=== PATIENT | female | born 1945 | race Caucasian/White ===

== ENCOUNTER 2018-03-01 15:12 | Emergency (ER) | payer MEDICARE, SELFPAY ==
[2018-03-01 15:14] VITALS: BP 163/70; PULSE 66; RESP 18; TEMP 36.5; O2SAT 99; BMI 30.3
[2018-03-01] MEDS: Lidocaine/Epi/Tetracaine 50 ML 1 APPLIC TOPICAL (15:40)
--- NOTE | 2018-03-01 16:21 | ED.VISSUMM ---
- ER Visit Summary Date of Service: 03/01/18 Chief Complaint: Finger laceration History of Present Illness: The patient is a 72 F who sustained a right little finger laceration while cleaning the garage. She did this on a cesario burn barrel. Unknown last tetanus. She is on Coumadin and is supposed to have her INR checked tomorrow. She would prefer that we not check it today and instead she will have it checked at her doctor's office tomorrow. Physical Examination: Afebrile vital signs stable The right little finger shows a 2.5 cm curvilinear laceration over the dorsal aspect in between the MCP joint and the PIP joint. Extensor tendon is visualized on gross examination. On closer examination under local lidocaine there is a longitudinal laceration to the tendon. The tendon has excellent strength still. It was taken through full range of motion. Emergency Department Course and Treatment: Tetanus was updated. Wound was locally anesthetized using let at the patient's request followed by 1% lidocaine locally. Wound was explored washed with Shur-Clens and irrigated with 250 cc of sterile saline. Wound was closed using 4 simple interrupted 4-0 Ethilon sutures. Patient will have the finger splinted in extension. I will have her follow-up with orthopedics. Impression: 1. 2.5 cm right little finger laceration with repair 2. Extensor tendon laceration 3. Tetanus update This note was generated with [employer] dictation software. It may contain incorrect words, spelling, and punctuation that were not noted in review of the chart prior to signing ED Disposition - Plan for ED Patient: Disposition: Home or Assisted Living Chief Complaint: Laceration Instructions: ED Laceration Hand, ED Laceration Tendon Prescriptions: Cephalexin [Keflex] 500 mg PO Q6 #28 cap Referrals: Selena Haney DO [STAFF PHYSICIAN] - As soon as possible
[2018-03-01] MEDS: Diphth,Pertuss(Acell),Tet Vac 0.5 ML Vial IM (16:35)
== END 2018-03-01 16:51 | disposition home or self-care (01) ==
PROVIDERS: Emergency Provider Emergency Medicine; Family Provider Internal Medicine; PCP Internal Medicine
DX: S61.216A Laceration without foreign body of right little finger without damage to nail, initial encounter (principal); S66.326A Laceration of extensor muscle, fascia and tendon of right little finger at wrist and hand level, initial encounter; W26.8XXA Contact with other sharp object(s), not elsewhere classified, initial encounter; Y93.9 Activity, unspecified; Y92.9 Unspecified place or not applicable; Z23 Encounter for immunization; Z86.73 Personal history of transient ischemic attack (TIA), and cerebral infarction without residual deficits; Z79.01 Long term (current) use of anticoagulants
CPT/HCPCS: 12001; 90471; 90715; 99284

== ENCOUNTER 2020-01-10 20:37 | Emergency (ER) | payer MEDICARE, SELFPAY ==
[2020-01-10 20:38] VITALS: BP 160/87; PULSE 67; RESP 15; TEMP 37; O2SAT 98; BMI 29.2
--- NOTE | 2020-01-10 21:02 | CT_ITS ---
STUDY: CT BRAIN WITHOUT CONTRAST REASON FOR EXAM: Female, 74 years old. Fall. RADIATION DOSAGE (If Supplied By Facility): CTDIvol = ( 44.99 ) mGy, DLP = ( 846.73 ) mGycm TECHNIQUE: Transaxial CT imaging of the brain was performed without administration of intravenous contrast material. Individualized dose optimization techniques were used for this CT. COMPARISON: None. FINDINGS: There is no acute bleed or infarct. There are normal white matter tracts. The ventricles are normal in configuration. There is no hydrocephalus. The visualized paranasal sinuses are clear. The mastoid air cells are well aerated. There is no skull fracture. CT/Brain/Head without Contrast IMPRESSION: No acute intracranial abnormality. Electronically Signed: Nilay Wetzel, at 21:42 EDT Tel , Service support ,
--- NOTE | 2020-01-10 21:03 | RAD_ITS ---
STUDY: X-RAY - RIGHT SHOULDER REASON FOR EXAM: Female, 74 years old. Pain TECHNIQUE: 2 view(s) of the shoulder. COMPARISON: None. FINDINGS: There is a mildly impacted fracture of the humeral neck. The remainder the visualized osseous structures are intact. There are no radiodense foreign bodies. RAD/Shoulder min 2 Views IMPRESSION: Mildly impacted fracture of the humeral neck. Electronically Signed: Nilay Wetzel, at 21:57 EDT Tel , Service support ,
[2020-01-10] MEDS: Ondansetron 4 MG/2 ML Vial IM (21:23)
[2020-01-10] MEDS: Morphine 4 MG/ML Syringe IM (21:24)
--- NOTE | 2020-01-10 21:35 | RAD_ITS ---
STUDY: X-RAY CHEST REASON FOR EXAM: Female, 74 years old. Chest pain TECHNIQUE: Frontal view of the chest COMPARISON: None. FINDINGS: The lungs are clear. There are no pleural effusions. There is no pneumothorax. The heart is normal in size. The patient is status post sternotomy. There is a mildly impacted fracture of the humeral head. RAD/Chest 1 View (Portable) IMPRESSION: Mildly impacted fracture of the humeral head. Clear lungs. Electronically Signed: Nilay Wetzel, at 21:56 EDT Tel , Service support ,
--- NOTE | 2020-01-10 21:47 | ED.VISSUMM ---
- ER Visit Summary Date of Service: 01/10/20 Chief Complaint: [Fall with right shoulder injury] History of Present Illness: The patient is a 74 F [presents the emergency department after sustaining a fall approximately 5 PM. Patient states that she was coming up the porch when she slipped and fell landing on her right shoulder. She is not sure if she hit her head. No loss of consciousness. Patient is on Coumadin. Patient is progressively had more more discomfort. She states the pain tends to radiate towards her neck. She denies any paresthesias or weakness in extremities. Patient is on Coumadin for history of prior stroke. Patient has had recent AAA repair and she has a replaced valve she is not sure which that is bovine.] Physical Examination: [HEENT-PERRLA, EOMI. Cranial nerves II through XII grossly intact. TMs clear. Mucous membranes moist. No adenopathy. No external evidence of trauma to her head. She has no C-spine tenderness on palpation. She has normal active range of motion is painless in her neck. Cardiovascular-regular rate and rhythm without murmur or ectopy Lungs-clear to auscultation, chest wall stable without crepitus or subcu emphysema Abdomen-normoactive bowel sounds, soft, nontender, no rebound or rigidity, no peritoneal signs. Extremities-intact ?4, normal range of motion, normal pulses. Right arm-patient has tenderness over the right proximal humerus. No obvious deformity or sulcus sign noted. She is got some mild soft tissue swelling however there is no ecchymosis or bruising. She is neurovascular intact distally.] Test Results: [CT scan of the brain without contrast showed nothing acute. X-rays of the right shoulder showed a proximal humerus fracture that impacted without evidence of dislocation. Chest x-ray showed nothing acute.] Emergency Department Course and Treatment: [Patient was given morphine sulfate 4 mg IM as well as Zofran 4 mg IM. Patient was given a sling.] Treatment Plan: [She will be given a prescription for [place] and referred to orthopedics for follow-up.] Disposition: [Discharged home in stable condition.] Impression: [Chemical fall Right proximal humerus fracture Closed head injury] This note was generated with [employer] software. It may contain incorrect words, spelling, and punctuation that were not noted in review of the chart prior to signing ED Disposition - Plan for ED Patient: Referrals: Radha Carmichael MD [Primary Care Provider] -
--- NOTE | 2020-01-10 21:49 | DCINST.ED_ITS ---
ED Disposition - Plan for ED Patient: Instructions: ED Mechanical Fall, ED Fracture Upper Extremity Prescriptions: Hydrocodone Bitart/Apap 5-325 [[place] 5MG-325MG] 1 tab PO Q4H PRN PRN 2 Days #20 tab PRN Reason: Pain Prescription Printed Referrals: Radha Carmichael MD [Primary Care Provider] - Nilay Stephens MD [STAFF PHYSICIAN] - 3-5 Days
[2020-01-10] MEDS: HYDROcodone Bitartrate/Apap 5/325 Tablet PO (22:06)
== END 2020-01-10 23:18 | disposition home or self-care (01) ==
LOC: ED 21:17
PROVIDERS: Emergency Provider Emergency Medicine; PCP Internal Medicine
DX: S42.201A Unspecified fracture of upper end of right humerus, initial encounter for closed fracture (principal); S09.90XA Unspecified injury of head, initial encounter; S49.91XA Unspecified injury of right shoulder and upper arm, initial encounter; W01.0XXA Fall on same level from slipping, tripping and stumbling without subsequent striking against object, initial encounter; Z79.01 Long term (current) use of anticoagulants; Z86.73 Personal history of transient ischemic attack (TIA), and cerebral infarction without residual deficits
CPT/HCPCS: 70450; 71045; 73030; 96372; 99283; J2405

== ENCOUNTER 2020-02-15 17:29 | Inpatient (IN) | payer MEDICARE, SELFPAY ==
[2020-02-15 17:30] VITALS: BP 141/83; PULSE 69; RESP 18; TEMP 36.2; O2SAT 100; BMI 28.5
--- NOTE | 2020-02-15 17:44 | RAD_ITS ---
STUDY: X-RAY - RIGHT SHOULDER REASON FOR EXAM: Female, 74 years old. Shoulder pain, previous fracture to right shoulder 4-5 weeks ago. TECHNIQUE: 2 view(s) of the shoulder. COMPARISON: Prior right shoulder radiographs of 09/10/2019 FINDINGS: The humerus is somewhat low lying but otherwise located to the glenoid fossa. The acromioclavicular joint is located with moderately advanced degenerative arthrosis. Normal acromion. Prior healed right humeral neck fracture deformity without acute fracture. The soft tissue structures are unremarkable. Normal visualized pulmonary apex. RAD/Shoulder min 2 Views IMPRESSION: 2 view exam of the shoulder demonstrates a somewhat low-lying humeral head that is otherwise located without acute fracture deformity. Prior healed humeral neck fracture deformity. Degenerative arthrosis of the acromioclavicular joint. Negative for clavicle or scapular fracture. Electronically Signed: Shanelle Verduzco MD at 19:05 EDT , Service support ,
--- NOTE | 2020-02-15 17:46 | ED.DCSUM_ITS ---
History of Present Illness Chief Complaint: Upper Extremity Injury Informant: Patient Onset: Today Context: Gradual Onset Timing: Continuous Current Severity: Moderate Maximum Severity: Severe Narrative: The patient is a 74-year-old female that presents to the emergency department with increasing right shoulder pain. The patient had a mechanical fall just about a month ago. She has a proximal humerus fracture. She has been in her sling. She states today, her pain was increasing. Her is currently hospitalized and she has been having to do a lot more things by herself at home. She did try to take Tylenol or Accord with little improvement. She then took another Accord and was still having increasing pain. She describes a burning pain in her upper arm. She cannot recall any specific injury. She states that she did put it in her sling herself today after getting dressed. She did not fall. She is otherwise been in her normal state of health. Prior similar symptoms: Yes Recent Illness/Hospitalization: No Past Medical History - Allergies and Home Meds Allergies/Adverse Reactions: Allergies Penicillins [PCN] Allergy (Verified 02/15/20 17:33) Hives tramadol Allergy (Verified 02/15/20 17:33) Other ciprofloxacin [From Cipro] Adverse Reaction (Verified 02/15/20 19:01) PT UNSURE OF REACTION ramelteon Adverse Reaction (Verified 02/15/20 19:01) PT UNSURE OF REACTION trazodone Adverse Reaction (Verified 02/15/20 19:01) PT UNSURE OF REACTION Primary Care Physician: Radha Carmichael MD [Primary Care Provider] - Prior records reviewed: Yes Surgical History: noncontributory Smoking Status: Never smoker Review of Systems General: Denies: Chills, Fever, Sweats Eyes: Denies: Visual changes - bilaterally, Diplopia ENT: Denies: Rhinorrhea, Sore throat Cardiovascular: Denies: Chest pain, Palpitations Respiratory: Denies: Dyspnea, Cough, Dyspnea on exertion Gastrointestinal: Denies: Abdominal pain, Nausea, Vomiting, Diarrhea, Melena, Hematochezia Genitourinary: Denies: Dysuria, Hematuria, Frequency Musculoskeletal: Denies: Back pain, Extremity Pain Skin: Denies: Rash, Wounds Neurological: Denies: Headache, Weakness, Numbness Physical Exam Vital Signs/Narrative: Vital Signs Temp Pulse Resp BP Pulse Ox 02/15/20 17:30 97.2 F L 69 18 141/83 H 100 Inital Vital Signs reviewed: Yes General: Well nourished, Well developed, No Acute Distress Head: Normocephalic, Atraumatic Eyes: Perrl, EOMI ENT: Moist mucous membranes, No rhinorrhea Neck: Supple, Nontender Cardiovascular: Regular rate, Regular rhythm, No murmurs Respiratory: No distress, CTA bilaterally, Chest nontender Abdomen: Soft, Nontender, Nondistended, Normal bowel sounds Back: Nontender, Normal Inspection Extremities: Nontender, No edema Skin: Normal color, No rash Neurological: Alert, Oriented x3, Cranial nerves II-XII grossly intact, Normal Strength, Normal Sensation Psychological: Normal affect, Normal Mood Diagnostic/Tx/Re-eval Clinical Impression(s) from Imaging Studies Shoulder X-Ray 02/15/20 17:44 IMPRESSION: 2 view exam of the shoulder demonstrates a somewhat low-lying humeral head that is otherwise located without acute fracture deformity. Prior healed humeral neck fracture deformity. Degenerative arthrosis of the acromioclavicular joint. Negative for clavicle or scapular fracture. Electronically Signed: Shanelle Verduzco MD at 19:05 EDT , Service support , Clinical Impression(s) from Imaging Studies Shoulder X-Ray 02/15/20 17:44 IMPRESSION: 2 view exam of the shoulder demonstrates a somewhat low-lying humeral head that is otherwise located without acute fracture deformity. Prior healed humeral neck fracture deformity. Degenerative arthrosis of the acromioclavicular joint. Negative for clavicle or scapular fracture. Electronically Signed: Shanelle Verduzco MD at 19:05 EDT , Service support , Abnormal Lab Results 02/15/20 02/15/20 02/15/20 17:55 17:55 17:55 WBC 6.7 RBC 4.89 Hgb 14.3 Hct 44.2 MCV 90.4 MCH 29.2 MCHC 32.4 RDW Std Deviation 40.3 RDW Coeff of Yasir 12.2 Plt Count 246 MPV 8.9 Immature Gran % (Auto) 0.300 Neut % (Auto) 74.1 H Lymph % (Auto) 16.7 L [place] % (Auto) 7.9 Eos % (Auto) 0.3 Baso % (Auto) 0.7 Absolute Neuts (auto) 5.0 Absolute Lymphs (auto) 1.12 Nucleated RBC % 0 PT 27.1 H INR 2.6 Sodium 137 Potassium 4.0 Chloride 105 Carbon Dioxide 27.0 Anion Gap 5 BUN 11 Creatinine 0.94 Estim Creat Clear Calc 43.97 Est GFR (MDRD) Af Amer 74 Est GFR (MDRD) Non-Af 62 BUN/Creatinine Ratio 11.7 Glucose 170 H Calcium 10.1 Total Bilirubin 0.70 AST 14 L ALT 16 Alkaline Phosphatase 105 Total Protein 8.1 Albumin 4.2 Globulin 3.9 Albumin/Globulin Ratio 1.1 - Rhythm Strip Rhythm Strip: A-fib Rate: 80 - Medical Decision Making The patient presents with worsening right-sided shoulder pain. Her is currently hospitalized. She is had to do everything herself. Her sling was not fitting appropriately. I did obtain x-rays which show some subluxation of the shoulder without dislocation. Metabolic work-up was unremarkable. The patient required multiple doses of analgesics and antispasmodics with no improvement. I am concerned because she lives by herself and is not able to control her pain. I do feel the most prudent plan of care would be for observation for pain control and PT evaluation. The patient was discussed with the hospitalist. Impression 1. Exacerbation of right shoulder pain ED Disposition - Plan for ED Patient: Referrals: Radha Carmichael MD [Primary Care Provider] -
[2020-02-15] MEDS: Morphine 4 MG/ML Syringe IV ×2 (18:04→23:32)
[2020-02-15] MEDS: Ondansetron 4 MG/2 ML Vial IV (18:04)
[2020-02-15 18:13] LABS: Absolute Lymphocyte Count 1.12 X10^3/uL (0.83-4.51); Basophil# 0.05 X10^3/uL; Basophil% 0.7 % (0-1); Eosinophil# 0.02 X10^3/uL; Eosinophils% 0.3 % (0-5); Hematocrit 44.2 % (37-47); Hemoglobin 14.3 g/dL (12.0-15.0); Lymphocyte # 1.12 X10^3/ul (4.0); Lymphocyte % 16.7 % (19-41); Mean Corp Hgb Conc 32.4 g/dL (32-36); Mean Corpuscular Hgb 29.2 pg (27.0-32.0); Mean Corpuscular Volume 90.4 fL (81-99); Mean Platelet Vol. 8.9 fl (6.2-12.0); Monocyte# 0.53 X10^3/uL; Monocyte% 7.9 % (0-10); NRBC Flagged by Analyzer 0 % (0-5); Neutrophil # 4.98 X10^3/uL (2.7-7.7); Neutrophil % 74.1 % (47-70); Platelet Count 246 K/mm3 (150-450); RBC Distribution Width CV 12.2 % (11.6-14.6); RBC Distribution Width SD 40.3 fl (35.1-43.9); Red Blood Count 4.89 M/mm3 (4.2-5.4); White Blood Count 6.7 K/mm3 (4.4-11.0)
[2020-02-15 18:14] VITALS: BP 193/90; PULSE 74; RESP 22; O2SAT 96
[2020-02-15 18:16] LABS: International Normalized Ratio 2.6; Prothrombin Time (Protime)PT. 27.1 SECONDS (11.7-14.9)
[2020-02-15 18:23] LABS: ALB/GLOB Ratio 1.1 RATIO (0.9-2.4); AST(SGOT) 14 U/L (15-37); Alanine Aminotransfer ALT/SGPT 16 U/L (13-56); Albumin, Serum 4.2 g/dL (3.2-5.0); Alkaline Phosphatase 105 U/L (45-117); Anion Gap 5 (5-15); BUN 11 mg/dL (7-18); BUN/Creat Ratio 11.7 RATIO (10-20); Calcium,Total 10.1 mg/dL (8.5-10.1); Chloride 105 mmol/L (98-107); Creatinine, Serum 0.94 mg/dL (0.55-1.02); EST Glomerular Filtration Rate 62 mL/min (>60); Est Glom Filt Rate - Afr Amer 74 mL/min (>60); Estimated Creatinine Clearance 43.97 ml/min; Globulin 3.9 g/dL (2.2-4.2); Glucose 170 mg/dL (74-106); Protein, Total 8.1 g/dL (6.4-8.2); Sodium Level 137 mmol/L (136-145)
[2020-02-15] MEDS: HYDROmorphone 0.5 MG/0.5 ML SYRINGE IV (18:51)
[2020-02-15] MEDS: LORazepam 2 MG/ML Syringe 0.5 MG IV (19:47)
[2020-02-15 19:50] VITALS: BP 186/109; PULSE 79; RESP 16
[2020-02-15 20:26] VITALS: BP 163/104; PULSE 78; RESP 20; TEMP 36.7; O2SAT 97
--- NOTE | 2020-02-15 20:32 | PCM.HP.STD ---
History of Present Illness Date of Admission: 02/15/20 Chief Complaint: Shoulder pain The patient is a 74 year old F with a PMH as below who presents with increasing right shoulder pain. She broke her shoulder about a month ago and has been in a sling since then. Unfortunately her was admitted for weakness and she has been home alone and therefore was not wearing her sling all day today. She did try to take some Tylenol and [place] at home but that did not help. So she presented to the hospital for increasing pain. In the ER testing was unremarkable, the shoulder x-ray did not show a worsening fracture. She is unable to take care of herself at home and her is going to be placed in a senior care. Per the daughter, she is having increasing dementia and has had a significant decline over the last 2 years. Past Medical History Allergies Penicillins [PCN] Allergy (Verified 02/15/20 17:33) Hives tramadol Allergy (Verified 02/15/20 17:33) Other ciprofloxacin [From Cipro] Adverse Reaction (Verified 02/15/20 19:01) PT UNSURE OF REACTION ramelteon Adverse Reaction (Verified 02/15/20 19:01) PT UNSURE OF REACTION trazodone Adverse Reaction (Verified 02/15/20 19:01) PT UNSURE OF REACTION Home Medications: Ambulatory Orders Medication Instructions Recorded Amlodipine [Norvasc] 5 mg PO DAILY 02/15/20 Aspirin 81 mg PO DAILY 02/15/20 Gabapentin [Neurontin] 600 mg PO QHS 02/15/20 Lisinopril [Zestril] 40 mg PO DAILY 02/15/20 Metformin HCl [Glucophage Xr] 500 mg PO DAILY 02/15/20 Metoprolol Succinate [Toprol Xl] 50 mg PO QHS 02/15/20 Multivitamin with Minerals 1 ea PO DAILY 02/15/20 [Multiple Vitamin] Polyethylene Glycol 3350 [Miralax] 17 gm PO DAILY 02/15/20 Warfarin [Coumadin ([facility])] 3 mg PO 1600 02/15/20 Surgical History: - - Aortic valve replacement, aortic aneurysm repair Smoking Status: Never smoker Alcohol: None Drugs: None - *Family History Maternal History Items: Heart Disease, Hypertension Paternal History Items: Heart Disease, Hypertension Review of Systems Constitutional: Denies: Chills, Fever, Weight Change HEENT: Denies: Head Aches, Sinus Congestion, Sinus Drainage Cardiovascular: Denies: Chest Pain, Palpitations Respiratory: Denies: Cough, Shortness of breath at rest, Sputum production Gastrointestinal: Denies: Abdominal Pain, Nausea, Vomiting Genitourinary: Denies: Dysuria Musculoskeletal: Reports: Shoulder Pain - Right. Denies: Joint Pain, Joint Tenderness Skin: Denies: Rash, Wounds Neurological: Denies: Numbness, Tingling, Focal weakness Psychiatric: Denies: Anxiety, Depression Hematologic/ Lymphatic: Denies: Easy Bruising, Easy Bleeding VTE Information - Inpt Only VTE Present on Admission: No - Physical Exam Vitals/I&O's: Vital Signs Temp Pulse Resp BP Pulse Ox 98.0 F 78 20 H 163/104 H 97 02/15/20 20:26 02/15/20 20:26 02/15/20 20:26 02/15/20 20:26 02/15/20 20:26 Oxygen Delivery Method Room Air Weight: 166 lb Body Mass Index (BMI) 28.5 General: Alert, Oriented x3, Cooperative, No apparent distress HEENT: Atraumatic, PERRLA, EOMI, Normocephalic Oral: Moist Mucosa Neck: Supple, No JVD Lungs: Clear to auscultation, Normal air movement, No rhonchi, No wheeze, No rales Cardiovascular: Regular rate, Regular Rhythm, Normal S1, Normal S2, No murmurs Abdomen: Soft, Non Tender, Non-Distended, No Hepato-splenomegaly Extremities: No edema, Capillary Refill Less than 3 Seconds Skin: No rashes, No breakdown Musculoskeletal: Tenderness - Right shoulder Neurological: Neuro grossly intact, Sensory exam intact to light touch and pain Psych/Mental Status: Normal Affect, Appropriate Laboratory Results 02/15/20 17:55: WBC 6.7, RBC 4.89, Hgb 14.3, Hct 44.2, MCV 90.4, MCH 29.2, MCHC 32.4, RDW Std Deviation 40.3, RDW Coeff of Yasir 12.2, Plt Count 246, MPV 8.9, Immature Gran % (Auto) 0.300, Neut % (Auto) 74.1 H, Lymph % (Auto) 16.7 L, [place] % (Auto) 7.9, Eos % (Auto) 0.3, Baso % (Auto) 0.7, Absolute Neuts (auto) 5.0, Absolute Lymphs (auto) 1.12, Nucleated RBC % 0 02/15/20 17:55: PT 27.1 H, INR 2.6 02/15/20 17:55: Sodium 137, Potassium 4.0, Chloride 105, Carbon Dioxide 27.0, Anion Gap 5, BUN 11, Creatinine 0.94, Estim Creat Clear Calc 43.97, Est GFR (MDRD) Af Amer 74, Est GFR (MDRD) Non-Af 62, BUN/Creatinine Ratio 11.7, Glucose 170 H, Calcium 10.1, Total Bilirubin 0.70, AST 14 L, ALT 16, Alkaline Phosphatase 105, Total Protein 8.1, Albumin 4.2, Globulin 3.9, Albumin/Globulin Ratio 1.1 Assessment/Plan 1. Right shoulder pain status post right proximal humeral fracture -Fracture occurred 4 weeks ago however because her is in the hospital she was managing at home on her own and was not wearing the sling for the last 24 hours -Shows subluxation no dislocation, and no worsening of the fracture -Continue with Tylenol and oxycodone and morphine as needed -PT/OT -Case management for possible placement 2. HTN/A. fib/history of CVA -Blood pressure is stable -Continue with Norvasc and lisinopril and metoprolol -INR is 2.6, continue with Coumadin 3. DM 2 -Hold home metformin, placed on sliding scale insulin -Accu-Cheks AC at bedtime 4. Probable dementia -Per the daughter she has not had a work-up as an outpatient -Can decline over the last 2 years DVT: Coumadin OBSV E&M: [id number] Initial observation care L2
[2020-02-15 21:03] VITALS: BP 163/76; PULSE 81; RESP 18; TEMP 36.6; O2SAT 100
[2020-02-15] MEDS: oxyCODONE 5 MG Tablet PO (21:18)
[2020-02-15] MEDS: Acetaminophen 325 MG Tablet 650 MG PO (21:18)
[2020-02-15 21:19] VITALS: BMI 28.8
[2020-02-15 21:37] VITALS: BMI 28.8
[2020-02-15 22:11] LABS: Bedside Glucose 184 mg/dL (70-110)
[2020-02-15] MEDS: Insulin Lispro 100 UNIT/ML INSULN.PEN SC (22:14)
[2020-02-15 23:16] VITALS: PULSE 80
[2020-02-15] MEDS: Gabapentin 600 MG Tablet PO (23:16)
[2020-02-15] MEDS: Metoprolol(XL)Succ 50 MG Tablet PO (23:16)
[2020-02-16 02:58] VITALS: BP 149/64; PULSE 71; RESP 18; TEMP 37.4; O2SAT 94
[2020-02-16 05:52] LABS: Absolute Lymphocyte Count 1.56 X10^3/uL (0.83-4.51); Absolute Neutrophil Count 6.9 X10^3/uL (2.0-7.7); Basophil# 0.05 X10^3/uL; Basophil% 0.5 % (0-1); Eosinophil# 0.01 X10^3/uL; Eosinophils% 0.1 % (0-5); Hematocrit 44.2 % (37-47); Lymphocyte # 1.56 X10^3/ul (4.0); Lymphocyte % 16.6 % (19-41); Mean Corp Hgb Conc 31.7 g/dL (32-36); Mean Corpuscular Hgb 29.8 pg (27.0-32.0); Mean Platelet Vol. 8.8 fl (6.2-12.0); Monocyte# 0.82 X10^3/uL; Monocyte% 8.7 % (0-10); NRBC Flagged by Analyzer 0.5 % (0-5); Neutrophil % 73.7 % (47-70); Platelet Count 236 K/mm3 (150-450); RBC Distribution Width CV 12.1 % (11.6-14.6); White Blood Count 9.4 K/mm3 (4.4-11.0)
[2020-02-16 06:02] LABS: International Normalized Ratio 2.8; Prothrombin Time (Protime)PT. 29.5 SECONDS (11.7-14.9)
[2020-02-16 06:17] LABS: Anion Gap 7 (5-15); BUN 8 mg/dL (7-18); BUN/Creat Ratio 11.3 RATIO (10-20); Calcium,Total 9.1 mg/dL (8.5-10.1); Chloride 105 mmol/L (98-107); Creatinine, Serum 0.71 mg/dL (0.55-1.02); EST Glomerular Filtration Rate 85 mL/min (>60); Est Glom Filt Rate - Afr Amer 103 mL/min (>60); Estimated Creatinine Clearance 41.33 ml/min; Glucose 123 mg/dL (74-106); Potassium 3.9 mmol/L (3.5-5.1); Sodium Level 132 mmol/L (136-145)
[2020-02-16 06:41] LABS: Bedside Glucose 126 mg/dL (70-110)
[2020-02-16] MEDS: Acetaminophen 325 MG Tablet 650 MG PO (09:45)
[2020-02-16] MEDS: oxyCODONE 5 MG Tablet PO ×2 (09:45→14:25)
[2020-02-16] MEDS: Aspirin 81 MG TAB.CHEW PO (09:46)
[2020-02-16] MEDS: amLODIPine 5 MG Tablet PO (09:46)
[2020-02-16] MEDS: Lisinopril 40 MG Tablet PO (09:46)
[2020-02-16 10:00] VITALS: BP 173/80; PULSE 80; RESP 18; TEMP 37.3; O2SAT 95
[2020-02-16] MEDS: Insulin Lispro 100 UNIT/ML INSULN.PEN SC (11:28)
[2020-02-16 11:41] LABS: Bedside Glucose 263 mg/dL (70-110)
[2020-02-16] MEDS: Morphine 4 MG/ML Syringe IV (13:23)
[2020-02-16 13:33] VITALS: BP 141/59; PULSE 67; RESP 18; O2SAT 95
--- NOTE | 2020-02-16 14:41 | PN_ITS ---
Subjective: Patient seen and examined. Complains of severe right shoulder pain. Denies other current symptoms or complaints. Agreeable to SNF at discharge as she is having a hard time taking care of herself due to injury. - Physical Exam Vitals/I&O's: Vital Signs Temp Pulse Resp BP Pulse Ox 99.2 F H 67 18 141/59 H 95 02/16/20 10:00 02/16/20 13:33 02/16/20 13:33 02/16/20 13:33 02/16/20 13:33 Oxygen Delivery Method Room Air Weight: 167 lb 8.821 oz Body Mass Index (BMI) 28.8 Intake and Output for Last 24 Hours 02/14/20 02/15/20 02/16/20 23:59 23:59 23:59 Intake Total 450 / 450 Balance 450 / 450 General: Alert, Oriented x3, Cooperative, - - Appears uncomfortable HEENT: Atraumatic, PERRLA, EOMI, Normocephalic Neck: Supple, No JVD, Negative Carotid Bruits Lungs: Clear to auscultation, Normal air movement Cardiovascular: Regular rate, No murmurs Abdomen: Bowel Sounds Present, Soft, Non Tender Extremities: No clubbing, No cyanosis, No edema, Capillary Refill Less than 3 Seconds Skin: No rashes, No breakdown Musculoskeletal: No Tenderness to Palpation of Joints or Extremities, - - Right shoulder pain, right arm in sling Neurological: Cranial nerves II-XII grossly intact, Neuro grossly intact Psych/Mental Status: Normal Affect, Appropriate Laboratory Results 02/15/20 17:55: WBC 6.7, RBC 4.89, Hgb 14.3, Hct 44.2, MCV 90.4, MCH 29.2, MCHC 32.4, RDW Std Deviation 40.3, RDW Coeff of Yasir 12.2, Plt Count 246, MPV 8.9, Immature Gran % (Auto) 0.300, Neut % (Auto) 74.1 H, Lymph % (Auto) 16.7 L, [place] % (Auto) 7.9, Eos % (Auto) 0.3, Baso % (Auto) 0.7, Absolute Neuts (auto) 5.0, Absolute Lymphs (auto) 1.12, Nucleated RBC % 0 02/15/20 17:55: PT 27.1 H, INR 2.6 02/15/20 17:55: Sodium 137, Potassium 4.0, Chloride 105, Carbon Dioxide 27.0, Anion Gap 5, BUN 11, Creatinine 0.94, Estim Creat Clear Calc 43.97, Est GFR (MDRD) Af Amer 74, Est GFR (MDRD) Non-Af 62, BUN/Creatinine Ratio 11.7, Glucose 170 H, Calcium 10.1, Total Bilirubin 0.70, AST 14 L, ALT 16, Alkaline Phosphatase 105, Total Protein 8.1, Albumin 4.2, Globulin 3.9, Albumin/Globulin Ratio 1.1 02/15/20 22:06: POC Glucose 184 H 02/16/20 05:45: WBC 9.4, RBC 4.70, Hgb 14.0, Hct 44.2, MCV 94.0, MCH 29.8, MCHC 31.7 L, RDW Std Deviation 42.0, RDW Coeff of Yasir 12.1, Plt Count 236, MPV 8.8, Immature Gran % (Auto) 0.400, Neut % (Auto) 73.7 H, Lymph % (Auto) 16.6 L, [place] % (Auto) 8.7, Eos % (Auto) 0.1, Baso % (Auto) 0.5, Absolute Neuts (auto) 6.9, Absolute Lymphs (auto) 1.56, Nucleated RBC % 0.5 02/16/20 05:45: Sodium 132 L, Potassium 3.9, Chloride 105, Carbon Dioxide 20.0 L , Anion Gap 7, BUN 8, Creatinine 0.71, Estim Creat Clear Calc 41.33, Est GFR (MDRD) Af Amer 103, Est GFR (MDRD) Non-Af 85, BUN/Creatinine Ratio 11.3, Glucose 123 H, Calcium 9.1 02/16/20 05:45: PT 29.5 H, INR 2.8 02/16/20 06:38: POC Glucose 126 H 02/16/20 11:25: POC Glucose 263 H 02/16/20 13:53: COVID-19 (JOHN) Pending Current Medications Acetaminophen (Tylenol) 650 mg PO Q6H PRN PRN PRN Reason: Pain Score 1-10/Temp > 100.7 F Last Admin: 02/16/20 09:45 Dose: 650 mg Documented by: Amlodipine Besylate (Norvasc) 5 mg PO DAILY [facility] Last Admin: 02/16/20 09:46 Dose: 5 mg Documented by: Aspirin (Aspirin, Baby) 81 mg PO DAILY@0800 [facility] Last Admin: 02/16/20 09:46 Dose: 81 mg Documented by: Dextrose (D50w Syringe) 0 gm IV X1 PRN; Protocol PRN Reason: Hypoglycemia Gabapentin (Neurontin) 600 mg PO QHS [facility] Last Admin: 02/15/20 23:16 Dose: 600 mg Documented by: Glucagon () 1 mg IM .X1 PRN PRN Reason: Hypoglycemia Insulin Human Lispro (Humalog Kwikpen (Bkc)) 0 unit SC ACHS [facility]; Protocol Last Admin: 02/16/20 11:28 Dose: 6 u Documented by: Lisinopril (Zestril) 40 mg PO DAILY [facility] Last Admin: 02/16/20 09:46 Dose: 40 mg Documented by: Melatonin (Melatonin) 3 mg PO QHS PRN PRN PRN Reason: INSOMNIA Metoprolol Succinate (Toprol Xl (Beta Eliza)) 50 mg PO QHS [facility] Last Admin: 02/15/20 23:16 Dose: 50 mg Documented by: Morphine Sulfate () 4 mg IV Q3H PRN PRN PRN Reason: Pain Score 6-10/10 Last Admin: 02/16/20 13:23 Dose: 4 mg Documented by: Ondansetron HCl (Zofran) 4 mg IV Q8H PRN PRN PRN Reason: NAUSEA/VOMITING Oxycodone HCl (Oxyir) 5 mg PO Q4H PRN PRN PRN Reason: Pain Score 4-10/10 Last Admin: 02/16/20 14:25 Dose: 5 mg Documented by: Sodium Chloride () 10 - 40 ml IV UD PRN PRN Reason: SALINE FLUSH Warfarin Sodium (Jantoven) 3 mg PO DAILY@1700 [facility] Medical Necessity - Tobacco Use Smoking Status: Never smoker Assessment/Plan 1. Intractable right shoulder pain with debility secondary to recent traumatic right proximal humeral fracture-related to mechanical fall. Patient reports pain had been tolerable however her was recently admitted to the hospital and she had been attempting to take care of herself which caused increased pain. She is scheduled to follow-up with Dr. Stephens this week. She is agreeable to short-term rehab. PT/OT. PRN pain regimen. 2. History of CVA-continue aspirin. Not on statin. 3. Hypertension-stable, continue lisinopril, metoprolol, amlodipine. 4. Type 2 diabetes mellitus-hold oral regimen. Accu-Cheks with sliding scale insulin. 5. Atrial fibrillation-on anticoagulation with Coumadin. Continue metoprolol. 6. Probable dementia-Per daughter. Has not undergone formal evaluation. DVT prophylaxis-Coumadin Discharge planning: Placement pending facility choice and acceptance. This patient was seen by BERKLEY Fitzgerald under the supervision of Dr. Nunez.
[2020-02-16 14:55] LABS: Probe Check PASS; Specimen Processing Control PASS
[2020-02-16] MEDS: Acetaminophen 500 MG Tablet 1000 MG PO ×2 (15:58→21:58)
[2020-02-16] MEDS: oxyCODONE HCl Cr 10 MG Tablet PO ×2 (15:58→21:58)
[2020-02-16] MEDS: Lidocaine 5% Patch 1 PATCH TOPICAL (15:59)
[2020-02-16 16:12] VITALS: BP 149/62; PULSE 58; RESP 18; TEMP 36.8; O2SAT 96
[2020-02-16 17:00] LABS: Bedside Glucose 118 mg/dL (70-110)
[2020-02-16 21:50] VITALS: BP 156/63; PULSE 57; RESP 18; TEMP 36.8; O2SAT 96
[2020-02-16 21:58] VITALS: PULSE 58
[2020-02-16] MEDS: Gabapentin 300 MG Capsule PO (21:58)
[2020-02-16] MEDS: Metoprolol(XL)Succ 50 MG Tablet PO (21:58)
[2020-02-16 22:06] LABS: Bedside Glucose 123 mg/dL (70-110)
[2020-02-17 03:50] VITALS: BP 142/78; PULSE 55; RESP 18; TEMP 36.6; O2SAT 94
[2020-02-17 06:12] LABS: Prothrombin Time (Protime)PT. 35.5 SECONDS (11.7-14.9)
[2020-02-17 06:14] LABS: International Normalized Ratio 3.6
[2020-02-17] MEDS: Acetaminophen 500 MG Tablet 1000 MG PO ×3 (06:22→21:26)
[2020-02-17 06:31] LABS: Bedside Glucose 114 mg/dL (70-110)
[2020-02-17 07:45] VITALS: BP 155/62; PULSE 51; RESP 16; TEMP 36.7; O2SAT 99
[2020-02-17] MEDS: oxyCODONE 5 MG Tablet PO (07:53)
[2020-02-17] MEDS: metFORMIN (XR) 500 MG Tablet PO (07:55)
[2020-02-17] MEDS: Aspirin 81 MG TAB.CHEW PO (07:55)
[2020-02-17] MEDS: oxyCODONE HCl Cr 10 MG Tablet PO ×2 (10:08→21:30)
[2020-02-17] MEDS: Lisinopril 20 MG Tablet PO (10:09)
[2020-02-17] MEDS: amLODIPine 5 MG Tablet PO (10:09)
[2020-02-17] MEDS: Polyethylene Glycol 3350 17 GM PACKET PO (10:10)
[2020-02-17] MEDS: Lidocaine 5% Patch 1 PATCH TOPICAL (10:10)
--- NOTE | 2020-02-17 11:00 | MRI_ITS ---
STUDY: MRI RIGHT SHOULDER REASON FOR EXAM: Severe pain and limited range of motion, fall with known fracture, evaluate rotator cuff tear. TECHNIQUE: Standardized fat and water weighted pulse sequences were obtained in all 3 orthogonal planes. COMPARISON: Radiographs 01/10/2020 and 02/15/2020. FINDINGS: There is a full-thickness tear of the supraspinatus and infraspinatus tendons retracted approximately 4.8 cm to the level of the glenoid (T2 coronal images 5-15). Normal subscapularis tendon. Normal teres minor tendon. There is edema in the muscles of the rotator cuff. There is atrophy of the muscles of the rotator cuff with partial fat replacement (T2 axial images 9-17). There is a glenohumeral joint effusion. There is superior migration of the humeral head secondary to the retracted rotator cuff tear. There is a healing impacted fracture of the surgical neck of the humerus with residual bone edema (T2 coronal images 9-12). There is a tear with nonvisualization of the intracapsular long biceps tendon. There is no demonstrated labral tear. Normal capsulo- ligamentous complex. There is acromioclavicular arthrosis with hypertrophic changes (T2 sagittal image 5). There is a Type II morphology (curved), with a neutral orientation. There is subacromial-subdeltoid bursal fluid. There is thickening of the coracoacromial ligament (T2 sagittal image 9). Normal deltoid muscle. Normal trapezius muscle. MRI/Upper Ext Joint Only(Routine) IMPRESSION: Full-thickness tear of the supraspinatus and infraspinatus tendons. Edema and atrophy of the muscles of the rotator cuff. Tear of the long biceps tendon. Healing impacted fracture of the surgical neck of the humerus with bone edema. Acromioclavicular arthrosis. Thickening of the coracoacromial ligament. Glenohumeral joint fluid communicating with the subacromial-subdeltoid bursa. Electronically Signed: Adriano Brian MD at 13:39 EDT Tel , Service support ,
[2020-02-17 11:10] LABS: Bedside Glucose 119 mg/dL (70-110)
--- NOTE | 2020-02-17 11:10 | CASEMGMT ---
Social Work Note MEGAN updated that pt's daughter is hoping to get pt to [facility] as pt's is currently at [facility] and is [facility]. MEGAN spoke with Chelsea at [facility], Chelsea has no beds available at this time. SW in to speak with pt and pt's daughter Fatmata is at [facility]. MEGAN introduced self and role at [facility]. Pt is alert and orientated x3. MEGAN updated Fatmata and pt [facility]. MEGAN provided Fatmata with list of additional SNF that accept pt's insurance. Fatmata reviewed list with pt. Fatmata mentioned possibly [facility], [facility], [facility], or [facility] and then asked this worker to call Alanna, pt's daughter to see which SNF she is wanting for pt. Fatmata states pt's will likely need chcf while pt will only need a week or so of therapy and then discharge home. MEGAN updated Fatmata that pt may also get denied SNF as pt is moving fairly well with therapy. Fatmata states pt had open heart surgery in the past and it was recommended for pt to go to rehab and insurance denied her then so they are aware that pt may get denied. Pt states she is fine going anywhere that her is going to and whatever insurance will pay. MEGAN explained pre-cert process to pt. SW to call pt's daughter to inquire about SNF choices for him. MEGAN also called [facility] to inquire about bed availability. Plan: SNF pending acceptance and pre-cert Paige Antonio AIRCRAFT BODY REPAIRER, CHEMICAL PROCESS EQUIPMENT OPERATOR
[2020-02-17] MEDS: 0.9% Saline Lock 10 ML Syringe IV ×3 (11:53→23:30)
[2020-02-17] MEDS: dexAMETHasone 4 MG/ML Vial IV ×3 (11:53→23:30)
--- NOTE | 2020-02-17 11:56 | CASEMGMT ---
Social Work Note MEGAN received message from Leticia in TCU stating TCU does have beds available. SW in to speak with pt and Fatmata. MEGAN updated pt and Fatmata that pt's is going to different SNF that doesn't accept pt's insurance. MEGAN reviewed list with pt. Pt agreeable to [facility]. MEGAN explained 14 days isolation for pt regardless of SNF that she goes to so even if she were to go to same SNF as her she wouldn't be able to see him for 14 days. Pt states understanding, again states if agreeable to [facility] as the plan is for short term therapy and then return home. MEGAN placed a call to Leticia in TCU and provided referral. Leticia states she will submit for pre-cert. Plan: TCU pending pre-cert Paige Antonio HAND FOLDER, HEAD AUTOMATIC SAWYER
--- NOTE | 2020-02-17 13:35 | PN_ITS ---
Subjective: Patient seen and examined. Reports some improvement in right shoulder pain. No new symptoms or complaints. Right shoulder MRI pending. - Physical Exam Vitals/I&O's: Vital Signs Temp Pulse Resp BP Pulse Ox 98.0 F 51 L 16 155/62 H 99 02/17/20 07:45 02/17/20 07:45 02/17/20 07:45 02/17/20 07:45 02/17/20 07:45 Oxygen Delivery Method Room Air Weight: 167 lb 8.821 oz Body Mass Index (BMI) 28.8 Intake and Output for Last 24 Hours 02/15/20 02/16/20 02/17/20 23:59 23:59 23:59 Intake Total 690 / 690 Balance 690 / 690 General: Alert, Oriented x3, Cooperative HEENT: Atraumatic, PERRLA, EOMI, Normocephalic Neck: Supple, No JVD, Negative Carotid Bruits Lungs: Clear to auscultation, Normal air movement Cardiovascular: Regular rate, No murmurs Abdomen: Bowel Sounds Present, Soft, Non Tender, Non-Distended Extremities: No clubbing, No cyanosis, No edema, Capillary Refill Less than 3 Seconds Skin: No rashes, No breakdown Musculoskeletal: No Tenderness to Palpation of Joints or Extremities, - - Right shoulder pain, right arm in sling Neurological: Cranial nerves II-XII grossly intact, Neuro grossly intact Psych/Mental Status: Normal Affect, Appropriate Laboratory Results 02/16/20 13:53: COVID-19 (JOHN) Negative 02/16/20 16:57: POC Glucose 118 H 02/16/20 21:56: POC Glucose 123 H 02/17/20 05:44: PT 35.5 H, INR 3.6 H* 02/17/20 06:25: POC Glucose 114 H 02/17/20 11:02: POC Glucose 119 H Current Medications Acetaminophen (Tylenol) 1,000 mg PO Q8 [facility] Last Admin: 02/17/20 06:22 Dose: 1,000 mg Documented by: Amlodipine Besylate (Norvasc) 5 mg PO DAILY [facility] Last Admin: 02/17/20 10:09 Dose: 5 mg Documented by: Aspirin (Aspirin, Baby) 81 mg PO DAILY@0800 [facility] Last Admin: 02/17/20 07:55 Dose: 81 mg Documented by: Cholecalciferol (Vitamin D (25mcg)) 1,000 unit PO DAILY [facility] Last Admin: 02/17/20 10:09 Dose: 1,000 unit Documented by: Dexamethasone Sodium Phosphate (Decadron) 4 mg IV Q6 [facility] Last Admin: 02/17/20 11:53 Dose: 4 mg Documented by: Dextrose (D50w Syringe) 0 gm IV X1 PRN; Protocol PRN Reason: Hypoglycemia Gabapentin (Neurontin) 300 mg PO QHS [facility] Last Admin: 02/16/20 21:58 Dose: 300 mg Documented by: Glucagon () 1 mg IM .X1 PRN PRN Reason: Hypoglycemia Insulin Human Lispro (Humalog Kwikpen (Bkc)) 0 unit SC ACHS [facility]; Protocol Last Admin: 02/17/20 11:03 Dose: Not Given Documented by: Lidocaine (Lidoderm Patch) 1 patch TOPICAL DAILY [facility]; Protocol Last Admin: 02/17/20 10:10 Dose: 1 patch Documented by: Lisinopril (Zestril) 20 mg PO DAILY [facility] Last Admin: 02/17/20 10:09 Dose: 20 mg Documented by: Melatonin (Melatonin) 3 mg PO QHS PRN PRN PRN Reason: INSOMNIA [facility] Admin: 02/17/20 07:55 Dose: 500 mg Documented by: Metoprolol Succinate (Toprol Xl (Beta Eliza)) 50 mg PO QHS [facility] Last Admin: 02/16/20 21:58 Dose: 50 mg Documented by: Morphine Sulfate () 4 mg IV Q3H PRN PRN PRN Reason: Pain Score 6-10/10 Last Admin: 02/16/20 13:23 Dose: 4 mg Documented by: Ondansetron HCl (Zofran) 4 mg IV Q8H PRN PRN PRN Reason: NAUSEA/VOMITING Oxycodone HCl (Oxyir) 5 mg PO Q4H PRN PRN PRN Reason: Pain Score 4-10/10 Last Admin: 02/17/20 07:53 Dose: 5 mg Documented by: Oxycodone HCl (Oxycontin) 10 mg PO BID [facility] Last Admin: 02/17/20 10:08 Dose: 10 mg Documented by: Polyethylene Glycol (Miralax) 17 gm PO DAILY [facility] Last Admin: 02/17/20 10:10 Dose: 17 gm Documented by: Sodium Chloride () 10 - 40 ml IV UD PRN PRN Reason: SALINE FLUSH Last Admin: 02/17/20 11:53 Dose: 10 ml Documented by: Medical Necessity - Tobacco Use Smoking Status: Never smoker Assessment/Plan 1. Intractable right shoulder pain with debility secondary to recent traumatic right proximal humeral fracture-related to mechanical fall. Patient reports pain had been tolerable however her was recently admitted to the hospital and she had been attempting to take care of herself which caused increased pain. She is scheduled to follow-up with Dr. Stephens this week. PT/OT. PRN pain regimen. Discussed with Ortho. Will obtain MRI of right shoulder. Initiated on Decadron. 2. History of CVA-continue aspirin. Not on statin. 3. Hypertension-stable, continue lisinopril, metoprolol, amlodipine. 4. Type 2 diabetes mellitus-hold oral regimen. Accu-Cheks with sliding scale insulin. 5. Atrial fibrillation-on anticoagulation with Coumadin. Continue metoprolol. Hold Coumadin given supratherapeutic INR. 6. Probable dementia-Per daughter. Has not undergone formal evaluation. DVT prophylaxis-Coumadin Discharge planning: Possible SNF placement versus home with home health. This patient was seen by BERKLEY Fitzgerald under the supervision of Dr. Nunez.
[2020-02-17 14:02] VITALS: BP 128/69; PULSE 68; RESP 16; TEMP 36.8; O2SAT 95
[2020-02-17] MEDS: Insulin Lispro 100 UNIT/ML INSULN.PEN SC ×2 (16:12→21:34)
[2020-02-17 16:26] LABS: Bedside Glucose 217 mg/dL (70-110)
[2020-02-17 21:21] VITALS: BP 120/70; PULSE 75; RESP 16; TEMP 36.9; O2SAT 94
[2020-02-17] MEDS: Gabapentin 300 MG Capsule PO (21:25)
[2020-02-17 21:26] VITALS: BP 120/70; PULSE 75
[2020-02-17] MEDS: Metoprolol(XL)Succ 50 MG Tablet PO (21:26)
[2020-02-17] MEDS: MELATONIN 3 MG TABLET PO (21:30)
[2020-02-17 21:42] VITALS: PULSE 75; RESP 16; O2SAT 94
[2020-02-17 21:45] LABS: Bedside Glucose 252 mg/dL (70-110)
[2020-02-18 03:55] VITALS: BP 127/64; PULSE 53; RESP 16; TEMP 36.4; O2SAT 95
[2020-02-18] MEDS: oxyCODONE 5 MG Tablet PO (04:08)
[2020-02-18 04:11] VITALS: PULSE 53
[2020-02-18] MEDS: Acetaminophen 500 MG Tablet 1000 MG PO ×3 (05:57→21:51)
[2020-02-18] MEDS: dexAMETHasone 4 MG/ML Vial IV ×3 (05:58→17:45)
[2020-02-18] MEDS: 0.9% Saline Lock 10 ML Syringe IV ×3 (05:58→17:45)
[2020-02-18 06:21] LABS: Prothrombin Time (Protime)PT. 37.1 SECONDS (11.7-14.9)
[2020-02-18 06:24] LABS: International Normalized Ratio 3.8
[2020-02-18] MEDS: Insulin Lispro 100 UNIT/ML INSULN.PEN SC ×4 (06:56→21:52)
[2020-02-18 07:00] LABS: Bedside Glucose 164 mg/dL (70-110)
[2020-02-18 07:47] VITALS: BP 125/60; PULSE 54; RESP 18; TEMP 36.5; O2SAT 99
[2020-02-18] MEDS: Aspirin 81 MG TAB.CHEW PO (07:50)
[2020-02-18] MEDS: metFORMIN (XR) 500 MG Tablet PO (07:50)
[2020-02-18] MEDS: Lisinopril 20 MG Tablet PO (07:50)
[2020-02-18] MEDS: Lidocaine 5% Patch 1 PATCH TOPICAL (07:50)
[2020-02-18] MEDS: Polyethylene Glycol 3350 17 GM PACKET PO (07:50)
[2020-02-18] MEDS: amLODIPine 5 MG Tablet PO (07:50)
[2020-02-18] MEDS: oxyCODONE HCl Cr 10 MG Tablet PO (10:50)
[2020-02-18 11:05] LABS: Bedside Glucose 222 mg/dL (70-110)
--- NOTE | 2020-02-18 12:40 | PCM.PROGNOTE ---
Subjective: Patient seen and examined. Reports improvement in right shoulder pain. Awaiting acceptance from SNF. - Physical Exam Vitals/I&O's: Vital Signs Temp Pulse Resp BP Pulse Ox 97.7 F L 54 L 18 125/60 H 99 02/18/20 07:47 02/18/20 07:47 02/18/20 07:47 02/18/20 07:47 02/18/20 07:47 Oxygen Delivery Method Room Air Weight: 167 lb 8.821 oz Body Mass Index (BMI) 28.8 Intake and Output for Last 24 Hours 02/16/20 02/17/20 02/18/20 23:59 23:59 23:59 Intake Total 690 / 690 100 / 100 560 / 560 Balance 690 / 690 100 / 100 560 / 560 General: Alert, Oriented x3, Cooperative HEENT: Atraumatic, PERRLA, EOMI, Normocephalic Neck: Supple, No JVD, Negative Carotid Bruits Lungs: Clear to auscultation, Normal air movement Cardiovascular: Regular rate, No murmurs Abdomen: Bowel Sounds Present, Soft, Non Tender, Non-Distended Extremities: No clubbing, No cyanosis, No edema Skin: No rashes, No breakdown Musculoskeletal: No Tenderness to Palpation of Joints or Extremities, - - Right shoulder pain, improved. Right arm in sling. Neurological: Cranial nerves II-XII grossly intact, Neuro grossly intact Psych/Mental Status: Normal Affect, Appropriate Laboratory Results 02/17/20 16:10: POC Glucose 217 H 02/17/20 21:33: POC Glucose 252 H 02/18/20 05:47: PT 37.1 H, INR 3.8 H* 02/18/20 06:53: POC Glucose 164 H 02/18/20 10:53: POC Glucose 222 H Current Medications Acetaminophen (Tylenol) 1,000 mg PO Q8 [facility] Last Admin: 02/18/20 05:57 Dose: 1,000 mg Documented by: Amlodipine Besylate (Norvasc) 5 mg PO DAILY [facility] Last Admin: 02/18/20 07:50 Dose: 5 mg Documented by: Aspirin (Aspirin, Baby) 81 mg PO DAILY@0800 [facility] Last Admin: 02/18/20 07:50 Dose: 81 mg Documented by: Cholecalciferol (Vitamin D (25mcg)) 1,000 unit PO DAILY [facility] Last Admin: 02/18/20 07:50 Dose: 1,000 unit Documented by: Dexamethasone Sodium Phosphate (Decadron) 4 mg IV Q6 [facility] Last Admin: 02/18/20 11:00 Dose: 4 mg Documented by: Dextrose (D50w Syringe) 0 gm IV X1 PRN; Protocol PRN Reason: Hypoglycemia Gabapentin (Neurontin) 300 mg PO QHS [facility] Last Admin: 02/17/20 21:25 Dose: 300 mg Documented by: Glucagon () 1 mg IM .X1 PRN PRN Reason: Hypoglycemia Insulin Human Lispro (Humalog Kwikpen (Bkc)) 0 unit SC ACHS [facility]; Protocol Last Admin: 02/18/20 10:54 Dose: 4 u Documented by: Lidocaine (Lidoderm Patch) 1 patch TOPICAL DAILY [facility]; Protocol Last Admin: 02/18/20 07:50 Dose: 1 patch Documented by: Lisinopril (Zestril) 20 mg PO DAILY [facility] Last Admin: 02/18/20 07:50 Dose: 20 mg Documented by: Melatonin (Melatonin) 3 mg PO QHS PRN PRN PRN Reason: INSOMNIA Last Admin: 02/17/20 21:30 Dose: 3 mg Documented by: Met[facility]) [facility] Last Admin: 02/18/20 07:50 Dose: 500 mg Documented by: Metoprolol Succinate (Toprol Xl (Beta Eliza)) 50 mg PO QHS [facility] Last Admin: 02/17/20 21:26 Dose: 50 mg Documented by: Morphine Sulfate () 4 mg IV Q3H PRN PRN PRN Reason: Pain Score 6-10/10 Last Admin: 02/16/20 13:23 Dose: 4 mg Documented by: Ondansetron HCl (Zofran) 4 mg IV Q8H PRN PRN PRN Reason: NAUSEA/VOMITING Oxycodone HCl (Oxyir) 5 mg PO Q4H PRN PRN PRN Reason: Pain Score 4-10/10 Last Admin: 02/18/20 04:08 Dose: 5 mg Documented by: Oxycodone HCl (Oxycontin) 10 mg PO BID [facility] Last Admin: 02/18/20 10:50 Dose: 10 mg Documented by: Polyethylene Glycol (Miralax) 17 gm PO DAILY [facility] Last Admin: 02/18/20 07:50 Dose: 17 gm Documented by: Sodium Chloride () 10 - 40 ml IV UD PRN PRN Reason: SALINE FLUSH Last Admin: 02/18/20 11:03 Dose: 10 ml Documented by: Medical Necessity - Tobacco Use Smoking Status: Never smoker Assessment/Plan 1. Intractable right shoulder pain with debility secondary to recent traumatic right proximal humeral fracture-related to mechanical fall. MRI of right shoulder shows full-thickness tears of the supraspinatus and infraspinatus tendons. Healing impacted fracture of the surgical neck of the humerus with bone edema. Tear of the long biceps tendon. Edema and atrophy of the muscles of the rotator cuff. She will follow-up with Dr. Stephens as outpatient for complete shoulder replacement in 3 to 4 weeks. PT/OT. PRN pain regimen. Continue Decadron. Awaiting acceptance to SNF. 2. History of CVA-continue aspirin. Not on statin. 3. Hypertension-stable, continue lisinopril, metoprolol, amlodipine. 4. Type 2 diabetes mellitus-hold oral regimen. Accu-Cheks with sliding scale insulin. 5. Atrial fibrillation-on anticoagulation with Coumadin. Continue metoprolol. Hold Coumadin given supratherapeutic INR. 6. Probable dementia-Per daughter. Has not undergone formal evaluation. DVT prophylaxis-Coumadin Discharge planning: Possible SNF placement versus home with home health. Awaiting acceptance from SNF. This patient was seen by BERKLEY Fitzgerald under the supervision of Dr. Nunez.
--- NOTE | 2020-02-18 13:49 | CASEMGMT ---
Social Work Note MEGAN received message from Leticia in TCU stating Jose has intent to deny and requesting peer to peer. Peer to peer number [phone] reference number [id number]. MEGAN updated physician. Peer to peer not being completed. MEGAN in to speak with pt and Fatmata updated both on denial. Pt and Fatmata agreeable to pt returning to [facility]'s home at discharge. OT in the room at this time and states pt will not need therapy at this time, maybe after pt has surgery for shoulder in a few weeks. Pt and Fatmata agree that at this time pt doesn't need therapy. Pt and Fatmata confirm that plan is home at discharge. MEGAN placed a call to Leticia in TCU and left message that pt will be going home. Paige Antonio LINE MAINTENANCE SUPERVISOR, FRAMER
[2020-02-18 14:46] VITALS: BP 130/74; PULSE 75; RESP 18; TEMP 36.8; O2SAT 97
[2020-02-18 16:45] LABS: Bedside Glucose 166 mg/dL (70-110)
[2020-02-18] MEDS: Fleet Enema 1 ML RECTAL (17:45)
[2020-02-18 19:55] VITALS: BP 149/62; PULSE 65; RESP 18; TEMP 36.6; O2SAT 100
[2020-02-18 19:58] VITALS: PULSE 65
[2020-02-18] MEDS: Metoprolol(XL)Succ 50 MG Tablet PO (19:58)
[2020-02-18] MEDS: Gabapentin 300 MG Capsule PO (19:59)
[2020-02-18] MEDS: oxyCODONE CR 15 MG Tablet PO (21:52)
[2020-02-18 22:05] LABS: Bedside Glucose 183 mg/dL (70-110)
[2020-02-19] MEDS: 0.9% Saline Lock 10 ML Syringe IV ×3 (00:43→12:20)
[2020-02-19] MEDS: dexAMETHasone 4 MG/ML Vial IV ×3 (00:43→12:20)
[2020-02-19 00:50] VITALS: BP 136/66; PULSE 54; RESP 18; TEMP 36.6; O2SAT 97
[2020-02-19 06:12] LABS: International Normalized Ratio 2.8; Prothrombin Time (Protime)PT. 28.9 SECONDS (11.7-14.9)
[2020-02-19 06:18] VITALS: BP 156/60; PULSE 57; RESP 18; TEMP 36.8; O2SAT 98
[2020-02-19] MEDS: Acetaminophen 500 MG Tablet 1000 MG PO (06:21)
[2020-02-19] MEDS: Insulin Lispro 100 UNIT/ML INSULN.PEN SC ×2 (06:26→12:19)
[2020-02-19 06:45] LABS: Bedside Glucose 165 mg/dL (70-110)
[2020-02-19] MEDS: Aspirin 81 MG TAB.CHEW PO (09:00)
[2020-02-19] MEDS: metFORMIN (XR) 500 MG Tablet PO (09:00)
[2020-02-19 09:01] VITALS: BP 133/53; PULSE 67; RESP 18; TEMP 36.5; O2SAT 97
[2020-02-19] MEDS: Lidocaine 5% Patch 1 PATCH TOPICAL (09:10)
[2020-02-19] MEDS: Polyethylene Glycol 3350 17 GM PACKET PO (09:10)
[2020-02-19] MEDS: amLODIPine 5 MG Tablet PO (09:11)
[2020-02-19] MEDS: Lisinopril 20 MG Tablet PO (09:11)
[2020-02-19] MEDS: oxyCODONE CR 15 MG Tablet PO (09:20)
--- NOTE | 2020-02-19 12:13 | PCM.DC ---
You will use the following diet at home:: Calorie/Carbohydrate Controlled (specify 1200, 1400, etc) - 1800 chiquis diet Your food should be the consistency of: Regular Your liquids should be the consistency of: Regular/Thin Discharge Activity: Return to Normal Activity, May Not Drive Weight Bearing Status: Full weight bearing Allergies/Adverse Reactions: Allergies Penicillins [PCN] Allergy (Verified 02/15/20 17:33) Hives tramadol Allergy (Verified 02/15/20 17:33) Other ciprofloxacin [From Cipro] Adverse Reaction (Verified 02/15/20 19:01) PT UNSURE OF REACTION ramelteon Adverse Reaction (Verified 02/15/20 19:01) PT UNSURE OF REACTION trazodone Adverse Reaction (Verified 02/15/20 19:01) PT UNSURE OF REACTION Medications to take at Discharge Amlodipine [Norvasc] 5 mg PO DAILY 02/15/20 Aspirin 81 mg PO DAILY 02/15/20 Lisinopril [Zestril] 20 mg PO DAILY 02/15/20 Metformin HCl [Glucophage Xr] 500 mg PO DAILY 02/15/20 Metoprolol Succinate [Toprol Xl] 50 mg PO QHS 02/15/20 Multivitamin with Minerals [Multiple Vitamin] 1 ea PO DAILY 02/15/20 Polyethylene Glycol 3350 [Miralax] 17 gm PO DAILY 02/15/20 Calcium Carb/D3/Magnesium/Zinc [Frnytdu-Qle-Lwke-Vit D Tablet] 1 ea PO DAILY 02/16/20 Cholecalciferol (Vitamin D3) [Vitamin D3] 400 unit PO DAILY 02/16/20 Warfarin [Coumadin] 2 mg PO MOTUWETHSA 02/16/20 Warfarin [Coumadin] 4 mg PO SUFR 02/16/20 Acetaminophen [Tylenol] 1,000 mg PO Q8 tablet 02/19/20 Gabapentin [Neurontin] 300 mg PO QHS capsule 02/19/20 Oxycodone CR [Oxycontin] 15 mg PO BID 14 Days #30 tablet 02/19/20 Oxycodone [Oxyir] 5 mg PO Q4H PRN PRN 7 Days #40 tablet 02/19/20 The following prescriptions were given: Oxycodone CR [Oxycontin] 15 mg PO BID 14 Days #30 tablet Transmission Status: Sent to [facility] Oxycodone [Oxyir] 5 mg PO Q4H PRN PRN 7 Days #40 tablet PRN Reason: Pain Score 4-10/10 Transmission Status: Sent to [facility] Primary Care Physician: Radha Carmichael MD [Primary Care Provider] - Please follow up with your Primary Care Physician in: in 2-3 weeks Test Results: Test results from this visit will be discussed in further detail at your follow-up appointment, if applicable. Please Follow Up With: Nilay Stephens MD When: as scheduled
[2020-02-19 12:29] VITALS: BP 136/64; PULSE 56; RESP 16; TEMP 36.6; O2SAT 97
[2020-02-19 12:46] LABS: Bedside Glucose 162 mg/dL (70-110)
--- NOTE | 2020-02-19 13:32 | CASEMGMT ---
Social Work Note Per wood furniture assembler questions, pt has completed HCPOA and LW, but haven't provided copy to [facility] and is able to bring in copy. Paige Antonio BURGLAR ALARM INSPECTOR, MARKET EDITOR
--- NOTE | 2020-02-19 18:46 | DS.PCM_ITS ---
Discharge Date and Diagnosis Date of Admission: 02/15/20 Date of Discharge: 02/19/20 - Primary Discharge Diagnosis Acute Problems: 1. Intractable right shoulder pain with debility secondary to recent traumatic right proximal humeral fracture-related to mechanical fall along with complete tear of the rotator cuff in the right shoulder 2. History of CVA 3. Essential hypertension 4. Type 2 diabetes mellitus 5. Paroxysmal atrial fibrillation 6. Possible cognitive impairment/dementia #7 complete rotator cuff tear right shoulder involving right supraspinatus and infraspinatus tendons #8 tear of the long biceps tendon Hospital Course and Treatment Operations: None Summary of Care Provided: The patient is a 74 year old F seen in the emergency room at [facility] after she was brought in due to the fact she was unable to care for self at home due to severe right shoulder pain. Patient had a recent right humerus fracture approximately 3 to 4 weeks ago. She is being treated medically for this fracture and there is not surgery planned for repair of this fracture. Patient has been on outpatient pain medication (Vicodin) and has been wearing an arm brace, she is also been taking Tylenol but this did not help her in her ADLs. Labs were obtained in the emergency room that were abnormal for a glucose of 170, CBC was unremarkable, INR was 2.6, and patient had a shoulder x-ray which showed degenerative arthrosis of the acromioclavicular joint and a prior healed humeral neck fracture deformity. Patient was admitted to [place] [address], she received IV pain medications and oral pain medications were adjusted. She was seen by PT and OT, MRI of the shoulder was performed which showed complete tears of the rotator cuff of the right shoulder. There was also a right biceps tendon tear. Approval was sought for the patient to go for short-term rehab services in a fdc facility, her insurance did not approve this. It was felt that the patient should go home and the patient's daughter would be her main caregiver at the patient's home. At the time of discharge on 02/19/2020, patient was seen and examined: On examination she appeared in good health and spirits, she does not appear to be in any distress. Vital signs as documented. Skin warm and dry and without overt rashes. Neck without JVD, thyroid appears normal, trachea is midline, neck is supple. Lungs clear, normal air movement was noted. Heart exam notable for regular rhythm, normal sounds and absence of murmurs, rubs or gallops. Abdomen unremarkable and without evidence of organomegaly, masses, or abdominal aortic enlargement, bowel sounds are present in all 4 quadrants, no abdominal tenderness was noted. Extremities nonedematous, no cyanosis was noted, no clubbing was noted. Neuro: Cranial nerves II through XII are grossly intact, no focal motor deficits were noted, sensation to light touch and pinprick is intact, motor exam 5/5 throughout. Psych: Patient is alert and oriented x3, she does not appear anxious or depressed, she does not appear agitated. Patient's medications were adjusted at the time of discharge, initially patient was placed on time release OxyContin at the time of discharge but when she went to roller picker this medication it was very expensive and the medication was changed to immediate release OxyIR-she originally received a prescription for #40 OxyIR 5 mg to use as needed pain, I then call in a prescription for #60 OxyIR 5 mg, I instructed the daughter to give the patient to 3-4 times a day in a continuous manner to approximate the effects of time release OxyContin. I told the daughter to adjust the pain medication as needed for the patient, I had discussions with Dr. Stephens who is seeing the patient as an outpatient, he will see the patient next week and talk to her about having a complete shoulder replacement in the right shoulder. The surgery would likely occur in the next 3 to 4 weeks, Dr. Stephens stated that he wanted the patient's right shoulder to cool down he recommended the patient be placed on corticosteroids during her hospital stay and she was given IV Decadron. On discharge she was placed on a short course of p.o. prednisone. Patient appeared stable for discharge home on 02/19/2020. - Physical Exam Vitals/I&O's: Vital Signs Temp Pulse Resp BP Pulse Ox 97.9 F 56 L 16 136/64 H 97 02/19/20 12:29 02/19/20 12:29 02/19/20 12:29 02/19/20 12:02/19/20 12:29 Oxygen Delivery Method Room Air Weight: 76 kg Body Mass Index (BMI) 28.8 Intake and Output for Last 24 Hours 02/17/20 02/18/20 02/19/20 23:59 23:59 23:59 Intake Total 100 / 100 920 / 1220 850 / 850 Balance 100 / 100 920 / 1220 850 / 850 Laboratory Results 02/18/20 21:50: POC Glucose 183 H 02/19/20 05:25: PT 28.9 H, INR 2.8 02/19/20 06:26: POC Glucose 165 H 02/19/20 12:14: POC Glucose 162 H Discharge Activity: Return to Normal Activity, May Not Drive Weight Bearing Status: Full weight bearing Home Medications: Medications to take at Discharge Amlodipine [Norvasc] 5 mg PO DAILY 02/15/20 Aspirin 81 mg PO DAILY 02/15/20 Lisinopril [Zestril] 20 mg PO DAILY 02/15/20 Metformin HCl [Glucophage Xr] 500 mg PO DAILY 02/15/20 Metoprolol Succinate [Toprol Xl] 50 mg PO QHS 02/15/20 Multivitamin with Minerals [Multiple Vitamin] 1 ea PO DAILY 02/15/20 Polyethylene Glycol 3350 [Miralax] 17 gm PO DAILY 02/15/20 Calcium Carb/D3/Magnesium/Zinc [Gwmugvu-Squ-Kagj-Vit D Tablet] 1 ea PO DAILY 02/16/20 Cholecalciferol (Vitamin D3) [Vitamin D3] 400 unit PO DAILY 02/16/20 Warfarin [Coumadin] 2 mg PO MOTUWETHSA 02/16/20 Warfarin [Coumadin] 4 mg PO SUFR 02/16/20 Acetaminophen [Tylenol] 1,000 mg PO Q8 tab 02/19/20 Gabapentin [Neurontin] 300 mg PO QHS cap 02/19/20 Oxycodone CR [Oxycontin] 10 mg PO TID 14 Days #42 tab 02/19/20 Oxycodone CR [Oxycontin] 15 mg PO BID 14 Days #30 tab 02/19/20 Oxycodone [Oxyir] 5 mg PO Q4H PRN PRN 7 Days #40 tab 02/19/20 Oxycodone [Oxyir] 10 mg PO Q6H PRN PRN 8 Days #60 tab 02/19/20 Following Prescriptions Were Given to Patient: Oxycodone CR [Oxycontin] 10 mg PO TID 14 Days #42 tab Transmission Status: Received by [id number] Oxycodone CR [Oxycontin] 15 mg PO BID 14 Days #30 tab Transmission Status: Received by [facility] Oxycodone [Oxyir] 5 mg PO Q4H PRN PRN 7 Days #40 tab PRN Reason: Pain Score 4-10/10 Transmission Status: Received by [facility] Oxycodone [Oxyir] 10 mg PO Q6H PRN PRN 8 Days #60 tab PRN Reason: Pain Score 1-10/10 Transmission Status: Received by [facility] #[id number] Primary Care Physician: Radha Carmichael MD [Primary Care Provider] - Please follow up with your Primary Care Physician in: in 2-3 weeks Please Follow Up With: Nilay Stephens MD When: as scheduled Disposition: Home Minutes spent on discharge:: 32 Patient Condition:: Stable Medical Necessity - Tobacco Use Smoking Status: Never smoker Meaningful Use Info Meaningful Use Diagnoses (Choose all that apply): None applicable Inpatient E&M: 46716 Disch Hosp
--- NOTE | 2020-02-20 12:54 | CASEMGMT ---
Addendum entered by Prabhu Spencer 02/20/20 12:59: Correction: discharge date 02/19/20 (not 03/20/20) Original Note: DAMION CM Discharge Follow-Up Phone Call. Lace: 10 Strata: 3 Discharge Date: 03/20/20 Adm Dx: Shoulder pain Attempted discharge f/u phone call. No answer. VM msg left for pt to return call if she has any questions/concerns/needs. DAMION PALMER phone number provided. Doug CENTENO RN CM
== END 2020-02-19 13:43 | disposition home or self-care (01) | DRG 558 ==
LOC: ED 18:17 → MS3 20:33
PROVIDERS: Admitting Provider Family Medicine; Emergency Provider Emergency Medicine; PCP Internal Medicine; Visit Provider Internal Medicine
DX: M75.101 Unspecified rotator cuff tear or rupture of right shoulder, not specified as traumatic (principal); S42.213A Unspecified displaced fracture of surgical neck of unspecified humerus, initial encounter for closed fracture; S46.211A Strain of muscle, fascia and tendon of other parts of biceps, right arm, initial encounter; I10 Essential (primary) hypertension; I48.0 Paroxysmal atrial fibrillation; E11.9 Type 2 diabetes mellitus without complications; F03.90 Unspecified dementia, unspecified severity, without behavioral disturbance, psychotic disturbance, mood disturbance, and anxiety; M19.019 Primary osteoarthritis, unspecified shoulder; R53.81 Other malaise; Z96.619 Presence of unspecified artificial shoulder joint; Z79.01 Long term (current) use of anticoagulants; Z79.82 Long term (current) use of aspirin; Z79.84 Long term (current) use of oral hypoglycemic drugs; Z86.73 Personal history of transient ischemic attack (TIA), and cerebral infarction without residual deficits; Z95.2 Presence of prosthetic heart valve; Z79.899 Other long term (current) drug therapy; Z23 Encounter for immunization
CPT/HCPCS: 36415; 73030; 73221; 80048; 80053; 82962; 85025; 85610; 87635; 97110; 97116; 97162; 97165; 97530; 97535; 99285; G0008; 90686; A4216; J2405; U0003

== ENCOUNTER 2020-04-29 08:09 | Inpatient (IN) | payer MEDICARE, SELFPAY ==
--- NOTE | 2020-03-26 11:13 | HP.PCM_ITS ---
History and Physical History and Physical [facility] Patient Name: Carmella Durbin : 1945 From: SARAH KAUFMAN PA-C DATE OF SURGERY: 04/08/2020 SCHEDULED PROCEDURE: right reverse total shoulder arthroplasty HISTORY OF PRESENT ILLNESS: Preoperative history and physical exam was performed on March 25, 2020. This is a 74-year-old female who is been having ongoing pain in her right shoulder since her injury. Injury occurred in December 2019. Patient at that time tripped and fell landing on her right side. She sustained a fracture to the right proximal humerus. Patient was treated conservatively by Dr. Nilay Stephens. Patient's pain has continued to increase since her time of injury. She has also still trying to take care of her with Parkinson's. He has recently been placed in a intermediate/care facility. Patient was also recently admitted to the hospital for her right shoulder pain. She has been using Garrett for pain control. She currently denies any numbness and tingling. After failing conservative measures and discussing treatment options with Dr. Nilay Stephens, the patient does wish to proceed with a right reverse total shoulder arthroplasty. Patient has a medical history pertinent for previous stroke in 1994 in which she did initially have some weakness with speech impairment and visual impairment. She states this has resolved. Patient did have a TIA with the right eye in 1998. Since her stroke she has been using the warfarin. This is managed by her primary care physician Dr. Carmichael. Patient has also had aortic valve replacement in 2019. 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 Odell at the [facility]. Patient is getting surgical clearance from the supervisor erection shop and primary care physician. We appreciate input on perioperative management of patient's warfarin. REVIEW OF SYSTEMS: ROS: Const: Denies anorexia, change in appetite, fever, difficulty sleeping, weight change. CV: Denies chest pain, heart murmur, irregular heartbeat and peripheral vascular disease. Resp: Denies asthma, cough, pneumonia, sleep apnea, shortness of breath, tuberculosis and wheezing. GI: Reports constipation, but denies diarrhea, heartburn, nausea, rectal itching, bloody stools and vomiting. : Denies incontinence. Musculo: Denies leg swelling, pain, trouble walking and weakness. Skin: Denies Raynaud's, history of shingles and tattoo. Neuro: Denies ambulatory dysfunction, dizziness, numbness/tingling and tremor. Psych: Denies anxiety, depression, insomnia, mental illness and stress. Jann/Lymph: Reports bleeding/bruising tendency, but denies anemia and past transfusion. Reviewed, no changes. PAST MEDICAL HISTORY: Advance Care Plan: No Advance Directives Effective Date: 01/13/2020 PMH: Medical Problems: High Blood Pressure, Stroke, TIA Diabetes - PRE Accidents: Fracture - (11/13/2009) RT WRIST FX RT Shulder FX - (01/10/2020) Surgical Hx: Hysterectomy - (1953) [facility] Microdiscetomy Level 1 - (01/15/2010) [facility] @ [facility] Tubal Ligation, D&C Open Heart - (12/06/2018) RT Shoulder Tear - (09/2018) Anesthesia Complications: Can Not Have Novacaine Assistive Devices: Glasses, Upper & Lower Partials Reviewed and updated. SOCIAL HISTORY: SH: Marital: .Occupation: Retired.Work Status: Retired.Hand Dominance: Right- handed. Personal Habits: Cigarette Use: Never.Smokeless Tobacco: Never Used Smokeless Tobacco.E-Cigarette Use: Never used.Alcohol: Denies use.Drug Use: Denies Use.Enjoy Exercising: Exercises 1-3 X/Week. Reviewed, no changes. VITALS: Ht: 63 Wt: 170lb Wt k.112 BMI: 30.1 BP: 124/64 Pulse: 68 Resp: 16 T: 97.5 T: 36.4C ALLERGIES: Penicillin Tramadol Cipro Trazodone Ramelteon MEDICATIONS: Warfarin Sodium 2 mg 1 by mouth every day, Aspirin Adult 325 mg 1 by mouth every day, Lisinopril 20 mg 1 by mouth every day, Amlodipine Besylate 2.5 mg 1 by mouth every day, Metformin HCL 500 mg 1 by mouth every day, Gabapentin 300 mg 1 by mouth three times a day, Miralax 17 gm 1 packet twice a day, Multivitamin 1 by mouth every day, Metoprolol Succinate ER 25 mg 1 by mouth every day, Oxycodone HCL 5 mg 1-2 by mouth every 6 hours, Warfarin Sodium 4 mg as directed, Vitamin D3 400 Unit 1po qday, Calcium/Magnesium/Zinc/Vitamin D3 Vit D3 1po qday, Acetaminophen 500 mg 1-2po bid PRE-OP EXAM: General appearance:NORMAL Other: Eyes: Conjunctivae and lids: NORMAL Pupils: ERR Ears, Nose, Mouth, and Throat: NORMAL Other: Inspection of lips, teeth and gums: NORMAL Other: Neck: Examination of neck: no masses noted. Respiratory: Assessment of respiratory effort: NORMAL Other: Auscultation of lungs: clear to auscultation no wheezes, rhonchi or rales. Cardiovascular: Auscultation of heart: regular rate and rhythm, positive systolic murmur. Exam of carotid arteries: NORMAL Other: Gastrointestinal: Exam of abdomen: soft, nontender, nondistended bowel sounds present. PHYSICAL EXAMINATION: Patient's right shoulder is cool to touch without erythema or signs of infection. She continues to complain of pain surrounding the anterior/lateral/posterior right shoulder. She is right-hand dominant. Active abduction only 40, external rotation neutral, internal rotation to her gluteus. Sensation is intact to axillary, radial, median, ulnar nerve distribution. Motor intact with patient able to make okay sign, cross fingers, and thumbs up. IMAGING STUDIES: X-rays of the right shoulder reveal well aligned 2 part valgus impacted proximal humerus fracture. There is superior migration of the humeral head consistent with chronic rotator cuff tear. IMPRESSION: 1. Continued right shoulder pain with previous valgus impacted proximal humerus fracture with chronic rotator cuff tear 2. Previous stroke/TIA: Currently on warfarin 3. History of aortic valve replacement 4. Prediabetic 5. Hypertension PLAN: Dr. Nilay Stephens did discuss and review with the patient all treatment options including surgical versus nonsurgical options. Patient does wish to proceed with the above-stated procedure. Potential risks, benefits, and complications of the procedure were discussed in detail including but not limited to , infection, nerve and blood vessel damage, persistent pain, numbness, tingling, paresthesias, blood clot, pulmonary embolism, and requirement for possible further surgery. The patient expressed full understanding and has no further qu estions for the doctor. Patient does agree to proceed with the above-stated procedure and has signed the surgery consent form. We discussed the current risks associated with COVID 19. This does include the risk of exposure while in the hospital. Patient was reassured local hospitals have low infection rates and are taking all necessary precautions to avoid exposure to patients. In addition, we discussed strategies that can be used to help limit exposure including those that limit the patient's time in the hospital. Also using strategies to limit the patient's need for continued inpatient services after being discharged from the hospital. Patient was notified that we will need to comply with any screening or testing the hospital wishes to perform or that surgery may be delayed for any positive results. This dictation was created using voice recognition software. Phonetic and/or grammatical errors may exist. ___ I have re-examined the patient. There are no clinical changes since date of exam. ___ See progress notes for changes. ___ Dictated on admission Date: Time: Signature:
--- NOTE | 2020-03-31 10:05 | EKG12_ITS ---
Test Reason : PRE OP Blood Pressure : / mmHG Vent. Rate : 061 BPM Atrial Rate : 061 BPM P-R Int : 134 ms QRS Dur : 070 ms QT Int : 440 ms P-R-T Axes : 066 033 074 degrees QTc Int : 442 ms Normal sinus rhythm Normal ECG Confirmed by KAREN PHAM, KANDACE ([id number]), news video editor THANIA DELA CRUZ ([id number]) on 04/01/2020 8:56:38 AM Referred By: SABINE Confirmed By:KANDACE JONES MD
[2020-03-31 10:15] LABS: Absolute Lymphocyte Count 1.58 X10^3/uL (0.83-4.51); Absolute Neutrophil Count 3.9 X10^3/uL (2.0-7.7); Basophil# 0.15 X10^3/uL; Basophil% 2.1 % (0-1); Eosinophil# 0.18 X10^3/uL; Eosinophils% 2.6 % (0-5); Hematocrit 42.4 % (37-47); Hemoglobin 13.7 g/dL (12.0-15.0); Lymphocyte # 1.58 X10^3/ul (4.0); Lymphocyte % 22.6 % (19-41); Mean Corp Hgb Conc 32.3 g/dL (32-36); Mean Corpuscular Volume 92.8 fL (81-99); Mean Platelet Vol. 9.1 fl (6.2-12.0); Monocyte# 1.09 X10^3/uL; Monocyte% 15.6 % (0-10); NRBC Flagged by Analyzer 0 % (0-5); Neutrophil # 3.94 X10^3/uL (2.7-7.7); Neutrophil % 56.2 % (47-70); Platelet Count 293 K/mm3 (150-450); RBC Distribution Width CV 12.5 % (11.6-14.6); RBC Distribution Width SD 42.3 fl (35.1-43.9); Red Blood Count 4.57 M/mm3 (4.2-5.4)
[2020-03-31 10:41] LABS: Anion Gap 3 (5-15); BUN 19 mg/dL (7-18); BUN/Creat Ratio 18.1 RATIO (10-20); Calcium,Total 9.6 mg/dL (8.5-10.1); Chloride 109 mmol/L (98-107); Creatinine, Serum 1.05 mg/dL (0.55-1.02); EST Glomerular Filtration Rate 54 mL/min (>60); Est Glom Filt Rate - Afr Amer 65 mL/min (>60); Glucose 140 mg/dL (74-106); Potassium 4.1 mmol/L (3.5-5.1); Sodium Level 140 mmol/L (136-145)
[2020-03-31 10:50] LABS: Hemoglobin A1c 6.3 % (3.8-5.6)
--- NOTE | 2020-04-22 21:58 | PCM.HP.BLA ---
History and Physical History and Physical [facility] Patient Name: Carmella Durbin : 1945 From: SARAH KAUFMAN PA-C DATE OF SURGERY: 04/29/2020 SCHEDULED PROCEDURE: right reverse total shoulder arthroplasty HISTORY OF PRESENT ILLNESS: Preoperative history and physical exam was performed on April 22, 2020. This is a 74-year-old female who has been having ongoing pain in her right shoulder since her injury in December 2019. At that time patient tripped falling on her right side. She sustained a proximal humerus fracture. She was initially scheduled to undergo right reverse total shoulder arthroplasty but needed to be canceled due to be in positive for COVID 19. Patient quarantine for 14 days and she is currently now asymptomatic. We are obtaining surgical clearance from the primary care physician Dr. Carmichael. We'll also obtain surgical clearance from the lens blank gauger Dr. Odell. Patient has continued to have pain in the right shoulder. She is still trying to take care of her with Parkinson's. She denies any numbness and tingling. After discussion with Dr. Nilay Stephens, the patient does wish to proceed with a right reverse total shoulder arthroplasty. Patient does have a medical history pertinent for previous stroke in 1994 in which she did initially have weakness with speech impairment and visual impairment. She states those symptoms have resolved. She had a TIA with the right eye in 1998. Since her stroke she has been on Coumadin. This is currently managed by her primary care physician Dr. Carmichael. She has also had an aortic valve replacement in 2019. She is allowed to stop her Coumadin 5 days prior to surgery. This will be resumed postoperatively. Patient currently denies any chest pain, shortness of breath, fevers chills, or recent infections. REVIEW OF SYSTEMS: ROS: Const: Denies anorexia, change in appetite, fever, difficulty sleeping, weight change. CV: Denies chest pain, heart murmur, irregular heartbeat and peripheral vascular disease. Resp: Denies asthma, cough, pneumonia, sleep apnea, shortness of breath, tuberculosis and wheezing. GI: Reports constipation, but denies diarrhea, heartburn, nausea, rectal itching, bloody stools and vomiting. : Denies incontinence. Musculo: Denies leg swelling, pain, trouble walking and weakness. Skin: Denies Raynaud's, history of shingles and tattoo. Neuro: Denies ambulatory dysfunction, dizziness, numbness/tingling and tremor. Psych: Denies anxiety, depression, insomnia, mental illness and stress. Jann/Lymph: Reports bleeding/bruising tendency, but denies anemia and past transfusion. Reviewed, no changes. PAST MEDICAL HISTORY: Advance Care Plan: No Advance Directives Effective Date: 01/13/2020 PMH: Medical Problems: High Blood Pressure, Stroke, TIA Diabetes - II PRE Accidents: Fracture - (11/13/2009) RT WRIST FX RT Shulder FX - (01/10/2020) Surgical Hx: Hysterectomy - (1953) [facility] Microdiscetomy Level 1 - (01/15/2010) [facility] @ [facility] Tubal Ligation, D&C Open Heart - (12/06/2018) Anesthesia Complications: None Assistive Devices: Glasses, Upper & Lower Partials Reviewed and updated. SOCIAL HISTORY: SH: Marital: .Occupation: Retired.Work Status: Retired.Hand Dominance: Right-handed. Personal Habits: Cigarette Use: Never.Smokeless Tobacco: Never Used Smokeless Tobacco.E-Cigarette Use: Never used.Alcohol: Denies use.Drug Use: Denies Use.Enjoy Exercising: Exercises 1-3 X/Week. Reviewed, no changes. VITALS: Ht: 63 Wt: 162lb Wt k.483 BMI: 28.7 BP: 118/70 Pulse: 68 Resp: 22 T: 96.6 T: 35.9C Pain Level: 0 ALLERGIES: Penicillin Tramadol Cipro Trazodone Ramelteon MEDICATIONS: Warfarin Sodium 2 mg as directed, Lisinopril 20 mg 1 by mouth every day, Amlodipine Besylate 2.5 mg 1 by mouth every day, Metformin HCL 500 mg 1 by mouth every day, Gabapentin 300 mg 1 by mouth three times a day, Miralax 17 gm 1 packet twice a day, Multivitamin 1 by mouth every day, Metoprolol Succinate ER 25 mg 1 by mouth every day, Warfarin Sodium 4 mg as directed, Vitamin D3 400 Unit 1po qday, Calcium/Magnesium/Zinc/Vitamin D3 Vit D3 1po qday, Acetaminophen 500 mg 1-2po bid, Aspirin 81 81 mg 1 pill day by mouth, Aricept 5 mg 1 PO qhs PRE-OP EXAM: General appearance:NORMAL Other: Eyes: Conjunctivae and lids: NORMAL Pupils: ERR Ears, Nose, Mouth, and Throat: NORMAL Other: Inspection of lips, teeth and gums: NORMAL Other: Neck: Examination of neck: no masses noted. Respiratory: Assessment of respiratory effort: NORMAL Other: Auscultation of lungs: clear to auscultation no wheezes, rhonchi or rales. Cardiovascular: Auscultation of heart: regular rate and rhythm, no murmurs, gallops or rubs. Exam of carotid arteries: NORMAL Other: Gastrointestinal: Exam of abdomen: soft, nontender, nondistended bowel sounds present. PHYSICAL EXAMINATION: Patient presents with use of a sling. Right shoulder is cool to touch without erythema. There is continued tenderness to palpation and pain over the right lateral shoulder. She is right-hand dominant. Active abduction 40, external rotation neutral, internal rotation to gluteus. Sensation intact to light touch axillary, radial, median, ulnar nerve distribution. Motor intact with patient able to make okay sign, cross fingers, and thumbs up. IMAGING STUDIES: Previous x-rays of the right shoulder reveals 2 part valgus impacted proximal humerus fracture with superior migration of the humeral head consistent with chronic rotator cuff tear. IMPRESSION: 1. Right shoulder pain with previous valgus impacted proximal humerus fracture with chronic rotator cuff tear 2. Previous stroke/TIA: Currently on warfarin 3. History of aortic valve replacement 4. Prediabetic 5. Hypertension PLAN: Dr. Nilay Stephens did discuss and review with the patient all treatment options including surgical versus nonsurgical options. Patient does wish to proceed with the above-stated procedure. Potential risks, benefits, and complications of the procedure were discussed in detail including but not limited to , infection, nerve and blood vessel damage, persistent pain, numbness, tingling, paresthesias, blood clot, pulmonary embolism, and requirement for possible further surgery. The patient expressed full understanding and has no further questions for the doctor. Patient does agree to proceed with the above-stated procedure and has signed the surgery consent form. We discussed the current risks associated with COVID 19. This does include the risk of exposure while in the hospital. Patient was reassured local hospitals have low infection rates and are taking all necessary precautions to avoid exposure to patients. In addition, we discussed strategies that can be used to help limit exposure including those that limit the patient's time in the hospital. Also using strategies to limit the patient's need for continued inpatient services after being discharged from the hospital. Patient was notified that we will need to comply with any screening or testing the hospital wishes to perform or that surgery may be delayed for any positive results. This dictation was created using voice recognition software. Phonetic and/or grammatical errors may exist. ___ I have re-examined the patient. There are no clinical changes since date of exam. ___ See progress notes for changes. ___ Dictated on admission Date: Time: Signature:
[2020-04-29] VITALS (20 sets, daily range): BP systolic 93–139; BP diastolic 41–90; PULSE 60–85; RESP 12–18; TEMP 36.2–36.9; O2SAT 91–100; BMI 28.7
[2020-04-29 08:36] LABS: Prothrombin Time Fingerstick 15.6 SEC (11.9-14.4)
[2020-04-29] MEDS: Lactated Ringers 1,000 ML 999 ML IV ×2 (08:55→12:36)
[2020-04-29] MEDS: Celecoxib 200 MG Capsule 400 MG PO (09:05)
[2020-04-29] MEDS: Acetaminophen 500 MG Tablet 1000 MG PO ×2 (09:05→21:09)
[2020-04-29] MEDS: Gabapentin 600 MG Tablet PO (09:06)
[2020-04-29 09:55] LABS: Bedside Glucose 120 mg/dL (70-110)
[2020-04-29] MEDS: Cefazolin 2 GM in 0.9% Normal Saline 100 ML IV (10:30)
[2020-04-29] MEDS: dexAMETHasone 10 MG/ML Vial IV (11:05)
--- NOTE | 2020-04-29 11:58 | OP.PCM_ITS ---
Report of Operation Date of Procedure: 04/29/20 Pre-Operative Diagnosis: Right shoulder cuff tear arthropathy. Right shoulder malunion proximal humerus fracture Post-Operative Diagnosis: Right shoulder cuff tear arthropathy. Right shoulder malunion proximal humerus fracture Surgery/Procedure Performed:: Right reverse total shoulder replacement Description of Surgical Findings:: Stable shoulder communication signals intelligence: Althea Timmons Type of Anesthesia:: General Anesthesiologist: Jonathan Chapman Special Medications: AncefRuss Specimen's removed: Bony cuts Estimated Blood Loss (mL): 250 Fluids Replaced: 450 mL crystalloid Description of Procedure: Components used 1. Donn reunion glenoid baseplate 2. Donn reunion 32 mm, 2mm Glenosphere 3. Donn reunion 32mm, 4mm humeral liner 4. Donn reunion reverse TSA humeral adapter tray 4mm 5. [place] reunion humeral stem primary press-fit 13mm size Brief history/Operative indications: 74 yo F with history of R shoulder pain and cuff tear arthropathy and proximal humeral malunion. Patient failed conservative measures as mentioned in the H&P. After discussion of risk and benefits of reverse total shoulder replacement including but not limited to blood loss, DVTs, PEs, nerve vessel damage, infection, general risk of anesthesia including loss of life, instability and stiffness patient demonstrating understanding wish to proceed was able to sign informed consent. Medical clearance was obtained. Procedure: On the date of the procedure, patient's R upper extremity was marked in the preoperative area. Patient was taken back to the operating room where they were placed on the table in the supine position. Anesthesia assumed control of the C-spine and airway, then administered anesthetic. All bony prominences were identified well-padded, the head was secured and the patient was placed in the beachchair position at about 35? inclination. Anesthesia remained in control of the C-spine airway throughout the remainder of the procedure. Patient was then appropriately fastened to the table and the R upper extremity was prepped in a sterile fashion. The surgeons then scrubbed. Upon reentering the room, the R upper extremity was draped in a sterile fashion and the incision was marked out. Timeout was called, everyone agreed upon the side, the site, the procedure to be performed, patient identity and antibiotics given. Incision was taken down through skin and subcutaneous tissue, fat down to fascia. The stripe of the deltopectoral interval and cephalic vein were identified and blunt dissection was used to retract the deltoid. The cephalic vein was retracted laterally. Clavipectoral fascia was then incised and a cobra retractor was placed in the wound. The proximal one third of the pectoralis major insertion was released. Pectoralis tendon insertion was used to tenodesed the biceps tendon which was identified in the bicipital groove. Tenodesis was done with #1 Vicryl. Proximally we followed the biceps tendon after transecting it into the rotator interval. The rotator interval was split and the arm was externally rotated. The split was 1 cm medial to the bicipital groove. Subscapularis tendon was released. We released down the anterior portion of the humeral head and a hightower elevator was used to release the inferior portion of the humeral head. The arm was externally rotated and the shoulder was dislocated. The humeral head was then cut at its natural retroversion. Once his humeral head cut was made humerus was retracted out of the way and the glenoid was exposed. After exposing the glenoid, the labrum and the remaining proximal biceps were debrided. At this time we are able to view the entire outer edge of the glenoid. A central pin was placed we sequentially reamed over this central pin to 28mm. Once this was completed the central screw was measured and found to be. The glenoid baseplate was screwed into place. Wound was closely irrigated out with normal saline we then drilled sequentially for 2 screws. Scr ews were placed superiorly and inferiorly and tightened down the screws. Once the screws were appropriately tightened into place the glenoid baseplate was compressed against the exposed subchondral bone. A 32mm glenosphere was impacted into place engaging the Neil taper. Attention was then turned towards the humerus. The humerus was again externally rotated exposing the proximal portion of the humerus. Central canal finder was then used to open up the canal. We reamed to a 13mm reamer. We then broached to a 13mm stem. We trialed the 4mm liner, with the 4mm humeral baseplate. We obtained an adequate reduction at this time with a nice stable shoulder. Good internal rotation to the gluteus, forward elevation to 140?, external rotation to 20?. Final components were then assembled on the back table, trials were removed and the wound was copiously irrigated with normal saline after dislocating the shoulder. Once the final components were assembled they were impacted into place. Shoulder was then reduced and found to be stable with good range of motion. Subscapularis tendon was repaired using #2 FiberWire. The wound was with chlorhexidine solution then copiously irrigated out with a 1 L normal saline lavage. The deltopectoral fascia was then closed using #1 Vicryl skin was closed using 2-0 Vicryl interrupted sutures and final skin closure was done with 3-0 Monocryl. Steri-Strips are placed for final skin closure. Sterile dressing was placed patient was then placed in a sling and awakened by anesthesia. Patient was then transferred to the PACU for recovery. Postoperative plan: Patient will be admitted to the hospital overnight. They will get physical therapy starting in 2 weeks with normal postoperative regimen. Patient will be placed on 325 MG aspirin daily for DVT prophylaxis. The first postoperative appointment will be in 2 weeks for wound check and initiation of phase 1 physical therapy. - Complications No intraoperative complications - Admit VTE Documentation VTE Present on Admission: No VTE Mechan Device Prophylaxis: SCD's, Thigh High ANILA Hose VTE Pharm Prophylaxis ordered?: Yes
--- NOTE | 2020-04-29 12:49 | RAD_ITS ---
STUDY: X-RAY - RIGHT SHOULDER REASON FOR EXAM: Female, 74 years old. POST OP TECHNIQUE: 2 view(s) of the shoulder. COMPARISON: Comparison is made with prior study dated 02/15/2020. FINDINGS: The patient is status post right reverse shoulder replacement. There is good alignment. RAD/Shoulder min 2 Views IMPRESSION: Status post right reverse shoulder replacement. There is good alignment. Electronically Signed: Dax Dean, at 13:12 EST , Service support ,
[2020-04-29 13:31] LABS: Bedside Glucose 175 mg/dL (70-110)
[2020-04-29 16:50] LABS: Bedside Glucose 195 mg/dL (70-110)
[2020-04-29] MEDS: Lactated Ringers 1,000 ML 125 ML IV (16:51)
[2020-04-29] MEDS: Ensure Surgery 237 ML LIQUID PO (16:51)
[2020-04-29] MEDS: Jantoven 2 MG Tablet PO (16:52)
--- NOTE | 2020-04-29 17:36 | PN_ITS ---
Reason for Visit: Consult for medical management status post right reverse total shoulder arthroplasty: Subjective: 74-year-old female with past medical history of hypertension, bioprosthetic aortic valve replacement, history of TIA/CVA who injured her right shoulder when she tripped and fell in December 2019. She sustained a fracture to the right proximal humerus with right cuff tear arthropathy. She was treated conservatively. Patient was admitted for elective right shoulder surgery. Patient denies any pain. She denied any fever chills or chest pain or dizziness. She feels comfortable. Vitals/I&O's: Vital Signs Temp Pulse Resp BP Pulse Ox 97.9 F 76 18 102/58 L 98 04/29/20 16:16 04/29/20 16:16 04/29/20 16:16 04/29/20 16:16 04/29/20 16:16 Oxygen Flow Rate (L/min) 2 Oxygen Delivery Method Nasal Cannula Weight: 74.8 kg Body Mass Index (BMI) 28.7 Finger Stick Blood Glucose 175 Intake and Output for Last 24 Hours 04/27/20 04/28/20 04/29/20 23:59 23:59 23:59 Intake Total 2489.5 / 2489.5 Balance 2489.5 / 2489.5 General: Alert, Oriented x3, Cooperative, No apparent distress, - - 2 L of oxygen HEENT: Atraumatic, PERRLA, EOMI, Normocephalic Oral: Moist Mucosa Neck: Supple Lungs: Clear to auscultation, Normal air movement Cardiovascular: Regular rate, Regular Rhythm, Normal S1, Normal S2, No murmurs Abdomen: Bowel Sounds Present, Soft, Non Tender, Non-Distended, No Hepato- splenomegaly Extremities: No edema Skin: No rashes, No breakdown Musculoskeletal: Tenderness - Over the right shoulder, right shoulder in sling Lymphatic: No Cervical, Supraclavicular, or Inguinal Adenopathy Neurological: Cranial nerves II-XII grossly intact, Neuro grossly intact Psych/Mental Status: Normal Affect, Appropriate Laboratory Results 04/29/20 08:30: POC PT 15.6 H, INR 1.30 04/29/20 09:10: POC Glucose 120 H 04/29/20 13:21: POC Glucose 175 H 04/29/20 16:45: POC Glucose 195 H Current Medications Acetaminophen (Acetaminophen 500 Mg Tablet) 1,000 mg PO Q8 [facility] Amlodipine Besylate (Amlodipine 5 Mg Tablet) 5 mg PO DAILY [facility] Aspirin (Aspirin 81 Mg Tab.Chew) 81 mg PO DAILY@0800 [facility] Cholecalciferol (Cholecalciferol (Vit D3) 1,000 Unit (25mcg)) [facility] Enteral Nutritional Formula (Ensure Surgery 237 Ml Liquid) 237 ml PO TIDCM [facility] Last Admin: 04/29/20 16:51 Dose: 237 ml Documented by: Famotidine (Famotidine 20 Mg Tablet) 20 mg PO DAILY [facility] Gabapentin (Gabapentin 300 Mg Capsule) 300 mg PO QHS [facility] Lactated Ringer's () 1,000 mls @ 75 mls/hr IV .[id number] [facility] Stop: 04/29/20 20:19 Last Admin: 04/29/20 07:00 Dose: Not Given Documented by: Lactated Ringer's () 1,000 mls @ 90 mls/hr IV .[id number] [facility] Last Admin: 04/29/20 16:51 Dose: Not Given Documented by: Cefazolin Sodium () 1 gm in 50 mls @ 150 mls/hr IV Q8H [facility] Stop: 04/30/20 02:49 Sodium Chloride () 250 mls @ 15 mls/hr IV .[id number] PRN PRN Reason: Saline Flush Sodium Chloride () 250 mls @ 15 mls/hr IV .[id number] PRN PRN Reason: Additional IVPB Infusion Influenza Virus Vaccine Quadrival (Influenza Vaccine (6mos+)/Pf 0.5 Ml Syringe) 0.5 ml IM .ONCE ONE Stop: 04/30/20 10:01 Insulin Human Lispro (Insulin Lispro 100 Unit/Ml Insuln.Pen) 1 - 6 unit SC Q4H PRN PRN; Protocol PRN Reason: BG>/= 180, SEE PROTOCOL Stop: 04/29/20 18:00 Ketorolac Tromethamine (Ketorolac 15 Mg/Ml Vial) 15 mg IV Q6H PRN PRN PRN Reason: Pain Score 1-5 Stop: 05/01/20 10:36 Lisinopril (Lisinopril 20 Mg Tablet) 20 mg PO DAILY [facility] Metformin HCl (Metformin (Xr) 500 Mg Tablet) [facility] Metoprolol Succinate (Metoprolol(Xl)Succ 25 Mg Tablet) 25 mg PO QHS [facility] Morphine Sulfate (Morphine 2 Mg/Ml Syringe) 2 - 4 mg IV Q2H PRN PRN PRN Reason: Pain Score 6-10 Morphine Sulfate (Morphine 4 Mg/Ml Syringe) 2 - 4 mg IV Q2H PRN PRN PRN Reason: Pain Score 6-10 Ondansetron HCl (Ondansetron 4 Mg/2 Ml Vial) 4 mg IV Q8H PRN PRN PRN Reason: NAUSEA Oxycodone HCl (Oxycodone 5 Mg Tablet) 5 - 10 mg PO Q4H PRN PRN PRN Reason: Pain Score 4-10 Polyethylene Glycol (Polyethylene Glycol 3350 17 Gm Packet) 17 gm PO QODAY [facility] Promethazine HCl (Promethazine 25 Mg/Ml Syringe) 12.5 mg IM Q6H PRN PRN; Protocol PRN Reason: NAUSEA/VOMITING Senna/Docusate Sodium (Senna/Docusate Sodium 1 Tablet) 2 tablet PO BID [facility] Sodium Chloride (0.9% Nacl Peripheral Flush Adult/Peds) 5 - 15 ml IV UD PRN PRN Reason: SALINE FLUSH Sodium Chloride (0.9% Saline Lock 10 Ml Syringe) 10 - 40 ml IV UD PRN PRN Reason: SALINE FLUSH Warfarin Sodium (Jantoven 2 Mg Tablet) 2 mg PO MoTuWeThSa@1700 [facility] Last Admin: 04/29/20 16:52 Dose: 2 mg Documented by: Warfarin Sodium (Warfarin 4 Mg Tablet) 4 mg PO SuFr@1700 [facility] STROKE Vital Signs/Narrative: Vital Signs Temp Pulse Resp BP Pulse Ox 04/29/20 16:16 97.9 F 76 18 102/58 L 98 04/29/20 15:41 97.3 F L 83 16 98/66 94 04/29/20 15:30 74 16 102/59 L 96 04/29/20 15:15 77 14 99/79 96 04/29/20 15:00 71 14 115/69 97 04/29/20 14:45 71 12 93/70 97 04/29/20 14:30 80 12 109/74 99 04/29/20 14:15 66 12 105/59 L 99 04/29/20 14:00 75 12 118/74 99 04/29/20 13:45 73 18 110/67 100 Medical Necessity - Tobacco Use Smoking Status: Never smoker Assessment/Plan 1. POD #0 status post right reverse shoulder arthroplasty for right cuff arthroplasty and right proximal humeral malunion Patient's pain is fairly controlled, per primary orthopedic team's recommendation 2. Hypertension, controlled, continue amlodipine, lisinopril, metoprolol 3. Type 2 DM, HbA1c 6.3, on metformin, will continue same Continue with blood glucose checks and ISS 4. H/o TIA/CVA/paroxysmal atrial fibrillation/bioprosthetic aortic valve replacement, INR is 1.3, EKG shows normal sinus rhythm Patient is being resumed on her Coumadin, trend INR in a.m. 5. DVT PPx - per primary team Inpatient E&M: [id number] Subs Hosp L2
[2020-04-29] MEDS: oxyCODONE 5 MG Tablet PO ×2 (18:19→22:38)
[2020-04-29] MEDS: Cefazolin 1 GM/50 ML BAG IV (18:19)
[2020-04-29] MEDS: Senna/Docusate Sodium 1 Tablet 2 TABLET PO (21:09)
[2020-04-29] MEDS: Gabapentin 300 MG Capsule PO (21:09)
[2020-04-29] MEDS: Metoprolol(XL)Succ 25 MG Tablet PO (21:09)
[2020-04-30 02:53] VITALS: BP 106/56; PULSE 72; RESP 16; TEMP 36.9; O2SAT 93
[2020-04-30] MEDS: 0.9% NaCl Peripheral Flush Adult/Peds IV (02:59)
[2020-04-30] MEDS: Cefazolin 1 GM/50 ML BAG IV (02:59)
[2020-04-30] MEDS: Acetaminophen 500 MG Tablet 1000 MG PO ×2 (05:12→13:40)
[2020-04-30 05:52] LABS: Hematocrit 31.1 % (37-47); Hemoglobin 10.2 g/dL (12.0-15.0); Mean Corp Hgb Conc 32.8 g/dL (32-36); Mean Corpuscular Hgb 29.4 pg (27.0-32.0); Mean Corpuscular Volume 89.6 fL (81-99); Mean Platelet Vol. 9.4 fl (6.2-12.0); Platelet Count 230 K/mm3 (150-450); RBC Distribution Width CV 12.9 % (11.6-14.6); RBC Distribution Width SD 42.4 fl (35.1-43.9); Red Blood Count 3.47 M/mm3 (4.2-5.4); White Blood Count 11.5 K/mm3 (4.4-11.0)
[2020-04-30 06:02] LABS: International Normalized Ratio 1.2; Prothrombin Time (Protime)PT. 14.8 SECONDS (11.7-14.9)
[2020-04-30 06:07] LABS: Anion Gap 4 (5-15); BUN 19 mg/dL (7-18); BUN/Creat Ratio 17.3 RATIO (10-20); Calcium,Total 8.8 mg/dL (8.5-10.1); Chloride 107 mmol/L (98-107); EST Glomerular Filtration Rate 51 mL/min (>60); Est Glom Filt Rate - Afr Amer 62 mL/min (>60); Estimated Creatinine Clearance 35.99 ml/min; Glucose 131 mg/dL (74-106); Potassium 4.4 mmol/L (3.5-5.1); Sodium Level 137 mmol/L (136-145)
[2020-04-30 07:40] VITALS: O2SAT 95
[2020-04-30 08:10] VITALS: BP 123/61; PULSE 78; RESP 18; TEMP 37.1; O2SAT 95
[2020-04-30] MEDS: amLODIPine 5 MG Tablet PO (08:24)
[2020-04-30] MEDS: Aspirin 81 MG TAB.CHEW PO (08:24)
[2020-04-30] MEDS: Senna/Docusate Sodium 1 Tablet 2 TABLET PO (08:24)
[2020-04-30] MEDS: Polyethylene Glycol 3350 17 GM PACKET PO (08:24)
[2020-04-30] MEDS: Famotidine 20 MG Tablet PO (08:24)
[2020-04-30] MEDS: metFORMIN (XR) 500 MG Tablet PO (08:24)
[2020-04-30] MEDS: Lisinopril 20 MG Tablet PO (08:25)
[2020-04-30 09:19] VITALS: O2SAT 93
--- NOTE | 2020-04-30 09:44 | PCM.PN.ORT ---
Subjective: The patient was sitting in bedside chair upon examination. Patient denies any chest pain, shortness of breath, dizziness, lightheadedness, nausea or vomiting, or calf pain. Pain is controlled on medications. No adverse overnight events. Overall patient is doing very well with regards to her right shoulder. She states her pain is been controlled. She denies any numbness and tingling. Patient is currently being bridged with Lovenox preoperatively and postoperatively while Coumadin has been stopped prior to surgery and then resumed postoperatively. Patient is being followed by her supervisor char house Dr. Odell and primary care physician Dr. Carmichael. Objective: Vital signs stable, afebrile Dressing is clean, dry, intact Ultra-sling fitting appropriately Sensation intact to axillary, radial, median, and ulnar distribution Motor intact with patient able to make okay sign, cross fingers, and thumbs up. - Physical Exam Vitals/I&O's: Vital Signs Temp Pulse Resp BP Pulse Ox 98.8 F 78 18 123/61 H 93 04/30/20 08:10 04/30/20 08:10 04/30/20 08:10 04/30/20 08:10 04/30/20 09:19 Oxygen Flow Rate (L/min) 2 Oxygen Delivery Method Room Air Weight: 74.8 kg Body Mass Index (BMI) 28.7 Finger Stick Blood Glucose 175 Intake and Output for Last 24 Hours 04/28/20 04/29/20 04/30/20 23:59 23:59 23:59 Intake Total 2985.75 / 2985.75 1550 / 1550 Output Total 150 / 150 Balance 2985.75 / 2985.75 1400 / 1400 General: Alert, Oriented x3, Cooperative, No apparent distress Laboratory Results 04/29/20 09:10: POC Glucose 120 H 04/29/20 13:21: POC Glucose 175 H 04/29/20 16:45: POC Glucose 195 H 04/30/20 05:40: WBC 11.5 H, RBC 3.47 L, Hgb 10.2 L, Hct 31.1 L, MCV 89.6, MCH 29.4, MCHC 32.8, RDW Std Deviation 42.4, RDW Coeff of Yasir 12.9, Plt Count 230, MPV 9.4 04/30/20 05:40: Sodium 137, Potassium 4.4, Chloride 107, Carbon Dioxide 26.0, Anion Gap 4 L, BUN 19 H, Creatinine 1.10 H, Estim Creat Clear Calc 35.99, Est GFR (MDRD) Af Amer 62, Est GFR (MDRD) Non-Af 51 L, BUN/Creatinine Ratio 17.3, Glucose 131 H, Calcium 8.8 04/30/20 05:40: PT 14.8, INR 1.2 Current Medications Acetaminophen (Acetaminophen 500 Mg Tablet) 1,000 mg PO Q8 [facility] Last Admin: 04/30/20 05:12 Dose: 1,000 mg Documented by: Amlodipine Besylate (Amlodipine 5 Mg Tablet) 5 mg PO DAILY [facility] Last Admin: 04/30/20 08:24 Dose: 5 mg Documented by: Aspirin (Aspirin 81 Mg Tab.Chew) 81 mg PO DAILY@0800 [facility] Last Admin: 04/30/20 08:24 Dose: 81 mg Documented by: Cholecalciferol (Cholecalciferol (Vit D3) 1,000 Unit (25mcg)) 1,000 unit PO DAILYCM [facility] Last Admin: 04/30/20 08:24 Dose: 1,000 unit Documented by: Enoxaparin Sodium (Enoxaparin 80 Mg/0.8 Ml Syringe) 70 mg SC Q12 [facility] Enteral Nutritional Formula (Ensure Surgery 237 Ml Liquid) 237 ml PO TIDCM [facility] Last Admin: 04/30/20 08:29 Dose: Not Given Documented by: Famotidine (Famotidine 20 Mg Tablet) 20 mg PO DAILY [facility] Last Admin: 04/30/20 08:24 Dose: 20 mg Documented by: Gabapentin (Gabapentin 300 Mg Capsule) 300 mg PO QHS [facility] Last Admin: 04/29/20 21:09 Dose: 300 mg Documented by: Sodium Chloride () 250 mls @ 15 mls/hr IV .[id number] PRN PRN Reason: Saline Flush Sodium Chloride () 250 mls @ 15 mls/hr IV .[id number] PRN PRN Reason: Additional IVPB Infusion Influenza Virus Vaccine Quadrival (Influenza Vaccine (6mos+)/Pf 0.5 Ml Syringe) 0.5 ml IM .ONCE ONE Stop: 04/30/20 10:01 Last Admin: 04/30/20 08:13 Dose: Not Given Documented by: Ketorolac Tromethamine (Ketorolac 15 Mg/Ml Vial) 15 mg IV Q6H PRN PRN PRN Reason: Pain Score 1-5 Stop: 05/01/20 10:36 Lisinopril (Lisinopril 20 Mg Tablet) 20 mg PO DAILY [facility] Last Admin: 04/30/20 08:25 Dose: 20 mg Documented by: Metformin HCl (Metformin (Xr) 500 Mg Tablet) [facility] Last Admin: 04/30/20 08:24 Dose: 500 mg Documented by: Metoprolol Succinate (Metoprolol(Xl)Succ 25 Mg Tablet) 25 mg PO QHS [facility] Last Admin: 04/29/20 21:09 Dose: 25 mg Documented by: Morphine Sulfate (Morphine 2 Mg/Ml Syringe) 2 - 4 mg IV Q2H PRN PRN PRN Reason: Pain Score 6-10 Morphine Sulfate (Morphine 4 Mg/Ml Syringe) 2 - 4 mg IV Q2H PRN PRN PRN Reason: Pain Score 6-10 Ondansetron HCl (Ondansetron 4 Mg/2 Ml Vial) 4 mg IV Q8H PRN PRN PRN Reason: NAUSEA Oxycodone HCl (Oxycodone 5 Mg Tablet) 5 - 10 mg PO Q4H PRN PRN PRN Reason: Pain Score 4-10 Last Admin: 04/29/20 22:38 Dose: 5 mg Documented by: Polyethylene Glycol (Polyethylene Glycol 3350 17 Gm Packet) 17 gm PO QODAY [facility] Last Admin: 04/30/20 08:24 Dose: 17 gm Documented by: Promethazine HCl (Promethazine 25 Mg/Ml Syringe) 12.5 mg IM Q6H PRN PRN; Protocol PRN Reason: NAUSEA/VOMITING Senna/Docusate Sodium (Senna/Docusate Sodium 1 Tablet) 2 tablet PO BID [facility] Last Admin: 04/30/20 08:24 Dose: 2 tablet Documented by: Sodium Chloride (0.9% Nacl Peripheral Flush Adult/Peds) 5 - 15 ml IV UD PRN PRN Reason: SALINE FLUSH Last Admin: 04/30/20 02:59 Dose: 10 ml Documented by: Sodium Chloride (0.9% Saline Lock 10 Ml Syringe) 10 - 40 ml IV UD PRN PRN Reason: SALINE FLUSH Warfarin Sodium (Jantoven 2 Mg Tablet) 2 mg PO MoTuWeThSa@1700 [facility] Last Admin: 12/09/20 16:52 Dose: 2 mg Documented by: Warfarin Sodium (Warfarin 4 Mg Tablet) 4 mg PO SuFr@8840 [facility] Medical Necessity - Tobacco Use Smoking Status: Never smoker Assessment/Plan 1. S/P right reverse total shoulder arthroplasty POD #1 2. Continue Pain Medications: Tylenol and oxycodone 3. DVT Prophylaxis: Patient is currently being bridged preoperatively and postoperatively by the PCP and supervisor char house. She stopped her Coumadin preoperatively and has been bridged with Lovenox. She has resumed her Coumadin postoperatively. She will continue with bridging until she is therapeutic. She will be following up with the PCP for management and INR testing. 4. PT/OT: Continue with UltraSling at all times except to come out for range of motion exercises of the elbow and pendulum exercise 3 times daily. No range of motion of the postoperative shoulder until outpatient physical therapy begins. Outpatient physical therapy will begin 2 weeks postoperatively after follow-up with [place] [facility] with x-rays and incision check. 5. H & H: 10.2/31.1, asymptomatic. Postoperative anemia secondary to acute blood loss from surgery without intraoperative complications 6. Encouraged Incentive Spirometry 7. Disposition: Orthopedically stable, plan will be for discharge home today. I was given permission from the patient to discuss case with her daughter Fatmata Wilkerson. Patient's daughter states that she will be in contact with Dr. Carmichael today to get appropriate Lovenox syringes so she can continue until she has therapeutic with her INR now that she has back on her Coumadin. She is aware that she will need to follow-up with INR testing. I spent approximately 10 minutes with discussion with the daughter about postoperative care. Patient is doing very well from a pain standpoint and she will be going home to stay with her daughter for the first several days. She will begin formal physical therapy in 2 weeks. Prescriptions will be E scribed to [facility] in [place]. She will follow-up per postop instructions. I have reviewed the [place] Automated Rx Reporting System (OARRS) report for this patient for refill pattern and other prescriber involvement as part of the appropriate surveillance for the provision of acute and chronic controlled medications. The report was requested and reviewed on the date of this entry and was considered in the prescribing process.
--- NOTE | 2020-04-30 10:01 | DCINST_ITS ---
Discharge Diet: No Restrictions Discharge Activity: May Not Drive May shower in (days): 1 - Dressing must be intact to skin, turn dressing away from water Ice area for (Minutes): 20 - Every 1-2 hours while awake Keep extremity elevated above heart level: Operative Extremity Call your doctor if your incision/area has: Continuous Slow Oozing, Sudden Increased Bleeding, Increased Pain/ Swelling, Increased Redness, Foul Smelling Discharge Call your doctor if you observe: Fever of 101 or Higher, Coldness, Increased Pain, Numbness or Tingling, Change in Color Remove Dressing in (days):: 4 - Okay to remove on May 04, 2020 Additional Instructions: Follow orthopedic postop instructions Continue with bridging postoperatively per legal advisor and primary care physician's protocol. They will be getting in touch to continue with Lovenox injections bridging until she is therapeutic with her INR. She will follow-up for INR testing with her PCP. Allergies/Adverse Reactions: Allergies Penicillins [PCN] Allergy (Verified 03/25/20 14:10) Hives tramadol Allergy (Verified 03/25/20 14:10) Other ciprofloxacin [From Cipro] Adverse Reaction (Verified 03/25/20 14:10) PT UNSURE OF REACTION donepezil [From Aricept] Adverse Reaction (Verified 04/29/20 09:19) PT UNSURE OF REACTION nitrofurantoin [From Macrobid] Adverse Reaction (Verified 04/29/20 09:17) PT UNSURE OF REACTION ramelteon Adverse Reaction (Verified 03/25/20 14:10) PT UNSURE OF REACTION trazodone Adverse Reaction (Verified 03/25/20 14:10) PT UNSURE OF REACTION Medications to take at Discharge Amlodipine [Norvasc] 5 mg PO DAILY 02/15/20 Lisinopril [Zestril] 20 mg PO DAILY 02/15/20 Metformin HCl [Glucophage Xr] 500 mg PO DAILY 02/15/20 Metoprolol Succinate [Toprol Xl] 25 mg PO QHS 02/15/20 Multivitamin with Minerals [Multiple Vitamin] 1 ea PO DAILY 02/15/20 Polyethylene Glycol 3350 [Miralax] 17 gm PO QODAY 02/15/20 Calcium Carb/D3/Magnesium/Zinc [Otlwkzh-Wls-Pbnm-Vit D Tablet] 1 ea PO DAILY 02/16/20 Cholecalciferol (Vitamin D3) [Vitamin D3] 1,000 unit PO DAILY 02/16/20 Warfarin [Coumadin] 2 mg PO MOTUWETHSA 02/16/20 Warfarin [Coumadin] 4 mg PO SUFR 02/16/20 Gabapentin [Neurontin] 300 mg PO QHS 03/25/20 Acetaminophen [Tylenol] 1,000 mg PO Q8 #100 tab 04/30/20 Aspirin [Aspirin, Baby] 81 mg PO DAILY@0800 tab.chew 04/30/20 Enoxaparin [Lovenox] 70 mg SC Q12 syringe 04/30/20 Oxycodone [Oxyir] 5 - 10 mg PO Q4H PRN PRN 4 Days #48 tablet 04/30/20 The following prescriptions were given: Oxycodone [Oxyir] 5 - 10 mg PO Q4H PRN PRN 4 Days #48 tablet PRN Reason: Pain Score 4-10 Transmission Status: Received by [id number] Acetaminophen [Tylenol] 1,000 mg PO Q8 #100 tab Transmission Status: Pending to [id number] Orders to be completed after discharge: COVID 19 AG RAPID (RN COLLECT) Time Frame: 04/07/20, Facility: [facility], Location: Laboratory Primary Care Physician: Radha Carmichael MD [Primary Care Provider] - Test Results: Test results from this visit will be discussed in further detail at your follow- up appointment, if applicable. Please Follow Up With: Nicole Williamson NP, GL[employer] PRODUCTION MACHINE OPERATOR-C When: 05/13/2020 @ 9:30 am Please Follow Up With: [facility] Therapy When: 05/13/20 @ 10:30 with seth
--- NOTE | 2020-04-30 10:45 | CASEMGMT ---
RN CM Face to Face with patient for initial transition planning/care coordination assessment. RN CM introduced self and role at [facility]. Patient sitting in chair, alert and oriented. Patient willing to participate in assessment and is able to answer all questions appropriately. Care providers, pharmacy, and demographics verified. Patient wishes to discharge home, denies need for home health at this time. Patient states she has no further needs or concerns at this time. CM to follow for discharge planning needs that may arise. PCP: Amol Specialists: medardo Stephens; Cass control analyst Preferred Pharmacy: [facility] Insurance: [employer] [facility] Prescription Benefit: yes Living Will/HPOA: yes, daughter Jael Wilkerson LNOK: daughter Living Arrangements: Patient lives alone in 2 story home with a stair lift. Patient states she was independent at home. Patient states she will be staying with daughter Transportation: daughter DME/HHC: patient states shower chair, cane, walker, grab bars, and stair lift. Patient denies HHC. Disposition Plan: Patient to discharge home with family support and follow-up plans in place. Paige CENTENO, RN, CM
[2020-04-30] MEDS: Enoxaparin 80 MG/0.8 ML Syringe 70 MG SC (11:29)
[2020-04-30 12:00] VITALS: BP 113/49; PULSE 71; RESP 16; TEMP 36.9; O2SAT 95
--- NOTE | 2020-04-30 12:34 | PN_ITS ---
<Israel Covarrubias PA - Last Filed: 04/30/20 12:34> Reason for Visit: post op right total shoulder Subjective: Minimal pain. No cough/fever/chills. No SOB. No CP. Pt planning to go home later today. She has made arrangement via her patients transporter and PCPs to continue bridging lovenox and coumadin and states she has been doing this at home already. Vitals/I&O's: Vital Signs Temp Pulse Resp BP Pulse Ox 98.5 F 71 16 113/49 L 95 04/30/20 12:00 04/30/20 12:00 04/30/20 12:00 04/30/20 12:00 04/30/20 12:00 Oxygen Flow Rate (L/min) 2 Oxygen Delivery Method Room Air Weight: 164 lb 14.492 oz Body Mass Index (BMI) 28.7 Finger Stick Blood Glucose 175 Intake and Output for Last 24 Hours 04/28/20 04/29/20 04/30/20 23:59 23:59 23:59 Intake Total 2985.75 / 2985.75 1550 / 1550 Output Total 150 / 150 Balance 2985.75 / 2985.75 1400 / 1400 General: Alert, Oriented x3, Cooperative HEENT: Atraumatic, PERRLA, EOMI, Normocephalic Neck: Supple, No JVD, Negative Carotid Bruits Lungs: Clear to auscultation, Normal air movement Cardiovascular: Regular rate, No murmurs Abdomen: Bowel Sounds Present, Soft, Non Tender Extremities: No edema, Capillary Refill Less than 3 Seconds Skin: No rashes, No breakdown Musculoskeletal: No Tenderness to Palpation of Joints or Extremities Neurological: Cranial nerves II-XII grossly intact Psych/Mental Status: Normal Affect, Appropriate, Alert and oriented to time, place, person, mood and affect Laboratory Results 04/29/20 13:21: POC Glucose 175 H 04/29/20 16:45: POC Glucose 195 H 04/30/20 05:40: WBC 11.5 H, RBC 3.47 L, Hgb 10.2 L, Hct 31.1 L, MCV 89.6, MCH 29.4, MCHC 32.8, RDW Std Deviation 42.4, RDW Coeff of Yasir 12.9, Plt Count 230, MPV 9.4 04/30/20 05:40: Sodium 137, Potassium 4.4, Chloride 107, Carbon Dioxide 26.0, Anion Gap 4 L, BUN 19 H, Creatinine 1.10 H, Estim Creat Clear Calc 35.99, Est GFR (MDRD) Af Amer 62, Est GFR (MDRD) Non-Af 51 L, BUN/Creatinine Ratio 17.3, Glucose 131 H, Calcium 8.8 04/30/20 05:40: PT 14.8, INR 1.2 Current Medications Acetaminophen (Acetaminophen 500 Mg Tablet) 1,000 mg PO Q8 [facility] Last Admin: 04/30/20 05:12 Dose: 1,000 mg Documented by: Amlodipine Besylate (Amlodipine 5 Mg Tablet) 5 mg PO DAILY [facility] Last Admin: 04/30/20 08:24 Dose: 5 mg Documented by: Aspirin (Aspirin 81 Mg Tab.Chew) 81 mg PO DAILY@0800 [facility] Last Admin: 04/30/20 08:24 Dose: 81 mg Documented by: Cholecalciferol (Cholecalciferol (Vit D3) 1,000 Unit (25mcg)) 1,000 unit PO DAILYCM [facility] Last Admin: 04/30/20 08:24 Dose: 1,000 unit Documented by: Enoxaparin Sodium (Enoxaparin 80 Mg/0.8 Ml Syringe) 70 mg SC Q12 [facility] Last Admin: 04/30/20 11:29 Dose: 70 mg Documented by: Enteral Nutritional Formula (Ensure Surgery 237 Ml Liquid) 237 ml PO TIDCM [facility] Last Admin: 04/30/20 08:29 Dose: Not Given Documented by: Famotidine (Famotidine 20 Mg Tablet) 20 mg PO DAILY [facility] Last Admin: 04/30/20 08:24 Dose: 20 mg Documented by: Gabapentin (Gabapentin 300 Mg Capsule) 300 mg PO QHS [facility] Last Admin: 04/29/20 21:09 Dose: 300 mg Documented by: Sodium Chloride () 250 mls @ 15 mls/hr IV .[id number] PRN PRN Reason: Saline Flush Sodium Chloride () 250 mls @ 15 mls/hr IV .[id number] PRN PRN Reason: Additional IVPB Infusion Ketorolac Tromethamine (Ketorolac 15 Mg/Ml Vial) 15 mg IV Q6H PRN PRN PRN Reason: Pain Score 1-5 Stop: 05/01/20 10:36 Lisinopril (Lisinopril 20 Mg Tablet) 20 mg PO DAILY [facility] Last Admin: 04/30/20 08:25 Dose: 20 mg Documented by: Metformin HCl (Metformin (Xr) 500 Mg Tablet) [facility] Last Admin: 04/30/20 08:24 Dose: 500 mg Documented by: Metoprolol Succinate (Metoprolol(Xl)Succ 25 Mg Tablet) 25 mg PO QHS [facility] Last Admin: 04/29/20 21:09 Dose: 25 mg Documented by: Morphine Sulfate (Morphine 2 Mg/Ml Syringe) 2 - 4 mg IV Q2H PRN PRN PRN Reason: Pain Score 6-10 Morphine Sulfate (Morphine 4 Mg/Ml Syringe) 2 - 4 mg IV Q2H PRN PRN PRN Reason: Pain Score 6-10 Ondansetron HCl (Ondansetron 4 Mg/2 Ml Vial) 4 mg IV Q8H PRN PRN PRN Reason: NAUSEA Oxycodone HCl (Oxycodone 5 Mg Tablet) 5 - 10 mg PO Q4H PRN PRN PRN Reason: Pain Score 4-10 Last Admin: 04/29/20 22:38 Dose: 5 mg Documented by: Polyethylene Glycol (Polyethylene Glycol 3350 17 Gm Packet) 17 gm PO QODAY [facility] Last Admin: 04/30/20 08:24 Dose: 17 gm Documented by: Promethazine HCl (Promethazine 25 Mg/Ml Syringe) 12.5 mg IM Q6H PRN PRN; Protocol PRN Reason: NAUSEA/VOMITING Senna/Docusate Sodium (Senna/Docusate Sodium 1 Tablet) 2 tablet PO BID [facility] Last Admin: 04/30/20 08:24 Dose: 2 tablet Documented by: Sodium Chloride (0.9% Nacl Peripheral Flush Adult/Peds) 5 - 15 ml IV UD PRN PRN Reason: SALINE FLUSH Last Admin: 04/30/20 02:59 Dose: 10 ml Documented by: Sodium Chloride (0.9% Saline Lock 10 Ml Syringe) 10 - 40 ml IV UD PRN PRN Reason: SALINE FLUSH Warfarin Sodium (Jantoven 2 Mg Tablet) 2 mg PO MoTuWeThSa@1700 [facility] Last Admin: 04/29/20 16:52 Dose: 2 mg Documented by: Warfarin Sodium (Warfarin 4 Mg Tablet) 4 mg PO SuFr@1700 [facility] STROKE Vital Signs/Narrative: Vital Signs Temp Pulse Resp BP Pulse Ox 04/30/20 12:00 98.5 F 71 16 113/49 L 95 04/30/20 09:19 93 Medical Necessity - Tobacco Use Smoking Status: Never smoker Assessment/Plan 1. Right shoulder prox humerus fx - s/p right total shoulder POD#1. Care as per Dr. Stephens. Pain well controlled. 2. Hx pAfib, bioprosthetic AV - pt will bridge lovenox to warfarin at home, follow up with her [employer] Dr. Odell. She has lovenox already at home. EKG pt is in NSR. Rate controlled continue metoprolol. 3. Hx CVA - aspirin, coumadin. Not on statin. 4. DMt2 - metformin 5. HTN - controlled. continue prior home meds. DVT ppx: lovenox --> coumadin bridge Thank you for the opportunity to participate in the care of this patient. Patient medically stable for discharge. This patient was seen by Israel Covarrubias PA-C under the supervision of Doctor Ita. <Stanford Jean Baptiste E - Last Filed: 04/30/20 12:46> Vitals/I&O's: Vital Signs Temp Pulse Resp BP Pulse Ox 98.5 F 71 16 113/49 L 95 04/30/20 12:00 04/30/20 12:00 04/30/20 12:00 04/30/20 12:00 04/30/20 12:00 Oxygen Flow Rate (L/min) 2 Oxygen Delivery Method Room Air Weight: 164 lb 14.492 oz Body Mass Index (BMI) 28.7 Finger Stick Blood Glucose 175 Intake and Output for Last 24 Hours 04/28/20 04/29/20 04/30/20 23:59 23:59 23:59 Intake Total 2985.75 / 2985.75 1550 / 1550 Output Total 150 / 150 Balance 2985.75 / 2985.75 1400 / 1400 Laboratory Results 04/29/20 13:21: POC Glucose 175 H 04/29/20 16:45: POC Glucose 195 H 04/30/20 05:40: WBC 11.5 H, RBC 3.47 L, Hgb 10.2 L, Hct 31.1 L, MCV 89.6, MCH 29.4, MCHC 32.8, RDW Std Deviation 42.4, RDW Coeff of Yasir 12.9, Plt Count 230, MPV 9.4 04/30/20 05:40: Sodium 137, Potassium 4.4, Chloride 107, Carbon Dioxide 26.0, Anion Gap 4 L, BUN 19 H, Creatinine 1.10 H, Estim Creat Clear Calc 35.99, Est GFR (MDRD) Af Amer 62, Est GFR (MDRD) Non-Af 51 L, BUN/Creatinine Ratio 17.3, Glucose 131 H, Calcium 8.8 04/30/20 05:40: PT 14.8, INR 1.2 Current Medications Acetaminophen (Acetaminophen 500 Mg Tablet) 1,000 mg PO Q8 [facility] Last Admin: 04/30/20 05:12 Dose: 1,000 mg Documented by: Amlodipine Besylate (Amlodipine 5 Mg Tablet) 5 mg PO DAILY [facility] Last Admin: 04/30/20 08:24 Dose: 5 mg Documented by: Aspirin (Aspirin 81 Mg Tab.Chew) 81 mg PO DAILY@0800 [facility] Last Admin: 04/30/20 08:24 Dose: 81 mg Documented by: Cholecalciferol (Cholecalciferol (Vit D3) 1,000 Unit (25mcg)) 1,000 unit PO DAILYCM [facility] Last Admin: 04/30/20 08:24 Dose: 1,000 unit Documented by: Enoxaparin Sodium (Enoxaparin 80 Mg/0.8 Ml Syringe) 70 mg SC Q12 [facility] Last Admin: 04/30/20 11:29 Dose: 70 mg Documented by: Enteral Nutritional Formula (Ensure Surgery 237 Ml Liquid) 237 ml PO TIDCM [facility] Last Admin: 04/30/20 08:29 Dose: Not Given Documented by: Famotidine (Famotidine 20 Mg Tablet) 20 mg PO DAILY [facility] Last Admin: 04/30/20 08:24 Dose: 20 mg Documented by: Gabapentin (Gabapentin 300 Mg Capsule) 300 mg PO QHS [facility] Last Admin: 04/29/20 21:09 Dose: 300 mg Documented by: Sodium Chloride () 250 mls @ 15 mls/hr IV .[id number] PRN PRN Reason: Saline Flush Sodium Chloride () 250 mls @ 15 mls/hr IV .[id number] PRN PRN Reason: Additional IVPB Infusion Ketorolac Tromethamine (Ketorolac 15 Mg/Ml Vial) 15 mg IV Q6H PRN PRN PRN Reason: Pain Score 1-5 Stop: 05/01/20 10:36 Lisinopril (Lisinopril 20 Mg Tablet) 20 mg PO DAILY [facility] Last Admin: 04/30/20 08:25 Dose: 20 mg Documented by: Metformin HCl (Metformin (Xr) 500 Mg Tablet) [facility] Last Admin: 04/30/20 08:24 Dose: 500 mg Documented by: Metoprolol Succinate (Metoprolol(Xl)Succ 25 Mg Tablet) 25 mg PO QHS [facility] Last Admin: 04/29/20 21:09 Dose: 25 mg Documented by: Morphine Sulfate (Morphine 2 Mg/Ml Syringe) 2 - 4 mg IV Q2H PRN PRN PRN Reason: Pain Score 6-10 Morphine Sulfate (Morphine 4 Mg/Ml Syringe) 2 - 4 mg IV Q2H PRN PRN PRN Reason: Pain Score 6-10 Ondansetron HCl (Ondansetron 4 Mg/2 Ml Vial) 4 mg IV Q8H PRN PRN PRN Reason: NAUSEA Oxycodone HCl (Oxycodone 5 Mg Tablet) 5 - 10 mg PO Q4H PRN PRN PRN Reason: Pain Score 4-10 Last Admin: 04/29/20 22:38 Dose: 5 mg Documented by: Polyethylene Glycol (Polyethylene Glycol 3350 17 Gm Packet) 17 gm PO QODAY [facility] Last Admin: 04/30/20 08:24 Dose: 17 gm Documented by: Promethazine HCl (Promethazine 25 Mg/Ml Syringe) 12.5 mg IM Q6H PRN PRN; Protocol PRN Reason: NAUSEA/VOMITING Senna/Docusate Sodium (Senna/Docusate Sodium 1 Tablet) 2 tablet PO BID [facility] Last Admin: 04/30/20 08:24 Dose: 2 tablet Documented by: Sodium Chloride (0.9% Nacl Peripheral Flush Adult/Peds) 5 - 15 ml IV UD PRN PRN Reason: SALINE FLUSH Last Admin: 04/30/20 02:59 Dose: 10 ml Documented by: Sodium Chloride (0.9% Saline Lock 10 Ml Syringe) 10 - 40 ml IV UD PRN PRN Reason: SALINE FLUSH Warfarin Sodium (Jantoven 2 Mg Tablet) 2 mg PO MoTuWeThSa@1700 [facility] Last Admin: 04/29/20 16:52 Dose: 2 mg Documented by: Warfarin Sodium (Warfarin 4 Mg Tablet) 4 mg PO SuFr@1700 [facility] Vital Signs/Narrative: Vital Signs Temp Pulse Resp BP Pulse Ox 04/30/20 12:00 98.5 F 71 16 113/49 L 95 04/30/20 09:19 93 Assessment/Plan Hospitalist note: I am seeing this patient in conjunction with Israel Covarrubias. I independently seen and examined the patient. Progress note above and laboratory data reviewed and I concur with above treatment plan. Patient seen and examined today. A lot of the pain is well controlled. No other complaints. Her vital signs are stable. - Physical Exam General: Alert, Oriented x3, Cooperative, No apparent distress. HEENT: Atraumatic, PERRLA, EOMI. Neck: Supple, No JVD, Negative Carotid Bruits, Trachea Midline, Thyroid Normal. Lungs: Clear to auscultation, Normal air movement, No rhonchi, No wheeze, No rales. Cardiovascular: Regular rate, Regular Rhythm, Normal S1, Normal S2, PMI Normal, metallic click. Abdomen: Bowel Sounds Present, Soft, Non Tender, Non-Distended, No Hepato- splenomegaly. Extremities: No clubbing, No cyanosis, No edema Skin: No rashes, No breakdown Neurological: Cranial nerves are intact, neuro grossly intact Vital Signs are stable. Assessment and plan: #1 status post right reverse total shoulder replacement: This was done for right shoulder malunion proximal humerus fracture and rotator cuff tear, postoperative day 1. Pain is well controlled, she is on morphine and OxyIR as needed for pain. Her vital signs are stable. Postoperative routine blood work reviewed, unremarkable. Orthopedic surgery on the case. #2 status post aortic valve treatment: She is on Coumadin, INR subtherapeutic. She is on Lovenox for bridging and she knew how to use at home. She already has Lovenox at home as well as Coumadin. #3 other chronic medical problems: Stable, continue current medications as above. This note was generated with [employer] dictation software. It may contain incorrect words, spelling, and punctuation that were not noted in checking the note before signing. Inpatient E&M: 35418 Subs Hosp L2
[2020-04-30] MEDS: Ensure Surgery 237 ML LIQUID PO (13:40)
[2020-04-30] MEDS: oxyCODONE 5 MG Tablet PO (13:40)
--- NOTE | 2020-04-30 14:14 | PHA.DC.MR ---
Pharmacy Service has performed discharge medication reconciliation for this patient. The patient's discharge medication list was reviewed for discrepancies and discrepancies were resolved. Home Medications Amlodipine [Norvasc] 5 mg PO DAILY 02/15/20 Lisinopril [Zestril] 20 mg PO DAILY 02/15/20 Metformin HCl [Glucophage Xr] 500 mg PO DAILY 02/15/20 Metoprolol Succinate [Toprol Xl] 25 mg PO QHS 02/15/20 Multivitamin with Minerals [Multiple Vitamin] 1 ea PO DAILY 02/15/20 Polyethylene Glycol 3350 [Miralax] 17 gm PO QODAY 02/15/20 Calcium Carb/D3/Magnesium/Zinc [Jgnphpg-Pqz-Lfum-Vit D Tablet] 1 ea PO DAILY 02/16/20 Cholecalciferol (Vitamin D3) [Vitamin D3] 1,000 unit PO DAILY 02/16/20 Warfarin [Coumadin] 2 mg PO MOTUWETHSA 02/16/20 Warfarin [Coumadin] 4 mg PO SUFR 02/16/20 Gabapentin [Neurontin] 300 mg PO QHS 03/25/20 Acetaminophen [Tylenol] 1,000 mg PO Q8 #100 tab 04/30/20 Aspirin [Aspirin, Baby] 81 mg PO DAILY@0800 tab.chew 04/30/20 Enoxaparin [Lovenox] 70 mg SC Q12 syringe 04/30/20 Oxycodone [Oxyir] 5 - 10 mg PO Q4H PRN PRN 4 Days #48 tab 04/30/20
== END 2020-04-30 14:05 | disposition home or self-care (01) | DRG 483 ==
LOC: ACINP 12:27 → MS3 15:46
PROVIDERS: Anesthesiology; Internal Medicine; Admitting Provider Specialist; PCP Internal Medicine; Referring Provider Specialist; Visit Provider Specialist
PROC: 0RRJ00Z Replacement of Right Shoulder Joint with Reverse Ball and Socket Synthetic Substitute, Open Approach (ICD-10-PCS; CPT 23472; principal; 2020-04-29 10:05)
DX: M75.100 Unspecified rotator cuff tear or rupture of unspecified shoulder, not specified as traumatic (principal); S42.201P Unspecified fracture of upper end of right humerus, subsequent encounter for fracture with malunion; D62 Acute posthemorrhagic anemia; W01.10XD Fall on same level from slipping, tripping and stumbling with subsequent striking against unspecified object, subsequent encounter; I10 Essential (primary) hypertension; E11.9 Type 2 diabetes mellitus without complications; I48.0 Paroxysmal atrial fibrillation; Z86.73 Personal history of transient ischemic attack (TIA), and cerebral infarction without residual deficits; Z79.01 Long term (current) use of anticoagulants; Z95.3 Presence of xenogenic heart valve; Z91.81 History of falling; Z90.710 Acquired absence of both cervix and uterus; Z86.19 Personal history of other infectious and parasitic diseases
CPT/HCPCS: 36415; 36416; 73030; 80048; 82962; 83036; 83735; 85025; 85027; 85610; 87081; 93005; 94762; 97166; 99251; C1713; C1776; J7050; J7120; A4216; G0463; J2405

== ENCOUNTER → 2020-12-18 10:09 | Outpatient (CLI) | payer MEDICARE, SELFPAY ==
[2020-04-29 16:16] VITALS: BMI 28.7
[2020-12-18 10:34] LABS: International Normalized Ratio 2.5; Prothrombin Time (Protime)PT. 26.6 SECONDS (11.7-14.9)
== END ==
PROVIDERS: PCP Internal Medicine; Visit Provider Clinical Nurse Specialist
DX: Z95.2 Presence of prosthetic heart valve (principal)
CPT/HCPCS: 85610

== ENCOUNTER 2021-07-16 10:52 | Inpatient (IN) | payer MEDICARE, SELFPAY ==
[2021-07-16] VITALS (9 sets, daily range): BP systolic 123–188; BP diastolic 71–89; PULSE 58–78; RESP 14–20; TEMP 36.6–37.1; O2SAT 93–100; BMI 30.3
--- NOTE | 2021-07-16 11:15 | RAD_ITS ---
STUDY: X-RAY - PELVIS REASON FOR EXAM: Female, 75 years old. Trauma TECHNIQUE: One view of the pelvis was obtained. COMPARISON: None. FINDINGS: There is a non-specific bowel gas pattern. Normal visualized soft tissue structures. There is narrowing with cortical sclerosis and osteophyte formation of the sacroiliac joint consistent with degenerative osteoarthritic changes. Normal visualized bilateral superior and inferior pubic rami. Normal pubic symphysis. Normal ischial tuberosities. Normal visualized right femoral head. Normal right acetabulum. There is mild articular joint space narrowing of the right hip. Normal visualized left femoral head. Normal left acetabulum. There is mild articular joint space narrowing of the left hip. Degenerative changes of the lower lumbar spine. RAD/Pelvis 1 or 2 Views IMPRESSION: Degenerative changes of both hip joints. Electronically Signed: Dax Dean MD at 12:29 EST ,
--- NOTE | 2021-07-16 11:15 | RAD_ITS ---
STUDY: X-RAY - RIGHT TIBIA AND FIBULA REASON FOR EXAM: Female, 75 years old. Pain following a fall. TECHNIQUE: 3 view(s) of the tibia and fibula were obtained. COMPARISON: None. FINDINGS: Nondisplaced oblique fracture of the proximal and tibial shaft. Nondisplaced condylar fracture of the proximal fibula. Nondisplaced oblique fracture of the distal fibula. There is non-specific soft tissue swelling. RAD/Tibia & Fibula 2 Views IMPRESSION: Nondisplaced oblique fracture of the proximal tibia as well as nondisplaced fracture involving the proximal fibula as well as the distal fibula. Electronically Signed: Dax Dean MD at 12:30 EST ,
--- NOTE | 2021-07-16 11:17 | ED.VIS.LOWEX ---
HPI History of Present Illness Chief Complaint: Lower Extremity Injury Informant: patient Narrative Narrative: Patient slipped and fell on the ice. Not a syncopal fall. She states the only thing that hurts is her right leg just below her knee. She is on Coumadin but states she never hit her head at all and she has no headache at all. She had no palpitations. This was a mechanical fall and not syncope. The splint that was placed by EMS helped it. Any motion or pressing makes it worse. [facility] Medical History (Updated 07/16/21 @ 16:[address] Lalo Mantilla MD) Dementia Diabetes mellitus, type 2 History of CVA (cerebrovascular accident) HLD (hyperlipidemia) HTN (hypertension) PAF (paroxysmal atrial fibrillation) Valvular heart disease Home Medications amlodipine 5 mg PO DAILY 02/15/20 [History Last Taken 07/16/21] metformin 500 mg PO DAILY 02/15/20 [History Last Taken 07/16/21] metoprolol succinate 50 mg PO QHS 02/15/20 [History Last Taken 07/15/21] multivitamin with minerals 1 ea PO DAILY 02/15/20 [History Last Taken 07/15/21] polyethylene glycol 3350 17 gm PO QODAY 02/15/20 [History Last Taken 1 Week Ago ~07/09/21] calcium carb-D3-mag [id number] 1 ea PO DAILY 02/16/20 [History Last Taken 07/15/21] cholecalciferol (vitamin D3) 1,000 unit PO DAILY 02/16/20 [History Last Taken 07/15/21] warfarin 2 mg PO DAILY 02/16/20 [History Last Taken 07/15/21 16:00] gabapentin 300 mg PO QHS 03/25/20 [History Last Taken 07/15/21] aspirin 81 mg PO DAILY@0800 tab.chew 04/30/20 [Rx Last Taken 07/16/21] allopurinol 100 mg PO DAILY 07/16/21 [History Last Taken 07/15/21] diphenhydramine HCl [Benadryl Allergy] 25 mg PO QHS 07/16/21 [History Last Taken 07/15/21] flaxseed 1 ea PO DAILY 07/16/21 [History Last Taken 07/16/21] lisinopril 20 mg PO DAILY 07/16/21 [History Last Taken 07/15/21] melatonin 6 mg PO DAILY 07/16/21 [History Last Taken 07/15/21] Allergy/AdvReac Type Severity Reaction Status Date / Time Penicillins [PCN] Allergy Hives Verified 03/25/20 14:10 tramadol Allergy Other Verified 03/25/20 14:10 ciprofloxacin [From Cipro] AdvReac PT UNSURE Verified 03/25/20 14:10 OF REACTION donepezil [From Aricept] AdvReac PT UNSURE Verified 04/29/20 09:19 OF REACTION nitrofurantoin AdvReac PT UNSURE Verified 04/29/20 09:17 [From Macrobid] OF REACTION ramelteon AdvReac PT UNSURE Verified 03/25/20 14:10 OF REACTION trazodone AdvReac PT UNSURE Verified 03/25/20 14:10 OF REACTION Family History (Updated 07/16/21 @ 13:[address] Ana Jenkins MD) Mother Heart disease Hypertension Father Heart disease Hypertension Surgical History (Updated 07/16/21 @ 13:[address] Ana Jenkins MD) H/O aortic aneurysm repair H/O microdiscectomy History of bilateral tubal ligation History of reverse total replacement of right shoulder joint S/P aortic valve replacement with bioprosthetic valve S/P dilation and curettage S/P hysterectomy Social History (Updated 07/16/21 @ 13:[address] Ana Jenkins MD) household members: spouse Smoking Status: Never smoker alcohol intake: never substance use type: does not use ROS ROS ED Constitutional Constitutional ED: Denies chills or fever(s) Eyes Eyes: Denies blurry vision or change in vision ENT ENT ED: Denies ear pain Cardiovascular Cardiovascular: Denies chest pain or palpitations Respiratory/Chest Respiratory/Chest: Denies dyspnea Gastrointestinal Gastrointestinal: Denies nausea or vomiting Genitourinary Genitourinary ED: Denies dysuria Musculoskeletal Musculoskeletal: Reports arthralgias; Denies back pain or neck pain Integumentary Denies rash Neurologic Neurologic: Denies headache(s) Endocrine Endocrinology: Denies polydipsia or polyuria Hematologic/Lymphatic Hematologic/Lymphatic: Reports easy bleeding and easy bruising Allergic/Immunologic Allergic/Immunologic ED: Denies mouth swelling or urticaria EXAM Physical Exam Const Vital Signs: 07/16/21 10:53 07/16/21 11:43 07/16/21 13:15 Temperature 97.8 F Temperature Source Oral Pulse Rate 58 L 61 Respiratory Rate 18 16 Blood Pressure 181/85 H 188/89 H 161/72 H Blood Pressure Mean 117 122 101 Pulse Ox 98 100 Oxygen Delivery Method Room Air Room Air Positive well nourished and well developed Constitutional Narrative: Patient is actually quite calm considering the events. She looks reasonably comfortable. General Appearance ED: well developed and NAD HEENT HEENT Narrative: I see no sign of head trauma at all. normocephalic and atraumatic Neck supple Thyroid: Negative for tender Chest Wall palpation of chest normal Resp normal respiratory effort and clear to auscultation bilaterally Auscultation: Negative for rales, rhonchi or wheezes Cardio regular rate GI non-tender and non-distended Palpation: soft Back/Spine no CVA tenderness Cervical Spine: Negative for cervical spine tenderness Thoracic Spine / Upper Back: Negative for thoracic spinal tenderness Lumbar Spine / Lower Back: Negative for lumbar spinal tenderness Extremity Negative for normal to inspection Extremity Narrative: Patient has some swelling and tenderness at the proximal tibia area on the right. Distal pulses are intact. She moves her toes and has good sensation. No tenderness to the lower part of the leg ankle foot. No tenderness up in the hip. Pelvis does seem to be intact with compression. Neuro oriented x3 Sensorium / Orientation: alert Psych mental status grossly normal Skin Lesions: no lesions Rashes: no rashes MDM MDM MDM Narrative Medical decision making narrative: Patient's x-rays show proximal tib-fib along with trimalleolar fracture of the same extremity. This is a segmental fracture. Case was discussed with orthopedics, Dr. Brizuela. I also discussed the case with hospitalist. This patient lives in an old home. She lives there alone. She has bathroom upstairs but kitchen downstairs. She is not able to function with this injury even with splint and walker. There is too much pain and difficulty with motion. She will need to come in the hospital. She will be evaluated for possibility of surgery but we would like to avoid that. Procedure: Posterior splint placement: I use the assistance of 3 other people. We put a 5 x 30 inch posterior fiberglass splint from foot to mid thigh. This was wrapped gently. She does have some moderate swelling in the proximal area of her leg with the proximal tib-fib fracture. There is a small amount of swelling more distally. Because we had to work very slowly due to significant pain, this will be allowed to air dry and harden. Patient will go to the floor at this time. Patient does have good pulse sensation distally after the splint. Lab Data Attestation: I reviewed the patient's lab results. Labs: Laboratory Results - last 24 hr 07/16/21 07/16/21 07/16/21 11:26 11:26 11:26 WBC 9.8 RBC 4.81 Hgb 15.2 H Hct 42.6 MCV 88.6 MCH 31.6 MCHC 35.7 RDW Std Deviation 40.4 RDW Coeff of Yasir 12.3 Plt Count 241 MPV 9.6 Immature Gran % (Auto) 0.400 Neut % (Auto) 76.0 H Lymph % (Auto) 13.0 L [place] % (Auto) 9.0 Eos % (Auto) 0.9 Baso % (Auto) 0.7 Absolute Neuts (auto) 7.4 Absolute Lymphs (auto) 1.27 Nucleated RBC % 0 PT 15.8 H INR 1.3 Sodium 138 Potassium 4.1 Chloride 105 Carbon Dioxide 30.0 Anion Gap 3 L BUN 16 Creatinine 0.91 Estim Creat Clear Calc 44.71 Est GFR (MDRD) Af Amer 77 Est GFR (MDRD) Non-Af 64 BUN/Creatinine Ratio 17.7 Glucose 144 H Calcium 8.7 Magnesium 07/16/21 11:26 WBC RBC Hgb Hct MCV MCH MCHC RDW Std Deviation RDW Coeff of Yasir Plt Count MPV Immature Gran % (Auto) Neut % (Auto) Lymph % (Auto) [place] % (Auto) Eos % (Auto) Baso % (Auto) Absolute Neuts (auto) Absolute Lymphs (auto) Nucleated RBC % PT INR Sodium Potassium Chloride Carbon Dioxide Anion Gap BUN Creatinine Estim Creat Clear Calc Est GFR (MDRD) Af Amer Est GFR (MDRD) Non-Af BUN/Creatinine Ratio Glucose Calcium Magnesium 2.1 Radiography Diagnostic Testing: Clinical Impression(s) from Imaging Studies Pelvis X-Ray 07/16/21 11:15 IMPRESSION: Degenerative changes of both hip joints. Electronically Signed: Dax Dean MD at 12:29 EST , Tibia/Fibula X-Ray 07/16/21 11:15 IMPRESSION: Nondisplaced oblique fracture of the proximal tibia as well as nondisplaced fracture involving the proximal fibula as well as the distal fibula. Electronically Signed: Dax Dean MD at 12:30 EST , Ankle X-Ray 07/16/21 12:00 IMPRESSION: Trimalleolar fracture. Soft tissue swelling. Electronically Signed: Dax Dean MD at 12:32 EST , Procedures Lower Extremity Splints Lower Extremity Splint: Orthoglass and Long leg Splint Fabrication: Fabricated Location: Right (See MDM.) Discharge Plan Dx/Rx/DC Orders Clinical Impression: Closed right trimalleolar fracture, Closed fracture of right fibula and tibia, Segmental fracture of shaft of tibia, Fall due to ice or snow Disposition Disposition: Acute Care [facility]
[2021-07-16] MEDS: Ondansetron 4 MG/2 ML Vial IV (11:39)
[2021-07-16] MEDS: Morphine 4 MG/ML Syringe IV ×3 (11:39→16:09)
--- NOTE | 2021-07-16 12:00 | RAD_ITS ---
STUDY: X-RAY - RIGHT ANKLE REASON FOR EXAM: Female, 75 years old. Trauma TECHNIQUE: 3 view(s) of the ankle. COMPARISON: None. FINDINGS: Nondisplaced oblique fracture of the distal fibula. Avulsion fracture of the medial malleolus. Nondisplaced vertical fracture of the posterior malleolus. Normal tibiotalar articulation and ankle mortise. Spur is seen at distal insertion of the Achilles tendon. The visualized subtalar, talonavicular, calcaneocuboid and tarsal articulations are normal. Soft tissue swelling. RAD/Ankle min 3 Views IMPRESSION: Trimalleolar fracture. Soft tissue swelling. Electronically Signed: Dax Dean MD at 12:32 EST ,
[2021-07-16 12:01] LABS: Absolute Lymphocyte Count 1.27 X10^3/uL (0.83-4.51); Absolute Neutrophil Count 7.4 X10^3/uL (2.0-7.7); Basophil# 0.07 X10^3/uL; Basophil% 0.7 % (0-1); Eosinophil# 0.09 X10^3/uL; Eosinophils% 0.9 % (0-5); Hematocrit 42.6 % (37-47); Hemoglobin 15.2 g/dL (12.0-15.0); Lymphocyte # 1.27 X10^3/ul (0.83-4.51); Mean Corp Hgb Conc 35.7 g/dL (32-36); Mean Corpuscular Hgb 31.6 pg (27.0-32.0); Mean Corpuscular Volume 88.6 fL (81-99); Mean Platelet Vol. 9.6 fl (6.2-12.0); Monocyte# 0.88 X10^3/uL; NRBC Flagged by Analyzer 0 % (0-5); Platelet Count 241 K/mm3 (150-450); RBC Distribution Width CV 12.3 % (11.6-14.6); RBC Distribution Width SD 40.4 fl (35.1-43.9); Red Blood Count 4.81 M/mm3 (4.2-5.4); White Blood Count 9.8 K/mm3 (4.4-11.0)
[2021-07-16 12:07] LABS: Anion Gap 3 (5-15); BUN 16 mg/dL (7-18); BUN/Creat Ratio 17.7 RATIO (10-20); Calcium,Total 8.7 mg/dL (8.5-10.1); Chloride 105 mmol/L (98-107); Creatinine, Serum 0.91 mg/dL (0.55-1.02); EST Glomerular Filtration Rate 64 mL/min (>60); Est Glom Filt Rate - Afr Amer 77 mL/min (>60); Estimated Creatinine Clearance 44.71 ml/min; Glucose 144 mg/dL (74-106); Potassium 4.1 mmol/L (3.5-5.1); Sodium Level 138 mmol/L (136-145)
[2021-07-16 12:24] LABS: International Normalized Ratio 1.3; Prothrombin Time (Protime)PT. 15.8 SECONDS (11.7-14.9)
--- NOTE | 2021-07-16 14:16 | HP.PCM.HOS_ITS ---
HPI - General General Date of Admission: 07/16/21 Date of Service: 07/16/21 Chief Complaint: Fall, RLE pain HPI Narrative The patient is a 75 y/o F w/ PMHx: PAF on coumadin, Hx AAA s/p repair, Dementia unclear type with unclear behavioral disturbance history, HTN, HLD, Diabetes mellitus type II wiht neuropathy, Obesity, Valvular Heart Disease s/p bioprosthetic AVR following with Dr. Odell, Hx CVA who presents to the [facility] ED on 07/16/21 with history of unfortunate slip and fall on the ice with intractable right lower extremity pain below the knee with no loss of consciousness nor any trauma to the head prompting ED evaluation. EMS did place a temporary splint on route but ED physician notes intention to replace as undone for evaluation. She notes any motion or any palpation to the extremity makes the pain more severe, 7 out of 10 currently and that is just at rest but becomes tentative 10 with any palpation or movement. Work-up in the ED included T 97.8, heart rate 58, BP 181/85, respiratory rate 18, 98% on room air, CBC with WC 9.8, hemoglobin 15.2, platelet 241 without marked shift, coags with PT 15.8, INR 1.3, BMP unremarkable aside glucose 144, plain film of the pelvis with degenerative changes of both hip joints, plain film right tib-fib with a nondisplaced oblique fracture of the proximal tibia as well as a nondisplaced fracture involving the proximal fibula as well as the distal fibula, right ankle plain film with evidence of a trimalleolar fracture with soft tissue edema present. [facility] Medical History (Updated 07/16/21 @ 14:[address] Ana Jenkins MD) Dementia Diabetes mellitus, type 2 History of CVA (cerebrovascular accident) HLD (hyperlipidemia) HTN (hypertension) PAF (paroxysmal atrial fibrillation) Valvular heart disease Home Medications amlodipine 5 mg PO DAILY 02/15/20 [History Last Taken 04/29/20 06:30] metformin 500 mg PO DAILY 02/15/20 [History Last Taken 02/15/20] metoprolol succinate 25 mg PO QHS 02/15/20 [History Last Taken 04/28/20 22:00] multivitamin with minerals 1 ea PO DAILY 02/15/20 [History Last Taken 02/15/20] polyethylene glycol 3350 17 gm PO QODAY 02/15/20 [History Last Taken 02/15/20] calcium carb-D3-mag [id number] 1 ea PO DAILY 02/16/20 [History Last Taken Unknow n] cholecalciferol (vitamin D3) 1,000 unit PO DAILY 02/16/20 [History Last Taken Unknown] warfarin 2 mg PO DAILY 02/16/20 [History Last Taken 04/23/20 16:00] gabapentin 300 mg PO QHS 03/25/20 [History Last Taken Unknown] aspirin 81 mg PO DAILY@0800 tab.chew 04/30/20 [Rx Last Taken Unknown] allopurinol 100 mg PO DAILY 07/16/21 [History Last Taken 07/15/21] diphenhydramine HCl [Benadryl Allergy] 25 mg PO QHS 07/16/21 [History Last Taken 07/15/21] flaxseed 1 ea PO DAILY 07/16/21 [History Last Taken 07/16/21] lisinopril 20 mg PO DAILY 07/16/21 [History Last Taken 07/15/21] melatonin 6 mg PO DAILY 07/16/21 [History Last Taken 07/15/21] Allergy/AdvReac Type Severity Reaction Status Date / Time Penicillins [PCN] Allergy Hives Verified 03/25/20 14:10 tramadol Allergy Other Verified 03/25/20 14:10 ciprofloxacin [From Cipro] AdvReac PT UNSURE Verified 03/25/20 14:10 OF REACTION donepezil [From Aricept] AdvReac PT UNSURE Verified 04/29/20 09:19 OF REACTION nitrofurantoin AdvReac PT UNSURE Verified 04/29/20 09:17 [From Macrobid] OF REACTION ramelteon AdvReac PT UNSURE Verified 03/25/20 14:10 OF REACTION trazodone AdvReac PT UNSURE Verified 03/25/20 14:10 OF REACTION Family History (Updated 07/16/21 @ 13:[address] Ana Jenkins MD) Mother Heart disease Hypertension Father Heart disease Hypertension Surgical History (Updated 07/16/21 @ 13:[address] Ana Jenkins MD) H/O aortic aneurysm repair H/O microdiscectomy History of bilateral tubal ligation History of reverse total replacement of right shoulder joint S/P aortic valve replacement with bioprosthetic valve S/P dilation and curettage S/P hysterectomy Social History (Updated 07/16/21 @ 13:[address] Ana Jenkins MD) household members: spouse Smoking Status: Never smoker alcohol intake: never substance use type: does not use ROS ROS Narrative Admission Review of Systems: CONSTITUTIONAL: No weight loss, fever, chills, + weakness or fatigue. HEENT: Eyes: No visual loss, blurred vision, double vision or yellow sclerae. Ears, Nose, Throat: No hearing loss, sneezing, congestion, runny nose or sore throat. SKIN: No rash or itching, lesions, wounds. CARDIOVASCULAR: No chest pain, chest pressure or chest discomfort, palpitations, edema, orthopnea, syncopal events. RESPIRATORY: No shortness of breath, cough or sputum, wheezing, hemoptysis. GASTROINTESTINAL: No anorexia, nausea, vomiting or diarrhea, abdominal pain, melena, BRBPR. GENITOURINARY: No dysuria, frequency, urgency or retention. NEUROLOGICAL: + Chronic diabetic neuropathy, no headache, dizziness, syncope, paralysis, ataxia, focal weakness, change in bowel or bladder control, seizure. MUSCULOSKELETAL: + muscle, back pain, joint pain or stiffness. HEMATOLOGIC + anemia, bleeding or bruising. LYMPHATICS: No enlarged nodes. No history of splenectomy. PSYCHIATRIC: No history of depression or anxiety. ENDOCRINOLOGIC: No reports of sweating, cold or heat intolerance. No polyuria or polydipsia. ALLERGIES: No history of asthma, hives, eczema or rhinitis. Vital Signs Vital Signs Vital Signs: 07/16/21 10:53 07/16/21 11:43 07/16/21 13:15 Temperature 97.8 F Temperature Source Oral Pulse Rate 58 L 61 Respiratory Rate 18 16 Blood Pressure 181/85 H 188/89 H 161/72 H Blood Pressure Mean 117 122 101 Pulse Ox 98 100 Oxygen Delivery Method Room Air Room Air Weight Weight: 176 lb 9.444 oz Body Mass Index (BMI) 30.3 Physical Exam Narrative Physical Examination: General: Awake, alert, oriented x 3 and cooperative, laying in the ED bed, uncomfortable and anxious, notes pain 7 of 10 currently. Skin: Normal color, normal turgor, no icterus, no cyanosis. HEENT: AT/NC, EOMI, PERRLA, mildly dry MM, no carotid bruits or JVD noted. Lungs: Mildly diminished, greater bases, appropriate effort, no rales, ronchi or wheezing. Heart: Currently regular rate and rhythm; no gallop, rub audible. Abdomen: Soft, obese, NTTP, ND, mildly hyperactive BS, no HSM. Extremities: No cyanosis, no clubbing, right lower extremity with sensation intact, able to move toes, mildly edematous. Neurological: Patient awake, alert, oriented as noted, cognitive function remains intact; pupils equally reactive to light and accommodation, cranial nerves II-XII grossly normal, moving all 4 extremities but limited right lower extremity given fall with significant segmental fractures evident, strength accordingly severely global decreased. Psychiatric: Affect appears uncomfortable, anxious, no acute evidence of depress kevin feelings. Results Lab / Micro Data Result Diagrams: 07/16/21 11:26 07/16/21 11:26 Labs: Laboratory Results - last 24 hr 07/16/21 11:26: WBC 9.8, RBC 4.81, Hgb 15.2 H, Hct 42.6, MCV 88.6, MCH 31.6, MCHC 35.7, RDW Std Deviation 40.4, RDW Coeff of Yasir 12.3, Plt Count 241, MPV 9. 6, Immature Gran % (Auto) 0.400, Neut % (Auto) 76.0 H, Lymph % (Auto) 13.0 L, [place] % (Auto) 9.0, Eos % (Auto) 0.9, Baso % (Auto) 0.7, Absolute Neuts (auto) 7.4, Absolute Lymphs (auto) 1.27, Nucleated RBC % 0 07/16/21 11:26: PT 15.8 H, INR 1.3 07/16/21 11:26: Sodium 138, Potassium 4.1, Chloride 105, Carbon Dioxide 30.0, Anion Gap 3 L, BUN 16, Creatinine 0.91, Estim Creat Clear Calc 44.71, Est GFR (MDRD) Af Amer 77, Est GFR (MDRD) Non-Af 64, BUN/Creatinine Ratio 17.7, Glucose 144 H, Calcium 8.7 Radiology Impression Pelvis X-Ray 07/16/21 11:15 IMPRESSION: Degenerative changes of both hip joints. Electronically Signed: Dax Dean MD at 12:29 EST , Tibia/Fibula X-Ray 07/16/21 11:15 IMPRESSION: Nondisplaced oblique fracture of the proximal tibia as well as nondisplaced fracture involving the proximal fibula as well as the distal fibula. Electronically Signed: Dax Dean MD at 12:30 EST , Ankle X-Ray 07/16/21 12:00 IMPRESSION: Trimalleolar fracture. Soft tissue swelling. Electronically Signed: Dax Dean MD at 12:32 EST , Assessment & Plan Assessment/Plan (1) Right malleolar fracture: QUALIFIERS: Encounter type: initial encounter Fracture type: closed Qualified Code(s): S82.891A - Other fracture of right lower leg, initial encounter for closed fracture (2) Right tibial fracture: QUALIFIERS: Encounter type: initial encounter Fracture morphology: unspecified fracture morphology Fracture type: closed Tibia location: proximal Qualified Code(s): S82.101A - Unspecified fracture of upper end of right tibia, initial encounter for closed fracture (3) Fracture of right proximal fibula: QUALIFIERS: Encounter type: initial encounter Fracture morpholo gy: unspecified fracture morphology Fracture type: closed Qualified Code(s): S82.831A - Other fracture of upper and lower end of right fibula, initial encounter for closed fracture (4) Closed fracture of right distal fibula: QUALIFIERS: Encounter type: initial encounter Fracture morphology: unspecified fracture morphology Qualified Code(s): S82.831A - Other fracture of upper and lower end of right fibula, initial encounter for closed fracture PLAN: The patient is a 75 y/o F w/ PMHx: PAF on coumadin, Hx AAA s/p repair, Dementia unclear type with unclear behavioral disturbance history, HTN, HLD, Diabetes mellitus type II wiht neuropathy, Obesity, Valvular Heart Disease s/p bioprosthetic AVR following with Dr. Odell, Hx CVA who presents to the [facility] ED on 07/16/21 with history of unfortunate slip and fall on the ice with intractable right lower extremity pain below the knee with no loss of consciousness nor any trauma to the head prompting ED evaluation. #1. Mechanical fall on ice with Segmental right nondisplaced oblique fracture proximal tibia, nondisplaced fracture proximal fibula as well as distal fibula and trimalleolar fracture: Orthopedic surgery consulted from ED. Will admit to MS, maintain NPO after midnight for possible OR intervention, continue gentle IVFs once n.p.o. status, page placement, monitor I/Os, frequent positioning, fall precautions, as needed pain, as needed anti-emetic regimen. PT/OT following operative intervention. CM consulted for discharge planning. QI with above average risk for serious complication therefore will request cardiology evaluation, echocardiogram requested additionally, EKG will be obtained upon admission additionally. If cardiology amenable pending EKG and echocardiogram results then would agree with progression to operative intervention. #2. PAF: We will hold Coumadin, continue patient metoprolol regimen, trend INR although currently is subtherapeutic. Resume once cleared per orthopedic surgery. #3. Valvular heart disease: No echocardiogram noted in the system, status post bioprosthetic AVR following with airdox fitter Dr. Odell. Will request echocardiogram. #4. History CVA: We will hold Coumadin, continue aspirin if surgery amenable, continue hypertensive regimen, temporarily holding oral diabetic medicine as noted. #5. History AAA: Status post repair, will continue aspirin, holding Coumadin which is already subtherapeutic, continue hypertensive regimen, not on statin th erapy. #6. Hypertension: Continue home regimen including amlodipine, lisinopril, metoprolol with hold parameters as needed, PRN hydralazine. #7. Hyperlipidemia: Not on statin, defer to outpatient. #8. Diabetes mellitus type II with neuropathy: Hold oral home regimen, ADA diet until n.p.o. status for operative intervention, accu checks w/ ISS, continue patient on gabapentin regimen. #9. Obesity: Weight loss and lifestyle changes encouraged. #10. DVT prophylaxis: SCD to left lower extremity only, holding Coumadin, INR subtherapeutic upon presentation, defer any chemoprophylaxis initially given OR needs. Charges/Coding Visit Charges Inpatient E&M: 95334 Init Hosp L3
--- NOTE | 2021-07-16 14:26 | EKG12_ITS ---
Test Reason : PRE OP Blood Pressure : / mmHG Vent. Rate : 069 BPM Atrial Rate : 069 BPM P-R Int : 152 ms QRS Dur : 080 ms QT Int : 422 ms P-R-T Axes : 041 009 043 degrees QTc Int : 452 ms Normal sinus rhythm Normal ECG Confirmed by NORA PHAM, PETER ([id number]), book editor THANIA DELA CRUZ ([id number]) on 07/19/2021 12:12:14 PM Referred By: KURTIS Confirmed By:PETER MELENDEZ MD
[2021-07-16 15:24] LABS: Magnesium 2.1 mg/dL (1.6-2.6)
[2021-07-16 17:01] LABS: Bedside Glucose 111 mg/dL (70-110)
--- NOTE | 2021-07-16 17:52 | PCM.CONS.C ---
Assessment & Plan Assessment/Plan (1) Closed right trimalleolar fracture: QUALIFIERS: Encounter type: initial encounter Qualified Code(s): S82.851A - Displaced trimalleolar fracture of right lower leg, initial encounter for closed fracture (2) Closed fracture of right fibula and tibia: QUALIFIERS: Encounter type: initial encounter Qualified Code(s): S82.201A - Unspecified fracture of shaft of right tibia, initial encounter for closed fracture; S82.401A - Unspecified fracture of shaft of right fibula, initial encounter for closed fracture (3) Fall due to ice or snow: QUALIFIERS: Encounter type: initial encounter Qualified Code(s): W00.9XXA - Unspecified fall due to ice and snow, initial encounter (4) Paroxysmal atrial fibrillation: PLAN: 75-year-old female with history of aortic valve bioprosthesis and paroxysmal atrial fibrillation Has been on anticoagulation with Coumadin also had a history of abdominal aortic aneurysm SP repair history of dementia. And history of CVA. Patient follow-up with This presentation is following mechanical fall on ice and sustained right nondisplaced oblique fracture of the proximal tibia and a nondisplaced fracture of the proximal fibula as well as the distal fibula Cardiac care recommendations; I reviewed the echocardiogram which was done in the ER and it revealed normal LV systolic function With normal aortic valve bioprosthesis and mild TR with mild diastolic dysfunction No pericardial effusion. Cardiac status is stable, INR is subtherapeutic And would recommend to resume Coumadin post surgery and patient is cleared to undergo surgery with intermediate risk for cardiopulmonary event, due to underlying cardiac history Coumadin is on hold. HPI Consult Data Date of Consult: 07/16/21 HPI Narrative Reason for Consultation: AV bioprosthesis P.afib.R.tibia/fibulaFracture HPI Narrative: RILEY REYNA, is a 75 F who presents [facility] Medical History (Updated 07/16/21 @ 18:[address] Kaleigh Lemos MD) Dementia Diabetes mellitus, type 2 History of CVA (cerebrovascular accident) HLD (hyperlipidemia) HTN (hypertension) PAF (paroxysmal atrial fibrillation) Paroxysmal atrial fibrillation Valvular heart disease Home Medications amlodipine 5 mg PO DAILY 02/15/20 [History Last Taken 07/16/21] metformin 500 mg PO DAILY 02/15/20 [History Last Taken 07/16/21] metoprolol succinate 50 mg PO QHS 02/15/20 [History Last Taken 07/15/21] multivitamin with minerals 1 ea PO DAILY 02/15/20 [History Last Taken 07/15/21] polyethylene glycol 3350 17 gm PO QODAY 02/15/20 [History Last Taken 1 Week Ago ~07/09/21] calcium carb-D3-mag [id number] 1 ea PO DAILY 02/16/20 [History Last Taken 07/15/21] cholecalciferol (vitamin D3) 1,000 unit PO DAILY 02/16/20 [History Last Taken 07/15/21] warfarin 2 mg PO DAILY 02/16/20 [History Last Taken 07/15/21 16:00] gabapentin 300 mg PO QHS 03/25/20 [History Last Taken 07/15/21] aspirin 81 mg PO DAILY@0800 tab.chew 04/30/20 [Rx Last Taken 07/16/21] allopurinol 100 mg PO DAILY 07/16/21 [History Last Taken 07/15/21] diphenhydramine HCl [Benadryl Allergy] 25 mg PO QHS 07/16/21 [History Last Taken 07/15/21] flaxseed 1 ea PO DAILY 07/16/21 [History Last Taken 07/16/21] lisinopril 20 mg PO DAILY 07/16/21 [History Last Taken 07/15/21] melatonin 6 mg PO DAILY 07/16/21 [History Last Taken 07/15/21] Allergy/AdvReac Type Severity Reaction Status Date / Time Penicillins [PCN] Allergy Hives Verified 03/25/20 14:10 tramadol Allergy Other Verified 03/25/20 14:10 ciprofloxacin [From Cipro] AdvReac PT UNSURE Verified 03/25/20 14:10 OF REACTION donepezil [From Aricept] AdvReac PT UNSURE Verified 04/29/20 09:19 OF REACTION nitrofurantoin AdvReac PT UNSURE Verified 04/29/20 09:17 [From Macrobid] OF REACTION ramelteon AdvReac PT UNSURE Verified 07/16/21 17:53 OF REACTION trazodone AdvReac PT UNSURE Verified 03/25/20 14:10 OF REACTION Family History (Updated 07/16/21 @ 13:[address] Ana Jenkins MD) Mother Heart disease Hypertension Father Heart disease Hypertension Surgical History (Updated 07/16/21 @ 17:[address] Kaleigh Lemos MD) H/O aortic aneurysm repair H/O microdiscectomy History of aortic valve replacement with bioprosthetic valve History of bilateral tubal ligation History of reverse total replacement of right shoulder joint S/P aortic valve replacement with bioprosthetic valve S/P dilation and curettage S/P hysterectomy Social History (Updated 07/16/21 @ 13:[address] Ana Jenkins MD) household members: spouse Smoking Status: Never smoker alcohol intake: never substance use type: does not use Physical Exam Narrative Patient seen and evaluated at bedside along with the nursing staff Daughter at bedside. She complained of discomfort in the right lower extremity where she sustained tibia and fibula fracture Alert orientated x3 Cardiovascular exam normal aortic valve bioprosthetic sound, no gallop no pericardial rub Chest exam mildly diminished air entry Abdomen; soft nontender Examination lower extremity tenderness of the right lower extremity Risk Stratification Risk Stratification Applicable: No Objective Data Vital Signs: Vital Signs Temp Pulse Resp BP Pulse Ox 98.6 F 73 18 158/71 H 100 07/16/21 17:34 07/16/21 17:34 07/16/21 17:34 07/16/21 17:34 07/16/21 17:34 Oxygen Delivery Method Room Air Weight: 176 lb 14.4 oz Body Mass Index (BMI) 30.3 Lab / Micro Data Result Diagrams: 07/16/21 11:26 07/16/21 18:06 Labs: Laboratory Results - last 24 hr 07/16/21 11:26: WBC 9.8, RBC 4.81, Hgb 15.2 H, Hct 42.6, MCV 88.6, MCH 31.6, MCHC 35.7, RDW Std Deviation 40.4, RDW Coeff of Yasir 12.3, Plt Count 241, MPV 9.6, Immature Gran % (Auto) 0.400, Neut % (Auto) 76.0 H, Lymph % (Auto) 13.0 L, [place] % (Auto) 9.0, Eos % (Auto) 0.9, Baso % (Auto) 0.7, Absolute Neuts (auto) 7.4, Absolute Lymphs (auto) 1.27, Nucleated RBC % 0 07/16/21 11:26: PT 15.8 H, INR 1.3 07/16/21 11:26: Sodium 138, Potassium 4.1, Chloride 105, Carbon Dioxide 30.0, Anion Gap 3 L, BUN 16, Creatinine 0.91, Estim Creat Clear Calc 44.71, Est GFR (MDRD) Af Amer 77, Est GFR (MDRD) Non-Af 64, BUN/Creatinine Ratio 17.7, Glucose 144 H, Calcium 8.7 07/16/21 11:26: Magnesium 2.1 07/16/21 16:53: POC Glucose 111 H Cardiology Labs/Tests 07/16/21 11:26: WBC 9.8, RBC 4.81, Hgb 15.2 H, Hct 42.6, MCV 88.6, MCH 31.6, MCHC 35.7, Plt Count 241, MPV 9.6, Immature Gran % (Auto) 0.400, Neut % (Auto) 76.0 H, Lymph % (Auto) 13.0 L, [place] % (Auto) 9.0, Eos % (Auto) 0.9, Baso % (Auto) 0.7, Absolute Neuts (auto) 7.4, Nucleated RBC % 0 07/16/21 11:26: PT 15.8 H, INR 1.3 07/16/21 11:26: Sodium 138, Potassium 4.1, Chloride 105, Carbon Dioxide 30.0, Anion Gap 3 L, BUN 16, Creatinine 0.91, Est GFR (MDRD) Af Amer 77, Est GFR (MDRD) Non-Af 64, BUN/Creatinine Ratio 17.7, Glucose 144 H, Calcium 8.7 07/16/21 11:26: Magnesium 2.1 Rhythm: Normal sinus rhythm, on cardiac telemetry ECHO: Normal LV systolic function with ejection fraction 55-60% Normal aortic valve bioprosthesis function Mild TR and no pericardial effusion : Radiography Diagnostic Testing: Radiology Impression Pelvis X-Ray 07/16/21 11:15 IMPRESSION: Degenerative changes of both hip joints. Electronically Signed: Dax Dean MD at 12:29 EST , Tibia/Fibula X-Ray 07/16/21 11:15 IMPRESSION: Nondisplaced oblique fracture of the proximal tibia as well as nondisplaced fracture involving the proximal fibula as well as the distal fibula. Electronically Signed: Dax Dean MD at 12:30 EST , Ankle X-Ray 07/16/21 12:00 IMPRESSION: Trimalleolar fracture. Soft tissue swelling. Electronically Signed: Dax Dean MD at 12:32 EST ,
[2021-07-16 18:33] LABS: ALB/GLOB Ratio 0.9 RATIO (0.9-2.4); AST(SGOT) 20 U/L (15-37); Alanine Aminotransfer ALT/SGPT 13 U/L (13-56); Albumin, Serum 3.2 g/dL (3.2-5.0); Alkaline Phosphatase 97 U/L (45-117); Anion Gap 5 (5-15); BUN 15 mg/dL (7-18); BUN/Creat Ratio 16.4 RATIO (10-20); Calcium,Total 9.1 mg/dL (8.5-10.1); Chloride 108 mmol/L (98-107); Creatinine, Serum 0.92 mg/dL (0.55-1.02); EST Glomerular Filtration Rate 63 mL/min (>60); Est Glom Filt Rate - Afr Amer 76 mL/min (>60); Estimated Creatinine Clearance 44.22 ml/min; Globulin 3.7 g/dL (2.2-4.2); Glucose 127 mg/dL (74-106); Potassium 4.2 mmol/L (3.5-5.1); Protein, Total 6.9 g/dL (6.4-8.2); Sodium Level 135 mmol/L (136-145); Troponin-I HS 8 pg/mL (3.0-54.0)
[2021-07-16] MEDS: Acetaminophen 325 MG Tablet 650 MG PO (18:40)
[2021-07-16] MEDS: oxyCODONE 5 MG Tablet PO (18:41)
[2021-07-16 21:05] LABS: Troponin-I HS 8 pg/mL (3.0-54.0)
[2021-07-16] MEDS: MELATONIN 3 MG TABLET 6 MG PO (22:23)
[2021-07-16] MEDS: Senna/Docusate Sodium 1 Tablet 2 TABLET PO (22:23)
[2021-07-16] MEDS: Gabapentin 300 MG Capsule PO (22:23)
[2021-07-16] MEDS: Metoprolol(XL)Succ 25 MG Tablet PO (22:24)
[2021-07-16 22:36] LABS: Bedside Glucose 143 mg/dL (70-110)
[2021-07-17] VITALS (7 sets, daily range): BP systolic 120–140; BP diastolic 55–70; PULSE 62–99; RESP 16–18; TEMP 36.9–37.6; O2SAT 92–97
[2021-07-17] MEDS: 0.9% Normal Saline 1,000 ML 100 ML IV ×3 (00:05→20:05)
[2021-07-17] MEDS: 0.9% Saline Lock 10 ML Syringe IV (00:05)
[2021-07-17] MEDS: oxyCODONE 5 MG Tablet PO ×2 (00:10→20:19)
[2021-07-17] MEDS: Acetaminophen 325 MG Tablet 650 MG PO ×2 (00:10→20:22)
[2021-07-17 00:48] LABS: Troponin-I HS 8 pg/mL (3.0-54.0)
[2021-07-17 06:56] LABS: Bedside Glucose 109 mg/dL (70-110)
[2021-07-17 06:56] LABS: Absolute Lymphocyte Count 2.04 X10^3/uL (0.83-4.51); Absolute Neutrophil Count 3.5 X10^3/uL (2.0-7.7); Basophil# 0.08 X10^3/uL; Basophil% 1.2 % (0-1); Eosinophil# 0.11 X10^3/uL; Eosinophils% 1.6 % (0-5); Hematocrit 36.6 % (37-47); Hemoglobin 12.1 g/dL (12.0-15.0); Lymphocyte # 2.04 X10^3/ul (0.83-4.51); Lymphocyte % 29.8 % (19-41); Mean Corp Hgb Conc 33.1 g/dL (32-36); Mean Corpuscular Hgb 29.7 pg (27.0-32.0); Mean Corpuscular Volume 89.9 fL (81-99); Mean Platelet Vol. 9.2 fl (6.2-12.0); Monocyte# 1.13 X10^3/uL; Monocyte% 16.5 % (0-10); NRBC Flagged by Analyzer 0 % (0-5); Neutrophil # 3.45 X10^3/uL (2.7-7.7); Neutrophil % 50.5 % (47-70); Platelet Count 195 K/mm3 (150-450); RBC Distribution Width CV 12.8 % (11.6-14.6); RBC Distribution Width SD 41.9 fl (35.1-43.9); Red Blood Count 4.07 M/mm3 (4.2-5.4); White Blood Count 6.8 K/mm3 (4.4-11.0)
[2021-07-17 07:04] LABS: International Normalized Ratio 1.5; Prothrombin Time (Protime)PT. 17.1 SECONDS (11.7-14.9)
[2021-07-17 07:05] LABS: Partial Thromboplast Time 32.4 Seconds (24.1-36.2)
[2021-07-17 07:14] LABS: ALB/GLOB Ratio 0.9 RATIO (0.9-2.4); AST(SGOT) 12 U/L (15-37); Alanine Aminotransfer ALT/SGPT 15 U/L (13-56); Albumin, Serum 2.9 g/dL (3.2-5.0); Alkaline Phosphatase 83 U/L (45-117); Anion Gap 5 (5-15); BUN 21 mg/dL (7-18); Calcium,Total 8.6 mg/dL (8.5-10.1); Chloride 105 mmol/L (98-107); EST Glomerular Filtration Rate 57 mL/min (>60); Est Glom Filt Rate - Afr Amer 69 mL/min (>60); Estimated Creatinine Clearance 40.68 ml/min; Globulin 3.2 g/dL (2.2-4.2); Glucose 113 mg/dL (74-106); Potassium 3.8 mmol/L (3.5-5.1); Protein, Total 6.1 g/dL (6.4-8.2); Sodium Level 138 mmol/L (136-145)
[2021-07-17 07:32] LABS: Hemoglobin A1c 5.9 % (3.8-5.6)
[2021-07-17] MEDS: Morphine 4 MG/ML Syringe IV ×4 (08:07→16:02)
[2021-07-17] MEDS: Allopurinol 100 MG Tablet PO (10:14)
[2021-07-17] MEDS: amLODIPine 5 MG Tablet PO (10:14)
[2021-07-17] MEDS: Lisinopril 20 MG Tablet PO (10:14)
[2021-07-17 11:11] LABS: Bedside Glucose 112 mg/dL (70-110)
--- NOTE | 2021-07-17 11:54 | PN.HOSP_ITS ---
Subjective Subjective Patient seen and examined. She complained of pain in the right lower extremity and said the pain was persistent and throbbing. She had no other complaints and review of systems otherwise negative. She has remained hemodynamically stable. Objective Data Objective Data Vital Signs: Vital Signs Temp Pulse Resp BP Pulse Ox 99.2 F H 65 16 136/70 H 94 07/17/21 08:51 07/17/21 08:51 07/17/21 08:51 07/17/21 08:51 07/17/21 08:51 Oxygen Delivery Method Room Air Weight: 176 lb 12.972 oz Body Mass Index (BMI) 30.3 Intake & Output: Intake and Output for Last 24 Hours 07/15/21 07/16/21 07/17/21 23:59 23:59 23:59 Intake Total 300 / 300 1000 / 1000 Output Total 250 / 250 Balance 300 / 200 750 / 750 Lab / Micro Data Result Diagrams: 07/17/21 06:15 07/17/21 06:15 Labs: Laboratory Results - last 24 hr 07/16/21 11:26: WBC 9.8, RBC 4.81, Hgb 15.2 H, Hct 42.6, MCV 88.6, MCH 31.6, MCHC 35.7, RDW Std Deviation 40.4, RDW Coeff of Yasir 12.3, Plt Count 241, MPV 9.6, Immature Gran % (Auto) 0.400, Neut % (Auto) 76.0 H, Lymph % (Auto) 13.0 L, [place] % (Auto) 9.0, Eos % (Auto) 0.9, Baso % (Auto) 0.7, Absolute Neuts (auto) 7.4, Absolute Lymphs (auto) 1.27, Nucleated RBC % 0 07/16/21 11:26: PT 15.8 H, INR 1.3 07/16/21 11:26: Sodium 138, Potassium 4.1, Chloride 105, Carbon Dioxide 30.0, Anion Gap 3 L, BUN 16, Creatinine 0.91, Estim Creat Clear Calc 44.71, Est GFR (MDRD) Af Amer 77, Est GFR (MDRD) Non-Af 64, BUN/Creatinine Ratio 17.7, Glucose 144 H, Calcium 8.7 07/16/21 11:26: Magnesium 2.1 07/16/21 16:53: POC Glucose 111 H 07/16/21 18:06: Sodium 135 L, Potassium 4.2, Chloride 108 H, Carbon Dioxide 22.0, Anion Gap 5, BUN 15, Creatinine 0.92, Estim Creat Clear Calc 44.22, Est GFR (MDRD) Af Amer 76, Est GFR (MDRD) Non-Af 63, BUN/Creatinine Ratio 16.4, Glucose 127 H, Calcium 9.1, Total Bilirubin 0.70, AST 20, ALT 13, Alkaline Phosphatase 97, Troponin I High Sens 8, Total Protein 6.9, Albumin 3.2, Globulin 3.7, Albumin/Globulin Ratio 0.9 07/16/21 20:02: Troponin I High Sens 8 07/16/21 22:20: POC Glucose 143 H 07/17/21 00:16: Troponin I High Sens 8 07/17/21 06:15: WBC 6.8, RBC 4.07 L, Hgb 12.1, Hct 36.6 L, MCV 89.9, MCH 29.7, MCHC 33.1 D, RDW Std Deviation 41.9, RDW Coeff of Yasir 12.8, Plt Count 195, MPV 9.2, Immature Gran % (Auto) 0.400, Neut % (Auto) 50.5, Lymph % (Auto) 29.8, [place] % (Auto) 16.5 H, Eos % (Auto) 1.6, Baso % (Auto) 1.2 H, Absolute Neuts (auto) 3.5, Absolute Lymphs (auto) 2.04, Nucleated RBC % 0 07/17/21 06:15: PT 17.1 H, INR 1.5, APTT 32.4 07/17/21 06:15: Sodium 138, Potassium 3.8, Chloride 105, Carbon Dioxide 28.0, Anion Gap 5, BUN 21 H, Creatinine 1.00, Estim Creat Clear Calc 40.68, Est GFR (MDRD) Af Amer 69, Est GFR (MDRD) Non-Af 57 L, BUN/Creatinine Ratio 21.0 H, Glucose 113 H, Calcium 8.6, Total Bilirubin 0.80, AST 12 L, ALT 15, Alkaline Phosphatase 83, Total Protein 6.1 L, Albumin 2.9 L, Globulin 3.2, Albumin/Globulin Ratio 0.9 07/17/21 06:15: Hemoglobin A1c 5.9 H 07/17/21 06:19: POC Glucose 109 07/17/21 11:00: POC Glucose 112 H Radiography Diagnostic Testing: Radiology Impression Pelvis X-Ray 07/16/21 11:15 IMPRESSION: Degenerative changes of both hip joints. Electronically Signed: Dax Dean MD at 12:29 EST , Tibia/Fibula X-Ray 07/16/21 11:15 IMPRESSION: Nondisplaced oblique fracture of the proximal tibia as well as nondisplaced fracture involving the proximal fibula as well as the distal fibula. Electronically Signed: Dax Dean MD at 12:30 EST , Ankle X-Ray 07/16/21 12:00 IMPRESSION: Trimalleolar fracture. Soft tissue swelling. Electronically Signed: Dax Dean MD at 12:32 EST , Physical Exam Const alert, oriented x3 and no apparent distress Exam Limitations: no limitations HEENT head/scalp atraumatic and moist oral mucous membranes Head and Scalp: normocephalic Eyes PERRL, EOMs intact bilaterally and conjunctivae normal Neck no lymphadenopathy and supple Resp normal respiratory effort, no retractions, no use of accessory muscles and clear to auscultation bilaterally Cardio regular rate, regular rhythm, S1 normal heart sound and S2 normal heart sound GI normal to inspection, nondistended, normoactive bowel sounds, soft to palpation, non-tender and non-distended Extremity Extremity Narrative: RLE wrapped in bandage. Peripheral Pulses: Yes pulses 2+ throughout Skin no rashes or lesions noted Neuro oriented x3 and CN's II-XII intact bilaterally Sensorium / Orientation: awake and alert Psych affect normal Assessment & Plan Assessment/Plan (1) Right malleolar fracture: QUALIFIERS: Encounter type: initial encounter Fracture type: closed Qualified Code(s): S82.891A - Other fracture of right lower leg, initial encounter for closed fracture (2) Right tibial fracture: QUALIFIERS: Encounter type: initial encounter Tibia location: proximal Fracture type: closed Fracture morphology: unspecified fracture morphology Qualified Code(s): S82.101A - Unspecified fracture of upper end of right tibia, initial encounter for closed fracture (3) Fracture of right proximal fibula: QUALIFIERS: Encounter type: initial encounter Fracture type: closed Fracture morphology: unspecified fracture morphology Qualified Code(s): S82.831A - Other fracture of upper and lower end of right fibula, initial encounter for closed fracture PLAN: #Right oblique fracture of proximal tibia a well as proximal fibula and distal fibula due to mecahnical fall * orthopedic surgery on board * PT/OT on board. Fall precautions * On p.o. Tylenol, IV morphine and p.o. oxycodone for pain * Cardiology consulted for cardiac risk stratification; per cardiology, patient can undergo surgery with intermediate risk for cardiopulmonary event due to underlying cardiac history. * #paroxysmal afib: coumadin on hold. On metoprolol. INR today is 1.5 #History of aortic valve stenosis s/p bioprosthetic aortic valve replacement * 2D echo requested * cardiology on board for cardiac risk stratification * #History of CVA: stable. #History of abdominal aortic aneurysm: S/p repair. On aspirin. Coumadin on hold. ##Hypertension: On amlodipine and lisinopril as well as metoprolol. IV hydralazine as needed #Type 2 diabetes mellitus with neuropathy: Oral meds on hold. On insulin sliding scale. Accu-Cheks AC at bedtime. On gabapentin DVT prophylaxis: Currently on SCDs. To resume Coumadin post surgery. Charges/Coding Visit Charges Inpatient E&M: 35683 Subs Hosp L2
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
[2021-07-17] MEDS: Polyethylene Glycol 3350 17 GM PACKET PO (16:02)
[2021-07-17] MEDS: Insulin Lispro 100 UNIT/ML INSULN.PEN SC (16:08)
[2021-07-17] MEDS: Senna/Docusate Sodium 1 Tablet 2 TABLET PO (20:24)
[2021-07-17] MEDS: Metoprolol(XL)Succ 25 MG Tablet PO (20:24)
[2021-07-17] MEDS: MELATONIN 3 MG TABLET 6 MG PO (20:26)
[2021-07-17 20:31] LABS: Bedside Glucose 149 mg/dL (70-110)
[2021-07-17] MEDS: Gabapentin 300 MG Capsule PO (20:31)
[2021-07-17 21:11] LABS: Bedside Glucose 190 mg/dL (70-110)
[2021-07-18] VITALS (8 sets, daily range): BP systolic 121–148; BP diastolic 52–71; PULSE 64–76; RESP 16; TEMP 36.8–37.3; O2SAT 92–97
[2021-07-18] MEDS: Acetaminophen 325 MG Tablet 650 MG PO ×4 (03:23→21:57)
[2021-07-18] MEDS: oxyCODONE 5 MG Tablet PO ×4 (03:24→21:57)
[2021-07-18] MEDS: 0.9% Normal Saline 1,000 ML 100 ML IV (05:43)
[2021-07-18 06:18] LABS: Absolute Lymphocyte Count 1.68 X10^3/uL (0.83-4.51); Absolute Neutrophil Count 3.6 X10^3/uL (2.0-7.7); Basophil# 0.06 X10^3/uL; Basophil% 0.9 % (0-1); Eosinophil# 0.17 X10^3/uL; Eosinophils% 2.5 % (0-5); Hematocrit 33.9 % (37-47); Hemoglobin 11.4 g/dL (12.0-15.0); Lymphocyte # 1.68 X10^3/ul (0.83-4.51); Lymphocyte % 24.9 % (19-41); Mean Corp Hgb Conc 33.6 g/dL (32-36); Mean Corpuscular Hgb 30.2 pg (27.0-32.0); Mean Corpuscular Volume 89.7 fL (81-99); Mean Platelet Vol. 8.9 fl (6.2-12.0); Monocyte# 1.18 X10^3/uL; Monocyte% 17.5 % (0-10); NRBC Flagged by Analyzer 0 % (0-5); Neutrophil # 3.62 X10^3/uL (2.7-7.7); Neutrophil % 53.8 % (47-70); Platelet Count 167 K/mm3 (150-450); RBC Distribution Width CV 12.4 % (11.6-14.6); RBC Distribution Width SD 40.7 fl (35.1-43.9); Red Blood Count 3.78 M/mm3 (4.2-5.4); White Blood Count 6.7 K/mm3 (4.4-11.0)
[2021-07-18 06:41] LABS: Anion Gap 3 (5-15); BUN 14 mg/dL (7-18); BUN/Creat Ratio 16.2 RATIO (10-20); Calcium,Total 8.8 mg/dL (8.5-10.1); Chloride 111 mmol/L (98-107); Creatinine, Serum 0.86 mg/dL (0.55-1.02); EST Glomerular Filtration Rate 67 mL/min (>60); Est Glom Filt Rate - Afr Amer 82 mL/min (>60); Estimated Creatinine Clearance 47.31 ml/min; Glucose 139 mg/dL (74-106); Potassium 3.8 mmol/L (3.5-5.1); Sodium Level 140 mmol/L (136-145)
[2021-07-18 07:00] LABS: Bedside Glucose 126 mg/dL (70-110)
[2021-07-18] MEDS: Allopurinol 100 MG Tablet PO (08:50)
[2021-07-18] MEDS: amLODIPine 5 MG Tablet PO (08:50)
[2021-07-18] MEDS: Senna/Docusate Sodium 1 Tablet 2 TABLET PO ×2 (08:50→21:56)
[2021-07-18] MEDS: Lisinopril 20 MG Tablet PO (08:50)
[2021-07-18] MEDS: Aspirin 81 MG TAB.CHEW PO (08:51)
--- NOTE | 2021-07-18 08:58 | CONS.ORTHO ---
HPI Consult Data Date of Consult: 07/18/21 HPI Narrative HPI Narrative: RILEY REYNA, is a 75 F who presents with RLE pain after a slip and fall at home. She was seen in [facility] ED and noted to have a segmental fracture of her right leg with minimally displace proximal tibia and fibula fractures and a minimally displaced trimalleolar fracture of her right ankle. She was placed in long leg splint and admitted to the hospital. She denies N/T/P. She reports no pain elsewhere. [facility] Medical History (Updated 07/16/21 @ 19:48 by Grover Cook) Dementia Diabetes mellitus, type 2 History of CVA (cerebrovascular accident) History of stress test HLD (hyperlipidemia) HTN (hypertension) PAF (paroxysmal atrial fibrillation) Paroxysmal atrial fibrillation Valvular heart disease Home Medications amlodipine 5 mg PO DAILY 02/15/20 [History Last Taken 07/16/21] metformin 500 mg PO DAILY 02/15/20 [History Last Taken 07/16/21] metoprolol succinate 50 mg PO QHS 02/15/20 [History Last Taken 07/15/21] multivitamin with minerals 1 ea PO DAILY 02/15/20 [History Last Taken 07/15/21] polyethylene glycol 3350 17 gm PO QODAY 02/15/20 [History Last Taken 1 Week Ago ~07/09/21] calcium carb-D3-mag [id number] 1 ea PO DAILY 02/16/20 [History Last Taken 07/15/21] cholecalciferol (vitamin D3) 1,000 unit PO DAILY 02/16/20 [History Last Taken 07/15/21] warfarin 2 mg PO DAILY 02/16/20 [History Last Taken 07/15/21 16:00] gabapentin 300 mg PO QHS 03/25/20 [History Last Taken 07/15/21] aspirin 81 mg PO DAILY@0800 tab.chew 04/30/20 [Rx Last Taken 07/16/21] allopurinol 100 mg PO DAILY 07/16/21 [History Last Taken 07/15/21] diphenhydramine HCl [Benadryl Allergy] 25 mg PO QHS 07/16/21 [History Last Taken 07/15/21] flaxseed 1 ea PO DAILY 07/16/21 [History Last Taken 07/16/21] lisinopril 20 mg PO DAILY 07/16/21 [History Last Taken 07/15/21] melatonin 6 mg PO DAILY 07/16/21 [History Last Taken 07/15/21] Allergy/AdvReac Type Severity Reaction Status Date / Time Penicillins [PCN] Allergy Hives Verified 03/25/20 14:10 tramadol Allergy Other Verified 03/25/20 14:10 ciprofloxacin [From Cipro] AdvReac PT UNSURE Verified 03/25/20 14:10 OF REACTION donepezil [From Aricept] AdvReac PT UNSURE Verified 04/29/20 09:19 OF REACTION nitrofurantoin AdvReac PT UNSURE Verified 04/29/20 09:17 [From Macrobid] OF REACTION ramelteon AdvReac PT UNSURE Verified 07/16/21 17:53 OF REACTION trazodone AdvReac PT UNSURE Verified 03/25/20 14:10 OF REACTION Family History (Updated 07/16/21 @ 13:[address] Ana Jenkins MD) Mother Heart disease Hypertension Father Heart disease Hypertension Surgical History H/O aortic aneurysm repair H/O microdiscectomy History of aortic valve replacement with bioprosthetic valve History of bilateral tubal ligation History of reverse total replacement of right shoulder joint S/P aortic valve replacement with bioprosthetic valve S/P dilation and curettage S/P hysterectomy Social History (Updated 07/16/21 @ 13:[address] Ana Jenkins MD) household members: spouse Smoking Status: Never smoker alcohol intake: never substance use type: does not use Vital Signs Vital Signs Vital Signs: 07/17/21 13:28 07/17/21 15:45 07/17/21 20:24 Temperature 99.2 F H 99.6 F H Temperature Source Oral Oral Pulse Rate 67 85 99 Respiratory Rate 16 16 Respiratory Effort Normal Respiratory Depth Normal Respiratory Pattern Normal Blood Pressure 140/56 H 120/55 L Blood Pressure Mean 84 76 Blood Pressure Source Monitor Monitor Blood Pressure Position Semi-Fowlers Semi-Fowlers Blood Pressure Location Right Arm Left Arm Pulse Ox 95 92 Oxygen Delivery Method Room Air Room Air 07/17/21 20:42 07/18/21 03:25 07/18/21 08:36 Temperature 99 F 98.3 F Temperature Source Oral Oral Pulse Rate 74 65 Respiratory Rate 16 16 Respiratory Effort Respiratory Depth Respiratory Pattern Blood Pressure 134/60 H 121/71 H Blood Pressure Mean 84 87 Blood Pressure Source Monitor Monitor Blood Pressure Position Semi-Fowlers Semi-Fowlers Blood Pressure Location Left Arm Left Arm Pulse Ox 97 93 92 Oxygen Delivery Method Room Air Room Air Room Air Weight Weight: 178 lb 9.191 oz Body Mass Index (BMI) 30.3 Physical Exam Const alert, oriented x3 and no apparent distress General Appearance: cooperative Extremity normal capillary refill, no clubbing, cyanosis or edema and no calf tenderness Extremity Narrative: Left upper leg and ankle painful to palpation. She NVI with brisk capillary refill. She is in a long leg splint that is well-fitted and shows no signs of skin breakdown. Neuro moves all extremities, no focal motor deficits and no sensory deficits noted Lab / Micro Data Result Diagrams: 07/18/21 06:10 07/18/21 06:10 Labs: Laboratory Results - last 24 hr 07/17/21 11:00: POC Glucose 112 H 07/17/21 16:00: POC Glucose 190 H 07/17/21 20:22: POC Glucose 149 H 07/18/21 06:10: WBC 6.7, RBC 3.78 L, Hgb 11.4 L, Hct 33.9 L, MCV 89.7, MCH 30.2, MCHC 33.6, RDW Std Deviation 40.7, RDW Coeff of Yasir 12.4, Plt Count 167, MPV 8.9, Immature Gran % (Auto) 0.400, Neut % (Auto) 53.8, Lymph % (Auto) 24.9, [place] % (Auto) 17.5 H, Eos % (Auto) 2.5, Baso % (Auto) 0.9, Absolute Neuts (auto) 3.6, Absolute Lymphs (auto) 1.68, Nucleated RBC % 0 07/18/21 06:10: Sodium 140, Potassium 3.8, Chloride 111 H, Carbon Dioxide 26.0, Anion Gap 3 L, BUN 14, Creatinine 0.86, Estim Creat Clear Calc 47.31, Est GFR (MDRD) Af Amer 82, Est GFR (MDRD) Non-Af 67, BUN/Creatinine Ratio 16.2, Glucose 139 H, Calcium 8.8 07/18/21 06:45: POC Glucose 126 H Assessment & Plan Assessment/Plan (1) Right tibial fracture: QUALIFIERS: Encounter type: initial encounter Tibia location: proximal Fracture type: closed Fracture morphology: unspecified fracture morphology Qualified Code(s): S82.101A - Unspecified fracture of upper end of right tibia, initial encounter for closed fracture PLAN: At this time, based upon my review of her xrays, this appears to be non-operative. I would recommend that she stay in the long leg splint, remain NWB on the right and follow up at [facility] in approximately 1 week for repeat x-rays and if everything remains stable, she will be switched to a long leg cast at that time. (2) Fracture of right proximal fibula: QUALIFIERS: Encounter type: initial encounter Fracture type: closed Fracture morphology: unspecified fracture morphology Qualified Code(s): S82.831A - Other fracture of upper and lower end of right fibula, initial encounter for closed fracture (3) Closed right trimalleolar fracture: QUALIFIERS: Encounter type: initial encounter Qualified Code(s): S82.851A - Displaced trimalleolar fracture of right lower leg, initial encounter for closed fracture (4) Segmental fracture of shaft of tibia:
--- NOTE | 2021-07-18 11:02 | PN.HOSP_ITS ---
Subjective Subjective Patient seen and examined. She still complains of pain with moving her right leg. She has no other complaints and review of symptoms otherwise negative. Orthopedics reviewed patient today and recommended nonoperative management. She has remained hemodynamically stable. Objective Data Objective Data Vital Signs: Vital Signs Temp Pulse Resp BP Pulse Ox 99.1 F 76 16 128/52 H 97 07/18/21 09:30 07/18/21 09:30 07/18/21 09:30 07/18/21 09:30 07/18/21 09:30 Oxygen Delivery Method Room Air Weight: 178 lb 9.191 oz Body Mass Index (BMI) 30.3 Intake & Output: Intake and Output for Last 24 Hours 07/16/21 07/17/21 07/18/21 23:59 23:59 23:59 Intake Total 300 / 300 2393.33 / 2393.33 1448.33 / 1448.33 Output Total 1600 / 2325 1525 / 1525 Balance 300 / 200 793.33 / 68.33 -76.67 / -76.67 Lab / Micro Data Result Diagrams: 07/18/21 06:10 07/18/21 06:10 Labs: Laboratory Results - last 24 hr 07/17/21 11:00: POC Glucose 112 H 07/17/21 16:00: POC Glucose 190 H 07/17/21 20:22: POC Glucose 149 H 07/18/21 06:10: WBC 6.7, RBC 3.78 L, Hgb 11.4 L, Hct 33.9 L, MCV 89.7, MCH 30.2, MCHC 33.6, RDW Std Deviation 40.7, RDW Coeff of Yasir 12.4, Plt Count 167, MPV 8.9, Immature Gran % (Auto) 0.400, Neut % (Auto) 53.8, Lymph % (Auto) 24.9, [place] % (Auto) 17.5 H, Eos % (Auto) 2.5, Baso % (Auto) 0.9, Absolute Neuts (auto) 3.6, Absolute Lymphs (auto) 1.68, Nucleated RBC % 0 07/18/21 06:10: Sodium 140, Potassium 3.8, Chloride 111 H, Carbon Dioxide 26.0, Anion Gap 3 L, BUN 14, Creatinine 0.86, Estim Creat Clear Calc 47.31, Est GFR (MDRD) Af Amer 82, Est GFR (MDRD) Non-Af 67, BUN/Creatinine Ratio 16.2, Glucose 139 H, Calcium 8.8 07/18/21 06:45: POC Glucose 126 H Physical Exam Const alert, oriented x3 and no apparent distress Exam Limitations: no limitations HEENT head/scalp atraumatic and moist oral mucous membranes Head and Scalp: normocephalic Eyes PERRL, EOMs intact bilaterally and conjunctivae normal Neck no lymphadenopathy and supple Resp normal respiratory effort, no retractions, no use of accessory muscles and clear to auscultation bilaterally Cardio regular rate, regular rhythm, S1 normal heart sound and S2 normal heart sound GI normal to inspection, nondistended, normoactive bowel sounds, soft to palpation, non-tender and non-distended Extremity Extremity Narrative: RLE wrapped in bandage. Peripheral Pulses: Yes pulses 2+ throughout Skin no rashes or lesions noted Neuro oriented x3 and CN's II-XII intact bilaterally Sensorium / Orientation: awake and alert Psych affect normal Assessment & Plan Assessment/Plan (1) Right malleolar fracture: QUALIFIERS: Encounter type: initial encounter Fracture type: closed Qualified Code(s): S82.891A - Other fracture of right lower leg, initial encounter for closed fracture (2) Right tibial fracture: QUALIFIERS: Encounter type: initial encounter Tibia location: proximal Fracture type: closed Fracture morphology: unspecified fracture morphology Qualified Code(s): S82.101A - Unspecified fracture of upper end of right tibia, initial encounter for closed fracture (3) Fracture of right proximal fibula: QUALIFIERS: Encounter type: initial encounter Fracture type: closed Fracture morphology: unspecified fracture morphology Qualified Code(s): S82.831A - Other fracture of upper and lower end of right fibula, initial encounter for closed fracture PLAN: #Right oblique fracture of proximal tibia a well as proximal fibula and distal fibula due to mecahnical fall * orthopedic surgery on board * PT/OT on board. Fall precautions * On p.o. Tylenol, IV morphine and p.o. oxycodone for pain * Cardiology consulted for cardiac risk stratification; per cardiology, patient can undergo surgery with intermediate risk for cardiopulmonary event due to underlying cardiac history. * orthopedics reviewed patient today and recommends nonconservative management; patient to remain in long leg splint, remain non weight bearing on the right and to follow up at [facility] in ~ 1 week. * #paroxysmal afib: coumadin on hold. On metoprolol. Will resume coumadin as patient is not going to have surgery. #History of aortic valve stenosis s/p bioprosthetic aortic valve replacement * 2D echo requested * cardiology on board for cardiac risk stratification as above. * #History of CVA: stable. #History of abdominal aortic aneurysm: S/p repair. On aspirin. Coumadin on hold. ##Hypertension: On amlodipine and lisinopril as well as metoprolol. IV hydralazine as needed #Type 2 diabetes mellitus with neuropathy: Oral meds on hold. On insulin sliding scale. Accu-Cheks AC at bedtime. On gabapentin DVT prophylaxis: Currently on SCDs. will resume coumadin as she is not going to have surgery Disposition: Will likely need placement. Patient wants to go to TCU. Case management on board. Charges/Coding Visit Charges Inpatient E&M: 00251 Subs Hosp L2
[2021-07-18 11:21] LABS: Bedside Glucose 145 mg/dL (70-110)
[2021-07-18] MEDS: Morphine 4 MG/ML Syringe IV (12:37)
[2021-07-18 13:12] LABS: International Normalized Ratio 1.3; Prothrombin Time (Protime)PT. 15.2 SECONDS (11.7-14.9)
--- NOTE | 2021-07-18 15:14 | PCM.PN.CARD ---
Subjective Subjective No event from last night Remains in sinus rhythm Still having symptoms of right lower leg pain and discomfort Objective Data Vital Signs: Vital Signs Temp Pulse Resp BP Pulse Ox 98.4 F 73 16 134/61 H 97 07/18/21 15:04 07/18/21 15:04 07/18/21 15:04 07/18/21 15:04 07/18/21 15:04 Oxygen Delivery Method Room Air Weight: 178 lb 9.191 oz Body Mass Index (BMI) 30.3 Intake & Output: Intake and Output for Last 24 Hours 07/16/21 07/17/21 07/18/21 23:59 23:59 23:59 Intake Total 300 / 300 2393.33 / 2393.33 1748.33 / 1748.33 Output Total 1600 / 2325 2475 / 2475 Balance 300 / 200 793.33 / 68.33 -726.67 / -726.67 Lab / Micro Data Result Diagrams: 07/18/21 06:10 07/18/21 06:10 Labs: Laboratory Results - last 24 hr 07/17/21 16:00: POC Glucose 190 H 07/17/21 20:22: POC Glucose 149 H 07/18/21 06:10: WBC 6.7, RBC 3.78 L, Hgb 11.4 L, Hct 33.9 L, MCV 89.7, MCH 30.2, MCHC 33.6, RDW Std Deviation 40.7, RDW Coeff of Yasir 12.4, Plt Count 167, MPV 8.9, Immature Gran % (Auto) 0.400, Neut % (Auto) 53.8, Lymph % (Auto) 24.9, [place] % (Auto) 17.5 H, Eos % (Auto) 2.5, Baso % (Auto) 0.9, Absolute Neuts (auto) 3.6, Absolute Lymphs (auto) 1.68, Nucleated RBC % 0 07/18/21 06:10: Sodium 140, Potassium 3.8, Chloride 111 H, Carbon Dioxide 26.0, Anion Gap 3 L, BUN 14, Creatinine 0.86, Estim Creat Clear Calc 47.31, Est GFR (MDRD) Af Amer 82, Est GFR (MDRD) Non-Af 67, BUN/Creatinine Ratio 16.2, Glucose 139 H, Calcium 8.8 07/18/21 06:45: POC Glucose 126 H 07/18/21 11:14: POC Glucose 145 H 07/18/21 12:52: PT 15.2 H, INR 1.3 Cardiology Labs/Tests 07/18/21 06:10: WBC 6.7, RBC 3.78 L, Hgb 11.4 L, Hct 33.9 L, MCV 89.7, MCH 30.2, MCHC 33.6, Plt Count 167, MPV 8.9, Immature Gran % (Auto) 0.400, Neut % (Auto) 53.8, Lymph % (Auto) 24.9, [place] % (Auto) 17.5 H, Eos % (Auto) 2.5, Baso % (Auto) 0.9, Absolute Neuts (auto) 3.6, Nucleated RBC % 0 07/18/21 06:10: Sodium 140, Potassium 3.8, Chloride 111 H, Carbon Dioxide 26.0, Anion Gap 3 L, BUN 14, Creatinine 0.86, Est GFR (MDRD) Af Amer 82, Est GFR (MDRD) Non-Af 67, BUN/Creatinine Ratio 16.2, Glucose 139 H, Calcium 8.8 07/18/21 12:52: PT 15.2 H, INR 1.3 Rhythm: Cardiac rhythm is normal sinus rhythm Physical Exam Narrative Patient alert and orientated x3 cardiac exam S1-S2 regular with normal aortic valve bioprosthetic sounds no pericardial rub. Chest exam clear normal auscultation bilateral Abdomen; soft Examination lower extremity right lower extremity wrapped in a bandage pulses palpable [employer] exam; no focal neurological deficit Assessment & Plan Assessment/Plan (1) Paroxysmal atrial fibrillation with rapid ventricular response: (2) Right malleolar fracture: QUALIFIERS: Encounter type: initial encounter Fracture type: closed Qualified Code(s): S82.891A - Other fracture of right lower leg, initial encounter for closed fracture (3) Right tibial fracture: QUALIFIERS: Encounter type: initial encounter Tibia location: proximal Fracture type: closed Fracture morphology: unspecified fracture morphology Qualified Code(s): S82.101A - Unspecified fracture of upper end of right tibia, initial encounter for closed fracture (4) Closed fracture of right distal fibula: QUALIFIERS: Encounter type: initial encounter Fracture morphology: unspecified fracture morphology Qualified Code(s): S82.831A - Other fracture of upper and lower end of right fibula, initial encounter for closed fracture (5) History of aortic valve replacement with bioprosthetic valve: PLAN: Cardiac care plan discussed with nursing staff Patient with known cardiac history of aortic valve bioprosthesis and proximal atrial fibrillation. admitted following a mechanical fall and sustained right oblique fracture of the proximal tibia as well as proximal fibula and distal fibula due to the mechanical fall. Orthopedic evaluation no surgical candidate and patient waiting for rehab placement Cardiac care plan recommendations; 1. Agree with current medical treatment with a beta-walter and to continue the anticoagulation with Coumadin 2. No further cardiac recommendation at this point. 3. Follow-up with the primary die engraving supervisor
[2021-07-18] MEDS: Insulin Lispro 100 UNIT/ML INSULN.PEN SC (16:32)
[2021-07-18] MEDS: Jantoven 2 MG Tablet PO (16:36)
[2021-07-18 16:41] LABS: Bedside Glucose 191 mg/dL (70-110)
[2021-07-18] MEDS: MELATONIN 3 MG TABLET 6 MG PO (21:54)
[2021-07-18] MEDS: Gabapentin 300 MG Capsule PO (21:55)
[2021-07-18] MEDS: Metoprolol(XL)Succ 25 MG Tablet PO (21:55)
[2021-07-18 22:21] LABS: Bedside Glucose 136 mg/dL (70-110)
[2021-07-19] MEDS: oxyCODONE 5 MG Tablet PO ×3 (02:21→13:36)
[2021-07-19] MEDS: Acetaminophen 325 MG Tablet 650 MG PO ×3 (02:22→13:37)
[2021-07-19 02:26] VITALS: BP 153/64; PULSE 81; RESP 16; TEMP 36.8; O2SAT 97
[2021-07-19] MEDS: DiphenhydrAMINE 25 MG Capsule PO (02:28)
[2021-07-19 05:55] LABS: Bedside Glucose 111 mg/dL (70-110)
[2021-07-19 05:57] LABS: Absolute Lymphocyte Count 1.97 X10^3/uL (0.83-4.51); Absolute Neutrophil Count 3.9 X10^3/uL (2.0-7.7); Basophil# 0.07 X10^3/uL; Eosinophils% 2.8 % (0-5); Hematocrit 33.3 % (37-47); Hemoglobin 11.1 g/dL (12.0-15.0); Lymphocyte # 1.97 X10^3/ul (0.83-4.51); Lymphocyte % 27.3 % (19-41); Mean Corp Hgb Conc 33.3 g/dL (32-36); Mean Platelet Vol. 9.4 fl (6.2-12.0); Monocyte# 1.05 X10^3/uL; Monocyte% 14.6 % (0-10); NRBC Flagged by Analyzer 0 % (0-5); Neutrophil # 3.88 X10^3/uL (2.7-7.7); Neutrophil % 53.7 % (47-70); Platelet Count 172 K/mm3 (150-450); RBC Distribution Width CV 12.6 % (11.6-14.6); RBC Distribution Width SD 41.2 fl (35.1-43.9); White Blood Count 7.2 K/mm3 (4.4-11.0)
[2021-07-19 06:24] LABS: Anion Gap 5 (5-15); BUN 11 mg/dL (7-18); BUN/Creat Ratio 14.9 RATIO (10-20); Calcium,Total 8.6 mg/dL (8.5-10.1); Chloride 107 mmol/L (98-107); Creatinine, Serum 0.74 mg/dL (0.55-1.02); EST Glomerular Filtration Rate 81 mL/min (>60); Est Glom Filt Rate - Afr Amer 98 mL/min (>60); Estimated Creatinine Clearance 40.68 ml/min; Glucose 108 mg/dL (74-106); Potassium 3.8 mmol/L (3.5-5.1); Sodium Level 138 mmol/L (136-145)
--- NOTE | 2021-07-19 07:45 | PCM.PN.HOSP ---
Subjective Subjective Follow-up on right closed fracture of the proximal tib-fib as well as trimalleolar fracture: Patient was seen and examined. Her pain is fairly controlled. No acute events overnight. Denies no new complaints. Objective Data Objective Data Vital Signs: Vital Signs Temp Pulse Resp BP Pulse Ox 98.3 F 81 16 153/64 H 97 07/19/21 02:26 07/19/21 02:26 07/19/21 02:26 07/19/21 02:26 07/19/21 02:26 Oxygen Delivery Method Room Air Weight: 81 kg Body Mass Index (BMI) 30.3 Intake & Output: Intake and Output for Last 24 Hours 07/17/21 07/18/21 07/19/21 23:59 23:59 23:59 Intake Total 2393.33 / 2393.33 2098.33 / 2098.33 Output Total 1600 / 2325 3225 / 3225 1500 / 1500 Balance 793.33 / 68.33 -1126.67 / -1126.67 -1500 / -1500 Lab / Micro Data Result Diagrams: 07/19/21 05:27 07/19/21 05:27 Labs: Laboratory Results - last 24 hr 07/18/21 11:14: POC Glucose 145 H 07/18/21 12:52: PT 15.2 H, INR 1.3 07/18/21 16:31: POC Glucose 191 H 07/18/21 22:07: POC Glucose 136 H 07/19/21 05:27: WBC 7.2, RBC 3.70 L, Hgb 11.1 L, Hct 33.3 L, MCV 90.0, MCH 30.0, MCHC 33.3, RDW Std Deviation 41.2, RDW Coeff of Yasir 12.6, Plt Count 172, MPV 9.4, Immature Gran % (Auto) 0.600, Neut % (Auto) 53.7, Lymph % (Auto) 27.3, [place] % (Auto) 14.6 H, Eos % (Auto) 2.8, Baso % (Auto) 1.0, Absolute Neuts (auto) 3.9, Absolute Lymphs (auto) 1.97, Nucleated RBC % 0 07/19/21 05:27: Sodium 138, Potassium 3.8, Chloride 107, Carbon Dioxide 26.0, Anion Gap 5, BUN 11, Creatinine 0.74, Estim Creat Clear Calc 40.68, Est GFR (MDRD) Af Amer 98, Est GFR (MDRD) Non-Af 81, BUN/Creatinine Ratio 14.9, Glucose 108 H, Calcium 8.6 07/19/21 05:53: POC Glucose 111 H Physical Exam Narrative Physical exam: General: Alert, Oriented x3, Cooperative, No apparent distress, Well developed HEENT: Atraumatic Oral: Moist Mucosa Neck: Supple Lungs: Clear to auscultation Cardiovascular: HS I+II, regular, no murmurs Abdomen: Bowel Sounds Present, Soft, Non Tender Extremities: Right lower extremity in cast, able to wiggle the toes, good capillary refill Assessment & Plan Assessment/Plan (1) Right malleolar fracture: QUALIFIERS: Encounter type: initial encounter Fracture type: closed Qualified Code(s): S82.891A - Other fracture of right lower leg, initial encounter for closed fracture (2) Right tibial fracture: QUALIFIERS: Encounter type: initial encounter Tibia location: proximal Fracture type: closed Fracture morphology: unspecified fracture morphology Qualified Code(s): S82.101A - Unspecified fracture of upper end of right tibia, initial encounter for closed fracture (3) Fracture of right proximal fibula: QUALIFIERS: Encounter type: initial encounter Fracture type: closed Fracture morphology: unspecified fracture morphology Qualified Code(s): S82.831A - Other fracture of upper and lower end of right fibula, initial encounter for closed fracture PLAN: 1. Acute nondisplaced oblique fracture of the proximal tibia and fibula, distal fibula and trimalleolar ankle fracture, mechanical secondary to fall Orthopedic surgery consulted; conservative management recommended -long-leg splint, nonweightbearing, follow-up in 1 week PT/OT consulted Continue with pain medication 2. Paroxysmal afib, rate controlled, patient on metoprolol, Coumadin, check INR, repeat INR in a.m. 3. History of aortic valve stenosis s/p bioprosthetic aortic valve replacement 2D echo shows EF of 55 to 60%, normal AV bioprosthesis function, grade 1 diastolic dysfunction 4. Rest of her chronic medical conditions including CVA, abdominal aortic aneurysm status post repair, hypertension, type II DM remained stable Continue on aspirin, Coumadin, amlodipine, lisinopril, 5. DVT prophylaxis?Coumadin 7. Disposition: Discharge to SNF pending Charges/Coding Visit Charges Inpatient E&M: 73197 Subs Hosp L2
[2021-07-19 08:17] VITALS: BP 115/65; PULSE 70; RESP 18; TEMP 36.9; O2SAT 97
[2021-07-19] MEDS: Senna/Docusate Sodium 1 Tablet 2 TABLET PO (08:27)
[2021-07-19] MEDS: amLODIPine 5 MG Tablet PO (08:27)
[2021-07-19] MEDS: Calcium Carb/Vitamin D 1 TABLET Tablet PO (08:27)
[2021-07-19] MEDS: Multivitamins,Ther W-Minerals Tablet 1 TABLET PO (08:28)
[2021-07-19] MEDS: metFORMIN (XR) 500 MG Tablet PO (08:28)
[2021-07-19] MEDS: Lisinopril 20 MG Tablet PO (08:28)
[2021-07-19] MEDS: Aspirin 81 MG TAB.CHEW PO (08:29)
[2021-07-19] MEDS: Polyethylene Glycol 3350 17 GM PACKET PO (08:29)
[2021-07-19] MEDS: Cholecalciferol (VIT D3) 25 MCG TABLET (1,000 UNITS) PO (08:29)
[2021-07-19] MEDS: Allopurinol 100 MG Tablet PO (08:29)
[2021-07-19 11:31] LABS: Bedside Glucose 140 mg/dL (70-110)
[2021-07-19 13:34] VITALS: O2SAT 94
--- NOTE | 2021-07-19 14:34 | PCM.TXEXTCAR ---
Diet 07/17/21 12:15 Diet: Cardiac: Calorie-Controlled Is pt able to select menu?: Yes How many daily calories?: 1800 calorie Routine Orders/Code Status Keep PO Greater than or Equal to (%): 94 Routine Lab Work: CBC (within 3 days) and BMP (within 3 days) Code Status: Full Code Therapies Weight Bearing: Non weight bearing Extremity Affected:: Right Lower Physical Therapy: Eval and Treat Occupational Therapy: Eval and Treat Problem/Diagnosis (1) Right malleolar fracture: Status: Acute (2) Right tibial fracture: Status: Acute (3) Fracture of right proximal fibula: Status: Acute Allergies/Procedures Done in Hospital Allergies Penicillins [PCN] Allergy (Verified 03/25/20 14:10) Hives tramadol Allergy (Verified 03/25/20 14:10) Other ciprofloxacin [From Cipro] Adverse Reaction (Verified 03/25/20 14:10) PT UNSURE OF REACTION donepezil [From Aricept] Adverse Reaction (Verified 04/29/20 09:19) PT UNSURE OF REACTION nitrofurantoin [From Macrobid] Adverse Reaction (Verified 04/29/20 09:17) PT UNSURE OF REACTION ramelteon Adverse Reaction (Verified 07/16/21 17:53) PT UNSURE OF REACTION RACING HEART RATE trazodone Adverse Reaction (Verified 03/25/20 14:10) PT UNSURE OF REACTION Procedures: None Type of Care/Length of Stay Estimated LOS: Convalescent Care Less Than 30 days Type of Care Needed: Skilled Rehab Potential: Good Prognosis: Good Additional Orders/Day of Discharge Day of Discharge: 07/19/21 Discharge Plan Admission Admit Date/Time: 07/16/21 14:19 Primary Reason for Your Visit: Acute multiple RLE fracture Attending Provider: Rocio Tripathi Primary Care Provider: Radha Carmichael Consulting Providers: Kaleigh Lemos ; Raimundo Brizuela Discharge Orders/Prescriptions Prescriptions: Continued polyethylene glycol 3350 17 GM packet 17 gm PO QODAY RF: 0 metoprolol succinate 100 MG tablet extended release 24 hr 50 mg PO QHS RF: 0 amlodipine 5 MG tablet 5 mg PO DAILY RF: 0 multivitamin with minerals 1 EACH tablet 1 ea PO DAILY RF: 0 metformin 500 MG tablet extended release 24 hr 500 mg PO DAILY RF: 0 warfarin 2 MG tablet 2 mg PO DAILY RF: 0 cholecalciferol (vitamin D3) 10 MCG tablet 1,000 unit PO DAILY RF: 0 calcium carb-D3-mag [id number] 1 EACH tablet 1 ea PO DAILY RF: 0 gabapentin 300 MG capsule 300 mg PO QHS RF: 0 aspirin 81 MG tablet,chewable 81 mg PO DAILY@0800 RF: 0 lisinopril 20 mg tablet 20 mg PO DAILY RF: 0 melatonin 3 mg Tablet 6 mg PO DAILY RF: 0 allopurinol 100 mg tablet 100 mg PO DAILY RF: 0 Discontinued diphenhydramine HCl [Benadryl Allergy] 25 mg Tablet 25 mg PO QHS RF: 0 flaxseed Powder 1 ea PO DAILY RF: 0 Referrals / Follow Up: Radha Carmichael MD [Primary Care Provider] - Within 2 Weeks Raimundo Brizuela DO [STAFF PHYSICIAN] - Within 1 Week Disposition Disposition (needs filled in before D/C Order can be placed): Senior Living Facility
--- NOTE | 2021-07-19 14:38 | DS.PCM_ITS ---
Providers Date of Admission: 07/16/21 Date of Discharge: 07/19/21 Primary Care Physician: Dr. Radha Carmichael MD Consultations 07/16/21 17:42 Consult: Cardiology Routine Consulting Provider: Kaleigh Lemos Reason for Consult: Cardiac clearance possible OR EMERGENT Consult: No MD Notified: Yes Date Notified: 07/16/21 Time Notified: 14:25 Method of Notification: cortext Consult: Orthopedics Routine Consulting Provider: Raimundo Brizuela Reason for Consult: Segmental R Fx proximal tibia, Fx prox/dist fib, Trimalleolar EMERGENT Consult: No MD Notified: Yes Date Notified: 07/16/21 Time Notified: 14:25 Method of Notification: per ED. Reason For Visit: FALL, R FIB-TIB FX, ANKLE FX Diagnosis Discharge Diagnosis (1) Right malleolar fracture: Status: Acute Code(s): S82.891A - Other fracture of right lower leg, initial encounter for closed fracture Qualifiers: Encounter type: initial encounter Fracture type: closed Qualified Code(s): S82.891A - Other fracture of right lower leg, initial encounter for closed fracture (2) Right tibial fracture: Status: Acute Code(s): S82.201A - Unspecified fracture of shaft of right tibia, initial encounter for closed fracture Qualifiers: Encounter type: initial encounter Fracture morphology: unspecified fracture morphology Fracture type: closed Tibia location: proximal Qualified Code(s): S82.101A - Unspecified fracture of upper end of right tibia, initial encounter for closed fracture (3) Fracture of right proximal fibula: Status: Acute Code(s): S82.831A - Other fracture of upper and lower end of right fibula, initial encounter for closed fracture Qualifiers: Encounter type: initial encounter Fracture morphology: unspecified f racture morphology Fracture type: closed Qualified Code(s): S82.831A - Other fracture of upper and lower end of right fibula, initial encounter for closed fracture Medications at Discharge Home Medications amlodipine 5 mg PO DAILY 02/15/20 metformin 500 mg PO DAILY 02/15/20 metoprolol succinate 50 mg PO QHS 02/15/20 multivitamin with minerals 1 ea PO DAILY 02/15/20 polyethylene glycol 3350 17 gm PO QODAY 02/15/20 calcium carb-D3-mag [id number] 1 ea PO DAILY 02/16/20 cholecalciferol (vitamin D3) 1,000 unit PO DAILY 02/16/20 warfarin 2 mg PO DAILY 02/16/20 gabapentin 300 mg PO QHS 03/25/20 aspirin 81 mg PO DAILY@0800 tab.chew 04/30/20 allopurinol 100 mg PO DAILY 07/16/21 lisinopril 20 mg PO DAILY 07/16/21 melatonin 6 mg PO DAILY 07/16/21 oxycodone 5 mg PO Q4H PRN PRN #0 tab 07/19/21 Hospital Course Operations None Procedures None Summary of Care Provided Minutes Spent on Discharge: 40 Hospital Course: 75-year-old female with history of paroxysmal atrial fibrillation, on Coumadin, abdominal aortic aneurysm status post repair, type II DM, hypertension who comes in after a fall in sustains acute proximal tibia and fibula as well as distal fibula and trimalleolar fracture. Orthopedics was consulted from the ED; recommended complicated management with patient in long splint. Patient was seen by PT and OT and skilled for discharge to subacute care. During the course of her hospital stay, no acute events were noted. Patient was seen and examined the day of discharge. Her daughter was at the bedside. All questions were answered. Physical Exam Narrative See progress note on the day Weight / BMI Weight Weight: 81 kg Body Mass Index (BMI) 30.3 ABG / Lab / Microbiology Data Result Diagrams: 07/19/21 05:27 07/19/21 05:27 Laboratory: Laboratory Results - last 24 hr 07/18/21 16:31: POC Glucose 191 H 07/18/21 22:07: POC Glucose 136 H 07/19/21 05:27: WBC 7.2, RBC 3.70 L, Hgb 11.1 L, Hct 33.3 L, MCV 90.0, MCH 30.0, MCHC 33.3, RDW Std Deviation 41.2, RDW Coeff of Yasir 12.6, Plt Count 172, MPV 9.4, Immature Gran % (Auto) 0.600, Neut % (Auto) 53.7, Lymph % (Auto) 27.3, [place] % (Auto) 14.6 H, Eos % (Auto) 2.8, Baso % (Auto) 1.0, Absolute Neuts (auto) 3.9, Absolute Lymphs (auto) 1.97, Nucleated RBC % 0 07/19/21 05:27: Sodium 138, Potassium 3.8, Chloride 107, Carbon Dioxide 26.0, Anion Gap 5, BUN 11, Creatinine 0.74, Estim Creat Clear Calc 40.68, Est GFR (MDRD) Af Amer 98, Est GFR (MDRD) Non-Af 81, BUN/Creatinine Ratio 14.9, Glucose 108 H, Calcium 8.6 07/19/21 05:53: POC Glucose 111 H 07/19/21 11:17: POC Glucose 140 H D/C Instructions Discharge Diet: Low fat / Low cholesterol and 2000 mg Sodium Diet Meaningful Use Info Meaningful Use Diagnoses (Choose all that apply): None applicable Discharge Plan Admission Admit Date/Time: 07/16/21 14:19 Primary Reason for Your Visit: Acute multiple RLE fracture Attending Provider: Rocio Tripathi Primary Care Provider: Radha Carmichael Consulting Providers: Kaliegh Lemos ; Raimundo Brizuela Discharge Orders/Prescriptions Prescriptions: New oxycodone 5 mg Tablet 5 mg PO Q4H PRN PRN (Reason: Pain Score 4-10) Qty: 0 RF: 0 Continued polyethylene glycol 3350 17 GM packet 17 gm PO QODAY RF: 0 metoprolol succinate 100 MG tablet extended release 24 hr 50 mg PO QHS RF: 0 amlodipine 5 MG tablet 5 mg PO DAILY RF: 0 multivitamin with minerals 1 EACH tablet 1 ea PO DAILY RF: 0 metformin 500 MG tablet extended release 24 hr 500 mg PO DAILY RF: 0 warfarin 2 MG tablet 2 mg PO DAILY RF: 0 cholecalciferol (vitamin D3) 10 MCG tablet 1,000 unit PO DAILY RF: 0 calcium carb-D3-mag [id number] 1 EACH tablet 1 ea PO DAILY RF: 0 gabapentin 300 MG capsule 300 mg PO QHS RF: 0 aspirin 81 MG tablet,chewable 81 mg PO DAILY@0800 RF: 0 lisinopril 20 mg tablet 20 mg PO DAILY RF: 0 melatonin 3 mg Tablet 6 mg PO DAILY RF: 0 allopurinol 100 mg tablet 100 mg PO DAILY RF: 0 Discontinued diphenhydramine HCl [Benadryl Allergy] 25 mg Tablet 25 mg PO QHS RF: 0 flaxseed Powder 1 ea PO DAILY RF: 0 Referrals / Follow Up: Radha Carmichael MD [Primary Care Provider] - Within 2 Weeks Raimundo Brizuela DO [STAFF PHYSICIAN] - Within 1 Week Disposition Disposition (needs filled in before D/C Order can be placed): Residential Facility Charges/Coding Visit Charges Inpatient E&M: 61247 Disch Hosp
[2021-07-19 14:45] VITALS: O2SAT 98
[2021-07-19 15:05] LABS: International Normalized Ratio 1.2; Prothrombin Time (Protime)PT. 14.8 SECONDS (11.7-14.9)
--- NOTE | 2021-07-19 15:22 | CASEMGMT ---
Addendum entered by Paige Antonio 07/19/21 15:40: MEGAN in to speak with pt. SW updated pt that pre-cert is being waived, pt to discharge to TCU today. SW informed pt that this worker will call her daughter Jael to update. Pt states understanding. MEGAN placed a call to pt's daughter Jael and updated her that pre-cert is being waived, pt to discharge to TCU today. Jael states understanding. Plan: TCU today Original Note: Social Work Note SW received call from Nelli with TCU stating TCU can accept pt and will submit for pre-cert. MEGAN in to speak with pt and pt's daughter Jael. SW introduced self and role at [facility]. SW informed pt and Jael that TCU is able to accept pt and pre-cert will be submitted. MEGAN informed pt that she will need to be motivated and participate in therapy as that is what pt will get skilled on to go to TCU. Pt and Jael states understanding. MEGAN received call from Nelli with TCU stating pt's insurance is still waiving pre-certs, so pt is able to admit to TCU today. MEGAN updated physician. Pt is medically ready for discharge. MEGAN placed a call to Nelli with TCU and updated her pt to discharge to TCU today. Pt will need COVID test. Plan: TCU today Paige Antonio LINING SCRUBBER, MANGLE ROLL OPERATOR
[2021-07-19 15:45] VITALS: BP 118/58; PULSE 80; RESP 18; TEMP 37.2; O2SAT 95
[2021-07-19] MEDS: Jantoven 2 MG Tablet PO (16:39)
[2021-07-19] MEDS: Insulin Lispro 100 UNIT/ML INSULN.PEN SC (16:39)
[2021-07-19 16:46] LABS: Bedside Glucose 187 mg/dL (70-110)
--- NOTE | 2021-07-19 16:59 | NURSING ---
Report called to Shelley in TCU.
== END 2021-07-19 17:56 | disposition skilled nursing facility (03) | DRG 563 ==
LOC: ED 12:08 → MS3 14:40
PROVIDERS: Anesthesiology; Student in an Organized Health Care Education/Training Program; Admitting Provider Family Medicine; Emergency Provider Emergency Medicine; PCP Internal Medicine; Visit Provider Internal Medicine
DX: S82.264A Nondisplaced segmental fracture of shaft of right tibia, initial encounter for closed fracture (principal); E11.40 Type 2 diabetes mellitus with diabetic neuropathy, unspecified; I48.0 Paroxysmal atrial fibrillation; S82.101A Unspecified fracture of upper end of right tibia, initial encounter for closed fracture; S82.831A Other fracture of upper and lower end of right fibula, initial encounter for closed fracture; W00.0XXA Fall on same level due to ice and snow, initial encounter; S82.851A Displaced trimalleolar fracture of right lower leg, initial encounter for closed fracture; E78.5 Hyperlipidemia, unspecified; I10 Essential (primary) hypertension; S82.401A Unspecified fracture of shaft of right fibula, initial encounter for closed fracture; Z86.73 Personal history of transient ischemic attack (TIA), and cerebral infarction without residual deficits; Z60.2 Problems related to living alone; Z79.01 Long term (current) use of anticoagulants; Z79.82 Long term (current) use of aspirin; Z79.84 Long term (current) use of oral hypoglycemic drugs; Z95.2 Presence of prosthetic heart valve; Z79.2 Long term (current) use of antibiotics
CPT/HCPCS: 36415; 72170; 73590; 73610; 80048; 80053; 82962; 83036; 83735; 84484; 85025; 85610; 85730; 87426; 93005; 93306; 97110; 97163; 97167; 97530; 97535; 99251; 99285; J7030; A4216; G0463; J2405

== ENCOUNTER 2021-07-19 18:00 | Inpatient (IN) | payer MEDICARE, SELFPAY ==
[2021-07-19 18:13] VITALS: BP 148/58; PULSE 86; RESP 18; TEMP 35.9; O2SAT 97; BMI 30.5
--- NOTE | 2021-07-19 20:02 | HP.PCM_ITS ---
HPI - General General Date of Admission: 07/19/21 HPI Narrative 07/16/2021 RILEY REYNA, is a 75 Female who presents to [facility] Emergency Department with lower extremity injury. Slipped on ice, fell. Right leg pain below knee. No head injury, No syncope, on coumadin. X-ray showed right tibia/fibula fracture, right trimalleolar fracture. Lives alone in old house. Bathroom upstairs, kitchen downstairs, unable to go home. Fiberglass splint placed. 07/16/2021 Admit to Hospital. Prepare for surgery, hold coumadin. 07/16/2021 Dr. Lemos cleared patient for surgery, intermediate risk. Echo normal left ventricular systolic function. 07/17/2021 Pain in right lower extremity. PT/OT for debility. Tylenol, Morphine IV, oxycodone for pain. 07/18/2021 Dr. Brizueal recommend non-operative management of fracture. 07/18/2021 Pain moving right leg. Resume coumadin, no surgery anticipated. Long leg splint, non weight bearing right lower extremity, follow up with ort lynda in 1 week. 07/19/2021 Admit to TCU with debility, here for rehabilitation, strengthening, pr ior to discharge home alone. [facility] Medical History Dementia Diabetes mellitus, type 2 History of CVA (cerebrovascular accident) History of stress test HLD (hyperlipidemia) HTN (hypertension) PAF (paroxysmal atrial fibrillation) Paroxysmal atrial fibrillation Paroxysmal atrial fibrillation with rapid ventricular response Valvular heart disease Home Medications amlodipine 5 mg PO DAILY 02/15/20 [History Last Taken 07/16/21] metformin 500 mg PO DAILY 02/15/20 [History Last Taken 07/16/21] metoprolol succinate 50 mg PO QHS 02/15/20 [History Last Taken 07/15/21] multivitamin with minerals 1 ea PO DAILY 02/15/20 [History Last Taken 07/15/21] polyethylene glycol 3350 17 gm PO QODAY 02/15/20 [History Last Taken 1 Week Ago ~07/09/21] calcium carb-D3-mag [id number] 1 ea PO DAILY 02/16/20 [History Last Taken 07/15/21] cholecalciferol (vitamin D3) 1,000 unit PO DAILY 02/16/20 [History Last Taken 07/15/21] warfarin 2 mg PO DAILY 02/16/20 [History Last Taken 07/15/21 16:00] gabapentin 300 mg PO QHS 03/25/20 [History Last Taken 07/15/21] allopurinol 100 mg PO DAILY 07/16/21 [History Last Taken 07/15/21] lisinopril 20 mg PO DAILY 07/16/21 [History Last Taken 07/15/21] melatonin 6 mg PO DAILY 07/16/21 [History Last Taken 07/15/21] aspirin 81 mg PO DAILY@0800 07/19/21 [History Last Taken Unknown] oxycodone 5 mg PO Q4H PRN PRN #0 tab 07/19/21 [Rx Last Taken Unknown] Allergy/AdvReac Type Severity Reaction Status Date / Time Penicillins [PCN] Allergy Hives Verified 03/25/20 14:10 tramadol Allergy Other Verified 03/25/20 14:10 ciprofloxacin [From Cipro] AdvReac PT UNSURE Verified 03/25/20 14:10 OF REACTION donepezil [From Aricept] AdvReac PT UNSURE Verified 04/29/20 09:19 OF REACTION nitrofurantoin AdvReac PT UNSURE Verified 04/29/20 09:17 [From Macrobid] OF REACTION ramelteon AdvReac PT UNSURE Verified 07/16/21 17:53 OF REACTION trazodone AdvReac PT UNSURE Verified 03/25/20 14:10 OF REACTION Family History Mother Heart disease Hypertension Father Heart disease Hypertension Surgical History H/O aortic aneurysm repair H/O microdiscectomy History of aortic valve replacement with bioprosthetic valve History of aortic valve replacement with bioprosthetic valve History of bilateral tubal ligation History of reverse total replacement of right shoulder joint S/P aortic valve replacement with bioprosthetic valve S/P dilation and curettage S/P hysterectomy Social History (Updated 07/19/21 @ 20:[address] Amauri Benoit MD) household members: none Smoking Status: Never smoker alcohol intake: never substance use type: does not use ROS Constitutional Constitutional: Denies chills, fever(s) or weight gain ENT HEENT: Denies headache(s), nasal congestion or nasal discharge Cardiovascular Cardiovascular: Denies chest pain or palpitations Respiratory/Chest Respiratory/Chest: Denies cough, excessive phlegm production or shortness of breath with exertion Gastrointestinal Gastrointestinal: Denies abdominal pain, nausea or vomiting Genitourinary Genitourinary: Denies dysuria Musculoskeletal Musculoskeletal: Denies joint pain or joint swelling Integumentary Integumentary: Denies rash or wounds Neurologic Neurologic: Denies focal weakness, numbness or tingling Psychiatric Psychiatric: Denies anxiety, auditory hallucinations, depression, homicidal ideation or suicidal ideation Vital Signs Vital Signs Vital Signs: 07/19/21 18:13 Temperature 96.7 F L Temperature Source Temporal Pulse Rate 86 Respiratory Rate 18 Blood Pressure 148/58 H Blood Pressure Mean 88 Blood Pressure Source Monitor Blood Pressure Position Supine Blood Pressure Location Left Arm Pulse Ox 97 Oxygen Delivery Method Room Air Weight Weight: 82 kg Body Mass Index (BMI) 30.5 Physical Exam Const alert and oriented x3 General Appearance: cooperative HEENT normocephalic Eyes PERRL and EOMs intact bilaterally Neck supple, no JVD and no carotid bruits Resp normal respiratory effort, normal air movement and clear to auscultation bilaterally Cardio regular rate and regular rhythm GI normal to inspection, nondistended, normoactive bowel sounds, non-tender and non-distended Extremity normal capillary refill Extremity Narrative: Right lower extremity splint. General Extremity: Negative for edema Skin no rashes or lesions noted General Skin Exam: no breakdown Psych affect normal Appearance: appropriate Results Lab / Micro Data Result Diagrams: 07/20/21 05:15 07/20/21 05:15 Assessment & Plan Assessment/Plan (1) Debility: (2) Closed fracture of right fibula and tibia: QUALIFIERS: Encounter type: initial encounter Qualified Code(s): S82.201A - Unspecified fracture of shaft of right tibia, initial encounter for closed fracture; S82.401A - Unspecified fracture of shaft of right fibula, initial encounter for closed fracture (3) Closed right trimalleolar fracture: QUALIFIERS: Encounter type: initial encounter Qualified Code(s): S82.851A - Displaced trimalleolar fracture of right lower leg, initial encounter for closed fracture (4) Fall due to ice or snow: QUALIFIERS: Encounter type: initial encounter Qualified Code(s): W00.9XXA - Unspecified fall due to ice and snow, initial encounter (5) Diabetes mellitus: (6) Hypertension: (7) Hyperlipidemia: (8) Stroke: (9) Vascular dementia: (10) Atrial fibrillation: PLAN: 75 year old female with below past medical history hospitalized after fall, right tibia/fibula fracture, right trimalleolar fracture, treated non-operatively, admitted to TCU with debility, here for rehabilitation, streng thening, prior to discharge home alone. * Debility - PT/OT. * Pain - Tylenol 1000mg q6h prn pain (1-5), Oxycodone 5mg q4h prn pain (6-10). * Bowel - Miralax 17gm daily, Senna/colace 2 tablets bid, Dulcolax 10mg daily prn, Magnesium citrate 300ml po x 1 bottle for cleanout. * Adult immunization - Administer prevnar 20, fluzone, covid19 vaccine as appropriate. * DVT prophylaxis - Not necessary, on warfarin. * Gout - Allopurinol 100mg daily. * Hypertension - Metoprolol succinate 50mg qhs, Lisinopril 20mg daily, Amlodipine 5mg daily. * Stroke - on warfarin 2mg daily, stop aspirin 81mg daily, no added benefit with addition of aspirin, but increases risk of stroke. * Diabetic polyneuropathy - Gabapentin 300mg qhs. * Insomnia - Melatonin 6mg qhs. * Diabetes Mellitus II - Metformin XR 500mg daily. * Atrial fibrillation - Metoprolol succinate 50mg qhs, warfarin 2mg daily, follow inr. * Vascular dementia - untreated, resident confused.
[2021-07-19] MEDS: MELATONIN 3 MG TABLET 6 MG PO (21:08)
[2021-07-19] MEDS: oxyCODONE 5 MG Tablet PO (21:08)
[2021-07-19] MEDS: Magnesium Citrate 300 ML PO (21:09)
[2021-07-19] MEDS: Gabapentin 300 MG Capsule PO (21:09)
[2021-07-19 21:12] VITALS: BP 155/68; PULSE 76
[2021-07-19] MEDS: Senna/Docusate Sodium 1 Tablet 2 TABLET PO (21:12)
[2021-07-19] MEDS: Metoprolol(XL)Succ 50 MG Tablet PO (21:12)
[2021-07-19 21:20] VITALS: PULSE 81; RESP 16; O2SAT 98
[2021-07-19 21:31] LABS: Bedside Glucose 179 mg/dL (70-110)
[2021-07-20 05:14] VITALS: BP 143/66; PULSE 68
[2021-07-20] MEDS: Senna/Docusate Sodium 1 Tablet 2 TABLET PO ×2 (05:16→18:06)
[2021-07-20] MEDS: amLODIPine 5 MG Tablet PO (05:16)
[2021-07-20] MEDS: Allopurinol 100 MG Tablet PO (05:16)
[2021-07-20] MEDS: oxyCODONE 5 MG Tablet PO (05:16)
[2021-07-20] MEDS: Lisinopril 20 MG Tablet PO (05:16)
[2021-07-20 05:44] LABS: Absolute Lymphocyte Count 1.81 X10^3/uL (0.83-4.51); Absolute Neutrophil Count 3.6 X10^3/uL (2.0-7.7); Basophil# 0.07 X10^3/uL; Eosinophil# 0.17 X10^3/uL; Eosinophils% 2.5 % (0-5); Hematocrit 34.2 % (37-47); Hemoglobin 11.7 g/dL (12.0-15.0); Lymphocyte # 1.81 X10^3/ul (0.83-4.51); Lymphocyte % 26.3 % (19-41); Mean Corp Hgb Conc 34.2 g/dL (32-36); Mean Corpuscular Hgb 30.5 pg (27.0-32.0); Mean Corpuscular Volume 89.1 fL (81-99); Mean Platelet Vol. 9.5 fl (6.2-12.0); Monocyte# 1.18 X10^3/uL; Monocyte% 17.2 % (0-10); NRBC Flagged by Analyzer 0 % (0-5); Neutrophil # 3.62 X10^3/uL (2.7-7.7); Neutrophil % 52.6 % (47-70); Platelet Count 237 K/mm3 (150-450); RBC Distribution Width CV 12.7 % (11.6-14.6); RBC Distribution Width SD 40.7 fl (35.1-43.9); Red Blood Count 3.84 M/mm3 (4.2-5.4); White Blood Count 6.9 K/mm3 (4.4-11.0)
[2021-07-20 06:21] LABS: Bedside Glucose 145 mg/dL (70-110)
[2021-07-20 06:28] LABS: Anion Gap 9 (5-15); BUN 13 mg/dL (7-18); BUN/Creat Ratio 16.5 RATIO (10-20); Calcium,Total 8.7 mg/dL (8.5-10.1); Chloride 105 mmol/L (98-107); Creatinine, Serum 0.79 mg/dL (0.55-1.02); EST Glomerular Filtration Rate 75 mL/min (>60); Est Glom Filt Rate - Afr Amer 91 mL/min (>60); Estimated Creatinine Clearance 40.68 ml/min; Glucose 133 mg/dL (74-106); Potassium 3.8 mmol/L (3.5-5.1); Sodium Level 141 mmol/L (136-145)
[2021-07-20 06:32] LABS: International Normalized Ratio 1.3; Prothrombin Time (Protime)PT. 15.5 SECONDS (11.7-14.9)
[2021-07-20] MEDS: Acetaminophen 500 MG Tablet 1000 MG PO (08:57)
[2021-07-20] MEDS: metFORMIN (XR) 500 MG Tablet PO (09:00)
--- NOTE | 2021-07-20 09:55 | PHA.CONS1_ITS ---
Progress Note - Pharmacy Subjective: TCU ADMISSION Objective: Allergies Penicillins [PCN] Allergy (Verified 03/25/20 14:10) Hives tramadol Allergy (Verified 03/25/20 14:10) Other ciprofloxacin [From Cipro] Adverse Reaction (Verified 03/25/20 14:10) PT UNSURE OF REACTION donepezil [From Aricept] Adverse Reaction (Verified 04/29/20 09:19) PT UNSURE OF REACTION nitrofurantoin [From Macrobid] Adverse Reaction (Verified 04/29/20 09:17) PT UNSURE OF REACTION ramelteon Adverse Reaction (Verified 07/16/21 17:53) PT UNSURE OF REACTION RACING HEART RATE trazodone Adverse Reaction (Verified 03/25/20 14:10) PT UNSURE OF REACTION Current Medications Generic Name Dose Route Start Last Admin Trade Name Freq PRN Reason Stop Dose Admin Acetaminophen 1,000 mg 07/19/21 20:14 07/20/21 08:57 Acetaminophen 500 Mg Tablet PO 1,000 mg Q6H PRN PRN Administration Pain Score 1-5 Allopurinol 100 mg 07/20/21 06:00 07/20/21 05:16 Allopurinol 100 Mg Tablet PO 100 mg DAILY GIOVANI Administration Amlodipine Besylate 5 mg 07/20/21 06:00 07/20/21 05:16 Amlodipine 5 Mg Tablet PO 5 mg DAILY GIOVANI Administration Bisacodyl 10 mg 07/19/21 20:14 Bisacodyl 5 Mg Tablet PO DAILY PRN PRN Constipation Gabapentin 300 mg 07/19/21 22:00 07/19/21 21:09 Gabapentin 300 Mg Capsule PO 300 mg QHS GIOVANI Administration Lisinopril 20 mg 07/20/21 06:00 07/20/21 05:16 Lisinopril 20 Mg Tablet PO 20 mg DAILY GIOVANI Administration Melatonin 6 mg 07/19/21 22:00 07/19/21 21:08 Melatonin 3 Mg Tablet PO 6 mg QHS GIOVANI Administration Metformin HCl 500 mg 07/20/21 08:00 07/20/21 09:00 Metformin (Xr) 500 Mg Tablet PO 500 mg BREAKFAST GIOVANI Administration Metoprolol Succinate 50 mg 07/19/21 22:00 07/19/21 21:12 Metoprolol(Xl)Succ 50 Mg Tablet PO 50 mg QHS GIOVANI Administration Oxycodone HCl 5 mg 07/19/21 20:15 07/20/21 05:16 Oxycodone 5 Mg Tablet PO 5 mg Q4H PRN PRN Administration Pain Score 6-10 Polyethylene Glycol 17 gm 07/21/21 06:00 Polyethylene Glycol 3350 17 Gm Packet PO QODAY@0600 [facility] Senna/Docusate Sodium 2 tablet 07/19/21 20:15 07/20/21 05:16 Senna/Docusate Sodium 1 Tablet PO 2 tablet BID GIOVANI Administration Sodium Chloride 10 - 40 ml 07/19/21 18:40 0.9% Saline Lock 10 Ml Syringe IV UD PRN SALINE FLUSH Tuberculin PPD 0.1 ml 07/20/21 10:00 Tuberculin,Purif.Prot.Deriv. 50 Tu/Ml Vial ID 07/20/21 10:01 X1 ONE Tuberculin PPD 0.1 ml 07/27/21 10:00 Tuberculin,Purif.Prot.Deriv. 50 Tu/Ml Vial ID 07/27/21 10:01 X1 ONE Warfarin Sodium 2 mg 07/20/21 17:00 Jantoven 2 Mg Tablet PO DAILY@1700 [facility] Problem List (Last Reviewed 07/19/21 @ 20:[address] Amauri Benoit MD) Atrial fibrillation (Acute) Vascular dementia (Acute) Stroke (Acute) Hyperlipidemia (Acute) Hypertension (Chronic) Diabetes mellitus (Acute) Debility (Acute) Closed right trimalleolar fracture (Acute) Closed fracture of right fibula and tibia (Acute) Fall due to ice or snow (Acute) Vital Signs Temp Pulse Resp BP Pulse Ox 96.7 F L 68 16 143/66 H 98 07/19/21 18:13 07/20/21 05:14 07/19/21 21:20 07/20/21 05:14 07/19/21 21:20 Oxygen Delivery Method Room Air Weight: 82 kg Body Mass Index (BMI) 30.5 Sodium 141 mmol/L (136-145) 07/20/21 05:15 Potassium 3.8 mmol/L (3.5-5.1) 07/20/21 05:15 Chloride 105 mmol/L (98-107) 07/20/21 05:15 Carbon Dioxide 27.0 mmol/L (21.0-32.0) 07/20/21 05:15 Anion Gap 9 (5-15) 07/20/21 05:15 BUN 13 mg/dL (7-18) 07/20/21 05:15 Creatinine 0.79 mg/dL (0.55-1.02) 07/20/21 05:15 Est GFR (MDRD) Af Amer 91 mL/min (>60) 07/20/21 05:15 Est GFR (MDRD) Non-Af 75 mL/min (>60) 07/20/21 05:15 BUN/Creatinine Ratio 16.5 RATIO (10-20) 07/20/21 05:15 Glucose 133 mg/dL (74-106) H 07/20/21 05:15 Assessment/Plan: 1. Pain: Tylenol 1000mg PO Q6h PRN Pain 1-5, Oxycodone 5mg PO Q4h PRN Pain 6-10. Please continue to monitor for increased/decreased S/S pain, oversedation with narcotic use, PRN medication usage. *2. HTN/ Atrial fibrillation: Norvasc 5mg PO Daily, Lisinopril 20mg PO Daily, Toprol XL 50mg PO QHS, Warfarin 2mg PO Daily. Please continue to monitor HR (last 68), BP (last 143/66), INR (last 1.3 on 07/20). Please consider increasing Warfarin dose to obtain a goal INR of 2-3, thank you. may also consider a Lovenox bridge until INR is therapeutic 2 times. 3. Diabetes Type II: Metformin XR 500mg PO Daily. Please continue to monitor for S/S hypoglycemia, A1c, diarrhea, GI upset. 4. Diabetic Polyneuropathy: Gabapentin 300mg PO QHS. Please continue to monitor for improvement in symptoms, renal function. This medication is on the Beer's criteria list, and may increase the risk of falls in patient's > 65 y/o. Please evaluate for appropriate use. 5. Gout: Allopurinol 10mg PO Daily. Please continue to monitor uric acid levels as clinically indicated, renal function. 6. Insomnia: Melatonin 6mg PO QHS. Please continue to monitor for medication effectiveness. If medication not effective, can consider administering 2 hours prior to desired bedtime and utilizing non-pharmacologic treatments as well to facilitate sleep. Psychotropic Medications: None Unnecessary Medications: None Bowel Regimen: Miralax 17g PO QODAY, Senna/Docusate 2 tab PO BID, Dulcolax 10mg PO Daily PRN. Please continue to monitor for increased/decreased constipation and/or diarrhea. Date of Note:: 07/20/21
[2021-07-20 10:00] VITALS: PULSE 64; RESP 16; O2SAT 94
[2021-07-20] MEDS: Tuberculin,Purif.prot.deriv. 50 TU/ML Vial 0.1 ML ID (11:01)
[2021-07-20 13:24] VITALS: BP 153/69; PULSE 68; RESP 16; TEMP 36.7; O2SAT 96
[2021-07-20] MEDS: HYDROcodone Bitartrate/Apap 5/325 Tablet PO ×2 (13:48→20:28)
--- NOTE | 2021-07-20 15:40 | NURSING ---
Patient has red, itchy spots on back. Has allergy to tramadol with similar reaction. Patient had order for oxy for pain. Changed to [place] 5-325mg due to knowing she has not had any previous issues with it. Patient and family updated and verbalized understanding and agreed to change.
--- NOTE | 2021-07-20 15:41 | CHAPLAIN ---
Type of Pastoral Visit ___ Initial Visit ___ Follow-up Visit ___ On-call Visit ___ General Patient Visit ___ Spiritual Assessment ___ Family Conference ___ Bereavement ___ Rapid Response ___ Code Blue ___ Other (describe below) Pastoral Care Referral From ___ Patient ___ Family ___ Nurse ___ Physician ___ Book Sewer ___ [employer] Merchandising Coordinator ___ Other (describe below) Sacrament/Intervention ___ Active listening ___ Anointing ___ Religious ___ Bereavement ___ Communion ___ Em exploration ___ ___ Life review ___ Prayer ___ Reconciliation ___ Sacrament of Sick ___ Supportive presence ___ Wedding ___ Other (describe below) Pastoral Comments introduction to patient about role of help desk support; pt had a guest and they were in conversation; offered to return another time and pt agreed
[2021-07-20] MEDS: Jantoven 2 MG Tablet PO (18:05)
[2021-07-20] MEDS: 0.9% Saline Lock 10 ML Syringe IV (18:59)
[2021-07-20] MEDS: Gabapentin 300 MG Capsule PO (21:41)
[2021-07-20] MEDS: MELATONIN 3 MG TABLET 6 MG PO (21:41)
[2021-07-20 21:42] VITALS: BP 162/60; PULSE 69
[2021-07-20] MEDS: Metoprolol(XL)Succ 50 MG Tablet PO (21:42)
[2021-07-21] MEDS: MethylPREDNISolone 125 MG/2 ML Vial IM (03:54)
--- NOTE | 2021-07-21 04:22 | NURSING ---
Addendum entered by Katherine Sky 07/21/21 07:11: When giving 6AM meds patient said earlier her tongue felt like it was too big for my mouth. Asked is she still feels that way or has throat swelling, she said everything feels almost normal and itching is much better. Told her to call her nurse if has any worsening symptoms. She denies any trouble breathing or swallowing. Took pills without any trouble. BP slightly elevated but overall vitals stable. Original Note: 0300- patient called out complaining of bad itching, says every inch of her is itching and burning, even her throat. Only redness/rash noted on left hip/buttocks with small red raised bumps. Patient said she takes Benadryl at home every night and is allergic to everything. Notified Dr. Benoit, order for IM dose of Solu-Medrol and Hydroxyzine q6 PRN.
[2021-07-21 06:19] VITALS: BP 164/48; PULSE 72; RESP 16; TEMP 36.4; O2SAT 94
[2021-07-21] MEDS: Lisinopril 20 MG Tablet PO (06:22)
[2021-07-21] MEDS: Senna/Docusate Sodium 1 Tablet 2 TABLET PO ×2 (06:22→17:47)
[2021-07-21] MEDS: Polyethylene Glycol 3350 17 GM PACKET PO (06:22)
[2021-07-21] MEDS: Allopurinol 100 MG Tablet PO (06:22)
[2021-07-21] MEDS: amLODIPine 5 MG Tablet PO (06:23)
[2021-07-21] MEDS: hydrOXYzine PAM 25 MG Capsule 50 MG PO ×2 (06:26→20:59)
[2021-07-21 06:31] LABS: Bedside Glucose 168 mg/dL (70-110)
[2021-07-21] MEDS: metFORMIN (XR) 500 MG Tablet PO (08:12)
--- NOTE | 2021-07-21 09:35 | CASEMGMT ---
Social Work SW met w/pt to complete initial assessment. Though Tanda is listed as POA, pt stats that Jael is the primary contact. She would like both daughters involved in meetings and discharge plans if possible however. Pt may want to change POA from Tanda to Jael, she informed SW she actually thought Jael was her POA for Healthcare. Discussed code status, pt confirms is a full code. MOLST form completed, communication to physician, and form in chart. SW explained that once we know how long her insurance authorizes her to be here, will let her know. SW also explained that there will be a plan of care meeting next week. We reviewed discharge plans, pt's goal is to go home alone, at PLOF from here if possible. However, SW did explain to pt that it is not certain insurance will pay for her to be here until she is at her PLOF, especially given her non-weight bearing status. She states her is at [facility] and she is paying $6,000 per month, cannot afford to pay privately for group home We will continue to discuss w/pt and family. SW will continue to follow, will further explore doing POA for healthcare, and discharge planning w/pt and family. ZONIA Ramos
[2021-07-21 09:36] VITALS: PULSE 84; O2SAT 95
[2021-07-21] MEDS: HYDROcodone Bitartrate/Apap 5/325 Tablet PO ×3 (10:02→20:59)
--- NOTE | 2021-07-21 11:49 | NURSING ---
Received call from Dr. Brizuela's office, spoke with Alanna. Per Dr. Brizuela, TCU is to schedule a xray of the tib/fib for Monday07/27/21, Dr. Brizuela will review the xray and decide from there if he needs to see her.
--- NOTE | 2021-07-21 12:11 | NURSING ---
Per Alanna from orthopedics, pt has routine appt scheduled with Dr. Stephens on 07/27/21 for f/u from 2020 shoulder reversal surgery. However, d/t pt having limited mobility, appt to be rescheduled after d/c from TCU.
[2021-07-21 14:10] VITALS: BP 141/92; PULSE 72; RESP 16; TEMP 36.7; O2SAT 97
[2021-07-21] MEDS: Jantoven 2 MG Tablet PO (17:46)
[2021-07-21] MEDS: Gabapentin 300 MG Capsule PO (20:49)
[2021-07-21] MEDS: MELATONIN 3 MG TABLET 6 MG PO (20:49)
[2021-07-21 21:00] VITALS: BP 137/74; PULSE 79
[2021-07-21] MEDS: Metoprolol(XL)Succ 50 MG Tablet PO (21:00)
[2021-07-22] MEDS: HYDROcodone Bitartrate/Apap 5/325 Tablet PO ×5 (01:21→22:11)
[2021-07-22 05:20] VITALS: BP 120/74; PULSE 58
[2021-07-22] MEDS: amLODIPine 5 MG Tablet PO (05:21)
[2021-07-22] MEDS: Senna/Docusate Sodium 1 Tablet 2 TABLET PO ×2 (05:21→17:19)
[2021-07-22] MEDS: Allopurinol 100 MG Tablet PO (05:21)
[2021-07-22] MEDS: Lisinopril 20 MG Tablet PO (05:21)
[2021-07-22 05:31] LABS: International Normalized Ratio 1.3; Prothrombin Time (Protime)PT. 15.7 SECONDS (11.7-14.9)
[2021-07-22 06:21] LABS: Bedside Glucose 128 mg/dL (74-106)
[2021-07-22] MEDS: metFORMIN (XR) 500 MG Tablet PO (08:15)
--- NOTE | 2021-07-22 12:03 | NURSING ---
Dr Brizuela's office notified regarding f/u appt, Dr Brizuela will call TCU on 07/27/21 after reviewing xrays and will update us on when or where he would like to see her for her f/u appt.
[2021-07-22] MEDS: hydrOXYzine PAM 25 MG Capsule 50 MG PO ×2 (12:22→22:15)
[2021-07-22 13:27] VITALS: BP 135/69; PULSE 62; RESP 16; TEMP 36.7; O2SAT 99
--- NOTE | 2021-07-22 15:59 | CHAPLAIN ---
Type of Pastoral Visit ___ Initial Visit _x__ Follow-up Visit ___ On-call Visit ___ General Patient Visit ___ Spiritual Assessment ___ Family Conference ___ Bereavement ___ Rapid Response ___ Code Blue ___ Other (describe below) Pastoral Care Referral From _x__ Patient ___ Family ___ Nurse ___ Physician ___ Rn On Site ___ Flight Operation Coordinator ___ Other (describe below) Sacrament/Intervention _x__ Active listening ___ Anointing ___ Gnosticist ___ Bereavement ___ Communion _x__ Em exploration ___ _x__ Life review _x__ Prayer ___ Reconciliation ___ Sacrament of Sick _x__ Supportive presence ___ Wedding ___ Other (describe below) Pastoral Comments patient was quite talkative; pt explains severity of her break and her concerns about her at [facility]; pt also speaks of her em and how this gives her a solid foundation and hope; pt welcomes visits in the future and prayer for recovery
--- NOTE | 2021-07-22 16:37 | NURSING ---
Resident and daughter, Bonny, notified of a resident on the unit testing positive for COVID.
--- NOTE | 2021-07-22 16:46 | NURSING ---
verified code status with patient at this time, requesting to be a full code. removed dnrcc from chart.
[2021-07-22] MEDS: Jantoven 2 MG Tablet PO (17:19)
[2021-07-22 20:15] VITALS: O2SAT 97
[2021-07-22 22:16] VITALS: BP 146/79; PULSE 72
[2021-07-22] MEDS: Gabapentin 300 MG Capsule PO (22:16)
[2021-07-22] MEDS: Metoprolol(XL)Succ 50 MG Tablet PO (22:16)
[2021-07-22] MEDS: MELATONIN 3 MG TABLET 6 MG PO (22:16)
[2021-07-23] MEDS: HYDROcodone Bitartrate/Apap 5/325 Tablet PO ×4 (05:01→20:28)
[2021-07-23] MEDS: Senna/Docusate Sodium 1 Tablet 2 TABLET PO ×2 (05:02→16:53)
[2021-07-23] MEDS: Polyethylene Glycol 3350 17 GM PACKET PO (05:02)
[2021-07-23] MEDS: Lisinopril 20 MG Tablet PO (05:03)
[2021-07-23] MEDS: Allopurinol 100 MG Tablet PO (05:03)
[2021-07-23] MEDS: amLODIPine 5 MG Tablet PO (05:03)
[2021-07-23 05:05] VITALS: BP 141/71; PULSE 66
[2021-07-23 06:31] LABS: Bedside Glucose 126 mg/dL (74-106)
[2021-07-23] MEDS: metFORMIN (XR) 500 MG Tablet PO (07:54)
[2021-07-23 10:00] VITALS: PULSE 73; RESP 18; O2SAT 93
[2021-07-23 13:32] VITALS: BP 135/69; PULSE 77; RESP 17; TEMP 36.6; O2SAT 95
--- NOTE | 2021-07-23 14:11 | NURSING ---
Notified Dr. Benoit that pt reports pain medication not effective. Received order to increase norco to 2 tabs q4hr. Order repeated back, will add order.
[2021-07-23] MEDS: Jantoven 2 MG Tablet PO (16:53)
[2021-07-23 20:35] VITALS: BP 146/71; PULSE 93
[2021-07-23] MEDS: Gabapentin 300 MG Capsule PO (20:35)
[2021-07-23] MEDS: MELATONIN 3 MG TABLET 6 MG PO (20:35)
[2021-07-23] MEDS: Metoprolol(XL)Succ 50 MG Tablet PO (20:35)
[2021-07-24] MEDS: HYDROcodone Bitartrate/Apap 5/325 Tablet PO ×6 (00:41→22:26)
[2021-07-24] MEDS: amLODIPine 5 MG Tablet PO (04:52)
[2021-07-24] MEDS: Senna/Docusate Sodium 1 Tablet 2 TABLET PO ×2 (04:52→18:14)
[2021-07-24] MEDS: Allopurinol 100 MG Tablet PO (04:52)
[2021-07-24] MEDS: Lisinopril 20 MG Tablet PO (04:52)
[2021-07-24 06:25] LABS: Bedside Glucose 133 mg/dL (74-106)
[2021-07-24] MEDS: metFORMIN (XR) 500 MG Tablet PO (08:32)
--- NOTE | 2021-07-24 10:26 | NURSING ---
Updated Family in room
[2021-07-24 15:22] VITALS: BP 120/67; PULSE 66; RESP 16; TEMP 36.4; O2SAT 96
[2021-07-24] MEDS: Jantoven 2 MG Tablet PO (18:14)
[2021-07-24 20:42] VITALS: RESP 18
[2021-07-24] MEDS: MELATONIN 3 MG TABLET 6 MG PO (22:25)
[2021-07-24 22:26] VITALS: BP 152/64; PULSE 70
[2021-07-24] MEDS: Metoprolol(XL)Succ 50 MG Tablet PO (22:26)
[2021-07-24] MEDS: Gabapentin 300 MG Capsule PO (22:26)
[2021-07-24] MEDS: hydrOXYzine PAM 25 MG Capsule 50 MG PO (22:33)
[2021-07-25] MEDS: Polyethylene Glycol 3350 17 GM PACKET PO (05:34)
[2021-07-25] MEDS: amLODIPine 5 MG Tablet PO (05:35)
[2021-07-25] MEDS: Senna/Docusate Sodium 1 Tablet 2 TABLET PO ×2 (05:35→17:10)
[2021-07-25] MEDS: Allopurinol 100 MG Tablet PO (05:35)
[2021-07-25] MEDS: HYDROcodone Bitartrate/Apap 5/325 Tablet PO ×4 (05:35→21:12)
[2021-07-25] MEDS: Lisinopril 20 MG Tablet PO (05:35)
[2021-07-25 05:40] VITALS: BP 137/65; PULSE 62
[2021-07-25 06:11] LABS: Bedside Glucose 119 mg/dL (74-106)
[2021-07-25] MEDS: metFORMIN (XR) 500 MG Tablet PO (08:16)
[2021-07-25 11:00] VITALS: PULSE 74; O2SAT 95
[2021-07-25 14:53] VITALS: BP 106/56; PULSE 70; RESP 14; TEMP 36.6; O2SAT 96
[2021-07-25] MEDS: Jantoven 2 MG Tablet PO (17:10)
[2021-07-25] MEDS: hydrOXYzine PAM 25 MG Capsule 50 MG PO (21:12)
[2021-07-25 21:13] VITALS: PULSE 80
[2021-07-25] MEDS: Metoprolol(XL)Succ 50 MG Tablet PO (21:13)
[2021-07-25] MEDS: Gabapentin 300 MG Capsule PO (21:13)
[2021-07-25] MEDS: MELATONIN 3 MG TABLET 6 MG PO (21:14)
[2021-07-26 05:42] LABS: International Normalized Ratio 1.6; Prothrombin Time (Protime)PT. 18.7 SECONDS (11.7-14.9)
[2021-07-26] MEDS: HYDROcodone Bitartrate/Apap 5/325 Tablet PO ×5 (05:47→22:56)
[2021-07-26] MEDS: amLODIPine 5 MG Tablet PO (05:48)
[2021-07-26] MEDS: Senna/Docusate Sodium 1 Tablet 2 TABLET PO ×2 (05:48→18:42)
[2021-07-26] MEDS: Lisinopril 20 MG Tablet PO (05:48)
[2021-07-26] MEDS: Allopurinol 100 MG Tablet PO (05:48)
[2021-07-26 06:06] LABS: Bedside Glucose 119 mg/dL (74-106)
[2021-07-26] MEDS: metFORMIN (XR) 500 MG Tablet PO (08:14)
[2021-07-26 14:24] VITALS: BP 119/58; PULSE 70; RESP 16; TEMP 36.4; O2SAT 96
[2021-07-26] MEDS: Lidocaine 5% Patch 1 PATCH TOPICAL (18:42)
[2021-07-26] MEDS: Jantoven 2 MG Tablet PO (18:42)
[2021-07-26 20:30] VITALS: BP 145/74; PULSE 75; RESP 20; TEMP 36.6; O2SAT 98
[2021-07-26 20:45] VITALS: BP 145/74; PULSE 75
[2021-07-26] MEDS: MELATONIN 3 MG TABLET 6 MG PO (20:45)
[2021-07-26] MEDS: Gabapentin 300 MG Capsule PO (20:45)
[2021-07-26] MEDS: Metoprolol(XL)Succ 50 MG Tablet PO (20:45)
--- NOTE | 2021-07-26 23:19 | NURSING ---
pt to bed at 2245 with the assist of 2 people for safety, pt would not let staff assist her into the bed. pt asked if she would like to use the polar care to knee and pt replied yes that she would but under her knee not on top. in an attempt to assist pt to put the polar care under her knee staff was trying to place the polar care under her leg to the back of her knee , pt yelled loudly that staff was hurting her. staff tried to explain that we were trying to place the polar care under her leg then fasten it around her leg . pt became tearful that she didn't have this much trouble before. staff apologized that it was not our intention to hurt her but try to get her comfortable. rn made aware of what transpired
[2021-07-27] MEDS: Allopurinol 100 MG Tablet PO (05:21)
[2021-07-27] MEDS: Senna/Docusate Sodium 1 Tablet 2 TABLET PO ×2 (05:21→18:00)
[2021-07-27] MEDS: Polyethylene Glycol 3350 17 GM PACKET PO (05:21)
[2021-07-27] MEDS: Lisinopril 20 MG Tablet PO (05:22)
[2021-07-27] MEDS: amLODIPine 5 MG Tablet PO (05:22)
[2021-07-27] MEDS: HYDROcodone Bitartrate/Apap 5/325 Tablet PO ×5 (05:24→22:36)
[2021-07-27 05:42] LABS: Absolute Lymphocyte Count 2.07 X10^3/uL (0.83-4.51); Absolute Neutrophil Count 3.7 X10^3/uL (2.0-7.7); Basophil% 1.4 % (0-1); Eosinophil# 0.26 X10^3/uL; Eosinophils% 3.6 % (0-5); Hematocrit 35.4 % (37-47); Hemoglobin 11.5 g/dL (12.0-15.0); Lymphocyte # 2.07 X10^3/ul (0.83-4.51); Lymphocyte % 28.6 % (19-41); Mean Corp Hgb Conc 32.5 g/dL (32-36); Mean Corpuscular Hgb 30.1 pg (27.0-32.0); Mean Corpuscular Volume 92.7 fL (81-99); Mean Platelet Vol. 8.7 fl (6.2-12.0); Monocyte# 1.05 X10^3/uL; Monocyte% 14.5 % (0-10); NRBC Flagged by Analyzer 0 % (0-5); Neutrophil # 3.69 X10^3/uL (2.7-7.7); Neutrophil % 50.8 % (47-70); Platelet Count 407 K/mm3 (150-450); RBC Distribution Width CV 12.7 % (11.6-14.6); RBC Distribution Width SD 43.2 fl (35.1-43.9); Red Blood Count 3.82 M/mm3 (4.2-5.4); White Blood Count 7.3 K/mm3 (4.4-11.0)
[2021-07-27 06:00] VITALS: BP 142/65; PULSE 62; RESP 16; TEMP 36; O2SAT 95
[2021-07-27 06:00] LABS: Anion Gap 4 (5-15); BUN 22 mg/dL (7-18); BUN/Creat Ratio 25.3 RATIO (10-20); Calcium,Total 9.4 mg/dL (8.5-10.1); Chloride 104 mmol/L (98-107); Creatinine, Serum 0.87 mg/dL (0.55-1.02); EST Glomerular Filtration Rate 67 mL/min (>60); Est Glom Filt Rate - Afr Amer 81 mL/min (>60); Estimated Creatinine Clearance 46.02 ml/min; Glucose 125 mg/dL (74-106); Potassium 4.6 mmol/L (3.5-5.1); Sodium Level 137 mmol/L (136-145)
[2021-07-27 06:31] LABS: Bedside Glucose 131 mg/dL (74-106)
[2021-07-27] MEDS: metFORMIN (XR) 500 MG Tablet PO (07:40)
--- NOTE | 2021-07-27 09:25 | RAD_ITS ---
STUDY: X-RAY - RIGHT TIBIA AND FIBULA REASON FOR EXAM: Female, 76 years old. Follow-up of fracture. TECHNIQUE: 2 view(s) of the tibia and fibula were obtained on 3 images. COMPARISON: 07/16/2021. FINDINGS: Stable osteopenia. Fracture of the proximal tibia and proximal fibula with slight increased anterior angulation of the tibial fracture site compared to the comparison study. Stable minimally displaced fracture of the distal fibula and avulsion fracture of the medial malleolus. Small posterior malleolar fracture also stable. Stable inferior calcaneal spur. RAD/Tibia & Fibula 2 Views IMPRESSION: Fractures of the proximal tibia and fibula as described. Stable trimalleolar fracture. Electronically Signed: Livan Marinelli MD at 9:46 EST ,
[2021-07-27] MEDS: Tuberculin,Purif.prot.deriv. 50 TU/ML Vial 0.1 ML ID (09:43)
[2021-07-27 10:45] VITALS: PULSE 89; RESP 18; O2SAT 96
--- NOTE | 2021-07-27 12:02 | CASEMGMT ---
Social Work Met with patient and dtr in room. Updated them insurance update is today and unsure if pt will receive more time. Inquired about DC plans. Dtr explained pt has an old home and there is no accessible bathroom on the main floor. She has a stair lift to the second floor for the bedroom and bathroom, but due to incapacity of her leg, she would be unable to fit on the stairwell, as it is narrow. Dtr and pt adamantly declined a SNF as they cannot pay privately but declined Medicaid. Dtr stated she would take the pt to her home and enlist her sister's help. Explained unsure how much time insurance will allow. SW to continue to follow for DC planning. Cristal Temple, WINDOWS SERVER ADMINISTRATOR NURSING HOME ADMISSIONS DIRECTOR
[2021-07-27] MEDS: Bisacodyl 5 MG Tablet 10 MG PO (14:01)
[2021-07-27 14:27] VITALS: BP 140/50; PULSE 63; RESP 16; TEMP 36.8; O2SAT 96
[2021-07-27] MEDS: Jantoven 2 MG Tablet PO (17:57)
[2021-07-27] MEDS: Lidocaine 5% Patch 1 PATCH TOPICAL (17:59)
[2021-07-27 22:32] VITALS: BP 135/54; PULSE 84
[2021-07-27] MEDS: Metoprolol(XL)Succ 50 MG Tablet PO (22:32)
[2021-07-27] MEDS: Gabapentin 300 MG Capsule PO (22:32)
[2021-07-27] MEDS: MELATONIN 3 MG TABLET 6 MG PO (22:32)
[2021-07-28] MEDS: HYDROcodone Bitartrate/Apap 5/325 Tablet PO ×4 (06:24→20:53)
[2021-07-28] MEDS: Allopurinol 100 MG Tablet PO (06:25)
[2021-07-28] MEDS: amLODIPine 5 MG Tablet PO (06:25)
[2021-07-28] MEDS: Senna/Docusate Sodium 1 Tablet 2 TABLET PO ×2 (06:25→17:30)
[2021-07-28] MEDS: Lisinopril 20 MG Tablet PO (06:25)
[2021-07-28 06:38] VITALS: BP 136/69; PULSE 60; RESP 16; TEMP 36.3; O2SAT 97
[2021-07-28] MEDS: metFORMIN (XR) 500 MG Tablet PO (08:43)
--- NOTE | 2021-07-28 09:47 | CASEMGMT ---
Addendum entered by Cristal Temple 07/28/21 13:27: Met with dtr after meeting and her discussion with sister/pt. Pt is unable to qualify for [facility], per dtr, thus they will pay privately for a SNF, if pt cannot go to dtr's house. Provided SNF list with Medicare data. Discussed in network facilities and estimated daily rates. Dtr would like referrals to [facility] and [facility]. [facility] was another choice but currently not taking admissions d/t COVID outbreak. SW updated DC Extermination Supervisor to make SNF referrals. Dtr/pt requested new HCPOA documents to name dtr, Fatmata as POA, instead of Tanda. SW to complete prior to pt DC. SW to continue to follow. Original Note: Social Work IDT met with patient and two daughters for care plan meeting. Discussed patient's progress in PT/OT and nursing. Explained [employer] insurance with [employer] 07/27 and continued stay is not guaranteed with each review. Reiterated conversation from yesterday that pt will be safe to return home alone. Offered therapy training with dtrs to ensure they can care for her at their home together. Reiterated IDT recommendation is SNF stay prior to home. Dtrs agreed to revisit SNF stay and [facility]. Provided [facility] jin to see if pt qualifies. Dtrs to discuss amongst themselves for SNF choices and DC plans. SW to continue to follow for discharge planning. TERRENCE Caal
--- NOTE | 2021-07-28 13:40 | CASEMGMT ---
Discharge Support Coordinator Called Erin Rogers and faxed the referral. For private pay it is $215/day. Called Silvano Gomez and Aura is in a meeting. Left a message with Shaun in regards to this referral. Referral was faxed. Loulou Maki Discharge Support Coordinator
[2021-07-28 14:48] VITALS: BP 113/61; PULSE 71; RESP 16; TEMP 37.2; O2SAT 97
--- NOTE | 2021-07-28 14:54 | NURSING ---
Called Dr. Brizuela's office to see when pt needs to follow up with Dr. Brizuela. New appt scheduled to get hard cast on abd x-ray on 08/03/21 @6193. Pt will need wheelchair transportation.
--- NOTE | 2021-07-28 15:27 | CASEMGMT ---
Social Work Met with patient in room to complete Health Care Power of privacy attorney as patient has request for document to be updated. Patient visiting with a friend currently. Patient asked for hospital social worker to check back later if you can. Social work to follow up with patient later on completing Health Care Power of privacy attorney. Sharon OCAMPO, ZONIA
--- NOTE | 2021-07-28 15:59 | CASEMGMT ---
Discharge Student Admissions Clerk Erin [facility] called. They are accepting the patient. Erin Rogers was wanting to know what family member to call to talk about finances. Discharge Student Admissions Clerk gave her MEGAN Farmern phone number and she will reach out to her. Loulou Maki Discharge Student Admissions Clerk
[2021-07-28] MEDS: Gabapentin 300 MG Capsule PO (17:30)
[2021-07-28] MEDS: Jantoven 2 MG Tablet PO (17:30)
[2021-07-28] MEDS: Lidocaine 5% Patch 1 PATCH TOPICAL (17:34)
[2021-07-28 20:52] VITALS: PULSE 76
[2021-07-28] MEDS: MELATONIN 3 MG TABLET 6 MG PO (20:52)
[2021-07-28] MEDS: Metoprolol(XL)Succ 50 MG Tablet PO (20:52)
[2021-07-28 21:01] VITALS: PULSE 76
[2021-07-29] MEDS: HYDROcodone Bitartrate/Apap 5/325 Tablet PO ×6 (01:04→23:31)
[2021-07-29 05:10] VITALS: BP 138/70; PULSE 60
[2021-07-29] MEDS: Gabapentin 300 MG Capsule PO ×2 (05:12→17:13)
[2021-07-29] MEDS: amLODIPine 5 MG Tablet PO (05:13)
[2021-07-29] MEDS: Senna/Docusate Sodium 1 Tablet 2 TABLET PO ×2 (05:13→17:13)
[2021-07-29] MEDS: Lisinopril 20 MG Tablet PO (05:13)
[2021-07-29] MEDS: Allopurinol 100 MG Tablet PO (05:14)
[2021-07-29] MEDS: Polyethylene Glycol 3350 17 GM PACKET PO (05:18)
[2021-07-29 06:01] LABS: Prothrombin Time (Protime)PT. 21.9 SECONDS (11.7-14.9)
[2021-07-29 06:31] LABS: Bedside Glucose 125 mg/dL (74-106)
[2021-07-29] MEDS: metFORMIN (XR) 500 MG Tablet PO (07:56)
[2021-07-29 10:00] VITALS: PULSE 83; O2SAT 96
--- NOTE | 2021-07-29 11:33 | CASEMGMT ---
Social Work Completed HCPOA for pt. Pt named Jael whitlock, as HCPOA. Original and copy provided to pt. Copy placed in chart. Cristal Temple, BREAD WRAPPER ELOCUTION TEACHER
--- NOTE | 2021-07-29 12:58 | MDS.RN ---
Information for the mds was obtained from review of the clinical record, interview of resident, staff, and direct observation of resident's care.
--- NOTE | 2021-07-29 13:21 | CASEMGMT ---
Discharge Financial Management Silavno Sofiegian reached out and can accept the patient. If family would like a tour Aura said to have patient family reach out to her. Discharge Financial Management left a VM for MEGAN Bee. Loulou Maki Discharge Financial Management
--- NOTE | 2021-07-29 14:52 | CASEMGMT ---
Addendum entered by Cristal Temple 07/30/21 15:06: Dtr contacted this worker to update FOC is Erin Rogers. Updated Erin Rogers and Silvano Gomez. Original Note: Social Work Spoke with dtr about Silvano Gomez and Erin Rogers accepting pt. Dtr FOC is Silvano Gomez. Will update dtr with outcome of insurance update 07/30. SW to continue to follow. Cristal Temple, LOOM MECH[employer]IC [employer]LL RELIEF WORKER
[2021-07-29 14:55] VITALS: BP 122/58; PULSE 71; RESP 16; TEMP 36.6; O2SAT 95
[2021-07-29] MEDS: Lidocaine 5% Patch 1 PATCH TOPICAL (17:13)
[2021-07-29] MEDS: Jantoven 2 MG Tablet PO (17:13)
[2021-07-29 20:46] VITALS: BP 132/64; PULSE 67
[2021-07-29] MEDS: Metoprolol(XL)Succ 50 MG Tablet PO (20:46)
[2021-07-29] MEDS: MELATONIN 3 MG TABLET 6 MG PO (20:46)
[2021-07-30] MEDS: Allopurinol 100 MG Tablet PO (06:00)
[2021-07-30] MEDS: Senna/Docusate Sodium 1 Tablet 2 TABLET PO (06:00)
[2021-07-30] MEDS: Lisinopril 20 MG Tablet PO (06:00)
[2021-07-30] MEDS: amLODIPine 5 MG Tablet PO (06:00)
[2021-07-30] MEDS: Gabapentin 300 MG Capsule PO ×2 (06:02→16:53)
[2021-07-30] MEDS: HYDROcodone Bitartrate/Apap 5/325 Tablet PO ×4 (06:04→21:07)
[2021-07-30 06:31] LABS: Bedside Glucose 129 mg/dL (74-106)
[2021-07-30] MEDS: metFORMIN (XR) 500 MG Tablet PO (09:27)
[2021-07-30 14:44] VITALS: BP 118/71; PULSE 71; RESP 18; TEMP 36.2; O2SAT 99
[2021-07-30] MEDS: Jantoven 2 MG Tablet PO (16:52)
[2021-07-30] MEDS: Lidocaine 5% Patch 1 PATCH TOPICAL (17:01)
[2021-07-30 21:09] VITALS: BP 128/60; PULSE 77
[2021-07-30] MEDS: Metoprolol(XL)Succ 50 MG Tablet PO (21:09)
[2021-07-30] MEDS: MELATONIN 3 MG TABLET 6 MG PO (21:10)
[2021-07-31] MEDS: HYDROcodone Bitartrate/Apap 5/325 Tablet PO ×6 (01:18→22:31)
[2021-07-31] MEDS: Gabapentin 300 MG Capsule PO ×2 (05:33→17:13)
[2021-07-31] MEDS: Allopurinol 100 MG Tablet PO (05:33)
[2021-07-31] MEDS: Lisinopril 20 MG Tablet PO (05:33)
[2021-07-31] MEDS: Senna/Docusate Sodium 1 Tablet 2 TABLET PO ×2 (05:33→17:12)
[2021-07-31] MEDS: Polyethylene Glycol 3350 17 GM PACKET PO (05:33)
[2021-07-31] MEDS: amLODIPine 5 MG Tablet PO (05:33)
[2021-07-31 05:38] VITALS: BP 127/66; PULSE 68
[2021-07-31 06:46] LABS: Bedside Glucose 132 mg/dL (74-106)
[2021-07-31] MEDS: metFORMIN (XR) 500 MG Tablet PO (07:59)
[2021-07-31 10:00] VITALS: PULSE 67; RESP 18; O2SAT 96
[2021-07-31 13:48] VITALS: BP 118/60; PULSE 64; RESP 18; TEMP 36.1; O2SAT 97
[2021-07-31] MEDS: Jantoven 2 MG Tablet PO (17:12)
[2021-07-31] MEDS: Lidocaine 5% Patch 1 PATCH TOPICAL (17:12)
[2021-07-31] MEDS: MELATONIN 3 MG TABLET 6 MG PO (22:28)
[2021-07-31 22:29] VITALS: BP 134/74; PULSE 78
[2021-07-31] MEDS: Metoprolol(XL)Succ 50 MG Tablet PO (22:29)
[2021-08-01] MEDS: HYDROcodone Bitartrate/Apap 5/325 Tablet PO ×4 (05:16→19:53)
[2021-08-01] MEDS: Gabapentin 300 MG Capsule PO ×2 (05:17→17:36)
[2021-08-01] MEDS: Lisinopril 20 MG Tablet PO (05:17)
[2021-08-01] MEDS: amLODIPine 5 MG Tablet PO (05:17)
[2021-08-01] MEDS: Allopurinol 100 MG Tablet PO (05:18)
[2021-08-01] MEDS: Senna/Docusate Sodium 1 Tablet 2 TABLET PO ×2 (05:18→17:35)
[2021-08-01 05:23] VITALS: BP 136/64; PULSE 61
[2021-08-01 06:26] LABS: Bedside Glucose 104 mg/dL (74-106)
[2021-08-01] MEDS: metFORMIN (XR) 500 MG Tablet PO (08:06)
[2021-08-01 15:18] VITALS: BP 116/62; PULSE 68; RESP 16; TEMP 36; O2SAT 96
[2021-08-01] MEDS: Jantoven 2 MG Tablet PO (17:35)
[2021-08-01] MEDS: Lidocaine 5% Patch 1 PATCH TOPICAL (17:36)
[2021-08-01 22:10] VITALS: BP 122/64; PULSE 64
[2021-08-01] MEDS: MELATONIN 3 MG TABLET 6 MG PO (22:10)
[2021-08-01] MEDS: Metoprolol(XL)Succ 50 MG Tablet PO (22:10)
[2021-08-02] MEDS: HYDROcodone Bitartrate/Apap 5/325 Tablet PO ×5 (00:59→21:41)
[2021-08-02 05:48] LABS: International Normalized Ratio 2.1; Prothrombin Time (Protime)PT. 22.5 SECONDS (11.7-14.9)
[2021-08-02] MEDS: Polyethylene Glycol 3350 17 GM PACKET PO (06:07)
[2021-08-02] MEDS: Senna/Docusate Sodium 1 Tablet 2 TABLET PO ×2 (06:07→17:21)
[2021-08-02] MEDS: Gabapentin 300 MG Capsule PO ×2 (06:08→17:21)
[2021-08-02] MEDS: Allopurinol 100 MG Tablet PO (06:08)
[2021-08-02 06:16] VITALS: BP 99/57; PULSE 58
--- NOTE | 2021-08-02 06:16 | NURSING ---
Norvasc and Lisinopril held at this time d/t low bp- 99/57. [facility] staff to continue to monitor.
[2021-08-02 06:31] LABS: Bedside Glucose 125 mg/dL (74-106)
[2021-08-02] MEDS: Lisinopril 20 MG Tablet PO (08:24)
[2021-08-02] MEDS: metFORMIN (XR) 500 MG Tablet PO (08:24)
[2021-08-02 08:25] VITALS: BP 138/64; PULSE 70
[2021-08-02] MEDS: amLODIPine 5 MG Tablet PO (08:25)
[2021-08-02 15:22] VITALS: BP 150/70; PULSE 71; RESP 18; TEMP 36.2; O2SAT 96
[2021-08-02] MEDS: Jantoven 2 MG Tablet PO (17:20)
[2021-08-02] MEDS: Lidocaine 5% Patch 1 PATCH TOPICAL (17:24)
--- NOTE | 2021-08-02 17:30 | CASEMGMT ---
Social Work Updated pt and dgt that NRD with insurance is 08/04/21. ИРИНА Garza
[2021-08-02 19:47] VITALS: O2SAT 96
[2021-08-02 21:40] VITALS: BP 115/59; PULSE 68
[2021-08-02] MEDS: Metoprolol(XL)Succ 50 MG Tablet PO (21:40)
[2021-08-02] MEDS: MELATONIN 3 MG TABLET 6 MG PO (21:41)
[2021-08-03] MEDS: Gabapentin 300 MG Capsule PO ×2 (05:43→17:03)
[2021-08-03] MEDS: Senna/Docusate Sodium 1 Tablet 2 TABLET PO ×2 (05:43→17:03)
[2021-08-03] MEDS: amLODIPine 5 MG Tablet PO (05:43)
[2021-08-03] MEDS: Lisinopril 20 MG Tablet PO (05:43)
[2021-08-03] MEDS: Allopurinol 100 MG Tablet PO (05:43)
[2021-08-03 05:45] VITALS: BP 143/63; PULSE 59
[2021-08-03 05:56] LABS: Absolute Lymphocyte Count 1.61 X10^3/uL (0.83-4.51); Absolute Neutrophil Count 3.9 X10^3/uL (2.0-7.7); Basophil% 1.5 % (0-1); Eosinophil# 0.17 X10^3/uL; Eosinophils% 2.5 % (0-5); Hematocrit 35.3 % (37-47); Hemoglobin 11.2 g/dL (12.0-15.0); Lymphocyte # 1.61 X10^3/ul (0.83-4.51); Lymphocyte % 23.9 % (19-41); Mean Corp Hgb Conc 31.7 g/dL (32-36); Mean Corpuscular Hgb 29.2 pg (27.0-32.0); Mean Corpuscular Volume 91.9 fL (81-99); Mean Platelet Vol. 8.9 fl (6.2-12.0); Monocyte% 13.4 % (0-10); NRBC Flagged by Analyzer 0 % (0-5); Neutrophil # 3.92 X10^3/uL (2.7-7.7); Neutrophil % 58.1 % (47-70); Platelet Count 361 K/mm3 (150-450); RBC Distribution Width SD 42.5 fl (35.1-43.9); Red Blood Count 3.84 M/mm3 (4.2-5.4); White Blood Count 6.7 K/mm3 (4.4-11.0)
[2021-08-03 06:44] LABS: Anion Gap 5 (5-15); BUN 16 mg/dL (7-18); BUN/Creat Ratio 17.7 RATIO (10-20); Calcium,Total 9.3 mg/dL (8.5-10.1); Chloride 106 mmol/L (98-107); EST Glomerular Filtration Rate 64 mL/min (>60); Est Glom Filt Rate - Afr Amer 78 mL/min (>60); Estimated Creatinine Clearance 44.49 ml/min; Glucose 111 mg/dL (74-106); Potassium 4.2 mmol/L (3.5-5.1); Sodium Level 139 mmol/L (136-145)
[2021-08-03] MEDS: HYDROcodone Bitartrate/Apap 5/325 Tablet PO ×4 (06:56→20:11)
[2021-08-03] MEDS: metFORMIN (XR) 500 MG Tablet PO (07:50)
[2021-08-03 08:02] LABS: Bedside Glucose 138 mg/dL (74-106)
--- NOTE | 2021-08-03 09:01 | NURSING ---
PT LEFT BY COT AT [address] JOSEPH APPOINTMENT.
--- NOTE | 2021-08-03 10:36 | NURSING ---
PT RETURNED FROM APPOINTMENT WITH A HARD CAST TO RIGHT LOWER LEG.
--- NOTE | 2021-08-03 11:22 | NURSING ---
Pt back from appt with Dr. Brizuela no new orders F/U in 1 week will set up appt and pt will need Wheelchair transportation.
[2021-08-03 15:28] VITALS: BP 113/61; PULSE 65; RESP 15; TEMP 36.6; O2SAT 94
[2021-08-03] MEDS: Jantoven 2 MG Tablet PO (17:03)
[2021-08-03] MEDS: Lidocaine 5% Patch 1 PATCH TOPICAL (17:04)
[2021-08-03 20:29] VITALS: PULSE 77; RESP 18; O2SAT 96
[2021-08-03] MEDS: MELATONIN 3 MG TABLET 6 MG PO (21:42)
[2021-08-03 21:43] VITALS: BP 121/65; PULSE 64
[2021-08-03] MEDS: Metoprolol(XL)Succ 50 MG Tablet PO (21:43)
[2021-08-04] MEDS: HYDROcodone Bitartrate/Apap 5/325 Tablet PO ×5 (01:51→22:01)
[2021-08-04 06:03] VITALS: BP 127/68; PULSE 66
[2021-08-04 06:11] LABS: Bedside Glucose 111 mg/dL (74-106)
[2021-08-04] MEDS: Allopurinol 100 MG Tablet PO (06:14)
[2021-08-04] MEDS: Lisinopril 20 MG Tablet PO (06:14)
[2021-08-04] MEDS: Gabapentin 300 MG Capsule PO ×2 (06:14→17:03)
[2021-08-04] MEDS: Senna/Docusate Sodium 1 Tablet 2 TABLET PO ×2 (06:14→17:04)
[2021-08-04] MEDS: Polyethylene Glycol 3350 17 GM PACKET PO (06:14)
[2021-08-04] MEDS: amLODIPine 5 MG Tablet PO (06:14)
[2021-08-04] MEDS: metFORMIN (XR) 500 MG Tablet PO (08:17)
[2021-08-04 17:01] VITALS: BP 122/83; PULSE 64; RESP 18; TEMP 36.5; O2SAT 98
[2021-08-04] MEDS: Lidocaine 5% Patch 1 PATCH TOPICAL (17:02)
[2021-08-04] MEDS: Jantoven 2 MG Tablet PO (17:03)
[2021-08-04 22:02] VITALS: BP 120/57; PULSE 62
[2021-08-04] MEDS: Metoprolol(XL)Succ 50 MG Tablet PO (22:02)
[2021-08-04] MEDS: MELATONIN 3 MG TABLET 6 MG PO (22:02)
[2021-08-05] MEDS: HYDROcodone Bitartrate/Apap 5/325 Tablet PO ×4 (05:28→22:32)
[2021-08-05] MEDS: Senna/Docusate Sodium 1 Tablet 2 TABLET PO ×2 (05:30→17:12)
[2021-08-05] MEDS: Gabapentin 300 MG Capsule PO ×2 (05:30→17:11)
[2021-08-05] MEDS: Lisinopril 20 MG Tablet PO (05:32)
[2021-08-05] MEDS: Allopurinol 100 MG Tablet PO (05:32)
[2021-08-05] MEDS: amLODIPine 5 MG Tablet PO (05:32)
[2021-08-05 05:53] LABS: International Normalized Ratio 2.1; Prothrombin Time (Protime)PT. 22.9 SECONDS (11.7-14.9)
[2021-08-05 06:46] LABS: Bedside Glucose 116 mg/dL (74-106)
[2021-08-05] MEDS: metFORMIN (XR) 500 MG Tablet PO (08:07)
--- NOTE | 2021-08-05 10:47 | CASEMGMT ---
Social Work Insurance issued LCD 08/07, DC 08/08. Spoke with dtr to update on DC date. Provided appeal rights. Dtr declined to appeal and would like pt to DC to [facility]. Family to transport. Contacted [facility] and they can accept 08/08. Dtr would like to tell pt. Plan: DC to [facility] private pay, nonskilled, 08/08 TERRENCE CaalW
[2021-08-05 14:11] VITALS: BP 124/58; PULSE 64; RESP 17; TEMP 36.3; O2SAT 97
[2021-08-05] MEDS: Lidocaine 5% Patch 1 PATCH TOPICAL (17:11)
[2021-08-05] MEDS: Jantoven 2 MG Tablet PO (17:12)
--- NOTE | 2021-08-05 20:00 | DS.PCM_ITS ---
Providers Date of Admission: 07/19/21 Primary Care Physician: Dr. Radha Carmichael MD Reason For Visit: FALL/RT FIB TIB FRACTURE,ANKLE FRACTURE Diagnosis Discharge Diagnosis (1) Debility: Status: Acute Code(s): R53.81 - Other malaise (2) Closed fracture of right fibula and tibia: Status: Acute Code(s): S82.201A - Unspecified fracture of shaft of right tibia, initial encounter for closed fracture; S82.401A - Unspecified fracture of shaft of right fibula, initial encounter for closed fracture Qualifiers: Encounter type: initial encounter Qualified Code(s): S82.201A - Unspecified fracture of shaft of right tibia, initial encounter for closed fracture; S82.401A - Unspecified fracture of shaft of right fibula, initial encounter for closed fracture (3) Closed right trimalleolar fracture: Status: Acute Code(s): S82.851A - Displaced trimalleolar fracture of right lower leg, initial encounter for closed fracture Qualifiers: Encounter type: initial encounter Qualified Code(s): S82.851A - Displaced trimalleolar fracture of right lower leg, initial encounter for closed fracture (4) Fall due to ice or snow: Status: Acute Code(s): W00.9XXA - Unspecified fall due to ice and snow, initial encounter Qualifiers: Encounter type: initial encounter Qualified Code(s): W00.9XXA - Unspecified fall due to ice and snow, initial encounter (5) Diabetes mellitus: Status: Acute Code(s): E11.9 - Type 2 diabetes mellitus without complications (6) Hypertension: Status: Chronic Code(s): I10 - Essential (primary) hypertension (7) Hyperlipidemia: Status: Acute Code(s): E78.5 - Hyperlipidemia, unspecified (8) Stroke: Status: Acute Code(s): I63.9 - Cerebral infarction, unspecified (9) Vascular dementia: Status: Acute Code(s): F01.50 - Vascular dementia without behavioral disturbance (10) Atrial fibrillation: Status: Acute Code(s): I48.91 - Unspecified atrial fibrillation Medications at Discharge Home Medications amlodipine 5 mg PO DAILY 02/15/20 metformin 500 mg PO DAILY 02/15/20 metoprolol succinate 50 mg PO QHS 02/15/20 polyethylene glycol 3350 17 gm PO QODAY 02/15/20 warfarin 2 mg PO DAILY 02/16/20 allopurinol 100 mg PO DAILY 07/16/21 lisinopril 20 mg PO DAILY 07/16/21 melatonin 6 mg PO DAILY 07/16/21 gabapentin 300 mg PO BID #0 cap 08/05/21 hydrocodone-acetaminophen 2 tab PO Q4H PRN PRN 3 Days #36 tab 08/05/21 lidocaine 1 patch TOPICAL DAILY@1800 #0 ea 08/05/21 sennosides-docusate sodium [Stool Softener-Stimulant Laxat] 2 tab PO BID #0 tab 08/05/21 Hospital Course Operations None Procedures None Summary of Care Provided Minutes Spent on Discharge: 35 Hospital Course: 75 year old female with below past medical history hos pitalized after fall, right tibia/fibula fracture, right trimalleolar fracture, treated non-operatively, admitted to TCU with debility, here for rehabilitation, strengthening, prior to discharge home alone. Discharge to [facility], non-skillled, 08/08/2021. Physical Exam Const alert General Appearance: cooperative HEENT normocephalic Eyes PERRL and EOMs intact bilaterally Neck supple, no JVD and no carotid bruits Resp normal respiratory effort, normal air movement and clear to auscultation bila terally Cardio regular rate and regular rhythm GI normal to inspection, nondistended, normoactive bowel sounds, non-tender and non-distended Extremity normal capillary refill Extremity Narrative: Right lower extremity boot. General Extremity: Negative for edema Skin no rashes or lesions noted General Skin Exam: no breakdown Psych affect normal Appearance: appropriate Weight / BMI Weight Weight: 77.564 kg Body Mass Index (BMI) 30.5 ABG / Lab / Microbiology Data Result Diagrams: 08/03/21 05:21 08/03/21 05:21 Laboratory: Laboratory Results - last 24 hr 08/05/21 05:16: PT 22.9 H, INR 2.1 08/05/21 06:41: POC Glucose 116 H Microbiology: Microbiology 08/05/21 Unknown Nasal Secretion SARS-CoV-2 Antigen (Rapid) - Final 07/29/21 12:04 Nasal Secretion SARS-CoV-2 Antigen (Rapid) - Final 07/26/21 07:45 Nasal Secretion SARS-CoV-2 Antigen (Rapid) - Final D/C Instructions Discharge Diet: No restrictions Discharge Activity: Return to Normal Activity, May Shower and Use Walker Weight Bearing Status: No weight bearing (Right lower extremity.) Call your doctor if you observe: Fever of 101 or Higher, Inability to urinate, Inability to have a bowel movement, Shortness of breath, Dizziness, Fainting spells, Swelling in the ankles, Chest pain and Uncontrolled pain Additional Instructions: Discharge to [facility], non-skillled, 08/08/2021. Please Follow Up With: Livan House PA-C When: As scheduled. Meaningful Use Info Meaningful Use Diagnoses (Choose all that apply): None applicable Discharge Plan Admission Admit Date/Time: 07/19/21 18:00 Primary Reason for Your Visit: Debility. Attending Provider: Amauri Benoit Chi Primary Care Provider: Radha Carmichael Instructions Additional Instructions / Restrictions: ischarge to [facility], non-skillled, 08/08/2021. Discharge Orders/Prescriptions Prescriptions: New hydrocodone-acetaminophen 5-325 mg Tablet 2 tab PO Q4H PRN PRN (Reason: Pain Score 1-10) 3 Days Qty: 36 RF: 0 sennosides-docusate sodium [Stool Softener-Stimulant Laxat] 8.6-50 mg Tablet 2 tab PO BID Qty: 0 RF: 0 lidocaine 5 % Adhesive Patch,Medicated 1 patch topical DAILY@1800 Qty: 0 RF: 0 gabapentin 300 mg Capsule 300 mg PO BID Qty: 0 RF: 0 Continued polyethylene glycol 3350 17 GM packet 17 gm PO QODAY RF: 0 metoprolol succinate 100 MG tablet extended release 24 hr 50 mg PO QHS RF: 0 amlodipine 5 MG tablet 5 mg PO DAILY RF: 0 metformin 500 MG tablet extended release 24 hr 500 mg PO DAILY RF: 0 warfarin 2 MG tablet 2 mg PO DAILY RF: 0 lisinopril 20 mg tablet 20 mg PO DAILY RF: 0 melatonin 3 mg Tablet 6 mg PO DAILY RF: 0 allopurinol 100 mg tablet 100 mg PO DAILY RF: 0 Discontinued multivitamin with minerals 1 EACH tablet 1 ea PO DAILY RF: 0 cholecalciferol (vitamin D3) 10 MCG tablet 1,000 unit PO DAILY RF: 0 calcium carb-D3-mag [id number] 1 EACH tablet 1 ea PO DAILY RF: 0 gabapentin 300 MG capsule 300 mg PO QHS RF: 0 oxycodone 5 mg Tablet 5 mg PO Q4H PRN PRN (Reason: Pain Score 4-10) Qty: 0 RF: 0 aspirin 81 MG tablet,chewable 81 mg PO DAILY@0800 RF: 0 Referrals / Follow Up: Radha Carmichael MD [Primary Care Provider] - Raimundo Brizuela DO [STAFF PHYSICIAN] - 08/03/21 2:15 pm () Nilay Stephens MD [STAFF PHYSICIAN] - (Follow up after discharge fro shoulder reversal from 2019. 07/27/21 appt cancelled d/t being in TCU and unable to safely go to appt. ) Disposition Disposition (needs filled in before D/C Order can be placed): NonSkilled NH/Intermed Care
--- NOTE | 2021-08-05 20:06 | PCM.TXEXTCAR ---
Diet 07/19/21 18:23 Diet: Consistent Carb - Calorie Controlled Food consistency:: Regular Liquid Consistency:: Regular/Thin Is pt able to select menu?: Yes How many daily calories?: 1800 calorie Routine Orders/Code Status Routine Lab Work: INR Code Status: Full Code Wound(s) rt lateral buttock/hip: Wound Type: scratches from itching Therapies Weight Bearing: Non weight bearing (Right lower extremity.) Problem/Diagnosis (1) Debility: Status: Acute (2) Closed fracture of right fibula and tibia: Status: Acute (3) Closed right trimalleolar fracture: Status: Acute (4) Fall due to ice or snow: Status: Acute (5) Diabetes mellitus: Status: Acute (6) Hypertension: Status: Chronic (7) Hyperlipidemia: Status: Acute (8) Stroke: Status: Acute (9) Vascular dementia: Status: Acute (10) Atrial fibrillation: Status: Acute Allergies/Procedures Done in Hospital Allergies Penicillins [PCN] Allergy (Verified 03/25/20 14:10) Hives tramadol Allergy (Verified 03/25/20 14:10) Other ciprofloxacin [From Cipro] Adverse Reaction (Verified 03/25/20 14:10) PT UNSURE OF REACTION donepezil [From Aricept] Adverse Reaction (Verified 04/29/20 09:19) PT UNSURE OF REACTION nitrofurantoin [From Macrobid] Adverse Reaction (Verified 04/29/20 09:17) PT UNSURE OF REACTION ramelteon Adverse Reaction (Verified 07/16/21 17:53) PT UNSURE OF REACTION RACING HEART RATE trazodone Adverse Reaction (Verified 03/25/20 14:10) PT UNSURE OF REACTION Procedures: None Type of Care/Length of Stay Estimated LOS: More Than 30 Days Type of Care Needed: Intermediate Rehab Potential: Fair Prognosis: Fair Additional Orders/Day of Discharge Day of Discharge: 08/08/21 Dietary and Speech Recommendations Dietitian Recommendations/Changes: Will continue diet as ordered Will monitor need for ONS as warranted by changes in po intake/weight. Follow Up Care Please Follow Up With: Livan House PAChristopherC When: 1 week Discharge Plan Admission Admit Date/Time: 07/19/21 18:00 Primary Reason for Your Visit: Debility. Attending Provider: Amauri Benoit Chi Primary Care Provider: Radha Carmichael Instructions Additional Instructions / Restrictions: ischarge to [facility], non-skillled, 08/08/2021. Discharge Orders/Prescriptions Prescriptions: New hydrocodone-acetaminophen 5-325 mg Tablet 2 tab PO Q4H PRN PRN (Reason: Pain Score 1-10) 3 Days Qty: 36 RF: 0 sennosides-docusate sodium [Stool Softener-Stimulant Laxat] 8.6-50 mg Tablet 2 tab PO BID Qty: 0 RF: 0 lidocaine 5 % Adhesive Patch,Medicated 1 patch topical DAILY@1800 Qty: 0 RF: 0 gabapentin 300 mg Capsule 300 mg PO BID Qty: 0 RF: 0 Continued polyethylene glycol 3350 17 GM packet 17 gm PO QODAY RF: 0 metoprolol succinate 100 MG tablet extended release 24 hr 50 mg PO QHS RF: 0 amlodipine 5 MG tablet 5 mg PO DAILY RF: 0 metformin 500 MG tablet extended release 24 hr 500 mg PO DAILY RF: 0 warfarin 2 MG tablet 2 mg PO DAILY RF: 0 lisinopril 20 mg tablet 20 mg PO DAILY RF: 0 melatonin 3 mg Tablet 6 mg PO DAILY RF: 0 allopurinol 100 mg tablet 100 mg PO DAILY RF: 0 Discontinued multivitamin with minerals 1 EACH tablet 1 ea PO DAILY RF: 0 cholecalciferol (vitamin D3) 10 MCG tablet 1,000 unit PO DAILY RF: 0 calcium carb-D3-mag [id number] 1 EACH tablet 1 ea PO DAILY RF: 0 gabapentin 300 MG capsule 300 mg PO QHS RF: 0 oxycodone 5 mg Tablet 5 mg PO Q4H PRN PRN (Reason: Pain Score 4-10) Qty: 0 RF: 0 aspirin 81 MG tablet,chewable 81 mg PO DAILY@0800 RF: 0 Referrals / Follow Up: Radha Carmichael MD [Primary Care Provider] - Raimundo Brizuela DO [STAFF PHYSICIAN] - 08/03/21 2:15 pm () Nilay Stephens MD [STAFF PHYSICIAN] - (Follow up after discharge fro shoulder reversal from 2019. 07/27/21 appt cancelled d/t being in TCU and unable to safely go to appt. ) Disposition Disposition (needs filled in before D/C Order can be placed): NonSkilled NH/Intermed Care
[2021-08-05 20:30] VITALS: PULSE 65; RESP 16; O2SAT 93
[2021-08-05] MEDS: MELATONIN 3 MG TABLET 6 MG PO (20:36)
[2021-08-05 20:37] VITALS: BP 141/60; PULSE 61
[2021-08-05] MEDS: Metoprolol(XL)Succ 50 MG Tablet PO (20:37)
[2021-08-06 06:33] VITALS: BP 136/59; PULSE 68
[2021-08-06 06:36] LABS: Bedside Glucose 112 mg/dL (74-106)
[2021-08-06] MEDS: Allopurinol 100 MG Tablet PO (06:36)
[2021-08-06] MEDS: Polyethylene Glycol 3350 17 GM PACKET PO (06:36)
[2021-08-06] MEDS: HYDROcodone Bitartrate/Apap 5/325 Tablet PO ×3 (06:36→19:50)
[2021-08-06] MEDS: Gabapentin 300 MG Capsule PO ×2 (06:37→17:10)
[2021-08-06] MEDS: Senna/Docusate Sodium 1 Tablet 2 TABLET PO ×2 (06:37→17:10)
[2021-08-06] MEDS: amLODIPine 5 MG Tablet PO (06:37)
[2021-08-06] MEDS: Lisinopril 20 MG Tablet PO (06:37)
[2021-08-06] MEDS: metFORMIN (XR) 500 MG Tablet PO (08:45)
--- NOTE | 2021-08-06 12:06 | CASEMGMT ---
Social Work BIMS and PHQ-9 completed for MDS assessment. Cristal Temple, TRACK HELPER MANAGER VEHICLE
--- NOTE | 2021-08-06 12:56 | MDS.RN ---
Pain interview for cy 08/08/21
[2021-08-06 13:39] VITALS: PULSE 60; O2SAT 97
[2021-08-06 17:03] VITALS: BP 148/72; PULSE 68; RESP 18; TEMP 36; O2SAT 98
[2021-08-06] MEDS: Lidocaine 5% Patch 1 PATCH TOPICAL (17:10)
[2021-08-06] MEDS: Jantoven 2 MG Tablet PO (17:10)
[2021-08-06 21:12] VITALS: BP 130/59; PULSE 68
[2021-08-06 21:14] VITALS: PULSE 68
[2021-08-06] MEDS: MELATONIN 3 MG TABLET 6 MG PO (21:14)
[2021-08-06] MEDS: Metoprolol(XL)Succ 50 MG Tablet PO (21:14)
[2021-08-07] MEDS: Gabapentin 300 MG Capsule PO ×2 (05:11→16:49)
[2021-08-07] MEDS: amLODIPine 5 MG Tablet PO (05:11)
[2021-08-07] MEDS: Senna/Docusate Sodium 1 Tablet 2 TABLET PO ×2 (05:12→16:49)
[2021-08-07] MEDS: Allopurinol 100 MG Tablet PO (05:12)
[2021-08-07] MEDS: Lisinopril 20 MG Tablet PO (05:12)
[2021-08-07 06:31] LABS: Bedside Glucose 105 mg/dL (74-106)
[2021-08-07] MEDS: metFORMIN (XR) 500 MG Tablet PO (08:00)
[2021-08-07] MEDS: HYDROcodone Bitartrate/Apap 5/325 Tablet PO ×3 (12:19→20:35)
[2021-08-07 15:46] VITALS: BP 127/56; PULSE 58; RESP 16; TEMP 36.7; O2SAT 97
[2021-08-07] MEDS: Jantoven 2 MG Tablet PO (16:48)
[2021-08-07] MEDS: Lidocaine 5% Patch 1 PATCH TOPICAL (16:49)
[2021-08-07] MEDS: MELATONIN 3 MG TABLET 6 MG PO (20:22)
[2021-08-07 20:24] VITALS: BP 148/58; PULSE 70
[2021-08-07] MEDS: Metoprolol(XL)Succ 50 MG Tablet PO (20:24)
[2021-08-07 22:48] VITALS: PULSE 72; RESP 16; O2SAT 96
[2021-08-08] MEDS: Polyethylene Glycol 3350 17 GM PACKET PO (05:13)
[2021-08-08] MEDS: Gabapentin 300 MG Capsule PO (05:13)
[2021-08-08] MEDS: amLODIPine 5 MG Tablet PO (05:13)
[2021-08-08] MEDS: Senna/Docusate Sodium 1 Tablet 2 TABLET PO (05:13)
[2021-08-08] MEDS: Lisinopril 20 MG Tablet PO (05:14)
[2021-08-08] MEDS: Allopurinol 100 MG Tablet PO (05:14)
[2021-08-08] MEDS: HYDROcodone Bitartrate/Apap 5/325 Tablet PO ×2 (05:19→09:16)
[2021-08-08 06:26] LABS: Bedside Glucose 114 mg/dL (74-106)
[2021-08-08] MEDS: metFORMIN (XR) 500 MG Tablet PO (07:58)
[2021-08-08 09:08] VITALS: BP 130/56; PULSE 78; RESP 16; TEMP 36.6; O2SAT 92
[2021-08-08 09:09] VITALS: PULSE 78; RESP 16; O2SAT 97
--- NOTE | 2021-08-08 10:30 | NURSING ---
report called to Fannie @ [facility]. family here at this time for transport to facility.
--- NOTE | 2021-08-08 10:38 | NURSING ---
cancelled physicians transport for 08/10, pt being dc'd to [facility]. daughter explained she had cancelled ortho appt and changed date time.
== END 2021-08-08 11:09 | DRG 561 ==
PROVIDERS: Admitting Provider Family Medicine Geriatric Medicine; PCP Internal Medicine; Visit Provider Family Medicine Geriatric Medicine
DX: S82.201D Unspecified fracture of shaft of right tibia, subsequent encounter for closed fracture with routine healing (principal); E11.42 Type 2 diabetes mellitus with diabetic polyneuropathy; F01.50 Vascular dementia, unspecified severity, without behavioral disturbance, psychotic disturbance, mood disturbance, and anxiety; I48.0 Paroxysmal atrial fibrillation; E78.5 Hyperlipidemia, unspecified; W00.0XXD Fall on same level due to ice and snow, subsequent encounter; I10 Essential (primary) hypertension; M10.9 Gout, unspecified; S82.851D Displaced trimalleolar fracture of right lower leg, subsequent encounter for closed fracture with routine healing; S82.401D Unspecified fracture of shaft of right fibula, subsequent encounter for closed fracture with routine healing; Z79.84 Long term (current) use of oral hypoglycemic drugs; Z79.82 Long term (current) use of aspirin; Z79.01 Long term (current) use of anticoagulants; Z79.899 Other long term (current) drug therapy; Z95.2 Presence of prosthetic heart valve
CPT/HCPCS: 36415; 73590; 80048; 82962; 85025; 85610; 87426; 87811; 97110; 97116; 97162; 97166; 97530; 97535; 97802; A4216

== ENCOUNTER → 2021-12-09 | Outpatient (REF) | payer MEDICARE, SELFPAY ==
[2021-12-09 06:45] LABS: INR Fingerstick 1.9; Prothrombin Time Fingerstick 22.6 SEC (11.7-14.9)
== END | disposition home or self-care (01) ==
LOC: OLS.WHLTSB 05:00
PROVIDERS: PCP Internal Medicine; Visit Provider Internal Medicine
DX: I48.91 Unspecified atrial fibrillation (principal); E11.9 Type 2 diabetes mellitus without complications; S82.851D Displaced trimalleolar fracture of right lower leg, subsequent encounter for closed fracture with routine healing; D51.9 Vitamin B12 deficiency anemia, unspecified; E55.9 Vitamin D deficiency, unspecified
CPT/HCPCS: 36416; 85610

== ENCOUNTER → 2021-12-16 | Outpatient (REF) | payer MEDICARE, SELFPAY ==
[2021-12-16 08:15] LABS: Absolute Lymphocyte Count 2.14 X10^3/uL (0.83-4.51); Absolute Neutrophil Count 3.1 X10^3/uL (2.0-7.7); Basophil# 0.07 X10^3/uL; Basophil% 1.1 % (0-1); Eosinophil# 0.12 X10^3/uL; Eosinophils% 1.9 % (0-5); Hematocrit 40.4 % (37-47); Hemoglobin 13.3 g/dL (12.0-15.0); Lymphocyte # 2.14 X10^3/ul (0.83-4.51); Lymphocyte % 34.1 % (19-41); Mean Corp Hgb Conc 32.9 g/dL (32-36); Mean Corpuscular Hgb 30.4 pg (27.0-32.0); Mean Corpuscular Volume 92.4 fL (81-99); Mean Platelet Vol. 9.2 fl (6.2-12.0); Monocyte# 0.78 X10^3/uL; Monocyte% 12.4 % (0-10); NRBC Flagged by Analyzer 0 % (0-5); Neutrophil # 3.14 X10^3/uL (2.7-7.7); Neutrophil % 50.2 % (47-70); Platelet Count 257 K/mm3 (150-450); RBC Distribution Width CV 13.7 % (11.6-14.6); RBC Distribution Width SD 46.5 fl (35.1-43.9); Red Blood Count 4.37 M/mm3 (4.2-5.4); White Blood Count 6.3 K/mm3 (4.4-11.0)
[2021-12-16 08:19] LABS: AST(SGOT) 15 U/L (15-37); Alanine Aminotransfer ALT/SGPT 19 U/L (13-56); Albumin, Serum 3.3 g/dL (3.2-5.0); Alkaline Phosphatase 113 U/L (45-117); Anion Gap 7 (5-15); BUN 14 mg/dL (7-18); BUN/Creat Ratio 16.3 RATIO (10-20); Chloride 106 mmol/L (98-107); Cholesterol 164 mg/dL (200); Creatinine, Serum 0.86 mg/dL (0.55-1.02); EST Glomerular Filtration Rate 68 mL/min (>60); Est Glom Filt Rate - Afr Amer 82 mL/min (>60); Globulin 3.2 g/dL (2.2-4.2); Glucose 108 mg/dL (74-106); High Density Lipoprotein 56 mg/dL; Potassium 4.1 mmol/L (3.5-5.1); Protein, Total 6.5 g/dL (6.4-8.2); Sodium Level 139 mmol/L (136-145); Triglycerides 125 mg/dL; Very Low Density Lipoprotein 25 mg/dL (5-40)
[2021-12-16 08:26] LABS: Hemoglobin A1c 6.1 % (3.8-5.6)
[2021-12-16 08:29] LABS: Vitamin D,25 Hydroxy 46.8 ng/mL
[2021-12-16 09:09] LABS: Prothrombin Time (Protime)PT. 22.7 SECONDS (11.7-14.9)
== END | disposition home or self-care (01) ==
LOC: OLS.WHLTSB 04:00
PROVIDERS: PCP Internal Medicine; Visit Provider Internal Medicine
DX: S82.851D Displaced trimalleolar fracture of right lower leg, subsequent encounter for closed fracture with routine healing (principal); I48.91 Unspecified atrial fibrillation; E11.9 Type 2 diabetes mellitus without complications; D51.9 Vitamin B12 deficiency anemia, unspecified; E55.9 Vitamin D deficiency, unspecified
CPT/HCPCS: 36415; 80053; 80061; 82306; 83036; 85025; 85610

== ENCOUNTER → 2021-12-23 | Outpatient (REF) | payer MEDICARE, SELFPAY ==
[2021-12-23 16:21] LABS: Prothrombin Time Fingerstick 23.2 SEC (11.7-14.9)
== END ==
LOC: OLS.WHLTSB 05:00
PROVIDERS: PCP Internal Medicine; Visit Provider Internal Medicine
DX: I48.91 Unspecified atrial fibrillation (principal); E11.9 Type 2 diabetes mellitus without complications; D51.9 Vitamin B12 deficiency anemia, unspecified; E55.9 Vitamin D deficiency, unspecified; S82.851D Displaced trimalleolar fracture of right lower leg, subsequent encounter for closed fracture with routine healing
CPT/HCPCS: 36416; 85610

== ENCOUNTER → 2021-12-30 | Outpatient (REF) | payer MEDICARE, SELFPAY ==
[2021-12-30 07:26] LABS: INR Fingerstick 2.1; Prothrombin Time Fingerstick 24.6 SEC (11.7-14.9)
== END ==
LOC: OLS.WHLTSB 04:00
PROVIDERS: PCP Internal Medicine; Visit Provider Internal Medicine
DX: I48.91 Unspecified atrial fibrillation (principal); S82.851D Displaced trimalleolar fracture of right lower leg, subsequent encounter for closed fracture with routine healing; D51.9 Vitamin B12 deficiency anemia, unspecified; E11.9 Type 2 diabetes mellitus without complications; E55.9 Vitamin D deficiency, unspecified
CPT/HCPCS: 36416; 85610

== ENCOUNTER → 2022-01-06 | Outpatient (REF) | payer MEDICARE, SELFPAY ==
[2022-01-06 09:10] LABS: INR Fingerstick 1.8; Prothrombin Time Fingerstick 21.8 SEC (11.7-14.9)
== END ==
LOC: OLS.WHLTSB 05:00
PROVIDERS: PCP Internal Medicine; Visit Provider Internal Medicine
DX: I48.91 Unspecified atrial fibrillation (principal); S82.851D Displaced trimalleolar fracture of right lower leg, subsequent encounter for closed fracture with routine healing; D51.9 Vitamin B12 deficiency anemia, unspecified; E11.9 Type 2 diabetes mellitus without complications; E55.9 Vitamin D deficiency, unspecified
CPT/HCPCS: 36416; 85610

== ENCOUNTER → 2022-01-20 | Outpatient (REF) | payer MEDICARE, SELFPAY ==
[2022-01-20 09:26] LABS: INR Fingerstick 1.4; Prothrombin Time Fingerstick 17.5 SEC (11.7-14.9)
== END ==
LOC: OLS.WHLTSB 04:00
PROVIDERS: PCP Internal Medicine; Visit Provider Internal Medicine
DX: S82.851D Displaced trimalleolar fracture of right lower leg, subsequent encounter for closed fracture with routine healing (principal); I48.91 Unspecified atrial fibrillation; E11.9 Type 2 diabetes mellitus without complications; D51.9 Vitamin B12 deficiency anemia, unspecified; E55.9 Vitamin D deficiency, unspecified
CPT/HCPCS: 36416; 85610

== ENCOUNTER → 2022-02-03 | Outpatient (REF) | payer MEDICARE, SELFPAY ==
[2022-02-03 08:26] LABS: INR Fingerstick 2.6; Prothrombin Time Fingerstick 30.4 SEC (11.7-14.9)
== END ==
LOC: OLS.WHLTSB 05:00
PROVIDERS: PCP Internal Medicine; Visit Provider Internal Medicine
DX: S82.851D Displaced trimalleolar fracture of right lower leg, subsequent encounter for closed fracture with routine healing (principal); I48.91 Unspecified atrial fibrillation; E11.9 Type 2 diabetes mellitus without complications; D51.9 Vitamin B12 deficiency anemia, unspecified; E55.9 Vitamin D deficiency, unspecified
CPT/HCPCS: 36416; 85610

== ENCOUNTER → 2022-02-17 | Outpatient (REF) | payer MEDICARE, SELFPAY ==
[2022-02-17 08:15] LABS: INR Fingerstick 2.6; Prothrombin Time Fingerstick 29.9 SEC (11.7-14.9)
== END ==
LOC: OLS.WHLTSB 05:00
PROVIDERS: PCP Internal Medicine; Visit Provider Internal Medicine
DX: S82.851D Displaced trimalleolar fracture of right lower leg, subsequent encounter for closed fracture with routine healing (principal); I48.91 Unspecified atrial fibrillation; E11.9 Type 2 diabetes mellitus without complications; D51.9 Vitamin B12 deficiency anemia, unspecified; E55.9 Vitamin D deficiency, unspecified
CPT/HCPCS: 36416; 85610

== ENCOUNTER → 2022-03-03 | Outpatient (REF) | payer MEDICARE, SELFPAY ==
[2022-03-03 09:40] LABS: INR Fingerstick 2.1; Prothrombin Time Fingerstick 25.1 SEC (11.7-14.9)
== END ==
LOC: OLS.WHLTSB 05:00
PROVIDERS: PCP Internal Medicine; Visit Provider Internal Medicine
DX: I48.91 Unspecified atrial fibrillation (principal); S82.851D Displaced trimalleolar fracture of right lower leg, subsequent encounter for closed fracture with routine healing; D51.9 Vitamin B12 deficiency anemia, unspecified; E11.9 Type 2 diabetes mellitus without complications; E55.9 Vitamin D deficiency, unspecified
CPT/HCPCS: 36416; 85610

== ENCOUNTER 2022-03-30 16:24 | Inpatient (IN) | payer MEDICARE, SELFPAY ==
[2022-03-30 16:25] VITALS: BP 154/73; PULSE 87; RESP 16; TEMP 36.6; O2SAT 98; BMI 32.5
--- NOTE | 2022-03-30 16:55 | EDS_ITS ---
HPI HPI - Fall History of Present Illness Chief Complaint: Fall Detail of Chief Complaint: Fell today at home outside opening her door. Informant: patient Occured/Mechanism Occurred: Today and Hours Mechanism/Context: Yes same level fall Usually ambulates: Without assistance Pain/Injury Pain Location: pelvis Quality of Pain: Sharp Current Severity: Moderate Maximum Severity: Moderate Associated Symptoms Associated Symptoms: Positive for Inability to ambulate; Negative for Parasthesias, Weakness, Loss of function, Loss of consciousness or Amnesia Narrative Narrative: 43-uzct-[age]qr-year-old female history CVA and TIAs, prediabetes and CABG. On Coumadin. Today she was outside her home fell while getting in the door and complaining of pelvis pain. No LOC. Denies any head injury. No prefall symptoms. No recent illness or hospitalization. Prior similar symptoms: No Recent Illness/Hospitalization: No PFSH PFSH Medical History Dementia Diabetes mellitus, type 2 History of CVA (cerebrovascular accident) History of stress test HLD (hyperlipidemia) HTN (hypertension) PAF (paroxysmal atrial fibrillation) Paroxysmal atrial fibrillation Paroxysmal atrial fibrillation with rapid ventricular response Valvular heart disease Home Medications amlodipine 5 mg tablet 5 mg PO DAILY blood pressure 02/15/20 [History Last Taken 03/30/22] metoprolol succinate 100 mg tablet,extended release 24 hr 50 mg PO QHS blood pressure 02/15/20 [History Last Taken 03/29/22] polyethylene glycol 3350 17 gram oral powder packet 17 gm PO QODAY constipation 02/15/20 [History Last Taken 03/29/22] warfarin 2 mg tablet 2 mg PO MOWEFR blood thinning 02/16/20 [History Last Taken 03/28/22] allopurinol 100 mg tablet 100 mg PO DAILY GOUT 07/16/21 [History Last Taken 03/30/22] lisinopril 20 mg tablet 20 mg PO DAILY BLOOD PRESSURE 07/16/21 [History Last Taken 03/30/22] calcium 2 tab PO/SL DAILY SUPPLEMENT 03/30/22 [History Last Taken 03/30/22] cholecalciferol (vitamin D3) 25 mcg (1,000 unit) tablet (Vitamin D3) 25 mcg PO DAILY SUPPLEMENT 03/30/22 [History Last Taken 03/30/22] escitalopram oxalate 5 mg tablet 5 mg PO DAILY DEPRESSION 03/30/22 [History Last Taken 03/29/22] gabapentin 300 mg capsule 300 mg PO TID NERVE PAIN 03/30/22 [History Last Taken 03/30/22] iron 1 cap PO/SL DAILY SUPPLEMENT 03/30/22 [History Last Taken 03/30/22] melatonin 5 mg tablet 7.5 mg PO QHS SLEEP 03/30/22 [History Last Taken 03/29/22] multivitamin 1 tab PO DAILY HEALTH MAINTENANCE 03/30/22 [History Last Taken 03/30/22] sennosides 8.6 mg-docusate sodium 50 mg tablet (Stool Softener-Stimulant Laxative) 1 tab PO DAILY CONSTIPATION 03/30/22 [History Last Taken 03/30/22] warfarin 3 mg tablet 3 mg PO SUTUTHSA BLOOD THINNER 03/30/22 [History Last Taken 03/29/22] Allergy/AdvReac Type Severity Reaction Status Date / Time Penicillins [PCN] Allergy Hives Verified 03/30/22 16:25 tramadol Allergy Other Verified 03/30/22 16:25 ciprofloxacin [From Cipro] AdvReac PT UNSURE Verified 03/30/22 16:25 OF REACTION donepezil [From Aricept] AdvReac PT UNSURE Verified 03/30/22 16:25 OF REACTION nitrofurantoin AdvReac PT UNSURE Verified 03/30/22 16:25 [From Macrobid] OF REACTION ramelteon AdvReac PT UNSURE Verified 03/30/22 16:25 OF REACTION trazodone AdvReac PT UNSURE Verified 03/30/22 16:25 OF REACTION Family History Mother Heart disease Hypertension Father Heart disease Hypertension Surgical History H/O aortic aneurysm repair H/O microdiscectomy History of aortic valve replacement with bioprosthetic valve History of aortic valve replacement with bioprosthetic valve History of bilateral tubal ligation History of reverse total replacement of right shoulder joint S/P aortic valve replacement with bioprosthetic valve S/P dilation and curettage S/P hysterectomy Social History (Updated 07/19/21 @ 20:[address] Amauri Benoit MD) household members: none Smoking Status: Never smoker alcohol intake: never substance use type: does not use ROS ROS ED ROS Narrative Denies recent illness. Review of Systems ROS Unobtainable: Denies due to encephalopathy Constitutional Constitutional ED: Denies chills or fever(s) Eyes Eyes: Denies blurry vision ENT ENT ED: Denies ear pain Cardiovascular Cardiovascular: Denies chest pain or palpitations Respiratory/Chest Respiratory/Chest: Denies cough or dyspnea Gastrointestinal Gastrointestinal: Denies abdominal pain Genitourinary Genitourinary ED: Denies dysuria or hematuria Musculoskeletal Musculoskeletal: Denies arthralgias Integumentary Denies abscess Neurologic Neurologic: Denies headache(s) Psychiatric Psychiatric: Denies anxiety or depression Endocrine Endocrinology: Denies polydipsia Hematologic/Lymphatic Hematologic/Lymphatic: Denies easy bleeding or easy bruising Allergic/Immunologic Allergic/Immunologic ED: Denies mouth swelling or tongue swelling EXAM Physical Exam Narrative Exam Narrative: 76-year-old female lying on her right side. Complaining of pelvis pain. Vital signs stable afebrile. H EENT exam unremarkable atraumatic. Pupils round reactive light. C-spine nontender. Back and spine nontender. Lungs are clear. Heart regular rhythm. Rate about 90. Chest were nontender. Ribs nontender. Abdomen soft nontender. Pelvic girdle intact. Pain in her right groin. No shortening or rotation. She does not want to move her right hip due to discomfort in the groin. Dorsi and plantar flexion intact. 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 Neurologically she is awake and alert with no focal motor deficits. Const Vital Signs: 03/30/22 16:25 03/30/22 16:29 03/30/22 18:55 Temperature 97.8 F Temperature Source Temporal Pulse Rate 87 80 Respiratory Rate 16 18 Respiratory Effort Normal Respiratory Depth Normal Respiratory Pattern Normal Blood Pressure 154/73 H 130/70 H Blood Pressure Mean 100 90 Pulse Ox 98 96 Oxygen Delivery Method Room Air Room Air Room Air 03/30/22 20:00 Temperature Temperature Source Pulse Rate 78 Respiratory Rate 16 Respiratory Effort Respiratory Depth Respiratory Pattern Blood Pressure 138/78 H Blood Pressure Mean 98 Pulse Ox 99 Oxygen Delivery Method Room Air Positive well nourished, well developed and obese; Negative for cachectic, contractures or unkempt General Appearance ED: well developed; Negative for unkempt, cachectic, contractures or NAD Nutritional Appearance: obese; Negative for cachectic HEENT Reports normocephalic atraumatic; Negative for trauma, contusion, hematoma or tenderness Eyes PERRL and EOMs intact bilaterally General Eye ED: Negative for pale conjunctiva, scleral icterus or other Neck full ROM, no lymphadenopathy and supple General: Negative for tenderness Chest Wall inspection of chest normal and palpation of chest normal Chest: Negative for other Resp normal respiratory effort, no retractions and clear to auscultation bilaterally Effort and Inspection: Negative for pain with movement Auscultation: Negative for rales, rhonchi or wheezes Cardio regular rate, regular rhythm, S1 normal heart sound, S2 normal heart sound and no murmurs Rate: Negative for bradycardia Rhythm: Negative for abnormal rhythm Bruits: Negative for other GI non-tender, non-distended and no masses Inspection: Negative for abdominal distention Palpation: soft; Negative for guarding Back/Spine no CVA tenderness General Back: Negative for CVA tenderness, erythema or ecchymosis Cervical Spine: Negative for cervical spine tenderness Thoracic Spine / Upper Back: Negative for ROM limited or pain with ROM Lumbar Spine / Lower Back: Negative for lumbar spinal tenderness Neuro oriented x3, moves all extremities and no focal motor deficits [place] Coma Scale: document GCS findings Spontaneous Obeys Commands Oriented 15 Sensorium / Orientation: alert, oriented to person, oriented to place and oriented to time; Negative for orientation impaired, confused, lethargic or stuporous Motor Exam: strength 5/5 throughout Psych mental status grossly normal and thought process normal Appearance: Negative for unkempt Attitude: No agitated Mood & Affect: Negative for depressed, anxious or tearful Skin General Skin Exam: Negative for other Lesions: no lesions Rashes: no rashes Trauma: Negative for abrasion or laceration MDM MDM MDM Narrative Medical decision making narrative: 76-year-old female fall concern for possible pelvis fracture. X-ray will be obtained. Screening labs due to I think she will need to be admitted. Treated with morphine for pain and Zofran. Repeat exam at 7:55 PM I discussed with the patient her right hip fracture. I spoke to the orthopedist on-call. I will speak to the hospitalist for the admission. She has been treated with morphine twice and a dose of Dilaudid. Pain is improving she will be given a second dose of Dilaudid. Labs are unremarkable. Lab Data Attestation: I reviewed the patient's lab results. Lab results narrative: CBC normal white count of 7. H&H of 14 and 44. Platelets 220. She is on Coumadin her INR subtherapeutic at 1.3. Anion gap is 5 normal BUN and creatinine. Glucose 138. Pelvis and right hip x-ray shows an intertrochanteric right hip fracture that is displaced. Labs: Laboratory Results - last 24 hr 03/30/22 03/30/22 03/30/22 16:45 16:45 16:45 WBC 7.8 RBC 4.77 Hgb 14.7 Hct 44.6 MCV 93.5 MCH 30.8 MCHC 33.0 RDW Std Deviation 42.0 RDW Coeff of Yasir 12.1 Plt Count 220 MPV 9.3 Immature Gran % (Auto) 1.400 H Neut % (Auto) 53.1 Lymph % (Auto) 30.2 [place] % (Auto) 12.2 H Eos % (Auto) 1.8 Baso % (Auto) 1.3 H Absolute Neuts (auto) 4.1 Absolute Lymphs (auto) 2.35 Nucleated RBC % 0 PT 15.4 H INR 1.3 Sodium 139 Potassium 3.9 Chloride 107 Carbon Dioxide 27.0 Anion Gap 5 BUN 18 Creatinine 1.01 Estim Creat Clear Calc 39.64 Est GFR (MDRD) Af Amer 68 Est GFR (MDRD) Non-Af 56 L BUN/Creatinine Ratio 17.8 Glucose 138 H Calcium 9.9 Radiography Diagnostic Testing: Clinical Impression(s) from Imaging Studies Hip/Pelvis X-Ray 03/30/22 19:30 IMPRESSION: There is a right impacted intertrochanteric fracture. Electronically Signed: Johnny Fraire MD at 19:50 EST Reading Location ID and State: [facility] / [place] , Service support , Pelvis x-ray and right hip shows that intertrochanteric right hip fracture is displaced. 3 views. Interpreted by myself and radiologist. Rhythm Strip Rhythm Strip: Sinus Rhythm Rate: 85 Ectopy: PAC(s) EKG Initial EKG: Attestation: I personally reviewed and interpreted this EKG as follows: Interpretation: Sinus Rhythm and No Acute Injury Pattern Comments: Sinus rhythm with PACs. No acute signs of MA, ischemia or dysrhythmia. Discharge Plan Dx/Rx/DC Orders Clinical Impression: Fall, Unable to ambulate, Chronic anticoagulation, Fracture of right hip Disposition Disposition: Acute Care Hospital [facility]
[2022-03-30] MEDS: morphine 8 MG/ML Syringe 6 MG IV ×2 (17:00→18:14)
[2022-03-30] MEDS: Ondansetron 4 MG/2 ML Vial IV (17:00)
[2022-03-30 17:14] LABS: Absolute Lymphocyte Count 2.35 X10^3/uL (0.83-4.51); Absolute Neutrophil Count 4.1 X10^3/uL (2.0-7.7); Basophil% 1.3 % (0-1); Eosinophil# 0.14 X10^3/uL; Eosinophils% 1.8 % (0-5); Hematocrit 44.6 % (37-47); Hemoglobin 14.7 g/dL (12.0-15.0); Lymphocyte # 2.35 X10^3/ul (0.83-4.51); Lymphocyte % 30.2 % (19-41); Mean Corpuscular Hgb 30.8 pg (27.0-32.0); Mean Corpuscular Volume 93.5 fL (81-99); Mean Platelet Vol. 9.3 fl (6.2-12.0); Monocyte# 0.95 X10^3/uL; Monocyte% 12.2 % (0-10); NRBC Flagged by Analyzer 0 % (0-5); Neutrophil # 4.13 X10^3/uL (2.7-7.7); Neutrophil % 53.1 % (47-70); Platelet Count 220 K/mm3 (150-450); RBC Distribution Width CV 12.1 % (11.6-14.6); Red Blood Count 4.77 M/mm3 (4.2-5.4); White Blood Count 7.8 K/mm3 (4.4-11.0)
[2022-03-30 17:23] LABS: International Normalized Ratio 1.3; Prothrombin Time (Protime)PT. 15.4 SECONDS (11.7-14.9)
[2022-03-30 17:42] LABS: Anion Gap 5 (5-15); BUN 18 mg/dL (7-18); BUN/Creat Ratio 17.8 RATIO (10-20); Calcium,Total 9.9 mg/dL (8.5-10.1); Chloride 107 mmol/L (98-107); Creatinine, Serum 1.01 mg/dL (0.55-1.02); EST Glomerular Filtration Rate 56 mL/min (>60); Est Glom Filt Rate - Afr Amer 68 mL/min (>60); Estimated Creatinine Clearance 39.64 ml/min; Glucose 138 mg/dL (74-106); Potassium 3.9 mmol/L (3.5-5.1); Sodium Level 139 mmol/L (136-145)
[2022-03-30] MEDS: HYDROmorphone 1 MG/ML Syringe 0.5 MG IV (18:50)
[2022-03-30 18:55] VITALS: BP 130/70; PULSE 80; RESP 18; O2SAT 96
--- NOTE | 2022-03-30 19:24 | HP.PCM.HOS_ITS ---
HPI - General General Date of Admission: 03/30/22 Date of Service: 03/30/22 Chief Complaint: Fall, right sided hip pain. HPI Narrative The patient is a 76 y/o F w/ PMHx: Anxiety and Depression, PAF on coumadin, Hx AAA s/p repair, Dementia unclear type with unclear behavioral disturbance history, HTN, HLD, Diabetes mellitus type II wiht neuropathy, Obesity, Valvular Heart Disease s/p bioprosthetic AVR following with Dr. Odell, Hx CVA?who presents to the [facility] ED on 03/30/22 secondary to history of fall at home while outside opening her door landing on her right hip with significant sharp onset discomfort with inability to ambulate effectively and ongoing intractable pain prompting ED evaluation. Patient in the ED upon evaluation despite significant narcotic therapies reports pain 8 out of 10 in severity, worse with any movement attempts. She notes that she does need to use the restroom but is hesitant to even moved to feel to have a Page catheter placed. Discussed current presentation and need for preparation for OR and eventually patient amenable to movements understanding that she will have oral and IV as needed medications available. Work-up in the ED included T 97.8, HR 87, BP 154/73, RR 16, 98% on RA, CBC with WC 7.8, hemoglobin 14.7, platelet 220 with increased immature granulocytes, coags with PT 15.4, INR 1.3, BMP with glucose 138 otherwise not marked appearing, plain film of the R hip with noted right impacted intertrochanteric fracture, EKG with sinus rhythm with PACs with no acute evidence of ischemia. Orthopedic surgery Dr. Light contacted per ED physician and evaluated the patient in the ED. In the ED patient ministered Dilaudid 0.5 mg IV x2, morphine 6 mg IV x2 as well as Zofran 4 mg IV x1. [facility] Medical History Dementia Diabetes mellitus, type 2 History of CVA (cerebrovascular accident) History of stress test HLD (hyperlipidemia) HTN (hypertension) PAF (paroxysmal atrial fibrillation) Paroxysmal atrial fibrillation Paroxysmal atrial fibrillation with rapid ventricular response Valvular heart disease Home Medications amlodipine 5 mg tablet 5 mg PO DAILY blood pressure 02/15/20 [History Last Taken 03/30/22] metoprolol succinate 100 mg tablet,extended release 24 hr 50 mg PO QHS blood pressure 02/15/20 [History Last Taken 03/29/22] polyethylene glycol 3350 17 gram oral powder packet 17 gm PO QODAY constipation 02/15/20 [History Last Taken 03/29/22] warfarin 2 mg tablet 2 mg PO MOWEFR blood thinning 02/16/20 [History Last Taken 03/28/22] allopurinol 100 mg tablet 100 mg PO DAILY GOUT 07/16/21 [History Last Taken 03/30/22] lisinopril 20 mg tablet 20 mg PO DAILY BLOOD PRESSURE 07/16/21 [History Last Taken 03/30/22] calcium 2 tab PO/SL DAILY SUPPLEMENT 03/30/22 [History Last Taken 03/30/22] cholecalciferol (vitamin D3) 25 mcg (1,000 unit) tablet (Vitamin D3) 25 mcg PO DAILY SUPPLEMENT 03/30/22 [History Last Taken 03/30/22] escitalopram oxalate 5 mg tablet 5 mg PO DAILY DEPRESSION 03/30/22 [History Last Taken 03/29/22] gabapentin 300 mg capsule 300 mg PO TID NERVE PAIN 03/30/22 [History Last Taken 03/30/22] iron 1 cap PO/SL DAILY SUPPLEMENT 03/30/22 [History Last Taken 03/30/22] melatonin 5 mg tablet 7.5 mg PO QHS SLEEP 03/30/22 [History Last Taken 03/29/22] multivitamin 1 tab PO DAILY HEALTH MAINTENANCE 03/30/22 [History Last Taken 03/30/22] sennosides 8.6 mg-docusate sodium 50 mg tablet (Stool Softener-Stimulant Laxative) 1 tab PO DAILY CONSTIPATION 03/30/22 [History Last Taken 03/30/22] warfarin 3 mg tablet 3 mg PO SUTUTHSA BLOOD THINNER 03/30/22 [History Last Taken 03/29/22] Allergy/AdvReac Type Severity Reaction Status Date / Time Penicillins [PCN] Allergy Hives Verified 03/30/22 16:25 tramadol Allergy Other Verified 03/30/22 16:25 ciprofloxacin [From Cipro] AdvReac PT UNSURE Verified 03/30/22 16:25 OF REACTION donepezil [From Aricept] AdvReac PT UNSURE Verified 03/30/22 16:25 OF REACTION nitrofurantoin AdvReac PT UNSURE Verified 03/30/22 16:25 [From Macrobid] OF REACTION ramelteon AdvReac PT UNSURE Verified 03/30/22 16:25 OF REACTION trazodone AdvReac PT UNSURE Verified 03/30/22 16:25 OF REACTION Family History Mother Heart disease Hypertension Father Heart disease Hypertension Surgical History H/O aortic aneurysm repair H/O microdiscectomy History of aortic valve replacement with bioprosthetic valve History of aortic valve replacement with bioprosthetic valve History of bilateral tubal ligation History of reverse total replacement of right shoulder joint S/P aortic valve replacement with bioprosthetic valve S/P dilation and curettage S/P hysterectomy Social History (Updated 07/19/21 @ 20:[address] Amauri Benoit MD) household members: none Smoking Status: Never smoker alcohol intake: never substance use type: does not use ROS ROS Narrative Admission Review of Systems: CONSTITUTIONAL: No weight loss, fever, chills, + weakness or fatigue. HEENT: Eyes: No visual loss, blurred vision, double vision or yellow sclerae. Ears, Nose, Throat: No hearing loss, sneezing, congestion, runny nose or sore throat. SKIN: No rash or itching, lesions, wounds. CARDIOVASCULAR: No chest pain, chest pressure or chest discomfort, palpitations, edema, orthopnea, syncopal events. RESPIRATORY: No shortness of breath, cough or sputum, wheezing, hemoptysis. GASTROINTESTINAL: No anorexia, nausea, vomiting or diarrhea, abdominal pain, melena, BRBPR. GENITOURINARY: No dysuria, frequency, urgency or retention. NEUROLOGICAL: No headache, dizziness, syncope, paralysis, ataxia, numbness or tingling in the extremities, focal weakness, change in bowel or bladder control, seizure. MUSCULOSKELETAL: + muscle, back pain, joint pain or stiffness. HEMATOLOGIC: + anemia, bleeding or bruising. LYMPHATICS: No enlarged nodes. No history of splenectomy. PSYCHIATRIC: + history of depression or anxiety. ENDOCRINOLOGIC: No reports of sweating, cold or heat intolerance. No polyuria or polydipsia. ALLERGIES: + history of hives. Vital Signs Vital Signs Vital Signs: 03/30/22 16:25 03/30/22 16:29 03/30/22 18:55 Temperature 97.8 F Temperature Source Temporal Pulse Rate 87 80 Respiratory Rate 16 18 Respiratory Effort Normal Respiratory Depth Normal Respiratory Pattern Normal Blood Pressure 154/73 H 130/70 H Blood Pressure Mean 100 90 Pulse Ox 98 96 Oxygen Delivery Method Room Air Room Air Room Air Weight Weight: 192 lb 3.889 oz Body Mass Index (BMI) 32.5 Physical Exam Narrative Physical Examination: General: Awake, alert, oriented x 3 and cooperative, laying in the ED bed, uncomfortable appearing, reports her pain ended at 10 despite aggressive narcotic regimen in the ED. Skin: Normal color, normal turgor, no icterus, no cyanosis except for occasional staged ecchymoses. HEENT: AT/NC, EOMI, PERRLA, mildly dry MM, no carotid bruits or JVD noted. Lungs: Mildly diminished, greater bases, appropriate effort, no rales, ronchi or wheezing. Heart: Currently regular rate and rhythm; no gallop, rub audible, +SM. Abdomen: Soft, NTTP, ND, normal BS, no HSM. Extremities: No cyanosis, no clubbing, status post recent fall with right hip fracture, peripheral pulses intact. Neurological: Patient awake, alert, oriented as noted, cognitive function intact; pupils equally reactive to light and accommodation, cranial nerves II- XII grossly normal, moving extremities but significantly debilitated given fall with right hip fracture with intractable pain, strength accordingly severely globally decreased. Psychiatric: Affect appears uncomfortable appearing, no acute evidence of depressive or anxiety feelings but underlying history. Results Lab / Micro Data Result Diagrams: 03/30/22 16:45 03/30/22 16:45 Labs: Laboratory Results - last 24 hr 03/30/22 16:45: WBC 7.8, RBC 4.77, Hgb 14.7, Hct 44.6, MCV 93.5, MCH 30.8, MCHC 33.0, RDW Std Deviation 42.0, RDW Coeff of Yasir 12.1, Plt Count 220, MPV 9.3, Immature Gran % (Auto) 1.400 H, Neut % (Auto) 53.1, Lymph % (Auto) 30.2, [place] % (Auto) 12.2 H, Eos % (Auto) 1.8, Baso % (Auto) 1.3 H, Absolute Neuts (auto) 4.1, Absolute Lymphs (auto) 2.35, Nucleated RBC % 0 03/30/22 16:45: PT 15.4 H, INR 1.3 03/30/22 16:45: Sodium 139, Potassium 3.9, Chloride 107, Carbon Dioxide 27.0, Anion Gap 5, BUN 18, Creatinine 1.01, Estim Creat Clear Calc 39.64, Est GFR (MDRD) Af Amer 68, Est GFR (MDRD) Non-Af 56 L, BUN/Creatinine Ratio 17.8, Glucose 138 H, Calcium 9.9 Assessment & Plan Assessment/Plan (1) Fracture of right hip: PLAN: Plan The patient is a 76 y/o F w/ PMHx: PAF on coumadin, Hx AAA s/p repair, Dementia unclear type with unclear behavioral disturbance history, HTN, HLD, Diabetes mellitus type II wiht neuropathy, Obesity, Valvular Heart Disease s/p bioprosthetic AVR following with Dr. Odell, Hx CVA?who presents to the [facility] ED on 03/30/22 secondary to history of fall at home while outside opening her door landing on her right hip with significant sharp onset discomfort with inability to ambulate effectively and ongoing intractable pain prompting ED evaluation. #1. General debility, R hip pain s/p mechanical fall w/ right impacted intertrochanteric fracture: Plain film noting right impacted intertrochanteric fracture. Orthopedic surgery consulted from ED. Will admit to MS, maintain NPO status after midnight, continue gentle IVFs, repeat INR in a.m. is subtherapeutic on presentation with hold on Coumadin, page placement, monitor I/Os, frequent positioning, fall precautions, PRN Pain, anti-emetic regimen. PT/OT following operative intervention. CM consulted for discharge planning. Patient of note was evaluate by cardiology 07/18/2021 secondary to OR needs at that time from fall with a right malleoli are fracture with recommendation for follow-up with primary college or university business manager in agreement for cardiac clearance therefore will defer immediate request again as patient has an up-to-date echocardiogram with no changes recently. Per NSQIP given patient underlying medical history, ability for self-care, current labs would be considered at least moderate risk however she was recently evaluated by cardiology earlier in the year secondary to fracture with need for operative intervention with an unremarkable echocardiogram at that time and was cleared with no recent changes or alterations since then. Requested EKG which was obtained with noted sinus rhythm with PACs with no acute evidence of ischemia therefore as discussed with orthopedic surgery given subtherapeutic INR would advance to surgery in AM. #2. PAF: We will hold patient home Coumadin given need for OR, subtherapeutic upon presentation with additional dose this evening, continue patient home metoprolol regimen. #3. Valvular heart disease: Status post bioprosthetic AVR following with college or university business manager Dr. Odell, 07/16/2021 echocardiogram EF 55 to 60%, normal AV bioprosthesis function, grade 1 diastolic function with no prior echo for comparison #4. History CVA: We will continue aspirin, holding Coumadin given need for OR with subtherapeutic INR upon presentation, continue hypertensive regimen, not on statin therapy #5. History AAA: Status post repair, will continue aspirin, holding Coumadin given need for OR with noted subtherapeutic INR upon presentation, continue hypertensive regimen, not on statin therapy. #6. Hypertension: Continue home regimen including amlodipine, lisinopril, metoprolol with hold parameters as needed, PRN hydralazine. #7. Hyperlipidemia: Not on statin, defer to outpatient. #8. Diabetes mellitus type II with neuropathy: Hold oral home regimen, ADA diet, accu checks w/ ISS, continue patient on gabapentin regimen. #9. Obesity: Weight loss and lifestyle changes encouraged. #10. Anxiety and depression: We will continue patient home escitalopram regimen. #11. DVT prophylaxis: SCD, holding Coumadin with subtherapeutic INR upon presentation of note with planned OR. #12. CODE status: Patient DAVID is her sister and living will is currently in place. Discussed CODE status at length including difference between FULL code, DNR-CCA and DNR-CC status. Following discussions about the differences in these status, requested Full Code status. Advanced Care Planning Face to Face Time: 16 minutes. Charges/Coding Visit Charges Inpatient E&M: 42801 Init Hosp L3 Procedures Hospitalists Procedures: 40370 Advncd Care Plan 30 Min
--- NOTE | 2022-03-30 19:30 | RAD_ITS ---
STUDY: X-RAY - PELVIS AND RIGHT HIP REASON FOR EXAM: Female, 76 years old. Hip pain fall TECHNIQUE: XR Hip Unilateral with Pelvis when performed; 2-3 Views COMPARISON: 2.25.22 FINDINGS: There is a non-specific bowel gas pattern. Normal visualized soft tissue structures. There are degenerative changes of the lumbar spine. Normal bilateral iliac wings, sacroiliac joints and visualized sacrum. Normal bilateral superior and inferior pubic rami. Normal pubic symphysis. Normal bilateral ischial tuberosities. There is a right impacted intertrochanteric fracture. There is osteoarthritic spur formation of the acetabular rim. There is mild articular joint space narrowing of the hip. RAD/HIP, UNI W/ Pelvis 2-3 Views IMPRESSION: There is a right impacted intertrochanteric fracture. Electronically Signed: Johnny Fraire MD at 19:50 EST ,
[2022-03-30 20:00] VITALS: BP 138/78; PULSE 78; RESP 16; O2SAT 99
--- NOTE | 2022-03-30 20:00 | EKG12_ITS ---
Test Reason : Blood Pressure : / mmHG Vent. Rate : 085 BPM Atrial Rate : 085 BPM P-R Int : 158 ms QRS Dur : 076 ms QT Int : 362 ms P-R-T Axes : 069 031 072 degrees QTc Int : 430 ms Sinus rhythm with Premature atrial complexes Nonspecific ST abnormality Abnormal ECG Confirmed by CAROLE PHAM, RUBA ([id number]), editorial project manager THANIA DELA CRUZ ([id number]) on 04/05/2022 9:32:27 A M Referred By: Brennon Confirmed By:TONO LAM MD
[2022-03-30] MEDS: HYDROmorphone 0.5 MG/0.5 ML SYRINGE IV (20:02)
--- NOTE | 2022-03-30 20:49 | CONS.ORTHO ---
HPI Consult Data Date of Consult: 03/30/22 HPI Narrative Reason for Consultation: right hip fracture HPI Narrative: RILEY REYNA, is a 76 F who presents for right hip pain after a fall. They were found to have a right hip fracture by the ED doc Dr. Hernandez. Patient has been at home about a month after being sent home from an assisted living facility. They are here with their friend Neena. The patient does have family in the area. They were living independently driving a motor vehicle doing their own groceries and meal preparation. They were walking with a 1 or 2 canes sometimes a walker. The patient has had a reverse shoulder arthroplasty as well as nonoperative management of an ankle fracture by [facility]. Patient tripped and fell at home getting some packages. No prior hip pain no loss of consciousness. Patient is alert and oriented able to communicate all details. [facility] Medical History Dementia Diabetes mellitus, type 2 History of CVA (cerebrovascular accident) History of stress test HLD (hyperlipidemia) HTN (hypertension) PAF (paroxysmal atrial fibrillation) Paroxysmal atrial fibrillation Paroxysmal atrial fibrillation with rapid ventricular response Valvular heart disease Home Medications amlodipine 5 mg tablet 5 mg PO DAILY blood pressure 02/15/20 [History Last Taken 03/30/22] metoprolol succinate 100 mg tablet,extended release 24 hr 50 mg PO QHS blood pressure 02/15/20 [History Last Taken 03/29/22] polyethylene glycol 3350 17 gram oral powder packet 17 gm PO QODAY constipation 02/15/20 [History Last Taken 03/29/22] warfarin 2 mg tablet 2 mg PO MOWEFR blood thinning 02/16/20 [History Last Taken 03/28/22] allopurinol 100 mg tablet 100 mg PO DAILY GOUT 07/16/21 [History Last Taken 03/30/22] lisinopril 20 mg tablet 20 mg PO DAILY BLOOD PRESSURE 07/16/21 [History Last Taken 03/30/22] calcium 2 tab PO/SL DAILY SUPPLEMENT 03/30/22 [History Last Taken 03/30/22] cholecalciferol (vitamin D3) 25 mcg (1,000 unit) tablet (Vitamin D3) 25 mcg PO DAILY SUPPLEMENT 03/30/22 [History Last Taken 03/30/22] escitalopram oxalate 5 mg tablet 5 mg PO DAILY DEPRESSION 03/30/22 [History Last Taken 03/29/22] gabapentin 300 mg capsule 300 mg PO TID NERVE PAIN 03/30/22 [History Last Taken 03/30/22] iron 1 cap PO/SL DAILY SUPPLEMENT 03/30/22 [History Last Taken 03/30/22] melatonin 5 mg tablet 7.5 mg PO QHS SLEEP 03/30/22 [History Last Taken 03/29/22] multivitamin 1 tab PO DAILY HEALTH MAINTENANCE 03/30/22 [History Last Taken 03/30/22] sennosides 8.6 mg-docusate sodium 50 mg tablet (Stool Softener-Stimulant Laxative) 1 tab PO DAILY CONSTIPATION 03/30/22 [History Last Taken 03/30/22] warfarin 3 mg tablet 3 mg PO SUTUTHSA BLOOD THINNER 03/30/22 [History Last Taken 03/29/22] Allergy/AdvReac Type Severity Reaction Status Date / Time Penicillins [PCN] Allergy Hives Verified 03/30/22 16:25 tramadol Allergy Other Verified 03/30/22 16:25 ciprofloxacin [From Cipro] AdvReac PT UNSURE Verified 03/30/22 16:25 OF REACTION donepezil [From Aricept] AdvReac PT UNSURE Verified 03/30/22 16:25 OF REACTION nitrofurantoin AdvReac PT UNSURE Verified 03/30/22 16:25 [From Macrobid] OF REACTION ramelteon AdvReac PT UNSURE Verified 03/30/22 16:25 OF REACTION trazodone AdvReac PT UNSURE Verified 03/30/22 16:25 OF REACTION Family History Mother Heart disease Hypertension Father Heart disease Hypertension Surgical History H/O aortic aneurysm repair H/O microdiscectomy History of aortic valve replacement with bioprosthetic valve History of aortic valve replacement with bioprosthetic valve History of bilateral tubal ligation History of reverse total replacement of right shoulder joint S/P aortic valve replacement with bioprosthetic valve S/P dilation and curettage S/P hysterectomy Social History (Updated 07/19/21 @ 20:[address] Amauri Benoit MD) household members: none Smoking Status: Never smoker alcohol intake: never substance use type: does not use Vital Signs Vital Signs Vital Signs: 03/30/22 16:25 03/30/22 16:29 03/30/22 18:55 Temperature 97.8 F Temperature Source Temporal Pulse Rate 87 80 Respiratory Rate 16 18 Respiratory Effort Normal Respiratory Depth Normal Respiratory Pattern Normal Blood Pressure 154/73 H 130/70 H Blood Pressure Mean 100 90 Pulse Ox 98 96 Oxygen Delivery Method Room Air Room Air Room Air 03/30/22 20:00 Temperature Temperature Source Pulse Rate 78 Respiratory Rate 16 Respiratory Effort Respiratory Depth Respiratory Pattern Blood Pressure 138/78 H Blood Pressure Mean 98 Pulse Ox 99 Oxygen Delivery Method Room Air Weight Weight: 192 lb 3.889 oz Body Mass Index (BMI) 32.5 Physical Exam Const alert, oriented x3 and well nourished General Appearance: cooperative Resp normal respiratory effort Cardio regular rate GI non-distended Extremity normal capillary refill, no calf tenderness and no pedal edema Extremity Narrative: Skin is closed and intact over the right hip. Able to dorsiflex and plantarflex the foot normal sensation on the dorsum and plantar aspect of the foot. Foot is warm and well-perfused. Normal dorsalis pedis and tibialis posterior pulse. Skin no rashes or lesions noted Lab / Micro Data Result Diagrams: 03/30/22 16:45 03/30/22 16:45 Labs: Laboratory Results - last 24 hr 03/30/22 16:45: WBC 7.8, RBC 4.77, Hgb 14.7, Hct 44.6, MCV 93.5, MCH 30.8, MCHC 33.0, RDW Std Deviation 42.0, RDW Coeff of Yasir 12.1, Plt Count 220, MPV 9.3, Immature Gran % (Auto) 1.400 H, Neut % (Auto) 53.1, Lymph % (Auto) 30.2, [place] % (Auto) 12.2 H, Eos % (Auto) 1.8, Baso % (Auto) 1.3 H, Absolute Neuts (auto) 4.1, Absolute Lymphs (auto) 2.35, Nucleated RBC % 0 03/30/22 16:45: PT 15.4 H, INR 1.3 03/30/22 16:45: Sodium 139, Potassium 3.9, Chloride 107, Carbon Dioxide 27.0, Anion Gap 5, BUN 18, Creatinine 1.01, Estim Creat Clear Calc 39.64, Est GFR (MDRD) Af Amer 68, Est GFR (MDRD) Non-Af 56 L, BUN/Creatinine Ratio 17.8, Glucose 138 H, Calcium 9.9 Radiology Impression Hip/Pelvis X-Ray 03/30/22 19:30 IMPRESSION: There is a right impacted intertrochanteric fracture. Electronically Signed: Johnny Fraire MD at 19:50 EST , I agree right intertrochanteric hip fracture. Assessment & Plan Assessment/Plan (1) Fracture of right hip: PLAN: 76-year-old female with right intertrochanteric hip fracture. We discussed the pros and cons risks and benefits of nonoperative versus open reduction internal fixation. These are recommended for operative intervention in all but the highest risk patients or medically unwell. That being said surgery does have its own set of complications. Dr. Jenkins the hospitalist will admit the patient and clear the patient from a medical standpoint. Plan to do the case within 48 hours. malt house supervisor made aware. INR is 1.3 so generally within acceptable limits to proceed with the case and hold the anticoagulation for now. I marked the right hip. After discussion of the pros and cons risks and benefits of surgery patient signed the consent form for right hip open reduction internal fixation as well as possible need for blood products. Her and the legal recovery specialist understood and had no further questions. For now nonweightbearing bedrest pain control per the hospitalist service diet as tolerated and nothing by mouth prior to the surgery. Pros and cons risks and benefits were discussed with the patient including but not limited to infection, pain, stiffness, bleeding, damage to surrounding structures, neurovascular injury, recurrence or retear, failure or wear of hardware or fixation, delayed, mal or non union, instability, fracture, deep vein thrombosis and pulmonary embolism, anesthetic risks, patient dissatisfaction, need for further surgery and other risks. Patient understood and wished to proceed with surgery, and signed the informed consent documentation. Charges/Coding Procedures Musculoskeletal [id number]: Other Procedure See Report
[2022-03-30 21:00] VITALS: BP 143/78; PULSE 88; RESP 16; TEMP 37.2; O2SAT 98
[2022-03-30 21:55] VITALS: BP 148/59; PULSE 76; RESP 18; TEMP 36.8; O2SAT 92
[2022-03-30 21:58] VITALS: BMI 30.6
[2022-03-30 23:53] VITALS: BP 148/70; PULSE 80; RESP 18; TEMP 37.2; O2SAT 95
[2022-03-31] VITALS (13 sets, daily range): BP systolic 114–151; BP diastolic 53–74; PULSE 58–80; RESP 14–18; TEMP 36.4–37.5; O2SAT 84–99; BMI 31.1
[2022-03-31] MEDS: oxyCODONE 5 MG Tablet PO ×2 (00:05→22:12)
[2022-03-31] MEDS: Acetaminophen 325 MG Tablet 650 MG PO (00:05)
[2022-03-31] MEDS: Senna/Docusate Sodium 1 Tablet 2 TABLET PO ×3 (00:08→22:14)
[2022-03-31] MEDS: MELATONIN 3 MG TABLET 6 MG PO (00:09)
[2022-03-31] MEDS: Gabapentin 300 MG Capsule PO ×3 (00:10→22:22)
[2022-03-31] MEDS: Metoprolol(XL)Succ 50 MG Tablet PO ×2 (00:10→22:14)
[2022-03-31] MEDS: 0.9% Normal Saline 1,000 ML 75 ML IV ×3 (00:16→18:02)
[2022-03-31 00:51] LABS: Bedside Glucose 194 mg/dL (74-106)
[2022-03-31] MEDS: Morphine 4 MG/ML Syringe IV ×4 (02:46→11:10)
[2022-03-31 04:31] LABS: Absolute Lymphocyte Count 1.27 X10^3/uL (0.83-4.51); Absolute Neutrophil Count 9.1 X10^3/uL (2.0-7.7); Basophil# 0.06 X10^3/uL; Basophil% 0.5 % (0-1); Eosinophil# 0.01 X10^3/uL; Eosinophils% 0.1 % (0-5); Hemoglobin 13.5 g/dL (12.0-15.0); Lymphocyte # 1.27 X10^3/ul (0.83-4.51); Mean Corp Hgb Conc 32.9 g/dL (32-36); Mean Corpuscular Hgb 30.6 pg (27.0-32.0); Mean Platelet Vol. 9.1 fl (6.2-12.0); Monocyte# 1.02 X10^3/uL; Monocyte% 8.9 % (0-10); NRBC Flagged by Analyzer 0 % (0-5); Platelet Count 199 K/mm3 (150-450); RBC Distribution Width CV 12.2 % (11.6-14.6); RBC Distribution Width SD 42.2 fl (35.1-43.9); Red Blood Count 4.41 M/mm3 (4.2-5.4); White Blood Count 11.5 K/mm3 (4.4-11.0)
[2022-03-31 04:53] LABS: International Normalized Ratio 1.3
[2022-03-31 05:00] LABS: ALB/GLOB Ratio 0.9 RATIO (0.9-2.4); AST(SGOT) 19 U/L (15-37); Alanine Aminotransfer ALT/SGPT 19 U/L (13-56); Albumin, Serum 3.2 g/dL (3.2-5.0); Alkaline Phosphatase 116 U/L (45-117); Anion Gap 5 (5-15); BUN 15 mg/dL (7-18); BUN/Creat Ratio 16.7 RATIO (10-20); Calcium,Total 8.8 mg/dL (8.5-10.1); Chloride 104 mmol/L (98-107); EST Glomerular Filtration Rate 65 mL/min (>60); Est Glom Filt Rate - Afr Amer 78 mL/min (>60); Estimated Creatinine Clearance 64.74 ml/min; Globulin 3.4 g/dL (2.2-4.2); Glucose 135 mg/dL (74-106); Potassium 4.1 mmol/L (3.5-5.1); Protein, Total 6.6 g/dL (6.4-8.2); Sodium Level 137 mmol/L (136-145)
--- NOTE | 2022-03-31 05:55 | EKG12_ITS ---
Test Reason : morning ekg Blood Pressure : / mmHG Vent. Rate : 067 BPM Atrial Rate : 067 BPM P-R Int : 164 ms QRS Dur : 078 ms QT Int : 416 ms P-R-T Axes : 052 013 057 degrees QTc Int : 439 ms Normal sinus rhythm with sinus arrhythmia Normal ECG When compared with ECG of 30-MAR-2022 21:13, MANUAL COMPARISON REQUIRED, DATA IS UNCONFIRMED Confirmed by NORA PHAM, PETER ([id number]), film editor THANIA DELA CRUZ ([id number]) on 04/08/2022 7:19:16 AM Referred By: Gregory Confirmed By:PETER MELENDEZ MD
[2022-03-31 07:20] LABS: Bedside Glucose 125 mg/dL (74-106)
[2022-03-31] MEDS: Allopurinol 100 MG Tablet PO (08:33)
[2022-03-31] MEDS: Lisinopril 20 MG Tablet PO (08:34)
[2022-03-31] MEDS: amLODIPine 5 MG Tablet PO (08:34)
[2022-03-31] MEDS: Escitalopram Oxalate 10 MG Tablet 5 MG PO (08:36)
[2022-03-31] MEDS: Ferrous Sulfate 325 MG Tablet PO (08:36)
[2022-03-31 09:31] LABS: Hemoglobin A1c 6.1 % (3.8-5.6)
--- NOTE | 2022-03-31 10:37 | PN.HOSP_ITS ---
Subjective Subjective Doing well, no issues overnight. Continues to have some right hip pain plan for operative repair today Objective Data Objective Data Vital Signs: Vital Signs Temp Pulse Resp BP Pulse Ox O2 Del Method O2 Flow Rate 99.5 F H 58 L 14 133/65 H 98 Nasal Cannula 1 03/31/22 08:26 03/31/22 08:26 03/31/22 08:26 03/31/22 08:26 03/31/22 08:26 03/31/22 08:26 03/31/22 08:26 Oxygen Flow Rate (L/min) 1 Oxygen Delivery Method Nasal Cannula Weight: 177 lb 4.026 oz Body Mass Index (BMI) 21.9 Intake & Output: Intake and Output for Last 24 Hours 03/30/22 03/31/22 04/01/22 03:59 03:59 03:59 Output Total 300 / 300 700 / 700 Balance -300 / -300 -700 / -700 Lab / Micro Data Result Diagrams: 03/31/22 04:01 03/31/22 04:01 Labs: Laboratory Results - last 24 hr 03/30/22 16:45: WBC 7.8, RBC 4.77, Hgb 14.7, Hct 44.6, MCV 93.5, MCH 30.8, MCHC 33.0, RDW Std Deviation 42.0, RDW Coeff of Yasir 12.1, Plt Count 220, MPV 9.3, Immature Gran % (Auto) 1.400 H, Neut % (Auto) 53.1, Lymph % (Auto) 30.2, [place] % (Auto) 12.2 H, Eos % (Auto) 1.8, Baso % (Auto) 1.3 H, Absolute Neuts (auto) 4.1, Absolute Lymphs (auto) 2.35, Nucleated RBC % 0 03/30/22 16:45: PT 15.4 H, INR 1.3 03/30/22 16:45: Sodium 139, Potassium 3.9, Chloride 107, Carbon Dioxide 27.0, Anion Gap 5, BUN 18, Creatinine 1.01, Estim Creat Clear Calc 39.64, Est GFR (MDRD) Af Amer 68, Est GFR (MDRD) Non-Af 56 L, BUN/Creatinine Ratio 17.8, Glucose 138 H, Calcium 9.9 03/30/22 20:20: Blood Type A POSITIVE, Antibody Screen NEGATIVE 03/31/22 00:03: POC Glucose 194 H 03/31/22 04:01: WBC 11.5 H, RBC 4.41, Hgb 13.5, Hct 41.0, MCV 93.0, MCH 30.6, MCHC 32.9, RDW Std Deviation 42.2, RDW Coeff of Yasir 12.2, Plt Count 199, MPV 9.1, Immature Gran % (Auto) 0.500, Neut % (Auto) 79.0 H, Lymph % (Auto) 11.0 L, [place] % (Auto) 8.9, Eos % (Auto) 0.1, Baso % (Auto) 0.5, Absolute Neuts (auto) 9.1 H, Absolute Lymphs (auto) 1.27, Nucleated RBC % 0 03/31/22 04:01: PT 16.0 H, INR 1.3 03/31/22 04:01: Sodium 137, Potassium 4.1, Chloride 104, Carbon Dioxide 28.0, Anion Gap 5, BUN 15, Creatinine 0.90, Estim Creat Clear Calc 64.74, Est GFR (M DRD) Af Amer 78, Est GFR (MDRD) Non-Af 65, BUN/Creatinine Ratio 16.7, Glucose 135 H, Calcium 8.8, Total Bilirubin 0.70, AST 19, ALT 19, Alkaline Phosphatase 116, Total Protein 6.6, Albumin 3.2, Globulin 3.4, Albumin/Globulin Ratio 0.9 03/31/22 04:01: Hemoglobin A1c 6.1 H 03/31/22 06:22: POC Glucose 125 H Radiography Diagnostic Testing: Radiology Impression Hip/Pelvis X-Ray 03/30/22 19:30 IMPRESSION: There is a right impacted intertrochanteric fracture. Electronically Signed: Johnny Fraire MD at 19:50 EST , Rhythm Strip Rhythm Strip: Sinus Rhythm Rate: 85 Ectopy: PAC(s) Physical Exam Narrative General: Alert, Oriented x3, Cooperative, no acute distress but in pain with her right hip HEENT: Atraumatic, PERRLA, EOMI, Normocephalic Oral: Moist Mucosa Neck: Supple, No JVD Lungs: Diminished, Normal air movement, No rhonchi, No wheeze, No rales Cardiovascular: Regular rate, Regular Rhythm, Normal S1, Normal S2, No murmurs Abdomen: Soft, Non Tender, Non-Distended, No Hepato-splenomegaly Extremities: No edema, Capillary Refill Less than 3 Seconds Skin: No rashes, No breakdown Musculoskeletal: Pain to palpation of her right hip Neurological: Cranial nerves II-XII grossly intact, Motor Exam 5/5 strength throughout, Sensory exam intact to light touch and pain Psych/Mental Status: Normal Affect, Appropriate Assessment & Plan Assessment/Plan (1) Fracture of right hip: PLAN: Plan 1. Right impacted intertrochanteric fracture secondary to mechanical fall ? Is currently n.p.o. awaiting operative repair ? PT/OT ? Case management for discharge planning 2. Paroxysmal A. fib/status post bioprosthetic AVR/history of AAA/HTN/HLD/obesity/history of CVA ? Blood pressures are currently stable ? Continue with her home blood pressure medications ? We will hold her Coumadin secondary to operative repair need as she is subtherapeutic on her INR ? We will discuss with surgery when to restart ? She did have an echo in June 2021 with an EF of 55 to 60% with normal AV bioprosthesis and a grade 1 diastolic dysfunction ? Continue with aspirin ? Does not currently appear to be on any statin but she would likely benefit as an outpatient ? BMI of 31.4, nursing put in her height wrong is being 6 foot 3 when she is 5 foot 3. Discussed with her lifestyle modifications 3. DM2 with neuropathy ? We will hold her home oral medications ? Placed on diabetic diet ? Accu-Cheks AC at bedtime ? Continue sliding scale insulin ? Will continue to monitor and make adjustments as necessary 4. Anxiety/depression ? Stable ? Continue with her home medications DVT: SCDs Charges/Coding Visit Charges Inpatient E&M: 85056 Subs Hosp L2
[2022-03-31 11:35] LABS: Bedside Glucose 126 mg/dL (74-106)
--- NOTE | 2022-03-31 12:13 | CASEMGMT ---
SW met with patient and her sister Debra. Introduced self and role at [facility]. SW spoke with patient about her d/c plan and that most individuals with hip fractures have to go to a snf facility for short term rehab. Patient said she knows she will have to go somewhere. Patient said she wants to go here. SW asked if she meant [facility]. Patient said yes as she has been there before. SW offered to give patient a list of facilities and patient declined unless TCU is not able to take her. SW let patient know SW will check on availability. SW told patient if TCU cannot take her SW will let her know and bring her a list. MEGAN spoke with [facility] and they can take patient when medically ready and insurance approves her. Plan: [facility] pending patient being medically ready and insurance approving patient. Joy TERRY
--- NOTE | 2022-03-31 12:54 | CHAPLAIN ---
Type of Pastoral Visit _x__ Initial Visit ___ Follow-up Visit ___ On-call Visit ___ General Patient Visit ___ Spiritual Assessment ___ Family Conference ___ Bereavement ___ Rapid Response ___ Code Blue ___ Other (describe below) Pastoral Care Referral From _x__ Patient ___ Family ___ Nurse ___ Physician ___ Cardiology Manager ___ [place] ___ Other (describe below) Sacrament/Intervention _x__ Active listening ___ Anointing ___ Uatsdin ___ Bereavement ___ Communion ___ Em exploration ___ ___ Life review _x__ Prayer ___ Reconciliation ___ Sacrament of Sick _x__ Supportive presence ___ Wedding ___ Other (describe below) Pastoral Comments patient is with a sister in her room waiting for surgery this afternoon; pt admits to some pain; pt has had recent falls and broken bones and explains the same; pt states that she just accepts the situation and the Lord has been good to me; pt requests prayer for her surgery and for her family;
--- NOTE | 2022-03-31 12:55 | RAD_ITS ---
STUDY: X-RAY - PELVIS AND RIGHT HIP REASON FOR EXAM: Female, 76 years old. ORIF HIP TECHNIQUE: 2 views of the pelvis and hip. COMPARISON: 03/30/2022 FINDINGS: Fluoroscopy of the right hip was utilized in operating room during open reduction internal fixation of fracture of the intertrochanteric femur with a femoral neck compression screw and intramedullary lio and 13 images are similar for interpretation... RAD/Hip Min 2 Views (Portable) IMPRESSION: Fluoroscopy during open reduction internal fixation of fracture of the intertrochanteric femur. Electronically Signed: Michael uD MD at 16:52 EST ,
--- NOTE | 2022-03-31 12:56 | PCM.PN.ORT ---
Subjective Subjective Still having right hip pain, alert Objective Data Objective Data Vital Signs: Vital Signs Temp Pulse Resp BP Pulse Ox O2 Del Method O2 Flow Rate 99.5 F H 58 L 14 133/65 H 96 Nasal Cannula 3 03/31/22 08:26 03/31/22 08:26 03/31/22 08:26 03/31/22 08:26 03/31/22 12:16 03/31/22 12:16 03/31/22 12:16 Oxygen Flow Rate (L/min) 3 Oxygen Delivery Method Nasal Cannula Weight: 177 lb 4.026 oz Body Mass Index (BMI) 21.9 Intake & Output: Intake and Output for Last 24 Hours 03/29/22 03/30/22 03/31/22 23:59 23:59 23:59 Intake Total 817.5 / 817.5 Output Total 1000 / 1000 Balance -182.5 / -182.5 Lab / Micro Data Attestation: I reviewed the patient's lab results. Result Diagrams: 03/31/22 04:01 03/31/22 04:01 Labs: Laboratory Results - last 24 hr 03/30/22 16:45: WBC 7.8, RBC 4.77, Hgb 14.7, Hct 44.6, MCV 93.5, MCH 30.8, MCHC 33.0, RDW Std Deviation 42.0, RDW Coeff of Yasir 12.1, Plt Count 220, MPV 9.3, Immature Gran % (Auto) 1.400 H, Neut % (Auto) 53.1, Lymph % (Auto) 30.2, [place] % (Auto) 12.2 H, Eos % (Auto) 1.8, Baso % (Auto) 1.3 H, Absolute Neuts (auto) 4.1, Absolute Lymphs (auto) 2.35, Nucleated RBC % 0 03/30/22 16:45: PT 15.4 H, INR 1.3 03/30/22 16:45: Sodium 139, Potassium 3.9, Chloride 107, Carbon Dioxide 27.0, Anion Gap 5, BUN 18, Creatinine 1.01, Estim Creat Clear Calc 39.64, Est GFR (MDRD) Af Amer 68, Est GFR (MDRD) Non-Af 56 L, BUN/Creatinine Ratio 17.8, Glucose 138 H, Calcium 9.9 03/30/22 20:20: Blood Type A POSITIVE, Antibody Screen NEGATIVE 03/31/22 00:03: POC Glucose 194 H 03/31/22 04:01: WBC 11.5 H, RBC 4.41, Hgb 13.5, Hct 41.0, MCV 93.0, MCH 30.6, MCHC 32.9, RDW Std Deviation 42.2, RDW Coeff of Yasir 12.2, Plt Count 199, MPV 9.1, Immature Gran % (Auto) 0.500, Neut % (Auto) 79.0 H, Lymph % (Auto) 11.0 L, [place] % (Auto) 8.9, Eos % (Auto) 0.1, Baso % (Auto) 0.5, Absolute Neuts (auto) 9.1 H, Absolute Lymphs (auto) 1.27, Nucleated RBC % 0 03/31/22 04:01: PT 16.0 H, INR 1.3 03/31/22 04:01: Sodium 137, Potassium 4.1, Chloride 104, Carbon Dioxide 28.0, Anion Gap 5, BUN 15, Creatinine 0.90, Estim Creat Clear Calc 64.74, Est GFR (MDRD) Af Amer 78, Est GFR (MDRD) Non-Af 65, BUN/Creatinine Ratio 16.7, Glucose 135 H, Calcium 8.8, Total Bilirubin 0.70, AST 19, ALT 19, Alkaline Phosphatase 116, Total Protein 6.6, Albumin 3.2, Globulin 3.4, Albumin/Globulin Ratio 0.9 03/31/22 04:01: Hemoglobin A1c 6.1 H 03/31/22 06:22: POC Glucose 125 H 03/31/22 11:06: POC Glucose 126 H Radiography Diagnostic Testing: Radiology Impression Hip/Pelvis X-Ray 03/30/22 19:30 IMPRESSION: There is a right impacted intertrochanteric fracture. Electronically Signed: Johnny Fraire MD at 19:50 EST , Rhythm Strip Rhythm Strip: Sinus Rhythm Rate: 85 Ectopy: PAC(s) Physical Exam Const alert, no apparent distress and well nourished Assessment & Plan Assessment/Plan (1) Fracture of right hip: PLAN: Plan OK to proceed right hip IM nail for IT fracture. Case revewed w Dr Calderon. OK to proceed. H and P no changes.
[2022-03-31] MEDS: Clindamycin 900 MG/50 ML BAG 75 MG IV (13:07)
[2022-03-31] MEDS: TXA IV (14:14)
[2022-03-31] MEDS: [UNRECOGNIZED DRUG - OTHER] IV (14:14)
[2022-03-31] MEDS: Bupivacaine 0.25% 30 ML Vial (14:41)
--- NOTE | 2022-03-31 14:48 | PCM.OPRPT ---
Problems Associated Problem List Diagnoses (1) Fracture of right hip: Report of Operation Date of Procedure: 03/31/22 Pre-Operative Diagnosis: right hip fracture Post-Operative Diagnosis: same Surgery/Procedure Performed:: right hip ORIF (TFNA) long nail Surgeon: Robert Light Type of Anesthesia: General and Local Anesthesiologist: Toby Jimenes Estimated Blood Loss (mL): 100 Description of Procedure: Patient brought to the operating room theater. Placed supine on the fracture table. Right leg in traction and internal rotation. Left leg attached to the mid aspect of the bed with appropriate padding. SCD on the nonoperative leg. Peroneal nerve padded. Perineal post used appropriately padded. All bony prominences appropriately padded. 900 mg IV clindamycin administered prior to the start of the procedure. General anesthesia induced. Operative extremity prepped and draped in the usual sterile fashion with chlorhexidine-based prep solution allowing over 3 minutes drying time prior to draping. Shower curtain style drape with Ioban. Preoperative timeout performed to confirm the site the patient had the surgery. I began by making a small stab insertion site proximal to the greater trochanter inserted the partially-threaded 3.2 mm guidewire at the tip of the trochanter on both AP and lateral radiographs aiming for the lesser trochanter on AP radiograph and down the femoral shaft on the lateral x-ray. Use a soft tissue protector. Use the MobileRQ opening reamer down to the level of the lesser trochanter. Next I used ball-tipped guidewire with a small curve on the end to pass this down distally to the level of the superior aspect of the patella mid aspect of the femur on both AP and lateral radiographs. This measured 390 mm so as such I selected a 380 mm long nail. I reamed up to a size 12.5 mm jay allred. I inserted the nail 11 mm diameter with 130 degree neck shaft angle. I inserted this to the appropriate depth. I used the drop-down guide. I remove the ball-tipped guidewire. I passed a 3.2 mm guidewire up into the center of the femoral neck and head aiming slightly inferior and posterior to subchondral bone. I used a derotation wire which I removed after insertion of the helical blade. This measured about 98 mm so as such I reamed to 95 mm. I inserted the 95 mm helical blade. I locked this in place proximally. Drop-down guide removed. I then turned my attention distally. Using perfect [place] technique and small stab incisions I passed to lateral to medial fully threaded 5.0 mm cortical screws. This measured 44 mm distally and 42 mm proximally through the oblong hole and the circular hole in the distal aspect of the nail. These achieved good purchase. Final radiographs taken proximally and distally. I did the near far technique proximally to ensure no screw penetration. Wounds were thoroughly irrigated. I asked anesthesia to give 1 g of IV tranexamic acid. Subcutaneous tissue closed with 2-0 Vicryl sutures and skin with 3-0 Monocryl. Skin cleaned with wet and dry dressing. 10 cc of quarter percent bupivacaine instilled in and around the incision sites. Mepilex silver dressings were then applied. Patient woken up from the general anesthetic transferred off the operating room table and taken to postanesthetic care unit in stable condition. All sponge needle instrument counts were correct no complications estimated blood loss 100 cc. Plan to the patient weightbearing as tolerated readmitted under the hospitalist service and back on their preoperative anticoagulation per the hospitalist. FU in clinic when discharged, will follow while in hospital. Grafts/Implants Used: synthes TFN-A 380mm, 11mm diameter, 130 angle, 95mm screw, 44 +42mm screws Complications none Admit VTE Documentation VTE Present on Admission: Yes VTE Mechan Device Prophylaxis: SCD's VTE Pharm Prophylaxis ordered?: Yes Procedures Musculoskeletal [id number]: Other Procedure See Report
[2022-03-31 15:31] LABS: Bedside Glucose 156 mg/dL (74-106)
[2022-03-31] MEDS: Insulin Lispro 100 UNIT/ML INSULN.PEN SC (22:11)
[2022-03-31] MEDS: MELATONIN 10 MG TABLET PO (22:14)
[2022-03-31 23:40] LABS: Bedside Glucose 202 mg/dL (74-106)
[2022-04-01] VITALS (7 sets, daily range): BP systolic 110–150; BP diastolic 50–75; PULSE 50–89; RESP 14–18; TEMP 36.8–37.3; O2SAT 88–98
[2022-04-01] MEDS: Acetaminophen 325 MG Tablet 650 MG PO ×2 (02:56→20:29)
[2022-04-01 06:18] LABS: Absolute Lymphocyte Count 0.89 X10^3/uL (0.83-4.51); Absolute Neutrophil Count 8.8 X10^3/uL (2.0-7.7); Basophil# 0.01 X10^3/uL; Basophil% 0.1 % (0-1); Hematocrit 34.7 % (37-47); Hemoglobin 11.2 g/dL (12.0-15.0); Lymphocyte # 0.89 X10^3/ul (0.83-4.51); Lymphocyte % 8.2 % (19-41); Mean Corp Hgb Conc 32.3 g/dL (32-36); Mean Corpuscular Hgb 30.7 pg (27.0-32.0); Mean Corpuscular Volume 95.1 fL (81-99); Mean Platelet Vol. 9.6 fl (6.2-12.0); Monocyte# 1.15 X10^3/uL; Monocyte% 10.6 % (0-10); NRBC Flagged by Analyzer 0 % (0-5); Neutrophil # 8.77 X10^3/uL (2.7-7.7); Neutrophil % 80.5 % (47-70); Platelet Count 154 K/mm3 (150-450); RBC Distribution Width CV 12.3 % (11.6-14.6); RBC Distribution Width SD 42.6 fl (35.1-43.9); Red Blood Count 3.65 M/mm3 (4.2-5.4); White Blood Count 10.9 K/mm3 (4.4-11.0)
[2022-04-01] MEDS: Gabapentin 300 MG Capsule PO ×3 (06:28→20:43)
[2022-04-01] MEDS: 0.9% Normal Saline 1,000 ML 75 ML IV ×2 (06:28→18:44)
[2022-04-01 06:53] LABS: Anion Gap 7 (5-15); BUN 21 mg/dL (7-18); BUN/Creat Ratio 20.6 RATIO (10-20); Calcium,Total 8.2 mg/dL (8.5-10.1); Chloride 108 mmol/L (98-107); Creatinine, Serum 1.02 mg/dL (0.55-1.02); EST Glomerular Filtration Rate 56 mL/min (>60); Est Glom Filt Rate - Afr Amer 67 mL/min (>60); Glucose 153 mg/dL (74-106); Potassium 4.3 mmol/L (3.5-5.1); Sodium Level 138 mmol/L (136-145)
[2022-04-01 07:11] LABS: Bedside Glucose 141 mg/dL (74-106)
[2022-04-01] MEDS: Senna/Docusate Sodium 1 Tablet 2 TABLET PO ×2 (08:08→20:43)
[2022-04-01] MEDS: Lisinopril 20 MG Tablet PO (08:08)
[2022-04-01] MEDS: Allopurinol 100 MG Tablet PO (08:08)
[2022-04-01] MEDS: Ferrous Sulfate 325 MG Tablet PO (08:08)
[2022-04-01] MEDS: Polyethylene Glycol 3350 17 GM PACKET PO (08:08)
[2022-04-01] MEDS: amLODIPine 5 MG Tablet PO (08:08)
[2022-04-01] MEDS: Escitalopram Oxalate 10 MG Tablet 5 MG PO (08:08)
[2022-04-01] MEDS: oxyCODONE 5 MG Tablet PO ×3 (09:42→20:29)
--- NOTE | 2022-04-01 09:57 | PCM.PN.HOSP ---
Subjective Subjective Doing well after surgery, no issues overnight. Pain is improved Objective Data Objective Data Vital Signs: Vital Signs Temp Pulse Resp BP Pulse Ox O2 Del Method O2 Flow Rate 98.3 F 59 L 18 110/50 L 88 Room Air 2 04/01/22 03:04 04/01/22 03:04 04/01/22 03:04 04/01/22 03:04 04/01/22 03:08 04/01/22 03:08 04/01/22 03:04 Oxygen Flow Rate (L/min) 2 Oxygen Delivery Method Room Air Weight: 184 lb 4.903 oz Body Mass Index (BMI) 31.1 Intake & Output: Intake and Output for Last 24 Hours 03/31/22 04/01/22 04/02/22 03:59 03:59 03:59 Intake Total 1612.5 / 1612.5 932.5 / 932.5 Output Total 300 / 300 2054 / 2054 Balance -300 / -300 -442.5 / -442.5 932.5 / 932.5 Lab / Micro Data Result Diagrams: 04/01/22 05:35 04/01/22 05:35 Labs: Laboratory Results - last 24 hr 03/31/22 11:06: POC Glucose 126 H 03/31/22 15:10: POC Glucose 156 H 03/31/22 22:01: POC Glucose 202 H 04/01/22 05:35: WBC 10.9, RBC 3.65 L, Hgb 11.2 L, Hct 34.7 L, MCV 95.1, MCH 30.7, MCHC 32.3, RDW Std Deviation 42.6, RDW Coeff of Yasir 12.3, Plt Count 154, MPV 9.6, Immature Gran % (Auto) 0.600, Neut % (Auto) 80.5 H, Lymph % (Auto) 8.2 L, [place] % (Auto) 10.6 H, Eos % (Auto) 0.0, Baso % (Auto) 0.1, Absolute Neuts (auto) 8.8 H, Absolute Lymphs (auto) 0.89, Nucleated RBC % 0 04/01/22 05:35: Sodium 138, Potassium 4.3, Chloride 108 H, Carbon Dioxide 23.0, Anion Gap 7, BUN 21 H, Creatinine 1.02, Estim Creat Clear Calc 37.60, Est GFR (MDRD) Af Amer 67, Est GFR (MDRD) Non-Af 56 L, BUN/Creatinine Ratio 20.6 H, Glucose 153 H, Calcium 8.2 L 04/01/22 06:25: POC Glucose 141 H Radiography Diagnostic Testing: Radiology Impression Hip X-Ray 03/31/22 12:55 IMPRESSION: Fluoroscopy during open reduction internal fixation of fracture of the intertrochanteric femur. Electronically Signed: Michael Du MD at 16:52 EST , Rhythm Strip Rhythm Strip: Sinus Rhythm Rate: 85 Ectopy: PAC(s) Physical Exam Narrative General: Alert, Oriented x3, Cooperative, no acute distress but in pain with her right hip HEENT: Atraumatic, PERRLA, EOMI, Normocephalic Oral: Moist Mucosa Neck: Supple, No JVD Lungs: Diminished, Normal air movement, No rhonchi, No wheeze, No rales Cardiovascular: Regular rate, Regular Rhythm, Normal S1, Normal S2, No murmurs Abdomen: Soft, Non Tender, Non-Distended, No Hepato-splenomegaly Extremities: No edema, Capillary Refill Less than 3 Seconds Skin: No rashes, No breakdown Musculoskeletal: Pain to palpation of her right hip, dressing intact Neurological: Cranial nerves II-XII grossly intact, Motor Exam 5/5 strength throughout, Sensory exam intact to light touch and pain Psych/Mental Status: Normal Affect, Appropriate Assessment & Plan Assessment/Plan (1) Fracture of right hip: PLAN: Plan 1. Right impacted intertrochanteric fracture secondary to mechanical fall status post repair 03/31/2022 ? PT/OT ? Case management for discharge planning 2. Paroxysmal A. fib/status post bioprosthetic AVR/history of AAA/HTN/HLD/obesity/history of CVA ? Blood pressures are currently stable ? Continue with her home blood pressure medications ? We will hold her Coumadin secondary to operative repair need as she is subtherapeutic on her INR ? We will discuss with surgery when to restart ? She did have an echo in June 2021 with an EF of 55 to 60% with normal AV bioprosthesis and a grade 1 diastolic dysfunction ? Continue with aspirin ? Does not currently appear to be on any statin but she would likely benefit as an outpatient ? BMI of 31.4, nursing put in her height wrong is being 6 foot 3 when she is 5 foot 3. Discussed with her lifestyle modifications 3. DM2 with neuropathy ? We will hold her home oral medications ? Placed on diabetic diet ? Accu-Cheks AC at bedtime ? Continue sliding scale insulin ? Will continue to monitor and make adjustments as necessary 4. Anxiety/depression ? Stable ? Continue with her home medications DVT: Coumadin and SCDs Charges/Coding Visit Charges Inpatient E&M: 01960 Subs Hosp L2
--- NOTE | 2022-04-01 11:50 | CASEMGMT ---
SW notified patient that [facility] can take her at discharge. SW let patient know that she will have to stay here until her insurance approves which could be Monday. Patient verbalized understanding. Plan: [facility] pending therapy evals and insurance approval. Joy TERRY
[2022-04-01 12:01] LABS: Bedside Glucose 135 mg/dL (74-106)
[2022-04-01] MEDS: Morphine 4 MG/ML Syringe IV (16:16)
--- NOTE | 2022-04-01 16:17 | PN.ORTHO_ITS ---
Subjective Subjective Doing well. Was up ambulating. Had a wet brief. Some moderate groin pain. Objective Data Objective Data Vital Signs: Vital Signs Temp Pulse Resp BP Pulse Ox O2 Del Method O2 Flow Rate 98.3 F 50 L 14 130/55 H 92 Room Air 2 04/01/22 09:10 04/01/22 09:10 04/01/22 09:10 04/01/22 09:10 04/01/22 09:10 04/01/22 09:10 04/01/22 07:29 Oxygen Flow Rate (L/min) 2 Oxygen Delivery Method Room Air Weight: 184 lb 4.903 oz Body Mass Index (BMI) 31.1 Intake & Output: Intake and Output for Last 24 Hours 03/30/22 03/31/22 04/01/22 23:59 23:59 23:59 Intake Total 1612.5 / 1612.5 932.5 / 932.5 Output Total 2055 / 5 700 / 700 Balance -442.5 / -442.5 232.5 / 232.5 Lab / Micro Data Result Diagrams: 04/01/22 05:35 04/01/22 05:35 Labs: Laboratory Results - last 24 hr 03/31/22 22:01: POC Glucose 202 H 04/01/22 05:35: WBC 10.9, RBC 3.65 L, Hgb 11.2 L, Hct 34.7 L, MCV 95.1, MCH 30.7 , MCHC 32.3, RDW Std Deviation 42.6, RDW Coeff of Yasir 12.3, Plt Count 154, MPV 9.6, Immature Gran % (Auto) 0.600, Neut % (Auto) 80.5 H, Lymph % (Auto) 8.2 L, [place] % (Auto) 10.6 H, Eos % (Auto) 0.0, Baso % (Auto) 0.1, Absolute Neuts (auto) 8.8 H, Absolute Lymphs (auto) 0.89, Nucleated RBC % 0 04/01/22 05:35: Sodium 138, Potassium 4.3, Chloride 108 H, Carbon Dioxide 23.0, Anion Gap 7, BUN 21 H, Creatinine 1.02, Estim Creat Clear Calc 37.60, Est GFR (MDRD) Af Amer 67, Est GFR (MDRD) Non-Af 56 L, BUN/Creatinine Ratio 20.6 H, Glucose 153 H, Calcium 8.2 L 04/01/22 06:25: POC Glucose 141 H 04/01/22 11:33: POC Glucose 135 H Radiography Diagnostic Testing: Radiology Impression Hip X-Ray 03/31/22 12:55 IMPRESSION: Fluoroscopy during open reduction internal fixation of fracture of the intertrochanteric femur. Electronically Signed: Michael Du MD at 16:52 EST , Rhythm Strip Rhythm Strip: Sinus Rhythm Rate: 85 Ectopy: PAC(s) Physical Exam Const alert, oriented x3 and no apparent distress Extremity normal capillary refill, no clubbing, cyanosis or edema, no calf tenderness and no pedal edema Extremity Narrative: dressings dry intact, thigh soft, no bruising. normal NVI distal foot good DP pulse, DF and PF foot. no abrasions to groin area. Assessment & Plan Assessment/Plan (1) Fracture of right hip: PLAN: Plan 76 F POD 1 right hip IM nail for IT fracture, good alignment, doing well post op. Spoke with hospitalist directly, will restart coudamin tonight for VTE pro phylaxis. WBAT. Patient understanding. Likely some groin / vulva irritation from the perineal post used during surgery. No difficulties voiding. Will monitor.
[2022-04-01] MEDS: Jantoven 2 MG Tablet PO (16:20)
[2022-04-01 16:51] LABS: Bedside Glucose 130 mg/dL (74-106)
[2022-04-01] MEDS: MELATONIN 10 MG TABLET PO ×3 (20:30)
[2022-04-01] MEDS: Metoprolol(XL)Succ 50 MG Tablet PO (20:31)
[2022-04-01] MEDS: Insulin Lispro 100 UNIT/ML INSULN.PEN SC (21:42)
[2022-04-01 22:10] LABS: Bedside Glucose 170 mg/dL (74-106)
[2022-04-02] VITALS (7 sets, daily range): BP systolic 114–143; BP diastolic 36–68; PULSE 57–69; RESP 16–20; TEMP 36.4–37.1; O2SAT 91–95
--- NOTE | 2022-04-02 03:07 | NURSING ---
patient put on 1 liter of oxygen d/t sats at 87-88%. Patient now maintaining at 92% w/ 1 liter. Will continue to monitor throughout the night
[2022-04-02] MEDS: oxyCODONE 5 MG Tablet PO ×4 (05:23→21:00)
[2022-04-02] MEDS: Gabapentin 300 MG Capsule PO ×3 (05:23→20:25)
[2022-04-02 06:50] LABS: Bedside Glucose 110 mg/dL (74-106)
[2022-04-02 07:13] LABS: Absolute Lymphocyte Count 1.84 X10^3/uL (0.83-4.51); Absolute Neutrophil Count 4.8 X10^3/uL (2.0-7.7); Basophil# 0.06 X10^3/uL; Basophil% 0.7 % (0-1); Eosinophil# 0.25 X10^3/uL; Hematocrit 33.2 % (37-47); Hemoglobin 11.1 g/dL (12.0-15.0); Lymphocyte # 1.84 X10^3/ul (0.83-4.51); Lymphocyte % 22.3 % (19-41); Mean Corp Hgb Conc 33.4 g/dL (32-36); Mean Corpuscular Hgb 31.9 pg (27.0-32.0); Mean Corpuscular Volume 95.4 fL (81-99); Mean Platelet Vol. 9.3 fl (6.2-12.0); Monocyte# 1.23 X10^3/uL; Monocyte% 14.9 % (0-10); NRBC Flagged by Analyzer 0 % (0-5); Neutrophil % 58.4 % (47-70); Platelet Count 138 K/mm3 (150-450); RBC Distribution Width CV 12.6 % (11.6-14.6); RBC Distribution Width SD 43.6 fl (35.1-43.9); Red Blood Count 3.48 M/mm3 (4.2-5.4); White Blood Count 8.2 K/mm3 (4.4-11.0)
[2022-04-02 07:37] LABS: International Normalized Ratio 1.3; Prothrombin Time (Protime)PT. 16.1 SECONDS (11.7-14.9)
[2022-04-02 07:40] LABS: Anion Gap 3 (5-15); BUN 18 mg/dL (7-18); BUN/Creat Ratio 21.9 RATIO (10-20); Chloride 110 mmol/L (98-107); Creatinine, Serum 0.82 mg/dL (0.55-1.02); EST Glomerular Filtration Rate 71 mL/min (>60); Est Glom Filt Rate - Afr Amer 86 mL/min (>60); Estimated Creatinine Clearance 46.77 ml/min; Glucose 102 mg/dL (74-106); Sodium Level 139 mmol/L (136-145)
--- NOTE | 2022-04-02 07:54 | PCM.PN.ORT ---
Subjective Subjective Doing well POD 2 right hip IM nail for IT hip fracture. Objective Data Objective Data Vital Signs: Vital Signs Temp Pulse Resp BP Pulse Ox O2 Del Method O2 Flow Rate 97.6 F L 57 L 16 126/66 H 91 Nasal Cannula 1 04/02/22 03:05 04/02/22 03:05 04/02/22 03:05 04/02/22 03:05 04/02/22 07:53 04/02/22 07:53 04/02/22 07:53 Oxygen Flow Rate (L/min) 1 Oxygen Delivery Method Nasal Cannula Weight: 188 lb 11.451 oz Body Mass Index (BMI) 31.1 Intake & Output: Intake and Output for Last 24 Hours 03/31/22 04/01/22 04/02/22 23:59 23:59 23:59 Intake Total 1612.5 / 1612.5 1852.5 / 1852.5 Output Total 2055 / 5 700 / 700 250 / 250 Balance -442.5 / -442.5 1152.5 / 1152.5 -250 / -250 Lab / Micro Data Attestation: I reviewed the patient's lab results. Result Diagrams: 04/02/22 06:55 04/02/22 06:55 Labs: Laboratory Results - last 24 hr 04/01/22 11:33: POC Glucose 135 H 04/01/22 16:19: POC Glucose 130 H 04/01/22 21:40: POC Glucose 170 H 04/02/22 06:31: POC Glucose 110 H 04/02/22 06:55: WBC 8.2, RBC 3.48 L, Hgb 11.1 L, Hct 33.2 L, MCV 95.4, MCH 31.9, MCHC 33.4, RDW Std Deviation 43.6, RDW Coeff of Yasir 12.6, Plt Count 138 L, MPV 9.3, Immature Gran % (Auto) 0.700, Neut % (Auto) 58.4, Lymph % (Auto) 22.3, [place] % (Auto) 14.9 H, Eos % (Auto) 3.0, Baso % (Auto) 0.7, Absolute Neuts (auto) 4.8, Absolute Lymphs (auto) 1.84, Nucleated RBC % 0 04/02/22 06:55: PT 16.1 H, INR 1.3 04/02/22 06:55: Sodium 139, Potassium 4.0, Chloride 110 H, Carbon Dioxide 26.0, Anion Gap 3 L, BUN 18, Creatinine 0.82, Estim Creat Clear Calc 46.77, Est GFR (MDRD) Af Amer 86, Est GFR (MDRD) Non-Af 71, BUN/Creatinine Ratio 21.9 H, Glucose 102, Calcium 8.0 L Rhythm Strip Rhythm Strip: Sinus Rhythm Rate: 85 Ectopy: PAC(s) Physical Exam Const alert, no apparent distress and well nourished Extremity Extremity Narrative: drsg dry, nvi distal right LE normal sens D and P foot, DF and PF the foot, warm well perfused. thigh soft. Assessment & Plan Assessment/Plan (1) Fracture of right hip: PLAN: CCM. Spoke with hospitalist who will resume coumadin for VTE proph. WBAT.
[2022-04-02] MEDS: 0.9% Normal Saline 1,000 ML 75 ML IV ×2 (08:26→20:25)
[2022-04-02] MEDS: Lisinopril 20 MG Tablet PO (08:37)
[2022-04-02] MEDS: Senna/Docusate Sodium 1 Tablet 2 TABLET PO ×2 (08:37→20:25)
[2022-04-02] MEDS: Allopurinol 100 MG Tablet PO (08:37)
[2022-04-02] MEDS: Escitalopram Oxalate 10 MG Tablet 5 MG PO (08:37)
[2022-04-02] MEDS: amLODIPine 5 MG Tablet PO (08:37)
[2022-04-02] MEDS: Ferrous Sulfate 325 MG Tablet PO (08:38)
[2022-04-02] MEDS: Morphine 4 MG/ML Syringe IV (08:39)
--- NOTE | 2022-04-02 10:27 | PN.HOSP_ITS ---
Subjective Subjective Doing well, having a little bit of pain. She is going to get up with physical therapy, I discussed with her to try to take pain meds prior to ambulation Objective Data Objective Data Vital Signs: Vital Signs Temp Pulse Resp BP Pulse Ox O2 Del Method O2 Flow Rate 97.5 F L 66 20 H 143/63 H 95 Room Air 1 04/02/22 09:10 04/02/22 09:10 04/02/22 09:10 04/02/22 09:10 04/02/22 09:10 04/02/22 09:30 04/02/22 07:53 Oxygen Flow Rate (L/min) 1 Oxygen Delivery Method Room Air Weight: 188 lb 11.451 oz Body Mass Index (BMI) 31.1 Intake & Output: Intake and Output for Last 24 Hours 04/01/22 04/02/22 04/03/22 03:59 03:59 03:59 Intake Total 1612.5 / 1612.5 1852.5 / 1852.5 1000 / 1000 Output Total 2055 / 2055 400 / 400 250 / 250 Balance -442.5 / -442.5 1452.5 / 1452.5 750 / 750 Lab / Micro Data Result Diagrams: 04/02/22 06:55 04/02/22 06:55 Labs: Laboratory Results - last 24 hr 04/01/22 11:33: POC Glucose 135 H 04/01/22 16:19: POC Glucose 130 H 04/01/22 21:40: POC Glucose 170 H 04/02/22 06:31: POC Glucose 110 H 04/02/22 06:55: WBC 8.2, RBC 3.48 L, Hgb 11.1 L, Hct 33.2 L, MCV 95.4, MCH 31.9, MCHC 33.4, RDW Std Deviation 43.6, RDW Coeff of Yasir 12.6, Plt Count 138 L, MPV 9.3, Immature Gran % (Auto) 0.700, Neut % (Auto) 58.4, Lymph % (Auto) 22.3, [place] % (Auto) 14.9 H, Eos % (Auto) 3.0, Baso % (Auto) 0.7, Absolute Neuts (auto) 4.8, Absolute Lymphs (auto) 1.84, Nucleated RBC % 0 04/02/22 06:55: PT 16.1 H, INR 1.3 04/02/22 06:55: Sodium 139, Potassium 4.0, Chloride 110 H, Carbon Dioxide 26.0, Anion Gap 3 L, BUN 18, Creatinine 0.82, Estim Creat Clear Calc 46.77, Est GFR (MDRD) Af Amer 86, Est GFR (MDRD) Non-Af 71, BUN/Creatinine Ratio 21.9 H, Glucose 102, Calcium 8.0 L Rhythm Strip Rhythm Strip: Sinus Rhythm Rate: 85 Ectopy: PAC(s) Physical Exam Narrative General: Alert, Oriented x3, Cooperative, no acute distress but in pain with her right hip HEENT: Atraumatic, PERRLA, EOMI, Normocephalic Oral: Moist Mucosa Neck: Supple, No JVD Lungs: Diminished, Normal air movement, No rhonchi, No wheeze, No rales Cardiovascular: Regular rate, Regular Rhythm, Normal S1, Normal S2, No murmurs Abdomen: Soft, Non Tender, Non-Distended, No Hepato-splenomegaly Extremities: No edema, Capillary Refill Less than 3 Seconds Skin: No rashes, No breakdown Musculoskeletal: Pain to palpation of her right hip, dressing intact Neurological: Cranial nerves II-XII grossly intact, Motor Exam 5/5 strength throughout, Sensory exam intact to light touch and pain Psych/Mental Status: Normal Affect, Appropriate Assessment & Plan Assessment/Plan (1) Fracture of right hip: PLAN: Plan 1. Right impacted intertrochanteric fracture secondary to mechanical fall status post repair 03/31/2022 ? PT/OT ? Case management for discharge planning ? Continue with pain management 2. Paroxysmal A. fib/status post bioprosthetic AVR/history of AAA/HTN/HLD/obesity/history of CVA ? Blood pressures are currently stable ? Continue with her home blood pressure medications ? We will restart her Coumadin ? She did have an echo in June 2021 with an EF of 55 to 60% with normal AV b ioprosthesis and a grade 1 diastolic dysfunction ? Continue with aspirin ? Does not currently appear to be on any statin but she would likely benefit as an outpatient ? BMI of 31.4, nursing put in her height wrong is being 6 foot 3 when she is 5 foot 3. Discussed with her lifestyle modifications 3. DM2 with neuropathy ? We will hold her home oral medications ? Placed on diabetic diet ? Accu-Cheks AC at bedtime ? Continue sliding scale insulin ? Will continue to monitor and make adjustments as necessary 4. Anxiety/depression ? Stable ? Continue with her home medications DVT: Coumadin Charges/Coding Visit Charges Inpatient E&M: 88876 Subs Hosp L2
[2022-04-02] MEDS: Acetaminophen 325 MG Tablet 650 MG PO ×3 (10:34→21:00)
[2022-04-02 11:45] LABS: Bedside Glucose 158 mg/dL (74-106)
[2022-04-02] MEDS: Insulin Lispro 100 UNIT/ML INSULN.PEN SC (16:38)
[2022-04-02 17:05] LABS: Bedside Glucose 167 mg/dL (74-106)
[2022-04-02] MEDS: Metoprolol(XL)Succ 50 MG Tablet PO (20:25)
[2022-04-02 21:56] LABS: Bedside Glucose 147 mg/dL (74-106)
[2022-04-03 02:59] VITALS: BP 116/61; PULSE 54; RESP 16; TEMP 36.7; O2SAT 95
[2022-04-03] MEDS: Polyethylene Glycol 3350 17 GM PACKET PO (05:08)
[2022-04-03] MEDS: Gabapentin 300 MG Capsule PO ×3 (05:11→20:37)
[2022-04-03 06:18] LABS: International Normalized Ratio 1.3; Prothrombin Time (Protime)PT. 15.9 SECONDS (11.7-14.9)
[2022-04-03 07:00] LABS: Bedside Glucose 98 mg/dL (74-106)
[2022-04-03 07:43] VITALS: BP 150/76; PULSE 62; RESP 16; TEMP 37; O2SAT 99
[2022-04-03 07:52] VITALS: O2SAT 96
[2022-04-03] MEDS: Allopurinol 100 MG Tablet PO (07:58)
[2022-04-03] MEDS: Senna/Docusate Sodium 1 Tablet 2 TABLET PO ×2 (07:58→20:39)
[2022-04-03] MEDS: Ferrous Sulfate 325 MG Tablet PO (07:58)
[2022-04-03] MEDS: Lisinopril 20 MG Tablet PO (07:58)
[2022-04-03] MEDS: Escitalopram Oxalate 10 MG Tablet 5 MG PO (07:58)
[2022-04-03] MEDS: amLODIPine 5 MG Tablet PO (07:59)
[2022-04-03] MEDS: 0.9% Saline Lock 10 ML Syringe IV (08:00)
--- NOTE | 2022-04-03 09:13 | PCM.PN.HOSP ---
Subjective Subjective No issues overnight, her pain is better controlled today. Objective Data Objective Data Vital Signs: Vital Signs Temp Pulse Resp BP Pulse Ox O2 Del Method O2 Flow Rate 98.6 F 62 16 150/76 H 96 Room Air 1 04/03/22 07:43 04/03/22 07:43 04/03/22 07:43 04/03/22 07:43 04/03/22 07:52 04/03/22 07:52 04/02/22 07:53 Oxygen Flow Rate (L/min) 1 Oxygen Delivery Method Room Air Weight: 188 lb 12.8 oz Body Mass Index (BMI) 31.1 Intake & Output: Intake and Output for Last 24 Hours 04/02/22 04/03/22 04/04/22 03:59 03:59 03:59 Intake Total 1852.5 / 1852.5 2498.75 / 2498.75 200 / 200 Output Total 400 / 400 850 / 850 600 / 600 Balance 1452.5 / 1452.5 1648.75 / 1648.75 -400 / -400 Lab / Micro Data Result Diagrams: 04/02/22 06:55 04/02/22 06:55 Labs: Laboratory Results - last 24 hr 04/02/22 11:21: POC Glucose 158 H 04/02/22 16:32: POC Glucose 167 H 04/02/22 20:28: POC Glucose 147 H 04/03/22 05:29: PT 15.9 H, INR 1.3 04/03/22 06:36: POC Glucose 98 Rhythm Strip Rhythm Strip: Sinus Rhythm Rate: 85 Ectopy: PAC(s) Physical Exam Narrative General: Alert, Oriented x3, Cooperative, no acute distress HEENT: Atraumatic, PERRLA, EOMI, Normocephalic Oral: Moist Mucosa Neck: Supple, No JVD Lungs: Diminished, Normal air movement, No rhonchi, No wheeze, No rales Cardiovascular: Regular rate, Regular Rhythm, Normal S1, Normal S2, No murmurs Abdomen: Soft, Non Tender, Non-Distended, No Hepato-splenomegaly Extremities: No edema, Capillary Refill Less than 3 Seconds Skin: No rashes, No breakdown Musculoskeletal: Pain to palpation of her right hip, dressing intact Neurological: Cranial nerves II-XII grossly intact, Motor Exam 5/5 strength throughout, Sensory exam intact to light touch and pain Psych/Mental Status: Normal Affect, Appropriate Assessment & Plan Assessment/Plan (1) Fracture of right hip: PLAN: Plan 1. Right impacted intertrochanteric fracture secondary to mechanical fall status post repair 03/31/2022 ? PT/OT ? Case management for discharge planning ? Continue with pain management 2. Paroxysmal A. fib/status post bioprosthetic AVR/history of AAA/HTN/HLD/obesity/history of CVA ? Blood pressures are currently stable ? Continue with her home blood pressure medications ? We will restart her Coumadin ? She did have an echo in June 2021 with an EF of 55 to 60% with normal AV bioprosthesis and a grade 1 diastolic dysfunction ? Does not currently appear to be on any statin but she would likely benefit as an outpatient ? BMI of 31.4, nursing put in her height wrong is being 6 foot 3 when she is 5 foot 3. Discussed with her lifestyle modifications 3. DM2 with neuropathy ? Placed on diabetic diet ? Accu-Cheks AC at bedtime ? Continue sliding scale insulin ? Continue with gabapentin ? Will continue to monitor and make adjustments as necessary 4. Anxiety/depression ? Stable ? Continue with her home medications DVT: Coumadin Charges/Coding Visit Charges Inpatient E&M: 63599 Subs Hosp L2
[2022-04-03] MEDS: 0.9% Normal Saline 1,000 ML 75 ML IV ×2 (09:42→20:37)
[2022-04-03 11:26] LABS: Bedside Glucose 155 mg/dL (74-106)
[2022-04-03] MEDS: Fleet Enema 1 ML RC (13:39)
[2022-04-03 13:45] VITALS: BP 156/71; PULSE 61; RESP 16; TEMP 37.2; O2SAT 95
[2022-04-03 17:15] LABS: Bedside Glucose 102 mg/dL (74-106)
[2022-04-03 20:20] VITALS: BP 147/82; PULSE 63; RESP 16; TEMP 37.1; O2SAT 98
[2022-04-03] MEDS: Acetaminophen 325 MG Tablet 650 MG PO (20:37)
[2022-04-03] MEDS: oxyCODONE 5 MG Tablet PO (20:37)
[2022-04-03 20:39] VITALS: BP 147/82; PULSE 63
[2022-04-03] MEDS: MELATONIN 10 MG TABLET PO (20:39)
[2022-04-03] MEDS: Metoprolol(XL)Succ 50 MG Tablet PO (20:39)
[2022-04-03 20:51] LABS: Bedside Glucose 129 mg/dL (74-106)
[2022-04-04 01:40] VITALS: BP 140/60; PULSE 58; RESP 16; TEMP 36.1; O2SAT 93
[2022-04-04 05:31] VITALS: BP 164/66; PULSE 50; RESP 16; TEMP 36.6; O2SAT 96
[2022-04-04] MEDS: Gabapentin 300 MG Capsule PO ×2 (05:36→13:25)
[2022-04-04 05:39] LABS: International Normalized Ratio 1.3; Prothrombin Time (Protime)PT. 16.2 SECONDS (11.7-14.9)
[2022-04-04 06:04] LABS: Anion Gap 5 (5-15); BUN 10 mg/dL (7-18); BUN/Creat Ratio 12.9 RATIO (10-20); Calcium,Total 8.5 mg/dL (8.5-10.1); Chloride 110 mmol/L (98-107); Creatinine, Serum 0.78 mg/dL (0.55-1.02); EST Glomerular Filtration Rate 76 mL/min (>60); Est Glom Filt Rate - Afr Amer 92 mL/min (>60); Estimated Creatinine Clearance 38.35 ml/min; Glucose 100 mg/dL (74-106); Potassium 3.8 mmol/L (3.5-5.1); Sodium Level 142 mmol/L (136-145)
[2022-04-04 06:56] LABS: Bedside Glucose 95 mg/dL (74-106)
[2022-04-04 07:45] VITALS: O2SAT 97
[2022-04-04] MEDS: 0.9% Normal Saline 1,000 ML 75 ML IV (08:23)
[2022-04-04] MEDS: oxyCODONE 5 MG Tablet PO (08:26)
[2022-04-04] MEDS: Ferrous Sulfate 325 MG Tablet PO (08:26)
[2022-04-04] MEDS: Lisinopril 20 MG Tablet PO (08:27)
[2022-04-04] MEDS: Escitalopram Oxalate 10 MG Tablet 5 MG PO (08:27)
[2022-04-04] MEDS: Allopurinol 100 MG Tablet PO (08:27)
[2022-04-04] MEDS: amLODIPine 5 MG Tablet PO (08:27)
[2022-04-04] MEDS: Senna/Docusate Sodium 1 Tablet 2 TABLET PO (08:27)
[2022-04-04 10:00] VITALS: BP 147/61; PULSE 60; RESP 16; TEMP 36.9; O2SAT 96
[2022-04-04] MEDS: Acetaminophen 325 MG Tablet 650 MG PO (10:10)
[2022-04-04 11:09] LABS: Absolute Lymphocyte Count 1.86 X10^3/uL (0.83-4.51); Absolute Neutrophil Count 3.1 X10^3/uL (2.0-7.7); Basophil# 0.09 X10^3/uL; Basophil% 1.4 % (0-1); Eosinophil# 0.22 X10^3/uL; Eosinophils% 3.4 % (0-5); Hematocrit 31.2 % (37-47); Hemoglobin 10.4 g/dL (12.0-15.0); Lymphocyte # 1.86 X10^3/ul (0.83-4.51); Lymphocyte % 28.7 % (19-41); Mean Corp Hgb Conc 33.3 g/dL (32-36); Mean Corpuscular Hgb 31.6 pg (27.0-32.0); Mean Corpuscular Volume 94.8 fL (81-99); Mean Platelet Vol. 9.8 fl (6.2-12.0); Monocyte# 1.18 X10^3/uL; Monocyte% 18.2 % (0-10); NRBC Flagged by Analyzer 0 % (0-5); Neutrophil # 3.07 X10^3/uL (2.7-7.7); Neutrophil % 47.5 % (47-70); Platelet Count 186 K/mm3 (150-450); RBC Distribution Width CV 12.5 % (11.6-14.6); RBC Distribution Width SD 43.3 fl (35.1-43.9); Red Blood Count 3.29 M/mm3 (4.2-5.4); White Blood Count 6.5 K/mm3 (4.4-11.0)
--- NOTE | 2022-04-04 11:19 | PCM.TXEXTCAR ---
Diet Diet Order/Speech Therapy: 03/31/22 16:51 Diet: Cardiac - Heart Healthy Is pt able to select menu?: Yes Routine Orders/Code Status Suppository Frequency: Daily PRN O2 Frequency: PRN Keep PO Greater than or Equal to (%): 92 Routine Lab Work: CBC (1 week) and BMP (1 week) Code Status: Full Code Wound(s) rt forearm: Wound Type: Abrasion RT HIP: Wound Type: Surgical Incision Suggestions for Active Care Change Position every (hours): 2 Therapies Weight Bearing: Weight bearing as tolerated Extremity Affected:: Right Lower Physical Therapy: Eval and Treat Occupational Therapy: Eval and Treat Problem/Diagnosis (1) Fracture of right hip: Status: Acute Code(s): S72.001A - Fracture of unspecified part of neck of right femur, initial encounter for closed fracture Allergies/Procedures Done in Hospital Allergies Penicillins [PCN] Allergy (Verified 03/30/22 16:25) Hives tramadol Allergy (Verified 03/30/22 16:25) Other ciprofloxacin [From Cipro] Adverse Reaction (Verified 03/30/22 16:25) PT UNSURE OF REACTION donepezil [From Aricept] Adverse Reaction (Verified 03/30/22 16:25) PT UNSURE OF REACTION nitrofurantoin [From Macrobid] Adverse Reaction (Verified 03/30/22 16:25) PT UNSURE OF REACTION ramelteon Adverse Reaction (Verified 03/30/22 16:25) PT UNSURE OF REACTION RACING HEART RATE trazodone Adverse Reaction (Verified 03/30/22 16:25) PT UNSURE OF REACTION Type of Care/Length of Stay Estimated LOS: Convalescent Care Less Than 30 days Type of Care Needed: Skilled Rehab Potential: Good Prognosis: Good Additional Orders/Day of Discharge Day of Discharge: 04/04/22 Discharge Plan Admission Admit Date/Time: 03/30/22 20:11 Attending Provider: Elle Martins Primary Care Provider: Radha Carmichael Consulting Providers: Robert Light ; Ana Jenkins ; Kvng Merritt Discharge Orders/Prescriptions Prescriptions: No Action polyethylene glycol 3350 17 GM packet 17 gm PO QODAY metoprolol succinate 100 MG tablet extended release 24 hr 50 mg PO QHS amlodipine 5 MG tablet 5 mg PO DAILY warfarin 2 MG tablet 2 mg PO MOWEFR lisinopril 20 mg tablet 20 mg PO DAILY Label Comments: TAKE 1 TABLET BY MOUTH EVERY DAY allopurinol 100 mg tablet 100 mg PO DAILY Label Comments: TAKE 1 TABLET BY MOUTH EVERY DAY multivitamin Tablet 1 tab PO DAILY warfarin 3 mg tablet 3 mg PO SUTUTHSA escitalopram oxalate 5 mg tablet 5 mg PO DAILY melatonin 5 mg Tablet 7.5 mg PO QHS sennosides-docusate sodium [Stool Softener-Stimulant Laxat] 8.6-50 mg tablet 1 tab PO DAILY gabapentin 300 mg capsule 300 mg PO TID cholecalciferol (vitamin D3) [Vitamin D3] 25 mcg (1,000 unit) Tablet 25 mcg PO DAILY calcium 2 tab PO/SL DAILY iron 1 cap PO/SL DAILY Referrals / Follow Up: Radha Carmichael MD [Primary Care Provider] -
--- NOTE | 2022-04-04 11:20 | DS.PCM_ITS ---
Providers Date of Admission: 03/30/22 Date of Discharge: 04/04/22 Primary Care Physician: Dr. Radha Carmichael MD Consultations 03/30/22 21:56 Consult: Orthopedics Routine Consulting Provider: Robert Light Reason for Consult: R hip fracture EMERGENT Consult: No MD Notified: Yes Date Notified: 03/30/22 Time Notified: 20:22 Method of Notification: ED Physician Initiated Reason For Visit: FALL, R HIP FRACTURE Diagnosis Discharge Diagnosis (1) Fracture of right hip: Status: Acute Code(s): S72.001A - Fracture of unspecified part of neck of right femur, initial encounter for closed fracture Medications at Discharge Home Medications amlodipine 5 mg tablet 5 mg PO DAILY blood pressure 02/15/20 metoprolol succinate 100 mg tablet,extended release 24 hr 50 mg PO QHS blood pressure 02/15/20 polyethylene glycol 3350 17 gram oral powder packet 17 gm PO QODAY constipation 02/15/20 allopurinol 100 mg tablet 100 mg PO DAILY GOUT 07/16/21 lisinopril 20 mg tablet 20 mg PO DAILY BLOOD PRESSURE 07/16/21 calcium 2 tab PO/SL DAILY SUPPLEMENT 03/30/22 cholecalciferol (vitamin D3) 25 mcg (1,000 unit) tablet (Vitamin D3) 25 mcg PO DAILY SUPPLEMENT 03/30/22 escitalopram oxalate 5 mg tablet 5 mg PO DAILY DEPRESSION 03/30/22 gabapentin 300 mg capsule 300 mg PO TID NERVE PAIN 03/30/22 iron 1 cap PO/SL DAILY SUPPLEMENT 03/30/22 melatonin 5 mg tablet 7.5 mg PO QHS SLEEP 03/30/22 multivitamin 1 tab PO DAILY HEALTH MAINTENANCE 03/30/22 sennosides 8.6 mg-docusate sodium 50 mg tablet (Stool Softener-Stimulant Laxative) 1 tab PO DAILY CONSTIPATION 03/30/22 warfarin 3 mg tablet 3 mg PO SUTUTHSA BLOOD THINNER 03/30/22 oxycodone 5 mg tablet 5 mg PO Q4H PRN PRN Pain Score 4-10 1 day #6 tabs 04/04/22 sennosides 8.6 mg-docusate sodium 50 mg tablet (Stool Softener-Stimulant Laxative) 2 tab PO BID #0 tabs 04/04/22 warfarin 3 mg tablet (Jantoven) 3 mg PO SuTuThSa@1700 #30 tabs 04/04/22 Hospital Course Operations - (ORIF right hip) Procedures EKG Summary of Care Provided Minutes Spent on Discharge: 37 Hospital Course: Mrs. Durbin is a 76-year-old white female who presented emergency department [facility] on 03/30/2022 with a right-sided hip pain after mechanical fall. The patient stated she had gone to [facility] and while she was standing outside her door had significant sharp pain in her hip which resulted in a fall. Work-up in the ED included T 97.8, HR 87, BP 154/73, RR 16, 98% on RA, CBC with WC 7.8, hemoglobin 14.7, platelet 220 with increased immature granulocytes, coags with PT 15.4, INR 1.3, BMP with glucose 138 otherwise not marked appearing, plain film of the R hip with noted right impacted intertrochanteric fracture, EKG with sinus rhythm with PACs with no acute evidence of ischemia.? Orthopedic surgery Dr. Light contacted per ED physician and evaluated the patient in the ED.? In the ED patient administered Dilaudid 0.5 mg IV x2, morphine 6 mg IV x2 as well as Zofran 4 mg IV x1. Patient is chronically anticoagulated with Coumadin for history of paroxysmal atrial fibrillation. Her Coumadin was held and she was able to be taken to the OR on 03/31/2022. ORIF was performed with a long nail by Dr. Light. Postoperative recommendations were for weightbearing as tolerated and reinitiation of her Coumadin. She was evaluated by physical and Occupational Therapy and they recommended ongoing rehab prior to discharge home as the patient does live alone and was independent prior to admission. She recently had a vitamin D level obtained on 12/08/2021 which was 46.8 and she is on chronic vitamin D replacement. Ergocalciferol is not recommended at this time. Patient did indicate she had thought she had a recent DEXA scan done and thought that it was at this facility however I do not see any reports. If this has not been done I would recommend DEXA scan be done as an outpatient after she is released from rehab. She had a slight drop in hemoglobin with surgery from 13.5 on admission to 10.4 on the day of discharge however she was on continuous fluids and I suspect some of this is dilutional as well as related to surgery. I would recommend a repeat CBC be done in the next week. She is on Coumadin and was restarted on 3 mg daily at the time of discharge. I would recommend she get INR done every other day until she is therapeutic and then monitor periodically after that depending on stability. She was accepted to transitional care unit and received authorization from her insurance company on 04/04/2022. She was discharged in stable condition. Discharge diagnoses: Right hip fracture status post mechanical fall Inability to ambulate Debility Chronic anticoagulation PAF Valvular heart disease Hypertension Hyperlipidemia DM-2 History of stroke Dementia Physical Exam Const alert, oriented x3, no apparent distress and well nourished Constitutional Narrative: Obese, elderly white female sitting up in bed, watching television, appears comfortable nontoxic General Appearance: cooperative, comfortable, well kempt and well developed Orientation / Consciousness: awake, oriented to person, oriented to place and oriented to time Exam Limitations: no limitations Nutritional Appearance: obese HEENT normocephalic, head/scalp atraumatic and moist oral mucous membranes HEENT Narrative: Moderate hearing loss, no thrush, Mallampati 2 Eyes PERRL, EOMs intact bilaterally and conjunctivae normal Eyes Narrative: No scleral icterus Neck no lymphadenopathy and supple Neck Narrative: Trachea midline, no thyroid enlargement Resp normal respiratory effort, no retractions, no use of accessory muscles and clear to auscultation bilaterally Auscultation: Negative for crackles, rales, rhonchi or wheezes Cardio regular rate, regular rhythm, S1 normal heart sound, S2 normal heart sound, no murmurs, no rub, no gallops, no clicks and no JVD GI normal to inspection, nondistended, normoactive bowel sounds, soft to palpation and non-tender Extremity no clubbing, cyanosis or edema Extremity Narrative: Right lower extremity with postoperative dressing in place-clean dry and intact Skin no rashes or lesions noted, skin turgor normal and no jaundice Neuro oriented x3, CN's II-XII intact bilaterally, no focal motor deficits and no sensory deficits noted Neuro Narrative: Creased movement right lower extremity secondary to pain at the hip joint Speech: speech normal Psych affect normal Psych Narrative: Pleasant and appropriately interactive Weight / BMI Weight Weight: 86.6 kg Body Mass Index (BMI) 31.1 ABG / Lab / Microbiology Data Result Diagrams: 04/04/22 05:01 04/04/22 05:01 Laboratory: Laboratory Results - last 24 hr 04/03/22 10:57: POC Glucose 155 H 04/03/22 16:49: POC Glucose 102 04/03/22 20:32: POC Glucose 129 H 04/04/22 05:01: PT 16.2 H, INR 1.3 04/04/22 05:01: WBC 6.5, RBC 3.29 L, Hgb 10.4 L, Hct 31.2 L, MCV 94.8, MCH 31.6, MCHC 33.3, RDW Std Deviation 43.3, RDW Coeff of Yasir 12.5, Plt Count 186, MPV 9.8, Immature Gran % (Auto) 0.800, Neut % (Auto) 47.5, Lymph % (Auto) 28.7, [place] % (Auto) 18.2 H, Eos % (Auto) 3.4, Baso % (Auto) 1.4 H, Absolute Neuts (auto) 3.1, Absolute Lymphs (auto) 1.86, Nucleated RBC % 0 04/04/22 05:01: Sodium 142, Potassium 3.8, Chloride 110 H, Carbon Dioxide 27.0, Anion Gap 5, BUN 10, Creatinine 0.78, Estim Creat Clear Calc 38.35, Est GFR (MDRD) Af Amer 92, Est GFR (MDRD) Non-Af 76, BUN/Creatinine Ratio 12.9, Glucose 100, Calcium 8.5 04/04/22 06:38: POC Glucose 95 Meaningful Use Info Meaningful Use Diagnoses (Choose all that apply): None applicable Discharge Plan Admission Admit Date/Time: 03/30/22 20:11 Primary Reason for Your Visit: R Hip pain after fall Attending Provider: Elle Martins Primary Care Provider: Radha Carmichael Consulting Providers: Robert Light ; Ana Jenkins ; Kvng Merritt Discharge Orders/Prescriptions Prescriptions: New oxycodone 5 mg Tablet 5 mg PO Q4H PRN PRN (Reason: Pain Score 4-10) 1 Days Qty: 6 0RF sennosides-docusate sodium [Stool Softener-Stimulant Laxat] 8.6-50 mg Tablet 2 tab PO BID Qty: 0 0RF warfarin [Jantoven] 3 mg Tablet 3 mg PO SuTuThSa@1700 Qty: 30 0RF Continued polyethylene glycol 3350 17 GM packet 17 gm PO QODAY metoprolol succinate 100 MG tablet extended release 24 hr 50 mg PO QHS amlodipine 5 MG tablet 5 mg PO DAILY lisinopril 20 mg tablet 20 mg PO DAILY Label Comments: TAKE 1 TABLET BY MOUTH EVERY DAY allopurinol 100 mg tablet 100 mg PO DAILY Label Comments: TAKE 1 TABLET BY MOUTH EVERY DAY multivitamin Tablet 1 tab PO DAILY warfarin 3 mg tablet 3 mg PO SUTUTHSA escitalopram oxalate 5 mg tablet 5 mg PO DAILY melatonin 5 mg Tablet 7.5 mg PO QHS sennosides-docusate sodium [Stool Softener-Stimulant Laxat] 8.6-50 mg tablet 1 tab PO DAILY gabapentin 300 mg capsule 300 mg PO TID cholecalciferol (vitamin D3) [Vitamin D3] 25 mcg (1,000 unit) Tablet 25 mcg PO DAILY calcium 2 tab PO/SL DAILY iron 1 cap PO/SL DAILY Discontinued warfarin 2 MG tablet 2 mg PO MOWEFR Referrals / Follow Up: Radha Carmichael MD [Primary Care Provider] - Within 1 Month Robert Light MD [Med Staff - Active Staff] - Within 2 Weeks Disposition Disposition (needs filled in before D/C Order can be placed): Care Home Facility Charges/Coding Visit Charges Inpatient E&M: 83301 SNF Disch >30 Min
--- NOTE | 2022-04-04 11:54 | CASEMGMT ---
MEGAN received notification that patient was approved for [facility]. SW notified physician and RN. SW will notify patient. Plan: [facility] under skilled level of care Joy TERRY
[2022-04-04 12:15] LABS: Bedside Glucose 100 mg/dL (74-106)
--- NOTE | 2022-04-04 13:05 | NURSING ---
attempted to call report to TCU but TCU staff stated all RNs are on lunch. Gave extension for them to call back when available.
--- NOTE | 2022-04-04 13:45 | NURSING ---
report called in TCU to DAMION Hernandez
== END 2022-04-04 14:02 | disposition skilled nursing facility (03) | DRG 482 ==
LOC: ED 20:10 → PCU 20:38
PROVIDERS: Anesthesiology; Family Medicine; Orthopaedic Surgery Sports Medicine; Admitting Provider Family Medicine; Emergency Provider Emergency Medicine; PCP Internal Medicine; Visit Provider Internal Medicine
PROC: 0QS604Z Reposition Right Upper Femur with Internal Fixation Device, Open Approach (ICD-10-PCS; principal; 2022-03-31 07:30)
DX: S72.141A Displaced intertrochanteric fracture of right femur, initial encounter for closed fracture (principal); E11.40 Type 2 diabetes mellitus with diabetic neuropathy, unspecified; F03.90 Unspecified dementia, unspecified severity, without behavioral disturbance, psychotic disturbance, mood disturbance, and anxiety; I48.0 Paroxysmal atrial fibrillation; Z79.4 Long term (current) use of insulin; I10 Essential (primary) hypertension; E78.5 Hyperlipidemia, unspecified; R26.2 Difficulty in walking, not elsewhere classified; W19.XXXA Unspecified fall, initial encounter; Z79.2 Long term (current) use of antibiotics; Z79.82 Long term (current) use of aspirin; Z86.73 Personal history of transient ischemic attack (TIA), and cerebral infarction without residual deficits; Z79.01 Long term (current) use of anticoagulants; F32.A Depression, unspecified; R53.81 Other malaise; E66.9 Obesity, unspecified; Z68.21 Body mass index [BMI] 21.0-21.9, adult; Z95.1 Presence of aortocoronary bypass graft
CPT/HCPCS: 36415; 73502; 76000; 80048; 80053; 82962; 83036; 85025; 85610; 86850; 86900; 86901; 87426; 93005; 97110; 97116; 97162; 97166; 97530; 97535; 99251; 99285; C1776; J7030; A4216; G0463; J2405

== ENCOUNTER 2022-04-04 14:10 | Inpatient (IN) | payer MEDICARE, SELFPAY ==
[2022-04-04 16:00] VITALS: BP 133/64; PULSE 63; RESP 16; TEMP 36.3; O2SAT 97
[2022-04-04 16:22] VITALS: BMI 32.7
[2022-04-04] MEDS: oxyCODONE 5 MG Tablet PO ×2 (16:47→18:17)
[2022-04-04] MEDS: Senna/Docusate Sodium 1 Tablet 2 TABLET PO (16:47)
--- NOTE | 2022-04-04 19:13 | HP.PCM_ITS ---
HPI - General General Date of Admission: 04/04/22 Date of Service: 04/04/22 Chief Complaint: Here for rehab. HPI Narrative 03/30/2022 RILEY REYNA, is a 76 Female who presents to [facility] Emergency Department with fall. Fall, pelvic pain. Morphine, Zofran given. X-ray showed right hip fracture. 03/30/2022 Admit to Hospital. Prepare for surgery, hold coumadin. 03/31/2022 Dr. Light performed right hip ORIF ([facility]) long nail. 04/01/2022 Pain improved. 04/02/2022 Little pain, up with PT. Restart coumadin. 04/03/2022 Pain improved. 04/04/2022 Admit to TCU with debility, here for rehabilitation, strengthening, prior to discharge home alone. [facility] Medical History Dementia Diabetes mellitus, type 2 History of CVA (cerebrovascular accident) History of stress test HLD (hyperlipidemia) HTN (hypertension) PAF (paroxysmal atrial fibrillation) Paroxysmal atrial fibrillation Paroxysmal atrial fibrillation with rapid ventricular response Valvular heart disease Home Medications amlodipine 5 mg tablet 5 mg PO DAILY blood pressure 02/15/20 [History Last Taken 03/30/22] metoprolol succinate 100 mg tablet,extended release 24 hr 50 mg PO QHS blood pressure 02/15/20 [History Last Taken 03/29/22] polyethylene glycol 3350 17 gram oral powder packet 17 gm PO QODAY constipation 02/15/20 [History Last Taken 03/29/22] allopurinol 100 mg tablet 100 mg PO DAILY GOUT 07/16/21 [History Last Taken 03/30/22] lisinopril 20 mg tablet 20 mg PO DAILY BLOOD PRESSURE 07/16/21 [History Last Taken 03/30/22] calcium 2 tab PO/SL DAILY SUPPLEMENT 03/30/22 [History Last Taken 03/30/22] cholecalciferol (vitamin D3) 25 mcg (1,000 unit) tablet (Vitamin D3) 25 mcg PO DAILY SUPPLEMENT 03/30/22 [History Last Taken 03/30/22] escitalopram oxalate 5 mg tablet 5 mg PO DAILY DEPRESSION 03/30/22 [History Last Taken 03/29/22] gabapentin 300 mg capsule 300 mg PO TID NERVE PAIN 03/30/22 [History Last Taken 03/30/22] iron 1 cap PO/SL DAILY SUPPLEMENT 03/30/22 [History Last Taken 03/30/22] melatonin 5 mg tablet 7.5 mg PO QHS SLEEP 03/30/22 [History Last Taken 03/29/22] multivitamin 1 tab PO DAILY HEALTH MAINTENANCE 03/30/22 [History Last Taken 03/30/22] sennosides 8.6 mg-docusate sodium 50 mg tablet (Stool Softener-Stimulant Laxative) 2 tab PO BID CONSTIPATION 03/30/22 [History Last Taken 03/30/22] warfarin 3 mg tablet 3 mg PO SUTUTHSA BLOOD THINNER 03/30/22 [History Last Taken 03/29/22] oxycodone 5 mg tablet 5 mg PO Q4H PRN PRN Pain Score 4-10 1 day #6 tabs 04/04/22 [Rx Last Taken Unknown] sennosides 8.6 mg-docusate sodium 50 mg tablet (Stool Softener-Stimulant Laxative) 2 tab PO BID stool softener 04/04/22 [History Last Taken Unknown] warfarin 3 mg tablet (Jantoven) 3 mg PO SuTuThSa@1700 blood thinner 04/04/22 [History Last Taken Unknown] Allergy/AdvReac Type Severity Reaction Status Date / Time Penicillins [PCN] Allergy Hives Verified 03/30/22 16:25 tramadol Allergy Other Verified 03/30/22 16:25 ciprofloxacin [From Cipro] AdvReac PT UNSURE Verified 03/30/22 16:25 OF REACTION donepezil [From Aricept] AdvReac PT UNSURE Verified 03/30/22 16:25 OF REACTION nitrofurantoin AdvReac PT UNSURE Verified 03/30/22 16:25 [From Macrobid] OF REACTION ramelteon AdvReac PT UNSURE Verified 03/30/22 16:25 OF REACTION trazodone AdvReac PT UNSURE Verified 03/30/22 16:25 OF REACTION Family History Mother Heart disease Hypertension Father Heart disease Hypertension Surgical History H/O aortic aneurysm repair H/O microdiscectomy History of aortic valve replacement with bioprosthetic valve History of aortic valve replacement with bioprosthetic valve History of bilateral tubal ligation History of reverse total replacement of right shoulder joint S/P aortic valve replacement with bioprosthetic valve S/P dilation and curettage S/P hysterectomy Social History household members: none Smoking Status: Never smoker alcohol intake: never substance use type: does not use ROS Constitutional Constitutional: Denies chills, fever(s) or weight gain ENT HEENT: Denies headache(s), nasal congestion or nasal discharge Cardiovascular Cardiovascular: Denies chest pain or palpitations Respiratory/Chest Respiratory/Chest: Denies cough, excessive phlegm production or shortness of breath with exertion Gastrointestinal Gastrointestinal: Denies abdominal pain, nausea or vomiting Genitourinary Genitourinary: Denies dysuria Musculoskeletal Musculoskeletal: Reports other Details: Right groin pain. ; Denies joint pain or joint swelling Integumentary Integumentary: Denies rash or wounds Neurologic Neurologic: Denies focal weakness, numbness or tingling Psychiatric Psychiatric: Denies anxiety, auditory hallucinations, depression, homicidal ideation or suicidal ideation Vital Signs Vital Signs Vital Signs: 04/04/22 14:30 04/04/22 16:00 Temperature 97.4 F L Temperature Source Temporal Pulse Rate 63 Pulse Rhythm Irregular Pulse Strength Normal (2+) Respiratory Rate 16 Respiratory Effort Normal Non-Labored Respiratory Depth Normal Respiratory Pattern Normal Blood Pressure 133/64 H Blood Pressure Mean 87 Blood Pressure Source Monitor Blood Pressure Position Semi-Fowlers Blood Pressure Location Left Arm Pulse Ox 97 Oxygen Delivery Method Room Air Room Air Weight Weight: 83.869 kg Body Mass Index (BMI) 32.7 Physical Exam Const alert General Appearance: cooperative HEENT normocephalic Eyes PERRL and EOMs intact bilaterally Neck supple, no JVD and no carotid bruits Resp normal respiratory effort, normal air movement and clear to auscultation bilaterally Cardio regular rate and regular rhythm GI normal to inspection, nondistended, normoactive bowel sounds, non-tender and non-distended Extremity normal capillary refill General Extremity: Negative for edema Skin no rashes or lesions noted General Skin Exam: no breakdown Psych affect normal Appearance: appropriate Assessment & Plan Assessment/Plan (1) Debility: (2) Fall: (3) Closed right hip fracture: (4) Gout: (5) Hypertension: (6) Stroke: (7) Diabetic polyneuropathy: (8) Insomnia: (9) Diabetes mellitus: (10) Atrial fibrillation: (11) Vascular dementia: PLAN: Plan 76 year old female with below past medical history hospitalized for right hip fracture, underwent ORIF 03/31/[address] Light, admitted to TCU with debility, here for rehabilitation, strengthening, prior to discharge home alone. * Debility - PT/OT. * Pain - Tylenol 1000mg q8, Oxycodone 10mg q4h prn pain (1-10). * Bowel - Miralax 17gm daily, senna/colace 2 tablets bid, MOM 30ml daily prn. * Adult immunization - Administer pneumonia vaccine, covid19 vaccine, flu vaccine as appropriate. * DVT prophylaxis - Not necessary, on warfarin. * Gout - Allopurinol 100mg daily. * Hypertension - Metoprolol succinate 50mg qhs, Lisinopril 20mg daily, Amlodipine 5mg daily. * Calcium deficiency - Calcium 1000mg daily. * Depression - Escitalopram 5mg daily, stable chronic intermediate teacher use, GDR not recommended. * Iron deficiency anemia - Ferrous sulfate 325mg daily. * Diabetic polyneuropathy - Gabapentin 300mg tid. * Insomnia - Melatonin 7.5mg qhs. * Nutrition - MVI daily. * Vitamin d deficiency - D3 25mcg daily. * Atrial fibrillation - Metoprolol succinate 50mg qhs, warfarin 3mg daily, follow INR.
[2022-04-04] MEDS: oxyCODONE 5 MG Tablet 10 MG PO (21:14)
[2022-04-04] MEDS: MELATONIN 3 MG TABLET 7.5 MG PO (21:14)
[2022-04-04] MEDS: Gabapentin 300 MG Capsule PO (21:14)
[2022-04-04 21:19] VITALS: BP 138/65; PULSE 68
[2022-04-04] MEDS: Acetaminophen 500 MG Tablet 1000 MG PO (21:19)
[2022-04-04] MEDS: Metoprolol(XL)Succ 50 MG Tablet PO (21:19)
[2022-04-05] MEDS: oxyCODONE 5 MG Tablet 10 MG PO ×4 (02:47→21:16)
[2022-04-05] MEDS: Ferrous Sulfate 325 MG Tablet PO (04:59)
[2022-04-05] MEDS: Gabapentin 300 MG Capsule PO ×3 (04:59→21:17)
[2022-04-05] MEDS: Senna/Docusate Sodium 1 Tablet 2 TABLET PO ×2 (04:59→17:07)
[2022-04-05] MEDS: Lisinopril 20 MG Tablet PO (04:59)
[2022-04-05] MEDS: Cholecalciferol (VIT D3) 25 MCG TABLET (1,000 UNITS) PO (04:59)
[2022-04-05] MEDS: amLODIPine 5 MG Tablet PO (04:59)
[2022-04-05] MEDS: Allopurinol 100 MG Tablet PO (04:59)
[2022-04-05] MEDS: Calcium (Elemental) 500 MG Tablet 1000 MG PO (05:00)
[2022-04-05] MEDS: Acetaminophen 500 MG Tablet 1000 MG PO ×3 (05:00→21:22)
[2022-04-05] MEDS: Multivitamins,Therapeutic Tablet 1 TABLET PO (05:00)
[2022-04-05] MEDS: Escitalopram Oxalate 10 MG Tablet 5 MG PO (05:00)
[2022-04-05] MEDS: Polyethylene Glycol 3350 17 GM PACKET PO (05:01)
[2022-04-05 05:41] LABS: Absolute Lymphocyte Count 1.89 X10^3/uL (0.83-4.51); Absolute Neutrophil Count 3.5 X10^3/uL (2.0-7.7); Basophil# 0.08 X10^3/uL; Basophil% 1.1 % (0-1); Eosinophil# 0.23 X10^3/uL; Eosinophils% 3.2 % (0-5); Hematocrit 33.1 % (37-47); Hemoglobin 10.6 g/dL (12.0-15.0); Lymphocyte # 1.89 X10^3/ul (0.83-4.51); Lymphocyte % 26.7 % (19-41); Mean Corpuscular Hgb 30.4 pg (27.0-32.0); Mean Corpuscular Volume 94.8 fL (81-99); Mean Platelet Vol. 9.4 fl (6.2-12.0); Monocyte# 1.34 X10^3/uL; Monocyte% 18.9 % (0-10); NRBC Flagged by Analyzer 0 % (0-5); Neutrophil # 3.47 X10^3/uL (2.7-7.7); Neutrophil % 49.1 % (47-70); Platelet Count 226 K/mm3 (150-450); RBC Distribution Width CV 12.4 % (11.6-14.6); RBC Distribution Width SD 42.6 fl (35.1-43.9); Red Blood Count 3.49 M/mm3 (4.2-5.4); White Blood Count 7.1 K/mm3 (4.4-11.0)
[2022-04-05 06:06] LABS: Anion Gap 6 (5-15); BUN 13 mg/dL (7-18); BUN/Creat Ratio 14.8 RATIO (10-20); Calcium,Total 8.5 mg/dL (8.5-10.1); Chloride 105 mmol/L (98-107); Creatinine, Serum 0.88 mg/dL (0.55-1.02); EST Glomerular Filtration Rate 66 mL/min (>60); Est Glom Filt Rate - Afr Amer 80 mL/min (>60); Estimated Creatinine Clearance 43.58 ml/min; Glucose 100 mg/dL (74-106); Potassium 3.7 mmol/L (3.5-5.1); Sodium Level 139 mmol/L (136-145)
[2022-04-05 10:00] VITALS: PULSE 62; RESP 18; O2SAT 97
--- NOTE | 2022-04-05 12:00 | PCM.PN.DRR ---
TCU RX Drug Regimen Review Subjective: TCU Admission. 76 YOF presented to the ER with a fall. Hospitalized for right hip fracture, underwent ORIF 03/31/[address] Light. Admitted to TCU with debility for strengthening and rehabilitation. Objective: Allergies Penicillins [PCN] Allergy (Verified 03/30/22 16:25) Hives tramadol Allergy (Verified 03/30/22 16:25) Other ciprofloxacin [From Cipro] Adverse Reaction (Verified 03/30/22 16:25) PT UNSURE OF REACTION donepezil [From Aricept] Adverse Reaction (Verified 03/30/22 16:25) PT UNSURE OF REACTION nitrofurantoin [From Macrobid] Adverse Reaction (Verified 03/30/22 16:25) PT UNSURE OF REACTION ramelteon Adverse Reaction (Verified 03/30/22 16:25) PT UNSURE OF REACTION RACING HEART RATE trazodone Adverse Reaction (Verified 03/30/22 16:25) PT UNSURE OF REACTION Current Medications Generic Name Dose Route Start Last Admin Trade Name Freq PRN Reason Stop Dose Admin Acetaminophen 1,000 mg 04/04/22 22:00 04/05/22 05:00 Acetaminophen 500 Mg Tablet PO 1,000 mg Q8 GIOVANI Administration Allopurinol 100 mg 04/05/22 06:00 04/05/22 04:59 Allopurinol 100 Mg Tablet PO 100 mg DAILY GIOVANI Administration Amlodipine Besylate 5 mg 04/05/22 06:00 04/05/22 04:59 Amlodipine 5 Mg Tablet PO 5 mg DAILY GIOVANI Administration Calcium Carbonate 1,000 mg 04/05/22 06:00 04/05/22 05:00 Calcium (Elemental) 500 Mg Tablet PO 1,000 mg DAILY GIOVANI Administration Cholecalciferol 25 mcg 04/05/22 06:00 04/05/22 04:59 Cholecalciferol (Vit D3) 25 Mcg Tablet (1,000 Units) PO 25 mcg DAILY GIOVANI Administration Escitalopram Oxalate 5 mg 04/05/22 06:00 04/05/22 05:00 Escitalopram Oxalate 10 Mg Tablet PO 5 mg DAILY GIOVANI Administration Ferrous Sulfate 325 mg 04/05/22 06:00 04/05/22 04:59 Ferrous Sulfate 325 Mg Tablet PO 325 mg DAILY GIOVANI Administration Gabapentin 300 mg 04/04/22 22:00 04/05/22 04:59 Gabapentin 300 Mg Capsule PO 300 mg TID GIOVANI Administration Lisinopril 20 mg 04/05/22 06:00 04/05/22 04:59 Lisinopril 20 Mg Tablet PO 20 mg DAILY GIOVANI Administration Magnesium Hydroxide 30 ml 04/04/22 19:25 Magnesium Hydroxide 30 Ml Udc PO DAILY PRN Constipation Melatonin 7.5 mg 04/04/22 22:00 04/04/22 21:14 Melatonin 3 Mg Tablet PO 7.5 mg QHS GIOVANI Administration Metoprolol Succinate 50 mg 04/04/22 22:00 04/04/22 21:19 Metoprolol(Xl)Succ 50 Mg Tablet PO 50 mg QHS [facility] Administration Multivitamins 1 tablet 04/05/22 06:00 04/05/22 05:00 Multivitamins,Therapeutic Tablet PO 1 tablet DAILY [facility] Administration Oxycodone HCl 10 mg 04/04/22 17:21 04/05/22 09:26 Oxycodone 5 Mg Tablet PO 10 mg Q4H PRN PRN Administration Pain Score 1-10 Polyethylene Glycol 17 gm 04/05/22 06:00 04/05/22 05:01 Polyethylene Glycol 3350 17 Gm Packet PO 17 gm DAILY [facility] Administration Senna/Docusate Sodium 2 tablet 04/04/22 18:00 04/05/22 04:59 Senna/Docusate Sodium 1 Tablet PO 2 tablet BID [facility] Administration Tuberculin PPD 0.1 ml 04/12/22 10:00 Tuberculin,Purif.Prot.Deriv. 50 Tu/Ml Vial ID 04/12/22 10:01 X1 ONE Warfarin Sodium 3 mg 04/05/22 17:00 Warfarin 3 Mg Tablet PO SuTuThSa@1700 [facility] Problem List (Last Reviewed 04/04/22 @ 19:[address] Amauri Benoit MD) Atrial fibrillation (Acute) Diabetes mellitus (Acute) Insomnia (Acute) Diabetic polyneuropathy (Acute) Hypertension (Chronic) Gout (Acute) Closed right hip fracture (Acute) Debility (Acute) Fall (Acute) Vascular dementia (Acute) Stroke (Acute) Vital Signs Temp Pulse Resp BP Pulse Ox O2 Del Method 97.4 F L 62 18 138/65 H 97 Room Air 04/04/22 16:00 04/05/22 10:00 04/05/22 10:00 04/04/22 21:19 04/05/22 10:00 04/05/22 10:00 Oxygen Delivery Method Room Air Weight: 83.869 kg Body Mass Index (BMI) 32.7 Sodium 139 mmol/L (136-145) 04/05/22 05:14 Potassium 3.7 mmol/L (3.5-5.1) 04/05/22 05:14 Chloride 105 mmol/L (98-107) 04/05/22 05:14 Carbon Dioxide 28.0 mmol/L (21.0-32.0) 04/05/22 05:14 Anion Gap 6 (5-15) 04/05/22 05:14 BUN 13 mg/dL (7-18) 04/05/22 05:14 Creatinine 0.88 mg/dL (0.55-1.02) 04/05/22 05:14 Est GFR (MDRD) Af Amer 80 mL/min (>60) 04/05/22 05:14 Est GFR (MDRD) Non-Af 66 mL/min (>60) 04/05/22 05:14 BUN/Creatinine Ratio 14.8 RATIO (10-20) 04/05/22 05:14 Glucose 100 mg/dL (74-106) 04/05/22 05:14 Assessment/Plan: 1. Pain: acetaminophen 1000mg PO Q8 and oxycodone 10mg PO Q4H PRN pain 1-10. Resident has had 5 doses of oxycodone for pain 8-9 in the hip. Please continue to?monitor?for increased pain, PRN use, bowel movements?(last 04/03/2022 x2), and respiratory depression.? 2. Bowel:?Miralax?17 gm PO daily, senna/docusate 2 tablets PO BID, and MOM 30 mL PO daily PRN constipation. Please continue to?monitor?for constipation and PRN usage. Resident has not used any doses of MOM.? 3. Atrial fibrillation/hypertension: Metoprolol succinate?50 mg PO?QHS daily, lisinopril?20 mg?PO daily, amlodipine?5 mg?PO daily,?and warfarin 3 mg PO SuTuThSa. Please continue to?monitor?BP (last 138/65 mmHg), HR (last 68 bpm), INR (last 1.3), hemoglobin (10.6 g/dL 04/05/2022),?potassium (last 3.7 mmol/L), renal function, swelling, cough, angioedema,?and S/S of a blood clot/bleed.?Based on INR scheduled for 04/06, please consider changing warfarin to 3mg PO daily. Per discharge instructions, should be given daily rather than 4x/week. Thanks. 4. Gout: allopurinol?100mg?PO?daily.?Please continue to?monitor S/S of a gout flare and renal function. 5. Calcium deficiency/vitamin D deficiency/iron deficiency anemia: calcium carbonate?1000 mg?PO daily, ferrous sulfate?325 mg?PO daily, and cholecalciferol 25?mcg PO daily.?Please continue to?monitor?calcium (last?8.5 mg/dL), constipation, dark stools, hemoglobin (10.6 g/dL), and vitamin D (last 12/16/21).?? 8. Insomnia: melatonin 7.5 mg PO QHS daily.?Please continue to monitor for excessive drowsiness. 9. Nutrition: multivitamin 1T PO daily. Please continue to monitor. Assessment/Plan for indications treated with psychotropic medications: 1. Depression:?escitalopram?5mg?PO?daily.?Refer to provider note?regarding?GDR. Please continue to?monitor?weight (last 83.869 kg), signs of suicidal ideation (black box warning) and falls/fractures (BEERs list medication). 2. Diabetic polyneuropathy: gabapentin?300 mg?PO TID.?Please continue to?monitor?for pain control, confusion, renal function, and S/S of worsening neuropathy. Please consider changing the dose to 400mg BID based on max dose recommendation of 400-1400mg per day in 2 divided doses for CrCl of 53mL/min. This medication is on the BEERs list for falls, which resident was admitted for. Thanks. Medical chart and medication regimen reviewed. The following medication irregularities or issues were identified: *1.Based on INR scheduled for 04/06, please consider changing warfarin to 3mg PO daily. Per discharge instructions, should be given daily rather than 4x/week. Thanks. *2. Gabapentin?300 mg?PO TID. Please consider changing the dose to 400mg BID based on max dose recommendation of 400-1400mg per day in 2 divided doses for CrCl of 53mL/min to reduce the risk of falls. This medication is on the BEERs list for falls, which resident was admitted for. Thanks. Date of Note:: 04/05/22
[2022-04-05] MEDS: Tuberculin,Purif.prot.deriv. 50 TU/ML Vial 0.1 ML ID (13:12)
[2022-04-05 14:48] VITALS: BP 124/63; PULSE 60; RESP 16; TEMP 36.6; O2SAT 95
--- NOTE | 2022-04-05 16:15 | CASEMGMT ---
Addendum entered by Cristal Temple 04/05/22 16:19: Addendum to conversation: pt expressed interest in a medical alert. SW provided resources. Original Note: Social Work Met with patient to complete initial assessment. Pt known to this worker from previous stay. Updated assessment and contacts. Pt stated she is estranged from her two daughters now. Offered to complete new HCPOA. Pt agreed but needs to talk to stepdaughter first. SW to complete, if pt wishes. Confirmed full code and no changes to MOLST form. Pts goal is to return home to apartment alone. SW to continue to follow. Cristal Temple ,PETROGRAPHY TEACHER EMERGENCY NURSE
[2022-04-05 21:21] VITALS: BP 135/54; PULSE 62
[2022-04-05] MEDS: Metoprolol(XL)Succ 50 MG Tablet PO (21:21)
[2022-04-05] MEDS: MELATONIN 3 MG TABLET 7.5 MG PO (21:21)
[2022-04-06 05:00] VITALS: BP 132/58; PULSE 54; RESP 16; O2SAT 95
[2022-04-06] MEDS: Polyethylene Glycol 3350 17 GM PACKET PO (05:25)
[2022-04-06] MEDS: Escitalopram Oxalate 10 MG Tablet 5 MG PO (05:25)
[2022-04-06] MEDS: Ferrous Sulfate 325 MG Tablet PO (05:25)
[2022-04-06] MEDS: amLODIPine 5 MG Tablet PO (05:26)
[2022-04-06] MEDS: Lisinopril 20 MG Tablet PO (05:26)
[2022-04-06] MEDS: Cholecalciferol (VIT D3) 25 MCG TABLET (1,000 UNITS) PO (05:26)
[2022-04-06] MEDS: Multivitamins,Therapeutic Tablet 1 TABLET PO (05:26)
[2022-04-06] MEDS: Acetaminophen 500 MG Tablet 1000 MG PO ×3 (05:26→21:45)
[2022-04-06] MEDS: Senna/Docusate Sodium 1 Tablet 2 TABLET PO ×2 (05:26→17:43)
[2022-04-06] MEDS: Allopurinol 100 MG Tablet PO (05:26)
[2022-04-06] MEDS: Calcium (Elemental) 500 MG Tablet 1000 MG PO (05:27)
[2022-04-06] MEDS: Gabapentin 300 MG Capsule PO ×3 (05:29→21:46)
[2022-04-06] MEDS: oxyCODONE 5 MG Tablet 10 MG PO ×5 (05:37→21:54)
[2022-04-06 05:50] LABS: International Normalized Ratio 1.4; Prothrombin Time (Protime)PT. 16.9 SECONDS (11.7-14.9)
[2022-04-06 16:00] VITALS: BP 132/54; PULSE 62; RESP 14; TEMP 36.8; O2SAT 95
[2022-04-06 21:30] VITALS: PULSE 61; RESP 16; O2SAT 97
[2022-04-06] MEDS: MELATONIN 3 MG TABLET 7.5 MG PO (21:45)
[2022-04-06 21:47] VITALS: BP 129/56; PULSE 61
[2022-04-06] MEDS: Metoprolol(XL)Succ 50 MG Tablet PO (21:47)
[2022-04-07 05:00] VITALS: BP 142/55; PULSE 59; RESP 16
[2022-04-07] MEDS: Ferrous Sulfate 325 MG Tablet PO (05:00)
[2022-04-07] MEDS: Polyethylene Glycol 3350 17 GM PACKET PO (05:00)
[2022-04-07] MEDS: Escitalopram Oxalate 10 MG Tablet 5 MG PO (05:00)
[2022-04-07] MEDS: Cholecalciferol (VIT D3) 25 MCG TABLET (1,000 UNITS) PO (05:01)
[2022-04-07] MEDS: Calcium (Elemental) 500 MG Tablet 1000 MG PO (05:01)
[2022-04-07] MEDS: Senna/Docusate Sodium 1 Tablet 2 TABLET PO ×2 (05:01→18:10)
[2022-04-07] MEDS: amLODIPine 5 MG Tablet PO (05:01)
[2022-04-07] MEDS: Allopurinol 100 MG Tablet PO (05:01)
[2022-04-07] MEDS: Acetaminophen 500 MG Tablet 1000 MG PO ×3 (05:01→22:10)
[2022-04-07] MEDS: Multivitamins,Therapeutic Tablet 1 TABLET PO (05:01)
[2022-04-07] MEDS: Lisinopril 20 MG Tablet PO (05:01)
[2022-04-07] MEDS: oxyCODONE 5 MG Tablet 10 MG PO ×4 (05:02→22:11)
[2022-04-07] MEDS: Gabapentin 300 MG Capsule PO ×3 (05:02→22:10)
[2022-04-07 05:13] LABS: International Normalized Ratio 1.5
--- NOTE | 2022-04-07 10:10 | NURSING ---
Called Dr. Light's office and spoke with the drug department worker. She sent Dr. Light a message and awaiting for him to call back with orders for dressing removal and when a follow up needs scheduled.
[2022-04-07 15:12] VITALS: BP 150/51; PULSE 80; RESP 16; TEMP 36.7; O2SAT 97
--- NOTE | 2022-04-07 16:18 | NURSING ---
Dr. Light's office called and spoke with Alana KOWALSKI and pt is to follow up on 04/25/22 @1000. Okay to remove dressing to Surgical incision and remove sutures on 04/14/22 if well approximated and healing. Once surgical dressing is removed cleanse with soap and water and apply DSD. Will update pt on appt.
[2022-04-07 22:00] VITALS: PULSE 68; RESP 16; O2SAT 94
[2022-04-07 22:10] VITALS: BP 137/67; PULSE 68
[2022-04-07] MEDS: Metoprolol(XL)Succ 50 MG Tablet PO (22:10)
[2022-04-07] MEDS: MELATONIN 3 MG TABLET 7.5 MG PO (22:10)
[2022-04-08 06:02] LABS: International Normalized Ratio 1.7; Prothrombin Time (Protime)PT. 19.4 SECONDS (11.7-14.9)
[2022-04-08] MEDS: oxyCODONE 5 MG Tablet 10 MG PO ×5 (06:19→22:48)
[2022-04-08] MEDS: Gabapentin 300 MG Capsule PO ×3 (06:19→22:20)
[2022-04-08] MEDS: Acetaminophen 500 MG Tablet 1000 MG PO ×3 (06:20→22:20)
[2022-04-08] MEDS: Calcium (Elemental) 500 MG Tablet 1000 MG PO (06:20)
[2022-04-08] MEDS: Ferrous Sulfate 325 MG Tablet PO (06:20)
[2022-04-08] MEDS: Multivitamins,Therapeutic Tablet 1 TABLET PO (06:20)
[2022-04-08] MEDS: Senna/Docusate Sodium 1 Tablet 2 TABLET PO ×2 (06:20→17:34)
[2022-04-08] MEDS: Polyethylene Glycol 3350 17 GM PACKET PO (06:20)
[2022-04-08] MEDS: Lisinopril 20 MG Tablet PO (06:21)
[2022-04-08] MEDS: Escitalopram Oxalate 10 MG Tablet 5 MG PO (06:21)
[2022-04-08] MEDS: amLODIPine 5 MG Tablet PO (06:21)
[2022-04-08] MEDS: Cholecalciferol (VIT D3) 25 MCG TABLET (1,000 UNITS) PO (06:21)
[2022-04-08] MEDS: Allopurinol 100 MG Tablet PO (06:21)
--- NOTE | 2022-04-08 11:22 | CASEMGMT ---
Social Work BIMS () and PHQ-9 () completed for MDS assessment. Answered pt's question about insurance coverage for TCU and HHC. NRD 04/12. TERRENCE CaalW
[2022-04-08 14:14] VITALS: BP 133/56; PULSE 82; RESP 14; TEMP 36.9; O2SAT 92
[2022-04-08] MEDS: MELATONIN 3 MG TABLET 7.5 MG PO (22:19)
[2022-04-08 22:20] VITALS: BP 124/54; PULSE 64
[2022-04-08] MEDS: Metoprolol(XL)Succ 50 MG Tablet PO (22:20)
[2022-04-09] MEDS: Gabapentin 300 MG Capsule PO ×3 (06:02→19:44)
[2022-04-09] MEDS: Polyethylene Glycol 3350 17 GM PACKET PO (06:25)
[2022-04-09] MEDS: Acetaminophen 500 MG Tablet 1000 MG PO ×3 (06:27→19:45)
[2022-04-09] MEDS: Calcium (Elemental) 500 MG Tablet 1000 MG PO (06:27)
[2022-04-09] MEDS: amLODIPine 5 MG Tablet PO (06:27)
[2022-04-09] MEDS: Escitalopram Oxalate 10 MG Tablet 5 MG PO (06:27)
[2022-04-09] MEDS: Senna/Docusate Sodium 1 Tablet 2 TABLET PO ×2 (06:27→17:09)
[2022-04-09] MEDS: oxyCODONE 5 MG Tablet 10 MG PO ×3 (06:28→19:53)
[2022-04-09] MEDS: Multivitamins,Therapeutic Tablet 1 TABLET PO (06:28)
[2022-04-09] MEDS: Lisinopril 20 MG Tablet PO (06:28)
[2022-04-09] MEDS: Cholecalciferol (VIT D3) 25 MCG TABLET (1,000 UNITS) PO (06:28)
[2022-04-09] MEDS: Allopurinol 100 MG Tablet PO (06:28)
[2022-04-09] MEDS: Ferrous Sulfate 325 MG Tablet PO (06:28)
[2022-04-09 08:33] LABS: International Normalized Ratio 1.9; Prothrombin Time (Protime)PT. 21.5 SECONDS (11.7-14.9)
[2022-04-09 14:40] VITALS: BP 118/50; PULSE 68; RESP 16; TEMP 36.2; O2SAT 95
[2022-04-09] MEDS: MELATONIN 3 MG TABLET 7.5 MG PO (19:44)
[2022-04-09 19:46] VITALS: BP 110/58; PULSE 64
[2022-04-09] MEDS: Metoprolol(XL)Succ 50 MG Tablet PO (19:46)
[2022-04-09 21:00] VITALS: PULSE 64; RESP 16; O2SAT 95
[2022-04-10] MEDS: Polyethylene Glycol 3350 17 GM PACKET PO (05:04)
[2022-04-10] MEDS: Gabapentin 300 MG Capsule PO ×3 (05:04→20:36)
[2022-04-10] MEDS: Multivitamins,Therapeutic Tablet 1 TABLET PO (05:05)
[2022-04-10] MEDS: Calcium (Elemental) 500 MG Tablet 1000 MG PO (05:05)
[2022-04-10] MEDS: amLODIPine 5 MG Tablet PO (05:05)
[2022-04-10] MEDS: Acetaminophen 500 MG Tablet 1000 MG PO ×3 (05:05→20:38)
[2022-04-10] MEDS: Ferrous Sulfate 325 MG Tablet PO (05:05)
[2022-04-10] MEDS: Cholecalciferol (VIT D3) 25 MCG TABLET (1,000 UNITS) PO ×2 (05:06→05:07)
[2022-04-10] MEDS: Escitalopram Oxalate 10 MG Tablet 5 MG PO (05:06)
[2022-04-10] MEDS: Lisinopril 20 MG Tablet PO (05:07)
[2022-04-10] MEDS: Senna/Docusate Sodium 1 Tablet 2 TABLET PO ×2 (05:07→16:01)
[2022-04-10] MEDS: Allopurinol 100 MG Tablet PO (05:08)
[2022-04-10] MEDS: oxyCODONE 5 MG Tablet 10 MG PO ×4 (05:13→20:39)
[2022-04-10 08:01] LABS: International Normalized Ratio 2.5; Prothrombin Time (Protime)PT. 26.3 SECONDS (11.7-14.9)
[2022-04-10 09:05] VITALS: RESP 16
[2022-04-10 14:43] VITALS: BP 120/54; PULSE 72; RESP 18; TEMP 36.1; O2SAT 95
[2022-04-10] MEDS: MELATONIN 3 MG TABLET 7.5 MG PO (20:36)
[2022-04-10 20:38] VITALS: BP 132/60; PULSE 60
[2022-04-10] MEDS: Metoprolol(XL)Succ 50 MG Tablet PO (20:38)
[2022-04-11] MEDS: oxyCODONE 5 MG Tablet 10 MG PO ×4 (01:42→19:05)
[2022-04-11] MEDS: Multivitamins,Therapeutic Tablet 1 TABLET PO (04:56)
[2022-04-11] MEDS: Gabapentin 300 MG Capsule PO ×3 (04:56→21:21)
[2022-04-11] MEDS: Polyethylene Glycol 3350 17 GM PACKET PO (04:56)
[2022-04-11] MEDS: Lisinopril 20 MG Tablet PO (04:56)
[2022-04-11] MEDS: Allopurinol 100 MG Tablet PO (04:56)
[2022-04-11] MEDS: Escitalopram Oxalate 10 MG Tablet 5 MG PO (04:56)
[2022-04-11] MEDS: Ferrous Sulfate 325 MG Tablet PO (04:56)
[2022-04-11] MEDS: Calcium (Elemental) 500 MG Tablet 1000 MG PO (04:57)
[2022-04-11] MEDS: Cholecalciferol (VIT D3) 25 MCG TABLET (1,000 UNITS) PO (04:57)
[2022-04-11] MEDS: Senna/Docusate Sodium 1 Tablet 2 TABLET PO ×2 (04:57→17:11)
[2022-04-11] MEDS: Acetaminophen 500 MG Tablet 1000 MG PO ×3 (04:57→21:22)
[2022-04-11] MEDS: amLODIPine 5 MG Tablet PO (04:58)
[2022-04-11 06:12] LABS: International Normalized Ratio 2.5; Prothrombin Time (Protime)PT. 26.9 SECONDS (11.7-14.9)
--- NOTE | 2022-04-11 09:46 | NURSING ---
Supervisor [employer] Note; MDS Complete
[2022-04-11 14:16] VITALS: BP 116/59; PULSE 61; RESP 16; TEMP 36.3; O2SAT 96
[2022-04-11] MEDS: MELATONIN 3 MG TABLET 7.5 MG PO (21:25)
[2022-04-11 21:26] VITALS: BP 135/58; PULSE 62
[2022-04-11] MEDS: Metoprolol(XL)Succ 50 MG Tablet PO (21:26)
[2022-04-11 22:44] VITALS: PULSE 68; RESP 14; O2SAT 98
[2022-04-12] MEDS: oxyCODONE 5 MG Tablet 10 MG PO ×4 (03:13→21:18)
--- NOTE | 2022-04-12 05:37 | NURSING ---
Pharmacist contacted, notified of need for Neurontin to be replenished in pyxis for AM dose. Per pharmacist (Brandon) Neurontin will be replenished in pyxis as soon as possible
[2022-04-12 05:55] LABS: Absolute Lymphocyte Count 1.81 X10^3/uL (0.83-4.51); Absolute Neutrophil Count 3.6 X10^3/uL (2.0-7.7); Basophil# 0.09 X10^3/uL; Basophil% 1.4 % (0-1); Eosinophil# 0.21 X10^3/uL; Eosinophils% 3.2 % (0-5); Hematocrit 35.3 % (37-47); Hemoglobin 11.3 g/dL (12.0-15.0); Lymphocyte # 1.81 X10^3/ul (0.83-4.51); Lymphocyte % 27.7 % (19-41); Mean Corpuscular Hgb 30.4 pg (27.0-32.0); Mean Corpuscular Volume 94.9 fL (81-99); Mean Platelet Vol. 8.8 fl (6.2-12.0); Monocyte# 0.82 X10^3/uL; Monocyte% 12.5 % (0-10); NRBC Flagged by Analyzer 0 % (0-5); Neutrophil # 3.55 X10^3/uL (2.7-7.7); Neutrophil % 54.3 % (47-70); Platelet Count 338 K/mm3 (150-450); RBC Distribution Width CV 12.8 % (11.6-14.6); RBC Distribution Width SD 44.4 fl (35.1-43.9); Red Blood Count 3.72 M/mm3 (4.2-5.4); White Blood Count 6.5 K/mm3 (4.4-11.0)
[2022-04-12] MEDS: amLODIPine 5 MG Tablet PO (06:02)
[2022-04-12] MEDS: Polyethylene Glycol 3350 17 GM PACKET PO (06:02)
[2022-04-12] MEDS: Gabapentin 300 MG Capsule PO ×3 (06:02→21:14)
[2022-04-12] MEDS: Escitalopram Oxalate 10 MG Tablet 5 MG PO (06:02)
[2022-04-12] MEDS: Senna/Docusate Sodium 1 Tablet 2 TABLET PO ×2 (06:04→17:11)
[2022-04-12] MEDS: Acetaminophen 500 MG Tablet 1000 MG PO ×3 (06:04→21:20)
[2022-04-12] MEDS: Lisinopril 20 MG Tablet PO (06:04)
[2022-04-12] MEDS: Cholecalciferol (VIT D3) 25 MCG TABLET (1,000 UNITS) PO (06:10)
[2022-04-12 06:20] VITALS: BP 135/79; PULSE 60; RESP 16
[2022-04-12 06:20] LABS: Anion Gap 3 (5-15); BUN 16 mg/dL (7-18); BUN/Creat Ratio 15.8 RATIO (10-20); Calcium,Total 9.5 mg/dL (8.5-10.1); Chloride 107 mmol/L (98-107); Creatinine, Serum 1.01 mg/dL (0.55-1.02); EST Glomerular Filtration Rate 56 mL/min (>60); Est Glom Filt Rate - Afr Amer 68 mL/min (>60); Estimated Creatinine Clearance 37.97 ml/min; Glucose 122 mg/dL (74-106); Potassium 4.1 mmol/L (3.5-5.1); Sodium Level 138 mmol/L (136-145)
[2022-04-12] MEDS: Calcium (Elemental) 500 MG Tablet 1000 MG PO (07:33)
[2022-04-12] MEDS: Ferrous Sulfate 325 MG Tablet PO (07:33)
[2022-04-12] MEDS: Allopurinol 100 MG Tablet PO (07:33)
[2022-04-12] MEDS: Multivitamins,Therapeutic Tablet 1 TABLET PO (07:33)
[2022-04-12] MEDS: Baclofen 10 MG Tablet PO (08:23)
[2022-04-12 09:21] VITALS: PULSE 67; RESP 18; O2SAT 96
--- NOTE | 2022-04-12 11:27 | MDS.RN ---
Information for the mds was obtained from review of the clinical record, interview of resident, staff, and direct observation of resident's care.
[2022-04-12 14:47] VITALS: BP 132/69; PULSE 61; RESP 16; TEMP 36.1; O2SAT 94
[2022-04-12 21:19] VITALS: BP 131/55; PULSE 60
[2022-04-12] MEDS: Metoprolol(XL)Succ 50 MG Tablet PO (21:19)
[2022-04-12] MEDS: MELATONIN 3 MG TABLET 7.5 MG PO (21:20)
[2022-04-13] MEDS: Baclofen 10 MG Tablet PO (04:56)
[2022-04-13] MEDS: Senna/Docusate Sodium 1 Tablet 2 TABLET PO ×2 (05:03→18:41)
[2022-04-13] MEDS: Gabapentin 300 MG Capsule PO ×3 (05:03→21:21)
[2022-04-13] MEDS: Polyethylene Glycol 3350 17 GM PACKET PO (05:03)
[2022-04-13] MEDS: amLODIPine 5 MG Tablet PO (05:03)
[2022-04-13] MEDS: Escitalopram Oxalate 10 MG Tablet 5 MG PO (05:03)
[2022-04-13] MEDS: Acetaminophen 500 MG Tablet 1000 MG PO ×3 (05:03→21:19)
[2022-04-13] MEDS: Lisinopril 20 MG Tablet PO (05:04)
[2022-04-13] MEDS: Cholecalciferol (VIT D3) 25 MCG TABLET (1,000 UNITS) PO (05:04)
[2022-04-13 05:05] VITALS: BP 123/62; PULSE 60; RESP 16
[2022-04-13] MEDS: Multivitamins,Therapeutic Tablet 1 TABLET PO (07:48)
[2022-04-13] MEDS: Allopurinol 100 MG Tablet PO (07:49)
[2022-04-13] MEDS: Ferrous Sulfate 325 MG Tablet PO (07:49)
[2022-04-13] MEDS: Calcium (Elemental) 500 MG Tablet 1000 MG PO (07:50)
[2022-04-13] MEDS: oxyCODONE 5 MG Tablet 10 MG PO ×3 (08:10→23:26)
--- NOTE | 2022-04-13 10:40 | CASEMGMT ---
Social Work Plan of care meeting held. Patient present as well as patient sister, Debra. Debra present via speaker phone. This community mental health social worker communicating that insurance update status is still pending outcome from update sent in on 04/12/2022. This community mental health social worker communicating that no guarantee of continued stay approval and that a three day notice will be issues when continued stay is denied. Patient plans to return to home alone. Team is not recommending for patient to return to home at this time due to patient level of care needs. This community mental health social worker inquired about a second plan for patient in the event that continue stay is denied. Patient states I don't want to go to a group home. This community mental health social worker explaining that for patient safety recommendation would be group home if continued stay is denied, patient voiced understanding and agreeable to this socia worker following up with patient later today to discuss further discharge planning. Patient reports to have limited support in the community. Patient to continue with further care and treatment on the Transitional Care Unit. Social Work to continue to follow. Sharon OCAMPO, ZONIA
[2022-04-13 13:35] VITALS: BP 121/58; PULSE 61; RESP 16; TEMP 37.4; O2SAT 95
--- NOTE | 2022-04-13 14:18 | CASEMGMT ---
Social Work Continued stay denied by insurance with last cover day to be 04/15/2022 and patient to discharge or financial responsibility to begin on 04/16/2022. This social media assistant met with patient in room. This social media assistant communicated above information to patient. Patient voiced understanding. This social media assistant communicating that team is not recommending for patient to discharge to home alone as patient still needs assistance for ADL's and mobility. Patient aware of recommendation and states to understand risk of returning to home alone. Patient states what are my options. This social media assistant going over care home options with patient. Patient states I don't want to go to a care home. Patient reports to have had a negative experience at a care home in the past. Patient inquired about continued stay on the Transitional care Unit. This social media assistant communicating that there is an option for patient to pay private pay on the Transitional Care Unit for 21 days with total cost to patient being $13,860 and payment needs to be in full by this Monday. Patient voiced understanding and plans to continue with stay on the Transitional Care Unit under private pay with hope/goal that patient will be able to discharge to the community after my pain gets better. Therapy agrees that main limitation for patient to return to prior level, Paolo is patient pain level. Patient plans to have sister come and pick patient up this Monday (04/15/2022) to bring patient to the bank to move funds around to be able to make check out for the $13,860. Patient signed Notice of Medicare Non-Coverage (NOMNC). This social media assistant educating patient on patient option to initiate an appeal. Patient plans to initiate an appeal by end of today. This social media assistant inquired as to which support person patient would like this social media assistant to call in regards to discharge plan. Patient request for this social media assistant to contact patient sister, Debra. Active support and listening provide. Telephone call to Debra. This social media assistant updated Debra on above information. Debra confirms to be able to come and pick patient up on Monday to assist with needed banking. PLAN: Patient plans to private pay starting 04/16/2022 pending appeal (patient needs to initiate appeal yet and is aware of this). Sharon OCAMPO, ZONIA
--- NOTE | 2022-04-13 17:20 | CASEMGMT ---
Social Work Pt filed appeal. . Request received and sent to medical records to process. Cristal Temple, TERRENCE SUPERVISOR POWDERED SUGAR
[2022-04-13] MEDS: MELATONIN 3 MG TABLET 7.5 MG PO (21:20)
[2022-04-13 21:21] VITALS: BP 128/76; PULSE 66
[2022-04-13] MEDS: Metoprolol(XL)Succ 50 MG Tablet PO (21:21)
[2022-04-14] MEDS: Polyethylene Glycol 3350 17 GM PACKET PO (05:37)
[2022-04-14] MEDS: Gabapentin 300 MG Capsule PO ×3 (05:38→21:13)
[2022-04-14] MEDS: Cholecalciferol (VIT D3) 25 MCG TABLET (1,000 UNITS) PO (05:38)
[2022-04-14] MEDS: Senna/Docusate Sodium 1 Tablet 2 TABLET PO ×2 (05:38→16:54)
[2022-04-14] MEDS: Lisinopril 20 MG Tablet PO (05:39)
[2022-04-14] MEDS: amLODIPine 5 MG Tablet PO (05:39)
[2022-04-14] MEDS: Escitalopram Oxalate 10 MG Tablet 5 MG PO (05:39)
[2022-04-14] MEDS: Acetaminophen 500 MG Tablet 1000 MG PO ×3 (05:40→21:14)
[2022-04-14] MEDS: oxyCODONE 5 MG Tablet 10 MG PO ×2 (05:58→16:54)
[2022-04-14 06:49] LABS: International Normalized Ratio 2.9; Prothrombin Time (Protime)PT. 30.4 SECONDS (11.7-14.9)
[2022-04-14] MEDS: Multivitamins,Therapeutic Tablet 1 TABLET PO (08:19)
[2022-04-14] MEDS: Allopurinol 100 MG Tablet PO (08:19)
[2022-04-14] MEDS: Calcium (Elemental) 500 MG Tablet 1000 MG PO (08:19)
[2022-04-14] MEDS: Ferrous Sulfate 325 MG Tablet PO (08:24)
[2022-04-14 09:53] VITALS: O2SAT 96
[2022-04-14 14:39] VITALS: BP 121/60; PULSE 64; RESP 16; TEMP 36.2; O2SAT 95
[2022-04-14 21:11] VITALS: BP 135/55; PULSE 59
[2022-04-14] MEDS: MELATONIN 3 MG TABLET 7.5 MG PO (21:14)
[2022-04-14 21:18] VITALS: PULSE 59
[2022-04-15 06:40] VITALS: BP 156/60; PULSE 62
[2022-04-15] MEDS: Polyethylene Glycol 3350 17 GM PACKET PO (06:41)
[2022-04-15] MEDS: Senna/Docusate Sodium 1 Tablet 2 TABLET PO ×2 (06:41→16:53)
[2022-04-15] MEDS: Escitalopram Oxalate 10 MG Tablet 5 MG PO (06:41)
[2022-04-15] MEDS: Lisinopril 20 MG Tablet PO (06:41)
[2022-04-15] MEDS: Acetaminophen 500 MG Tablet 1000 MG PO ×3 (06:41→21:42)
[2022-04-15] MEDS: amLODIPine 5 MG Tablet PO (06:41)
[2022-04-15] MEDS: Cholecalciferol (VIT D3) 25 MCG TABLET (1,000 UNITS) PO (06:41)
[2022-04-15] MEDS: oxyCODONE 5 MG Tablet 10 MG PO ×3 (06:42→21:43)
[2022-04-15] MEDS: Gabapentin 300 MG Capsule PO ×3 (06:42→21:40)
--- NOTE | 2022-04-15 08:30 | CASEMGMT ---
Addendum entered by Cristal Temple 04/15/22 11:14: Received call from [employer] that pt lost appeal. SW updated pt. Pt aware and confirmed private pay. Will continue to follow. Original Note: Social Work Pt requested to speak with this worker. SW presented to room. Answered patient's questions. Confirmed DC plan - if pt loses appeal, pt to pay privately for the 21 days to remain in TCU. SW educated if pt is ready to DC home prior to those days, pt can be reimbursed. Pt appreciative. Pt is coordinating with nephew to take pt to the bank to retrieve funds. SW updated nursing. Cristal Temple, FLIGHT ENGINEER HELICOPTER BIOMETRICIAN
[2022-04-15] MEDS: Calcium (Elemental) 500 MG Tablet 1000 MG PO (09:43)
[2022-04-15] MEDS: Ferrous Sulfate 325 MG Tablet PO (09:43)
[2022-04-15] MEDS: Allopurinol 100 MG Tablet PO (09:44)
[2022-04-15] MEDS: Multivitamins,Therapeutic Tablet 1 TABLET PO (09:44)
--- NOTE | 2022-04-15 10:04 | NURSING ---
torin granted for pt to go to bank to get money for private pay. pt's nephew picked up at main entrance.
[2022-04-15 15:32] VITALS: BP 132/57; PULSE 58; RESP 16; TEMP 37.1; O2SAT 96
[2022-04-15] MEDS: MELATONIN 3 MG TABLET 7.5 MG PO (21:41)
[2022-04-15 21:47] VITALS: BP 122/62; PULSE 64
[2022-04-15] MEDS: Metoprolol(XL)Succ 50 MG Tablet PO (21:47)
[2022-04-16] MEDS: Polyethylene Glycol 3350 17 GM PACKET PO (05:18)
[2022-04-16] MEDS: Gabapentin 300 MG Capsule PO ×3 (05:18→20:54)
[2022-04-16] MEDS: Acetaminophen 500 MG Tablet 1000 MG PO ×3 (05:18→20:52)
[2022-04-16] MEDS: amLODIPine 5 MG Tablet PO (05:19)
[2022-04-16] MEDS: Cholecalciferol (VIT D3) 25 MCG TABLET (1,000 UNITS) PO (05:19)
[2022-04-16] MEDS: Senna/Docusate Sodium 1 Tablet 2 TABLET PO ×2 (05:19→17:45)
[2022-04-16] MEDS: Lisinopril 20 MG Tablet PO (05:19)
[2022-04-16] MEDS: Escitalopram Oxalate 10 MG Tablet 5 MG PO (05:19)
[2022-04-16] MEDS: oxyCODONE 5 MG Tablet 10 MG PO ×3 (05:20→22:42)
[2022-04-16] MEDS: Allopurinol 100 MG Tablet PO (08:24)
[2022-04-16] MEDS: Multivitamins,Therapeutic Tablet 1 TABLET PO (08:24)
[2022-04-16] MEDS: Calcium (Elemental) 500 MG Tablet 1000 MG PO (08:24)
[2022-04-16] MEDS: Ferrous Sulfate 325 MG Tablet PO (08:25)
[2022-04-16 09:28] VITALS: PULSE 67; RESP 18; O2SAT 96
[2022-04-16 15:12] VITALS: BP 135/79; PULSE 58; RESP 18; TEMP 36.6; O2SAT 97
[2022-04-16] MEDS: MELATONIN 3 MG TABLET 7.5 MG PO (20:53)
[2022-04-16 20:54] VITALS: BP 132/62; PULSE 64
[2022-04-16] MEDS: Metoprolol(XL)Succ 50 MG Tablet PO (20:54)
[2022-04-17] MEDS: Polyethylene Glycol 3350 17 GM PACKET PO (05:44)
[2022-04-17] MEDS: Acetaminophen 500 MG Tablet 1000 MG PO ×3 (05:45→21:50)
[2022-04-17] MEDS: Senna/Docusate Sodium 1 Tablet 2 TABLET PO ×2 (05:46→16:22)
[2022-04-17] MEDS: Escitalopram Oxalate 10 MG Tablet 5 MG PO (05:46)
[2022-04-17] MEDS: Cholecalciferol (VIT D3) 25 MCG TABLET (1,000 UNITS) PO (05:47)
[2022-04-17] MEDS: Lisinopril 20 MG Tablet PO (05:47)
[2022-04-17] MEDS: amLODIPine 5 MG Tablet PO (05:47)
[2022-04-17] MEDS: Gabapentin 300 MG Capsule PO ×3 (05:48→21:48)
[2022-04-17 05:50] VITALS: BP 119/61; PULSE 48
[2022-04-17] MEDS: Ferrous Sulfate 325 MG Tablet PO (09:06)
[2022-04-17] MEDS: Allopurinol 100 MG Tablet PO (09:07)
[2022-04-17] MEDS: Multivitamins,Therapeutic Tablet 1 TABLET PO (09:07)
[2022-04-17] MEDS: Calcium (Elemental) 500 MG Tablet 1000 MG PO (09:07)
[2022-04-17 15:13] VITALS: BP 126/81; PULSE 51; RESP 16; TEMP 36.6; O2SAT 95
--- NOTE | 2022-04-17 17:48 | NURSING ---
pt states she can't find her upper partial. states has been missing for a while. this rn looked all over in pts rm. did not find. pt states she thinks she might have left them on her tray bc they didn't stay in securely so she thinks she might have taken them out while eating and put it on her tray. this rn called dietary to see if they had the partial. they do not.
[2022-04-17 21:49] VITALS: BP 140/73; PULSE 56
[2022-04-17] MEDS: MELATONIN 3 MG TABLET 7.5 MG PO (21:51)
[2022-04-18] MEDS: oxyCODONE 5 MG Tablet 10 MG PO ×3 (03:00→21:33)
[2022-04-18] MEDS: Acetaminophen 500 MG Tablet 1000 MG PO ×3 (06:07→20:18)
[2022-04-18] MEDS: Polyethylene Glycol 3350 17 GM PACKET PO (06:07)
[2022-04-18] MEDS: Senna/Docusate Sodium 1 Tablet 2 TABLET PO ×2 (06:07→16:34)
[2022-04-18] MEDS: Escitalopram Oxalate 10 MG Tablet 5 MG PO (06:08)
[2022-04-18] MEDS: Cholecalciferol (VIT D3) 25 MCG TABLET (1,000 UNITS) PO (06:08)
[2022-04-18] MEDS: amLODIPine 5 MG Tablet PO (06:08)
[2022-04-18] MEDS: Lisinopril 20 MG Tablet PO (06:09)
[2022-04-18] MEDS: Gabapentin 300 MG Capsule PO ×3 (06:11→20:18)
[2022-04-18] MEDS: Calcium (Elemental) 500 MG Tablet 1000 MG PO (07:45)
[2022-04-18] MEDS: Allopurinol 100 MG Tablet PO (07:46)
[2022-04-18] MEDS: Ferrous Sulfate 325 MG Tablet PO (07:46)
[2022-04-18] MEDS: Multivitamins,Therapeutic Tablet 1 TABLET PO (07:46)
[2022-04-18 13:28] VITALS: BP 142/55; PULSE 79; RESP 16; TEMP 36.6; O2SAT 96
[2022-04-18 20:17] VITALS: BP 145/71; PULSE 68
[2022-04-18] MEDS: Metoprolol(XL)Succ 50 MG Tablet PO (20:17)
[2022-04-18] MEDS: MELATONIN 3 MG TABLET 7.5 MG PO (20:18)
[2022-04-19] MEDS: Acetaminophen 500 MG Tablet 1000 MG PO ×3 (05:52→21:04)
[2022-04-19] MEDS: Escitalopram Oxalate 10 MG Tablet 5 MG PO (05:52)
[2022-04-19] MEDS: Senna/Docusate Sodium 1 Tablet 2 TABLET PO ×2 (05:52→17:07)
[2022-04-19] MEDS: Lisinopril 20 MG Tablet PO (05:53)
[2022-04-19] MEDS: Polyethylene Glycol 3350 17 GM PACKET PO (05:53)
[2022-04-19] MEDS: amLODIPine 5 MG Tablet PO (05:53)
[2022-04-19] MEDS: Cholecalciferol (VIT D3) 25 MCG TABLET (1,000 UNITS) PO (05:53)
[2022-04-19] MEDS: Gabapentin 300 MG Capsule PO ×3 (05:59→21:04)
[2022-04-19 06:01] LABS: Absolute Lymphocyte Count 1.99 X10^3/uL (0.83-4.51); Absolute Neutrophil Count 1.9 X10^3/uL (2.0-7.7); Basophil# 0.11 X10^3/uL; Basophil% 2.2 % (0-1); Eosinophil# 0.16 X10^3/uL; Eosinophils% 3.3 % (0-5); Hematocrit 37.2 % (37-47); Lymphocyte # 1.99 X10^3/ul (0.83-4.51); Lymphocyte % 40.6 % (19-41); Mean Corp Hgb Conc 32.3 g/dL (32-36); Mean Corpuscular Hgb 30.4 pg (27.0-32.0); Mean Corpuscular Volume 94.2 fL (81-99); Mean Platelet Vol. 8.8 fl (6.2-12.0); Monocyte# 0.77 X10^3/uL; Monocyte% 15.7 % (0-10); NRBC Flagged by Analyzer 0 % (0-5); Neutrophil # 1.86 X10^3/uL (2.7-7.7); Platelet Count 364 K/mm3 (150-450); RBC Distribution Width CV 12.5 % (11.6-14.6); RBC Distribution Width SD 43.5 fl (35.1-43.9); Red Blood Count 3.95 M/mm3 (4.2-5.4); White Blood Count 4.9 K/mm3 (4.4-11.0)
[2022-04-19 06:21] LABS: International Normalized Ratio 3.3; Prothrombin Time (Protime)PT. 33.3 SECONDS (11.7-14.9)
[2022-04-19 06:36] LABS: Anion Gap 5 (5-15); BUN 16 mg/dL (7-18); Calcium,Total 9.4 mg/dL (8.5-10.1); Chloride 106 mmol/L (98-107); Creatinine, Serum 0.94 mg/dL (0.55-1.02); EST Glomerular Filtration Rate 61 mL/min (>60); Est Glom Filt Rate - Afr Amer 74 mL/min (>60); Glucose 97 mg/dL (74-106); Potassium 3.7 mmol/L (3.5-5.1); Sodium Level 139 mmol/L (136-145)
[2022-04-19] MEDS: Ferrous Sulfate 325 MG Tablet PO (08:02)
[2022-04-19] MEDS: Calcium (Elemental) 500 MG Tablet 1000 MG PO (08:02)
[2022-04-19] MEDS: Allopurinol 100 MG Tablet PO (08:02)
[2022-04-19] MEDS: Multivitamins,Therapeutic Tablet 1 TABLET PO (08:02)
[2022-04-19] MEDS: oxyCODONE 5 MG Tablet 10 MG PO ×2 (12:47→21:06)
[2022-04-19 13:15] VITALS: BP 131/64; PULSE 60; RESP 16; TEMP 36.9; O2SAT 98
[2022-04-19] MEDS: Jantoven 2 MG Tablet PO (17:06)
[2022-04-19 21:05] VITALS: BP 138/72; PULSE 57
[2022-04-19] MEDS: MELATONIN 3 MG TABLET 7.5 MG PO (21:05)
[2022-04-19] MEDS: Metoprolol(XL)Succ 50 MG Tablet PO (21:05)
[2022-04-19 21:10] VITALS: PULSE 57; RESP 16; O2SAT 96
[2022-04-20] MEDS: Polyethylene Glycol 3350 17 GM PACKET PO (06:00)
[2022-04-20] MEDS: Escitalopram Oxalate 10 MG Tablet 5 MG PO (06:01)
[2022-04-20] MEDS: Acetaminophen 500 MG Tablet 1000 MG PO ×3 (06:01→21:23)
[2022-04-20] MEDS: Lisinopril 20 MG Tablet PO (06:01)
[2022-04-20] MEDS: Cholecalciferol (VIT D3) 25 MCG TABLET (1,000 UNITS) PO (06:02)
[2022-04-20] MEDS: Gabapentin 300 MG Capsule PO ×3 (06:02→21:23)
[2022-04-20] MEDS: Senna/Docusate Sodium 1 Tablet 2 TABLET PO ×2 (06:02→16:50)
[2022-04-20] MEDS: amLODIPine 5 MG Tablet PO (06:02)
[2022-04-20 06:07] VITALS: BP 131/65; PULSE 51; RESP 16
[2022-04-20] MEDS: Multivitamins,Therapeutic Tablet 1 TABLET PO (07:53)
[2022-04-20] MEDS: Ferrous Sulfate 325 MG Tablet PO (07:53)
[2022-04-20] MEDS: Calcium (Elemental) 500 MG Tablet 1000 MG PO (07:54)
[2022-04-20] MEDS: Allopurinol 100 MG Tablet PO (07:54)
[2022-04-20] MEDS: oxyCODONE 5 MG Tablet 10 MG PO ×2 (07:57→21:23)
[2022-04-20 14:30] VITALS: BP 135/64; PULSE 58; RESP 16; TEMP 36.7; O2SAT 95
[2022-04-20] MEDS: Jantoven 2 MG Tablet PO (16:51)
[2022-04-20 21:23] VITALS: BP 139/62; PULSE 56
[2022-04-20] MEDS: MELATONIN 3 MG TABLET 7.5 MG PO (21:23)
[2022-04-20 21:26] VITALS: PULSE 56
[2022-04-21] MEDS: Acetaminophen 500 MG Tablet 1000 MG PO ×3 (05:50→22:05)
[2022-04-21] MEDS: Polyethylene Glycol 3350 17 GM PACKET PO (05:50)
[2022-04-21] MEDS: Senna/Docusate Sodium 1 Tablet 2 TABLET PO ×2 (05:51→17:32)
[2022-04-21] MEDS: amLODIPine 5 MG Tablet PO (05:51)
[2022-04-21] MEDS: Cholecalciferol (VIT D3) 25 MCG TABLET (1,000 UNITS) PO (05:51)
[2022-04-21] MEDS: Escitalopram Oxalate 10 MG Tablet 5 MG PO (05:51)
[2022-04-21] MEDS: Gabapentin 300 MG Capsule PO ×3 (05:56→22:04)
[2022-04-21] MEDS: Lisinopril 20 MG Tablet PO (05:57)
[2022-04-21] MEDS: Allopurinol 100 MG Tablet PO (07:56)
[2022-04-21] MEDS: Calcium (Elemental) 500 MG Tablet 1000 MG PO (07:56)
[2022-04-21] MEDS: Ferrous Sulfate 325 MG Tablet PO (07:57)
[2022-04-21] MEDS: Multivitamins,Therapeutic Tablet 1 TABLET PO (07:57)
[2022-04-21] MEDS: oxyCODONE 5 MG Tablet 10 MG PO ×2 (08:00→22:10)
[2022-04-21 14:45] VITALS: BP 141/74; PULSE 67; RESP 14; TEMP 36.4; O2SAT 97
[2022-04-21] MEDS: Jantoven 2 MG Tablet PO (17:32)
[2022-04-21] MEDS: Magnesium Hydroxide 30 ML UDC PO (17:37)
[2022-04-21 21:00] VITALS: PULSE 69; RESP 16; O2SAT 97
[2022-04-21 22:05] VITALS: BP 135/69; PULSE 69
[2022-04-21] MEDS: Metoprolol(XL)Succ 50 MG Tablet PO (22:05)
[2022-04-21] MEDS: MELATONIN 3 MG TABLET 7.5 MG PO (22:06)
[2022-04-22] MEDS: Gabapentin 300 MG Capsule PO ×3 (05:56→21:05)
[2022-04-22] MEDS: Senna/Docusate Sodium 1 Tablet 2 TABLET PO ×2 (05:56→17:25)
[2022-04-22] MEDS: Escitalopram Oxalate 10 MG Tablet 5 MG PO (05:56)
[2022-04-22] MEDS: Acetaminophen 500 MG Tablet 1000 MG PO ×3 (05:56→21:06)
[2022-04-22] MEDS: Polyethylene Glycol 3350 17 GM PACKET PO (05:56)
[2022-04-22] MEDS: Lisinopril 20 MG Tablet PO (05:57)
[2022-04-22] MEDS: Cholecalciferol (VIT D3) 25 MCG TABLET (1,000 UNITS) PO (05:57)
[2022-04-22] MEDS: amLODIPine 5 MG Tablet PO (05:57)
[2022-04-22 06:02] LABS: International Normalized Ratio 2.9; Prothrombin Time (Protime)PT. 30.3 SECONDS (11.7-14.9)
[2022-04-22] MEDS: Allopurinol 100 MG Tablet PO (08:04)
[2022-04-22] MEDS: Multivitamins,Therapeutic Tablet 1 TABLET PO (08:04)
[2022-04-22] MEDS: Calcium (Elemental) 500 MG Tablet 1000 MG PO (08:04)
[2022-04-22] MEDS: Ferrous Sulfate 325 MG Tablet PO (08:04)
[2022-04-22 10:00] VITALS: PULSE 63; RESP 18; O2SAT 99
[2022-04-22 14:54] VITALS: BP 151/73; PULSE 55; RESP 16; TEMP 36.2; O2SAT 97
[2022-04-22] MEDS: Jantoven 2 MG Tablet PO (17:25)
[2022-04-22] MEDS: MELATONIN 3 MG TABLET 7.5 MG PO (21:04)
[2022-04-22 21:05] VITALS: BP 138/72; PULSE 60
[2022-04-22] MEDS: Metoprolol(XL)Succ 50 MG Tablet PO (21:05)
[2022-04-22] MEDS: oxyCODONE 5 MG Tablet 10 MG PO (21:06)
[2022-04-23] MEDS: Senna/Docusate Sodium 1 Tablet 2 TABLET PO ×2 (04:46→16:07)
[2022-04-23] MEDS: Gabapentin 300 MG Capsule PO ×3 (04:46→22:37)
[2022-04-23] MEDS: Polyethylene Glycol 3350 17 GM PACKET PO (04:46)
[2022-04-23] MEDS: Escitalopram Oxalate 10 MG Tablet 5 MG PO (04:46)
[2022-04-23] MEDS: Acetaminophen 500 MG Tablet 1000 MG PO ×3 (04:46→22:35)
[2022-04-23] MEDS: amLODIPine 5 MG Tablet PO (04:47)
[2022-04-23] MEDS: Cholecalciferol (VIT D3) 25 MCG TABLET (1,000 UNITS) PO (04:47)
[2022-04-23] MEDS: Lisinopril 20 MG Tablet PO (04:47)
[2022-04-23] MEDS: Calcium (Elemental) 500 MG Tablet 1000 MG PO (07:51)
[2022-04-23] MEDS: Multivitamins,Therapeutic Tablet 1 TABLET PO (07:51)
[2022-04-23] MEDS: Allopurinol 100 MG Tablet PO (07:51)
[2022-04-23] MEDS: Ferrous Sulfate 325 MG Tablet PO (07:52)
[2022-04-23 15:54] VITALS: BP 117/61; PULSE 56; RESP 16; TEMP 36.7; O2SAT 96
[2022-04-23] MEDS: Jantoven 2 MG Tablet PO (16:07)
[2022-04-23 22:35] VITALS: BP 137/62; PULSE 56
[2022-04-23] MEDS: Metoprolol(XL)Succ 50 MG Tablet PO (22:35)
[2022-04-23] MEDS: MELATONIN 3 MG TABLET 7.5 MG PO (22:36)
[2022-04-23] MEDS: oxyCODONE 5 MG Tablet 10 MG PO (23:48)
[2022-04-24] MEDS: Senna/Docusate Sodium 1 Tablet 2 TABLET PO ×2 (04:56→17:13)
[2022-04-24] MEDS: Gabapentin 300 MG Capsule PO ×2 (04:56→13:35)
[2022-04-24] MEDS: Polyethylene Glycol 3350 17 GM PACKET PO (04:57)
[2022-04-24] MEDS: Acetaminophen 500 MG Tablet 1000 MG PO ×3 (04:58→21:08)
[2022-04-24] MEDS: Escitalopram Oxalate 10 MG Tablet 5 MG PO (04:58)
[2022-04-24] MEDS: Lisinopril 20 MG Tablet PO (04:59)
[2022-04-24] MEDS: Cholecalciferol (VIT D3) 25 MCG TABLET (1,000 UNITS) PO (04:59)
[2022-04-24] MEDS: amLODIPine 5 MG Tablet PO (04:59)
[2022-04-24 05:04] VITALS: BP 139/54; PULSE 52
[2022-04-24] MEDS: Calcium (Elemental) 500 MG Tablet 1000 MG PO (09:33)
[2022-04-24] MEDS: Ferrous Sulfate 325 MG Tablet PO (09:33)
[2022-04-24] MEDS: Multivitamins,Therapeutic Tablet 1 TABLET PO (09:33)
[2022-04-24] MEDS: Allopurinol 100 MG Tablet PO (09:38)
[2022-04-24 16:00] VITALS: BP 150/62; PULSE 52; RESP 16; TEMP 36.6; O2SAT 99
[2022-04-24] MEDS: Jantoven 2 MG Tablet PO (17:13)
[2022-04-24 21:07] VITALS: BP 143/62; PULSE 68
[2022-04-24] MEDS: Metoprolol(XL)Succ 50 MG Tablet PO (21:07)
[2022-04-24] MEDS: oxyCODONE 5 MG Tablet 10 MG PO (21:07)
[2022-04-24] MEDS: MELATONIN 3 MG TABLET 7.5 MG PO (21:08)
[2022-04-25] MEDS: Senna/Docusate Sodium 1 Tablet 2 TABLET PO ×2 (04:45→17:49)
[2022-04-25] MEDS: Acetaminophen 500 MG Tablet 1000 MG PO ×3 (04:45→21:52)
[2022-04-25] MEDS: Lisinopril 20 MG Tablet PO (04:46)
[2022-04-25] MEDS: amLODIPine 5 MG Tablet PO (04:46)
[2022-04-25 04:47] VITALS: BP 127/62; PULSE 50
[2022-04-25] MEDS: Escitalopram Oxalate 10 MG Tablet 5 MG PO (04:47)
[2022-04-25] MEDS: Cholecalciferol (VIT D3) 25 MCG TABLET (1,000 UNITS) PO (04:47)
[2022-04-25] MEDS: Polyethylene Glycol 3350 17 GM PACKET PO (04:48)
[2022-04-25] MEDS: Gabapentin 300 MG Capsule PO ×3 (04:52→21:43)
[2022-04-25] MEDS: Calcium (Elemental) 500 MG Tablet 1000 MG PO (08:47)
[2022-04-25] MEDS: Allopurinol 100 MG Tablet PO (08:48)
[2022-04-25] MEDS: Multivitamins,Therapeutic Tablet 1 TABLET PO (08:48)
[2022-04-25] MEDS: Ferrous Sulfate 325 MG Tablet PO (08:48)
[2022-04-25 09:36] LABS: Absolute Lymphocyte Count 1.63 X10^3/uL (0.83-4.51); Absolute Neutrophil Count 2.9 X10^3/uL (2.0-7.7); Basophil# 0.08 X10^3/uL; Basophil% 1.5 % (0-1); Eosinophil# 0.16 X10^3/uL; Hematocrit 41.8 % (37-47); Hemoglobin 13.6 g/dL (12.0-15.0); Lymphocyte # 1.63 X10^3/ul (0.83-4.51); Lymphocyte % 30.8 % (19-41); Mean Corp Hgb Conc 32.5 g/dL (32-36); Mean Corpuscular Hgb 30.2 pg (27.0-32.0); Mean Corpuscular Volume 92.7 fL (81-99); Mean Platelet Vol. 8.8 fl (6.2-12.0); Monocyte# 0.48 X10^3/uL; Monocyte% 9.1 % (0-10); NRBC Flagged by Analyzer 0 % (0-5); Neutrophil # 2.92 X10^3/uL (2.7-7.7); Platelet Count 304 K/mm3 (150-450); RBC Distribution Width CV 12.3 % (11.6-14.6); RBC Distribution Width SD 42.2 fl (35.1-43.9); Red Blood Count 4.51 M/mm3 (4.2-5.4); White Blood Count 5.3 K/mm3 (4.4-11.0)
--- NOTE | 2022-04-25 09:42 | NURSING ---
pt off unit to Dr. javier.
[2022-04-25 09:45] LABS: International Normalized Ratio 2.3; Prothrombin Time (Protime)PT. 24.7 SECONDS (11.7-14.9)
[2022-04-25 09:49] LABS: Anion Gap 6 (5-15); BUN 16 mg/dL (7-18); BUN/Creat Ratio 15.8 RATIO (10-20); Calcium,Total 9.7 mg/dL (8.5-10.1); Chloride 108 mmol/L (98-107); Creatinine, Serum 1.01 mg/dL (0.55-1.02); EST Glomerular Filtration Rate 56 mL/min (>60); Est Glom Filt Rate - Afr Amer 68 mL/min (>60); Estimated Creatinine Clearance 37.97 ml/min; Glucose 218 mg/dL (74-106); Potassium 3.6 mmol/L (3.5-5.1); Sodium Level 138 mmol/L (136-145)
--- NOTE | 2022-04-25 12:10 | NURSING ---
pt returned from dr javier
[2022-04-25] MEDS: oxyCODONE 5 MG Tablet 10 MG PO ×2 (14:50→21:52)
[2022-04-25 15:16] VITALS: BP 140/65; PULSE 60; RESP 16; TEMP 36.3; O2SAT 97
[2022-04-25] MEDS: Jantoven 2 MG Tablet PO (17:50)
[2022-04-25 20:00] VITALS: PULSE 60; RESP 16; O2SAT 96
[2022-04-25 21:46] VITALS: BP 156/67; PULSE 60
[2022-04-25] MEDS: MELATONIN 3 MG TABLET 7.5 MG PO (21:46)
[2022-04-25] MEDS: Metoprolol(XL)Succ 50 MG Tablet PO (21:46)
[2022-04-26 05:45] LABS: Absolute Neutrophil Count 1.8 X10^3/uL (2.0-7.7); Basophil# 0.07 X10^3/uL; Basophil% 1.5 % (0-1); Eosinophils% 4.3 % (0-5); Hematocrit 37.8 % (37-47); Hemoglobin 12.1 g/dL (12.0-15.0); Lymphocyte % 38.8 % (19-41); Mean Corpuscular Hgb 30.1 pg (27.0-32.0); Mean Platelet Vol. 8.7 fl (6.2-12.0); Monocyte# 0.81 X10^3/uL; Monocyte% 17.5 % (0-10); NRBC Flagged by Analyzer 0 % (0-5); Neutrophil # 1.75 X10^3/uL (2.7-7.7); Neutrophil % 37.7 % (47-70); Platelet Count 257 K/mm3 (150-450); RBC Distribution Width CV 12.4 % (11.6-14.6); RBC Distribution Width SD 42.8 fl (35.1-43.9); Red Blood Count 4.02 M/mm3 (4.2-5.4); White Blood Count 4.6 K/mm3 (4.4-11.0)
[2022-04-26 05:54] LABS: International Normalized Ratio 2.3; Prothrombin Time (Protime)PT. 25.4 SECONDS (11.7-14.9)
[2022-04-26] MEDS: Senna/Docusate Sodium 1 Tablet 2 TABLET PO ×2 (06:04→17:51)
[2022-04-26] MEDS: amLODIPine 5 MG Tablet PO (06:04)
[2022-04-26] MEDS: Acetaminophen 500 MG Tablet 1000 MG PO ×3 (06:04→21:56)
[2022-04-26] MEDS: Cholecalciferol (VIT D3) 25 MCG TABLET (1,000 UNITS) PO (06:04)
[2022-04-26] MEDS: Gabapentin 300 MG Capsule PO ×3 (06:04→21:56)
[2022-04-26] MEDS: Polyethylene Glycol 3350 17 GM PACKET PO (06:04)
[2022-04-26] MEDS: Escitalopram Oxalate 10 MG Tablet 5 MG PO (06:05)
[2022-04-26] MEDS: Lisinopril 20 MG Tablet PO (06:05)
[2022-04-26 06:08] VITALS: BP 124/56; PULSE 58; RESP 16
[2022-04-26 06:09] LABS: Anion Gap 7 (5-15); BUN 13 mg/dL (7-18); BUN/Creat Ratio 15.3 RATIO (10-20); Calcium,Total 9.4 mg/dL (8.5-10.1); Chloride 108 mmol/L (98-107); Creatinine, Serum 0.85 mg/dL (0.55-1.02); EST Glomerular Filtration Rate 68 mL/min (>60); Est Glom Filt Rate - Afr Amer 83 mL/min (>60); Estimated Creatinine Clearance 45.12 ml/min; Glucose 96 mg/dL (74-106); Potassium 3.8 mmol/L (3.5-5.1); Sodium Level 141 mmol/L (136-145)
[2022-04-26] MEDS: Allopurinol 100 MG Tablet PO (07:42)
[2022-04-26] MEDS: Multivitamins,Therapeutic Tablet 1 TABLET PO (07:42)
[2022-04-26] MEDS: Calcium (Elemental) 500 MG Tablet 1000 MG PO (07:42)
[2022-04-26] MEDS: Ferrous Sulfate 325 MG Tablet PO (07:42)
[2022-04-26] MEDS: oxyCODONE 5 MG Tablet 10 MG PO ×2 (08:50→22:00)
[2022-04-26 15:08] VITALS: BP 118/58; PULSE 65; RESP 16; TEMP 36.2; O2SAT 96
[2022-04-26] MEDS: Jantoven 2 MG Tablet PO (17:51)
[2022-04-26 21:57] VITALS: BP 106/54; PULSE 67
[2022-04-26] MEDS: Metoprolol(XL)Succ 50 MG Tablet PO (21:57)
[2022-04-26] MEDS: MELATONIN 3 MG TABLET 7.5 MG PO (21:57)
[2022-04-27 04:45] VITALS: BP 134/60; PULSE 56
[2022-04-27] MEDS: Senna/Docusate Sodium 1 Tablet 2 TABLET PO ×2 (04:47→17:09)
[2022-04-27] MEDS: Cholecalciferol (VIT D3) 25 MCG TABLET (1,000 UNITS) PO (04:47)
[2022-04-27] MEDS: Escitalopram Oxalate 10 MG Tablet 5 MG PO (04:48)
[2022-04-27] MEDS: Polyethylene Glycol 3350 17 GM PACKET PO (04:48)
[2022-04-27] MEDS: Acetaminophen 500 MG Tablet 1000 MG PO ×3 (04:48→21:39)
[2022-04-27] MEDS: amLODIPine 5 MG Tablet PO (04:48)
[2022-04-27] MEDS: Lisinopril 20 MG Tablet PO (04:48)
[2022-04-27] MEDS: Gabapentin 300 MG Capsule PO ×3 (04:52→21:44)
[2022-04-27] MEDS: Magnesium Hydroxide 30 ML UDC PO (04:52)
[2022-04-27] MEDS: Multivitamins,Therapeutic Tablet 1 TABLET PO (07:53)
[2022-04-27] MEDS: Allopurinol 100 MG Tablet PO (07:53)
[2022-04-27] MEDS: Calcium (Elemental) 500 MG Tablet 1000 MG PO (07:53)
[2022-04-27] MEDS: Ferrous Sulfate 325 MG Tablet PO (07:53)
[2022-04-27 14:34] VITALS: BP 122/61; PULSE 57; RESP 17; TEMP 36.2; O2SAT 96
[2022-04-27] MEDS: Jantoven 2 MG Tablet PO (17:09)
[2022-04-27] MEDS: MELATONIN 3 MG TABLET 7.5 MG PO (21:38)
[2022-04-27 21:44] VITALS: BP 133/61; PULSE 54
[2022-04-27] MEDS: oxyCODONE 5 MG Tablet 10 MG PO (21:44)
[2022-04-27] MEDS: Metoprolol(XL)Succ 50 MG Tablet PO (21:44)
[2022-04-27 23:00] VITALS: PULSE 57; RESP 16; O2SAT 97
[2022-04-28] MEDS: Escitalopram Oxalate 10 MG Tablet 5 MG PO (06:07)
[2022-04-28] MEDS: Polyethylene Glycol 3350 17 GM PACKET PO (06:07)
[2022-04-28] MEDS: Cholecalciferol (VIT D3) 25 MCG TABLET (1,000 UNITS) PO (06:07)
[2022-04-28] MEDS: amLODIPine 5 MG Tablet PO (06:08)
[2022-04-28] MEDS: Senna/Docusate Sodium 1 Tablet 2 TABLET PO ×2 (06:08→17:48)
[2022-04-28] MEDS: Acetaminophen 500 MG Tablet 1000 MG PO ×3 (06:08→20:50)
[2022-04-28] MEDS: Gabapentin 300 MG Capsule PO ×3 (06:08→20:50)
[2022-04-28] MEDS: Lisinopril 20 MG Tablet PO (06:08)
[2022-04-28 08:00] VITALS: PULSE 77; RESP 16; O2SAT 97
[2022-04-28] MEDS: Multivitamins,Therapeutic Tablet 1 TABLET PO (08:36)
[2022-04-28] MEDS: Calcium (Elemental) 500 MG Tablet 1000 MG PO (08:36)
[2022-04-28] MEDS: Ferrous Sulfate 325 MG Tablet PO (08:36)
[2022-04-28] MEDS: Allopurinol 100 MG Tablet PO (08:36)
[2022-04-28 15:38] VITALS: BP 128/59; PULSE 57; RESP 14; TEMP 36.9; O2SAT 96
[2022-04-28] MEDS: Jantoven 2 MG Tablet PO (17:48)
[2022-04-28 20:49] VITALS: BP 141/61; PULSE 59
[2022-04-28] MEDS: MELATONIN 3 MG TABLET 7.5 MG PO (20:49)
[2022-04-28] MEDS: Metoprolol(XL)Succ 50 MG Tablet PO (20:49)
[2022-04-28] MEDS: oxyCODONE 5 MG Tablet 10 MG PO (20:51)
[2022-04-29] MEDS: Polyethylene Glycol 3350 17 GM PACKET PO (05:26)
[2022-04-29] MEDS: Gabapentin 300 MG Capsule PO ×3 (05:26→21:06)
[2022-04-29] MEDS: Cholecalciferol (VIT D3) 25 MCG TABLET (1,000 UNITS) PO (05:27)
[2022-04-29] MEDS: Lisinopril 20 MG Tablet PO (05:27)
[2022-04-29] MEDS: amLODIPine 5 MG Tablet PO (05:27)
[2022-04-29] MEDS: Escitalopram Oxalate 10 MG Tablet 5 MG PO (05:27)
[2022-04-29] MEDS: Senna/Docusate Sodium 1 Tablet 2 TABLET PO ×2 (05:27→17:01)
[2022-04-29] MEDS: Acetaminophen 500 MG Tablet 1000 MG PO ×3 (05:27→21:12)
[2022-04-29 06:19] LABS: Prothrombin Time (Protime)PT. 22.1 SECONDS (11.7-14.9)
[2022-04-29] MEDS: Multivitamins,Therapeutic Tablet 1 TABLET PO (08:08)
[2022-04-29] MEDS: Ferrous Sulfate 325 MG Tablet PO (08:09)
[2022-04-29] MEDS: Allopurinol 100 MG Tablet PO (08:09)
[2022-04-29] MEDS: Calcium (Elemental) 500 MG Tablet 1000 MG PO (08:09)
[2022-04-29 14:27] VITALS: BP 105/58; PULSE 61; RESP 18; TEMP 36.6; O2SAT 97
--- NOTE | 2022-04-29 15:02 | CHAPLAIN ---
Type of Pastoral Visit ___ Initial Visit _x__ Follow-up Visit ___ On-call Visit ___ General Patient Visit ___ Spiritual Assessment ___ Family Conference ___ Bereavement ___ Rapid Response ___ Code Blue ___ Other (describe below) Pastoral Care Referral From _x__ Patient ___ Family ___ Nurse ___ Physician ___ Spring Former ___ Shorer ___ Other (describe below) Sacrament/Intervention _x__ Active listening ___ Anointing ___ Temple ___ Bereavement ___ Communion ___ Em exploration ___ _x__ Life review _x_ Prayer ___ Reconciliation ___ Sacrament of Sick _x__ Supportive presence ___ Wedding ___ Other (describe below) Pastoral Comments mostly casual conversation with follow up on how progress is coming; pt concerned for her but thankful he is pleasantly confused in the ECF; pt welcomes prayer
[2022-04-29] MEDS: Jantoven 2 MG Tablet PO (17:01)
[2022-04-29] MEDS: oxyCODONE 5 MG Tablet 10 MG PO (21:06)
[2022-04-29] MEDS: MELATONIN 3 MG TABLET 7.5 MG PO (21:08)
[2022-04-29 21:15] VITALS: BP 142/78; PULSE 60
[2022-04-29] MEDS: Metoprolol(XL)Succ 50 MG Tablet PO (21:15)
[2022-04-30 05:30] VITALS: BP 139/57; PULSE 52
[2022-04-30] MEDS: Polyethylene Glycol 3350 17 GM PACKET PO (05:32)
[2022-04-30] MEDS: Gabapentin 300 MG Capsule PO ×3 (05:32→22:41)
[2022-04-30] MEDS: Escitalopram Oxalate 10 MG Tablet 5 MG PO (05:33)
[2022-04-30] MEDS: Acetaminophen 500 MG Tablet 1000 MG PO ×3 (05:33→22:38)
[2022-04-30] MEDS: amLODIPine 5 MG Tablet PO (05:33)
[2022-04-30] MEDS: Cholecalciferol (VIT D3) 25 MCG TABLET (1,000 UNITS) PO (05:33)
[2022-04-30] MEDS: Senna/Docusate Sodium 1 Tablet 2 TABLET PO ×2 (05:33→17:36)
[2022-04-30] MEDS: Lisinopril 20 MG Tablet PO (05:34)
[2022-04-30 08:34] LABS: International Normalized Ratio 1.8; Prothrombin Time (Protime)PT. 20.1 SECONDS (11.7-14.9)
[2022-04-30] MEDS: Ferrous Sulfate 325 MG Tablet PO (08:42)
[2022-04-30] MEDS: Allopurinol 100 MG Tablet PO (08:43)
[2022-04-30] MEDS: Calcium (Elemental) 500 MG Tablet 1000 MG PO (08:43)
[2022-04-30] MEDS: Multivitamins,Therapeutic Tablet 1 TABLET PO (08:43)
[2022-04-30 15:00] VITALS: BP 131/60; PULSE 53; RESP 14; TEMP 36.3; O2SAT 98
[2022-04-30] MEDS: Jantoven 2 MG Tablet PO (17:36)
[2022-04-30] MEDS: oxyCODONE 5 MG Tablet 10 MG PO (21:42)
[2022-04-30] MEDS: MELATONIN 3 MG TABLET 7.5 MG PO (22:36)
[2022-04-30 22:37] VITALS: BP 136/75; PULSE 60
[2022-04-30] MEDS: Metoprolol(XL)Succ 50 MG Tablet PO (22:37)
[2022-05-01] MEDS: Senna/Docusate Sodium 1 Tablet 2 TABLET PO (05:48)
[2022-05-01] MEDS: Acetaminophen 500 MG Tablet 1000 MG PO ×3 (05:48→21:29)
[2022-05-01] MEDS: Gabapentin 300 MG Capsule PO ×3 (05:48→22:30)
[2022-05-01] MEDS: Lisinopril 20 MG Tablet PO (05:49)
[2022-05-01] MEDS: Escitalopram Oxalate 10 MG Tablet 5 MG PO (05:49)
[2022-05-01] MEDS: Polyethylene Glycol 3350 17 GM PACKET PO (05:50)
[2022-05-01] MEDS: Cholecalciferol (VIT D3) 25 MCG TABLET (1,000 UNITS) PO (05:50)
[2022-05-01] MEDS: amLODIPine 5 MG Tablet PO (05:50)
[2022-05-01 05:55] VITALS: BP 134/56; PULSE 56
[2022-05-01] MEDS: Ferrous Sulfate 325 MG Tablet PO (08:34)
[2022-05-01] MEDS: Calcium (Elemental) 500 MG Tablet 1000 MG PO (08:34)
[2022-05-01] MEDS: Multivitamins,Therapeutic Tablet 1 TABLET PO (08:34)
[2022-05-01] MEDS: Allopurinol 100 MG Tablet PO (08:35)
[2022-05-01 14:29] VITALS: BP 128/70; PULSE 71; RESP 16; TEMP 36.3; O2SAT 96
[2022-05-01] MEDS: Jantoven 2 MG Tablet PO (17:10)
[2022-05-01 21:20] VITALS: PULSE 56; O2SAT 98
--- NOTE | 2022-05-01 21:20 | NURSING ---
Pt gave this nurse her water bill to place in outgoing mail. Envelope placed in file folder or wall for outgoing mail.
[2022-05-01] MEDS: MELATONIN 3 MG TABLET 7.5 MG PO (21:28)
[2022-05-01 21:30] VITALS: BP 136/61; PULSE 52
[2022-05-01] MEDS: oxyCODONE 5 MG Tablet 10 MG PO (21:30)
[2022-05-02] MEDS: Cholecalciferol (VIT D3) 25 MCG TABLET (1,000 UNITS) PO (04:50)
[2022-05-02] MEDS: Escitalopram Oxalate 10 MG Tablet 5 MG PO (04:50)
[2022-05-02] MEDS: Gabapentin 300 MG Capsule PO ×3 (04:50→21:06)
[2022-05-02] MEDS: Senna/Docusate Sodium 1 Tablet 2 TABLET PO ×2 (04:50→18:50)
[2022-05-02] MEDS: Lisinopril 20 MG Tablet PO (04:51)
[2022-05-02] MEDS: Polyethylene Glycol 3350 17 GM PACKET PO (04:51)
[2022-05-02] MEDS: Acetaminophen 500 MG Tablet 1000 MG PO ×3 (04:52→21:06)
[2022-05-02 04:56] VITALS: BP 145/60; PULSE 51
[2022-05-02] MEDS: amLODIPine 5 MG Tablet PO (04:58)
[2022-05-02] MEDS: Multivitamins,Therapeutic Tablet 1 TABLET PO (08:11)
[2022-05-02] MEDS: Ferrous Sulfate 325 MG Tablet PO (08:11)
[2022-05-02] MEDS: Calcium (Elemental) 500 MG Tablet 1000 MG PO (08:11)
[2022-05-02] MEDS: Allopurinol 100 MG Tablet PO (08:11)
--- NOTE | 2022-05-02 13:20 | CASEMGMT ---
Social Work Pt requesting to speak with SW about discharge. SW met with pt and introduced self and role. Pt confirms she plans to discharge on 05/07 and that dgt will transport at home. SW spoke with pt regarding continued therapy and pt is requesting home health services. Pt does have a walker and a rollator at home. SW will followup for discharge planning. ИРИНА Garza
[2022-05-02 13:42] VITALS: BP 155/83; PULSE 63; RESP 16; TEMP 36.9; O2SAT 96
[2022-05-02 19:38] LABS: International Normalized Ratio 1.8; Prothrombin Time (Protime)PT. 20.3 SECONDS (11.7-14.9)
[2022-05-02] MEDS: Jantoven 2 MG Tablet PO (19:52)
[2022-05-02 20:00] VITALS: PULSE 70; RESP 16; O2SAT 97
[2022-05-02] MEDS: oxyCODONE 5 MG Tablet 10 MG PO (21:05)
[2022-05-02] MEDS: MELATONIN 3 MG TABLET 7.5 MG PO (21:06)
[2022-05-02 21:11] VITALS: BP 144/62; PULSE 72
[2022-05-02] MEDS: Metoprolol(XL)Succ 50 MG Tablet PO (21:11)
[2022-05-03] MEDS: amLODIPine 5 MG Tablet PO (04:58)
[2022-05-03] MEDS: Cholecalciferol (VIT D3) 25 MCG TABLET (1,000 UNITS) PO (04:58)
[2022-05-03] MEDS: Senna/Docusate Sodium 1 Tablet 2 TABLET PO ×2 (04:58→17:04)
[2022-05-03] MEDS: Escitalopram Oxalate 10 MG Tablet 5 MG PO (04:58)
[2022-05-03] MEDS: Polyethylene Glycol 3350 17 GM PACKET PO (04:58)
[2022-05-03] MEDS: Lisinopril 20 MG Tablet PO (04:59)
[2022-05-03 05:00] VITALS: BP 134/63; PULSE 60; RESP 16
[2022-05-03] MEDS: Acetaminophen 500 MG Tablet 1000 MG PO ×3 (05:00→21:42)
[2022-05-03] MEDS: Gabapentin 300 MG Capsule PO ×3 (05:01→21:43)
[2022-05-03 05:43] LABS: Absolute Lymphocyte Count 2.24 X10^3/uL (0.83-4.51); Absolute Neutrophil Count 2.4 X10^3/uL (2.0-7.7); Basophil# 0.08 X10^3/uL; Basophil% 1.4 % (0-1); Eosinophils% 3.4 % (0-5); Hematocrit 38.4 % (37-47); Hemoglobin 12.7 g/dL (12.0-15.0); Lymphocyte # 2.24 X10^3/ul (0.83-4.51); Lymphocyte % 38.6 % (19-41); Mean Corp Hgb Conc 33.1 g/dL (32-36); Mean Corpuscular Hgb 30.9 pg (27.0-32.0); Mean Corpuscular Volume 93.4 fL (81-99); Mean Platelet Vol. 8.9 fl (6.2-12.0); Monocyte# 0.87 X10^3/uL; NRBC Flagged by Analyzer 0 % (0-5); Neutrophil # 2.39 X10^3/uL (2.7-7.7); Neutrophil % 41.3 % (47-70); Platelet Count 213 K/mm3 (150-450); RBC Distribution Width CV 12.5 % (11.6-14.6); RBC Distribution Width SD 42.6 fl (35.1-43.9); Red Blood Count 4.11 M/mm3 (4.2-5.4); White Blood Count 5.8 K/mm3 (4.4-11.0)
[2022-05-03 06:01] LABS: Anion Gap 5 (5-15); BUN 16 mg/dL (7-18); BUN/Creat Ratio 18.5 RATIO (10-20); Calcium,Total 9.4 mg/dL (8.5-10.1); Chloride 107 mmol/L (98-107); Creatinine, Serum 0.87 mg/dL (0.55-1.02); EST Glomerular Filtration Rate 67 mL/min (>60); Est Glom Filt Rate - Afr Amer 81 mL/min (>60); Estimated Creatinine Clearance 44.08 ml/min; Glucose 88 mg/dL (74-106); Potassium 4.1 mmol/L (3.5-5.1); Sodium Level 140 mmol/L (136-145)
[2022-05-03] MEDS: Ferrous Sulfate 325 MG Tablet PO (07:41)
[2022-05-03] MEDS: Calcium (Elemental) 500 MG Tablet 1000 MG PO (07:41)
[2022-05-03] MEDS: Multivitamins,Therapeutic Tablet 1 TABLET PO (07:41)
[2022-05-03] MEDS: Allopurinol 100 MG Tablet PO (07:41)
--- NOTE | 2022-05-03 09:41 | CASEMGMT ---
Addendum entered by Cristal Temple 05/04/22 13:00: Pt needs FWW. Sent referral to [facility] via [facility] Addendum entered by Cristal Temple 05/03/22 09:49: Added ST Original Note: Social Work Spoke with pt about preference for discharge plans. Pt prefers HHC vs OP. Pt prefers to use [facility]. Referred to [facility] PT/OT. No DME needs. Family to transport. Plan: Home alone 05/07, [facility] PT/OT TERRENCE CaalW
[2022-05-03 10:00] VITALS: PULSE 56; O2SAT 98
[2022-05-03 17:57] VITALS: BP 138/63; PULSE 54; RESP 16; TEMP 36.2; O2SAT 99
--- NOTE | 2022-05-03 19:03 | DS.PCM_ITS ---
Providers Date of Admission: 04/04/22 Primary Care Physician: Dr. Radha Carmichael MD Reason For Visit: FALL/ RIGHT HIP FRACTURE Diagnosis Discharge Diagnosis (1) Debility: Status: Acute Code(s): R53.81 - Other malaise (2) Fall: Status: Resolved Code(s): W19.XXXA - Unspecified fall, initial encounter (3) Closed right hip fracture: Status: Acute Code(s): S72.001A - Fracture of unspecified part of neck of right femur, initial encounter for closed fracture (4) Gout: Status: Acute Code(s): M10.9 - Gout, unspecified (5) Hypertension: Status: Chronic Code(s): I10 - Essential (primary) hypertension (6) Stroke: Status: Acute Code(s): I63.9 - Cerebral infarction, unspecified (7) Diabetic polyneuropathy: Status: Acute Code(s): E11.42 - Type 2 diabetes mellitus with diabetic polyneuropathy (8) Insomnia: Status: Acute Code(s): G47.00 - Insomnia, unspecified (9) Diabetes mellitus: Status: Acute Code(s): E11.9 - Type 2 diabetes mellitus without complications (10) Atrial fibrillation: Status: Acute Code(s): I48.91 - Unspecified atrial fibrillation (11) Vascular dementia: Status: Acute Code(s): F01.50 - Vascular dementia, unspecified severity, without behavioral disturbance, psychotic disturbance, mood disturbance, and anxiety Plan 76 year old female with below past medical history hospitalized for right hip fracture, underwent ORIF 03/31/[address] Light, admitted to TCU with debility, here for rehabilitation, strengthening, prior to discharge home alone. * Debility - PT/OT. * Pain - Tylenol 1000mg q8, Oxycodone 10mg q4h prn pain (1-10). * Bowel - Miralax 17gm daily, senna/colace 2 tablets bid, MOM 30ml daily prn. * Adult immunization - Administer pneumonia vaccine, covid19 vaccine, flu vaccine as appropriate. * DVT prophylaxis - Not necessary, on warfarin. * Gout - Allopurinol 100mg daily. * Hypertension - Metoprolol succinate 50mg qhs, Lisinopril 20mg daily, Amlodipine 5mg daily. * Calcium deficiency - Calcium 1000mg daily. * Depression - Escitalopram 5mg daily, stable chronic assisted use, GDR not recommended. * Iron deficiency anemia - Ferrous sulfate 325mg daily. * Diabetic polyneuropathy - Gabapentin 300mg tid. * Insomnia - Melatonin 7.5mg qhs. * Nutrition - MVI daily. * Vitamin d deficiency - D3 25mcg daily. * Atrial fibrillation - Metoprolol succinate 50mg qhs, warfarin 3mg daily, follow INR. Medications at Discharge Home Medications amlodipine 5 mg tablet 5 mg PO DAILY blood pressure 02/15/20 metoprolol succinate 100 mg tablet,extended release 24 hr 50 mg PO QHS blood pressure 02/15/20 polyethylene glycol 3350 17 gram oral powder packet 17 g PO QODAY constipation 02/15/20 allopurinol 100 mg tablet 100 mg PO DAILY GOUT 07/16/21 lisinopril 20 mg tablet 20 mg PO DAILY BLOOD PRESSURE 07/16/21 calcium 2 tab PO/SL DAILY SUPPLEMENT 03/30/22 cholecalciferol (vitamin D3) 25 mcg (1,000 unit) tablet (Vitamin D3) 25 mcg PO DAILY SUPPLEMENT 03/30/22 escitalopram oxalate 5 mg tablet 5 mg PO DAILY DEPRESSION 03/30/22 gabapentin 300 mg capsule 300 mg PO TID NERVE PAIN 03/30/22 iron 1 cap PO/SL DAILY SUPPLEMENT 03/30/22 melatonin 5 mg tablet 7.5 mg PO QHS SLEEP 03/30/22 multivitamin 1 tab PO DAILY HEALTH MAINTENANCE 03/30/22 sennosides 8.6 mg-docusate sodium 50 mg tablet (Stool Softener-Stimulant Laxative) 2 tab PO BID CONSTIPATION 03/30/22 warfarin 3 mg tablet 3 mg PO SUTUTHSA BLOOD THINNER 03/30/22 warfarin 3 mg tablet (Jantoven) 3 mg PO SuTuThSa@1700 blood thinner 04/04/22 acetaminophen 500 mg tablet 1,000 mg PO Q8 #0 tabs 05/03/22 oxycodone 5 mg tablet 5 mg PO Q6H PRN PRN Pain Score 6-10 3 days #12 tabs 05/03/22 Hospital Course Operations - (ORIF right hip fracture.) Procedures None Summary of Care Provided Minutes Spent on Discharge: 35 Hospital Course: 76 year old female with below past medical history hospitalized for right hip fracture, underwent ORIF 03/31/[address] Light, admitted to TCU with debility, here for rehabilitation, strengthening, prior to discharge home alone. Discharge home alone 05/07/2022, [facility] PT/OT. Physical Exam Const alert General Appearance: cooperative HEENT normocephalic Eyes PERRL and EOMs intact bilaterally Neck supple, no JVD and no carotid bruits Resp normal respiratory effort, normal air movement and clear to auscultation bilaterally Cardio regular rate and regular rhythm GI normal to inspection, nondistended, normoactive bowel sounds, non-tender and non-distended Extremity normal capillary refill General Extremity: Negative for edema Skin no rashes or lesions noted General Skin Exam: no breakdown Psych affect normal Appearance: appropriate Weight / BMI Weight Weight: 77.337 kg Body Mass Index (BMI) 32.7 ABG / Lab / Microbiology Data Result Diagrams: 05/03/22 05:24 05/03/22 05:24 Laboratory: Laboratory Results - last 24 hr 05/02/22 19:17: PT 20.3 H, INR 1.8 05/03/22 05:24: WBC 5.8, RBC 4.11 L, Hgb 12.7, Hct 38.4, MCV 93.4, MCH 30.9, MCHC 33.1, RDW Std Deviation 42.6, RDW Coeff of Yasir 12.5, Plt Count 213, MPV 8.9, Immature Gran % (Auto) 0.300, Neut % (Auto) 41.3 L, Lymph % (Auto) 38.6, [place] % (Auto) 15.0 H, Eos % (Auto) 3.4, Baso % (Auto) 1.4 H, Absolute Neuts (auto) 2.4, Absolute Lymphs (auto) 2.24, Nucleated RBC % 0 05/03/22 05:24: Sodium 140, Potassium 4.1, Chloride 107, Carbon Dioxide 28.0, Anion Gap 5, BUN 16, Creatinine 0.87, Estim Creat Clear Calc 44.08, Est GFR (MDRD) Af Amer 81, Est GFR (MDRD) Non-Af 67, BUN/Creatinine Ratio 18.5, Glucose 88, Calcium 9.4 Microbiology: Microbiology 04/06/22 05:34 Nasal Secretion SARS-CoV-2 Antigen (Rapid) - Final D/C Instructions Discharge Diet: No restrictions Discharge Activity: Return to Normal Activity, May Shower and Use Walker Weight Bearing Status: Weight bearing as tolerated Call your doctor if you observe: Fever of 101 or Higher, Inability to urinate, Inability to have a bowel movement, Shortness of breath, Dizziness, Fainting spells, Swelling in the ankles, Chest pain and Uncontrolled pain Additional Instructions: Discharge home alone 05/07/2022, [facility] PT/OT. Please Follow Up With: Robert Light MD When: As scheduled. Meaningful Use Info Meaningful Use Diagnoses (Choose all that apply): None applicable Discharge Plan Admission Admit Date/Time: 04/04/22 14:10 Primary Reason for Your Visit: Debility. Attending Provider: Amauri Benoit Chi Primary Care Provider: Radha Carmichael Instructions Additional Instructions / Restrictions: Discharge home alone 05/07/2022, [facility] PT/OT. Discharge Orders/Prescriptions Prescriptions: New acetaminophen 500 mg Tablet 1,000 mg PO Q8 Qty: 0 0RF oxycodone 5 mg Tablet 5 mg PO Q6H PRN PRN (Reason: Pain Score 6-10) 3 Days Qty: 12 0RF Continued polyethylene glycol 3350 17 GM packet 17 g PO QODAY metoprolol succinate 100 MG tablet extended release 24 hr 50 mg PO QHS amlodipine 5 MG tablet 5 mg PO DAILY lisinopril 20 mg tablet 20 mg PO DAILY Label Comments: TAKE 1 TABLET BY MOUTH EVERY DAY allopurinol 100 mg tablet 100 mg PO DAILY Label Comments: TAKE 1 TABLET BY MOUTH EVERY DAY multivitamin Tablet 1 tab PO DAILY warfarin 3 mg tablet 3 mg PO SUTUTHSA escitalopram oxalate 5 mg tablet 5 mg PO DAILY melatonin 5 mg Tablet 7.5 mg PO QHS sennosides-docusate sodium [Stool Softener-Stimulant Laxat] 8.6-50 mg tablet 2 tab PO BID gabapentin 300 mg capsule 300 mg PO TID cholecalciferol (vitamin D3) [Vitamin D3] 25 mcg (1,000 unit) Tablet 25 mcg PO DAILY calcium 2 tab PO/SL DAILY iron 1 cap PO/SL DAILY warfarin [Jantoven] 3 mg tablet 3 mg PO SuTuThSa@1700 Discontinued oxycodone 5 mg Tablet 5 mg PO Q4H PRN PRN (Reason: Pain Score 4-10) 1 Days Qty: 6 0RF sennosides-docusate sodium [Stool Softener-Stimulant Laxat] 8.6-50 mg tablet 2 tab PO BID Referrals / Follow Up: Radha Carmichael MD [Primary Care Provider] - Disposition Disposition (needs filled in before D/C Order can be placed): Home Health Servi ce
[2022-05-03 19:49] VITALS: BP 131/61; PULSE 62
[2022-05-03 21:40] VITALS: BP 123/62; PULSE 56
[2022-05-03] MEDS: MELATONIN 3 MG TABLET 7.5 MG PO (21:42)
[2022-05-03 21:43] VITALS: PULSE 56
[2022-05-03] MEDS: oxyCODONE 5 MG Tablet PO (21:43)
[2022-05-04 05:39] VITALS: BP 124/62; PULSE 51
[2022-05-04] MEDS: Escitalopram Oxalate 10 MG Tablet 5 MG PO (05:41)
[2022-05-04] MEDS: Polyethylene Glycol 3350 17 GM PACKET PO (05:41)
[2022-05-04] MEDS: Cholecalciferol (VIT D3) 25 MCG TABLET (1,000 UNITS) PO (05:42)
[2022-05-04] MEDS: Senna/Docusate Sodium 1 Tablet 2 TABLET PO ×2 (05:42→17:02)
[2022-05-04] MEDS: Acetaminophen 500 MG Tablet 1000 MG PO ×3 (05:42→21:37)
[2022-05-04] MEDS: amLODIPine 5 MG Tablet PO (05:46)
[2022-05-04] MEDS: Gabapentin 300 MG Capsule PO ×3 (05:46→21:36)
[2022-05-04] MEDS: Lisinopril 20 MG Tablet PO (05:46)
[2022-05-04] MEDS: Calcium (Elemental) 500 MG Tablet 1000 MG PO (07:12)
[2022-05-04] MEDS: Ferrous Sulfate 325 MG Tablet PO (07:12)
[2022-05-04] MEDS: Allopurinol 100 MG Tablet PO (07:12)
[2022-05-04] MEDS: Multivitamins,Therapeutic Tablet 1 TABLET PO (07:13)
[2022-05-04 14:52] VITALS: BP 146/71; PULSE 60; RESP 18; TEMP 36.6; O2SAT 98
[2022-05-04] MEDS: MELATONIN 3 MG TABLET 7.5 MG PO (21:36)
[2022-05-04] MEDS: oxyCODONE 5 MG Tablet PO (21:38)
[2022-05-04 21:39] VITALS: BP 151/66; PULSE 54
[2022-05-04] MEDS: Metoprolol(XL)Succ 50 MG Tablet PO (21:39)
[2022-05-05 06:00] VITALS: BP 141/61; PULSE 60; RESP 16
[2022-05-05] MEDS: Acetaminophen 500 MG Tablet 1000 MG PO ×3 (06:01→22:08)
[2022-05-05] MEDS: Escitalopram Oxalate 10 MG Tablet 5 MG PO (06:01)
[2022-05-05] MEDS: Senna/Docusate Sodium 1 Tablet 2 TABLET PO ×2 (06:01→17:50)
[2022-05-05] MEDS: Polyethylene Glycol 3350 17 GM PACKET PO (06:01)
[2022-05-05] MEDS: Lisinopril 20 MG Tablet PO (06:03)
[2022-05-05] MEDS: Cholecalciferol (VIT D3) 25 MCG TABLET (1,000 UNITS) PO (06:03)
[2022-05-05] MEDS: amLODIPine 5 MG Tablet PO (06:03)
[2022-05-05] MEDS: Gabapentin 300 MG Capsule PO ×3 (06:08→22:08)
[2022-05-05 06:09] LABS: International Normalized Ratio 2.2
[2022-05-05] MEDS: Calcium (Elemental) 500 MG Tablet 1000 MG PO (07:50)
[2022-05-05] MEDS: Ferrous Sulfate 325 MG Tablet PO (07:50)
[2022-05-05] MEDS: Multivitamins,Therapeutic Tablet 1 TABLET PO (07:50)
[2022-05-05] MEDS: Allopurinol 100 MG Tablet PO (07:51)
[2022-05-05 15:12] VITALS: BP 123/90; PULSE 60; RESP 16; TEMP 37.1; O2SAT 95
[2022-05-05] MEDS: MELATONIN 3 MG TABLET 7.5 MG PO (22:08)
[2022-05-05 22:09] VITALS: BP 139/60; PULSE 57
[2022-05-05] MEDS: Metoprolol(XL)Succ 50 MG Tablet PO (22:09)
[2022-05-05 22:15] VITALS: PULSE 57; RESP 16; O2SAT 97
[2022-05-05] MEDS: oxyCODONE 5 MG Tablet PO (22:16)
[2022-05-06] MEDS: Acetaminophen 500 MG Tablet 1000 MG PO ×3 (05:50→21:05)
[2022-05-06] MEDS: Gabapentin 300 MG Capsule PO ×3 (05:50→21:01)
[2022-05-06] MEDS: amLODIPine 5 MG Tablet PO (05:51)
[2022-05-06] MEDS: Senna/Docusate Sodium 1 Tablet 2 TABLET PO ×2 (05:51→17:53)
[2022-05-06] MEDS: Polyethylene Glycol 3350 17 GM PACKET PO (05:51)
[2022-05-06] MEDS: Escitalopram Oxalate 10 MG Tablet 5 MG PO (05:51)
[2022-05-06] MEDS: Lisinopril 20 MG Tablet PO (05:51)
[2022-05-06] MEDS: Cholecalciferol (VIT D3) 25 MCG TABLET (1,000 UNITS) PO (05:53)
--- NOTE | 2022-05-06 06:35 | NURSING ---
Patient states that her transport will arrive at 10am on Monday05/07/22. Will D/C home at that time.
[2022-05-06] MEDS: Allopurinol 100 MG Tablet PO (07:49)
[2022-05-06] MEDS: Multivitamins,Therapeutic Tablet 1 TABLET PO (07:49)
[2022-05-06] MEDS: Ferrous Sulfate 325 MG Tablet PO (07:49)
[2022-05-06] MEDS: Calcium (Elemental) 500 MG Tablet 1000 MG PO (07:49)
[2022-05-06] MEDS: oxyCODONE 5 MG Tablet PO ×2 (13:55→21:01)
--- NOTE | 2022-05-06 14:56 | CASEMGMT ---
Social Work BIMS and PHQ-9 completed for MDS assessment. Cristal Temple, NIPPING MACHINE OPERATOR DRAWER LINER
[2022-05-06 21:00] VITALS: PULSE 60; RESP 16; O2SAT 97
[2022-05-06] MEDS: MELATONIN 3 MG TABLET 7.5 MG PO (21:00)
[2022-05-06 21:02] VITALS: BP 127/60; PULSE 62
[2022-05-06] MEDS: Metoprolol(XL)Succ 50 MG Tablet PO (21:02)
[2022-05-07] MEDS: Polyethylene Glycol 3350 17 GM PACKET PO (06:09)
[2022-05-07] MEDS: Escitalopram Oxalate 10 MG Tablet 5 MG PO (06:10)
[2022-05-07] MEDS: Acetaminophen 500 MG Tablet 1000 MG PO (06:10)
[2022-05-07] MEDS: Cholecalciferol (VIT D3) 25 MCG TABLET (1,000 UNITS) PO (06:10)
[2022-05-07] MEDS: amLODIPine 5 MG Tablet PO (06:10)
[2022-05-07] MEDS: Senna/Docusate Sodium 1 Tablet 2 TABLET PO (06:10)
[2022-05-07] MEDS: Gabapentin 300 MG Capsule PO (06:10)
[2022-05-07] MEDS: Lisinopril 20 MG Tablet PO (06:10)
[2022-05-07 06:40] VITALS: PULSE 66; RESP 18; O2SAT 98
[2022-05-07 06:48] VITALS: PULSE 66; RESP 18; O2SAT 98
[2022-05-07] MEDS: Calcium (Elemental) 500 MG Tablet 1000 MG PO (07:46)
[2022-05-07] MEDS: Allopurinol 100 MG Tablet PO (07:46)
[2022-05-07] MEDS: Multivitamins,Therapeutic Tablet 1 TABLET PO (07:46)
[2022-05-07] MEDS: Ferrous Sulfate 325 MG Tablet PO (07:46)
[2022-05-07 09:30] VITALS: BP 133/57; PULSE 59; RESP 18; TEMP 36.5; O2SAT 96
== END 2022-05-07 10:04 | disposition home health service (06) | DRG 561 ==
PROVIDERS: Admitting Provider Family Medicine Geriatric Medicine; PCP Internal Medicine; Visit Provider Family Medicine Geriatric Medicine
DX: S72.002D Fracture of unspecified part of neck of left femur, subsequent encounter for closed fracture with routine healing (principal); E11.42 Type 2 diabetes mellitus with diabetic polyneuropathy; E55.9 Vitamin D deficiency, unspecified; E78.5 Hyperlipidemia, unspecified; D50.9 Iron deficiency anemia, unspecified; F01.50 Vascular dementia, unspecified severity, without behavioral disturbance, psychotic disturbance, mood disturbance, and anxiety; I48.0 Paroxysmal atrial fibrillation; M10.9 Gout, unspecified; I10 Essential (primary) hypertension; W19.XXXD Unspecified fall, subsequent encounter; G47.00 Insomnia, unspecified; Z79.01 Long term (current) use of anticoagulants; Z79.899 Other long term (current) drug therapy; Z95.3 Presence of xenogenic heart valve
CPT/HCPCS: 36415; 80048; 85025; 85610; 87811; 92507; 92523; 97110; 97116; 97129; 97130; 97162; 97166; 97530; 97535; 97802

== ENCOUNTER → 2022-06-28 | Outpatient (CLI) | payer MEDICARE, SELFPAY ==
--- NOTE | 2022-06-28 09:00 | PET_ITS ---
EXAMINATION: FDG PET-CT INDICATIONS: A 76-year-old female with history of pulmonary nodularity. COMPARISON EXAMINATION: None available TECHNIQUE: Following the intravenous administration of 12.86 mCi of F-18 deoxyglucose via the left antecubital fossa, multiplanar image acquisitions of the neck, chest, abdomen and pelvis to level of mid thigh, obtained at one hour post radiopharmaceutical administration contemporaneously interpreted with the current CT of the neck, chest, abdomen and pelvis, to level of mid thigh, dated 06/28/22 via coregistration reveals: BLOOD GLUCOSE LEVEL:?? 123 mg/dl?HEIGHT:?63 inches?WEIGHT: 171 lbs. FINDINGS: Head/Neck: There is no evidence of abnormal increased glucose metabolism in the pharyngeal mucosal space, parapharyngeal space, bilateral-lateral and anterior neck, hypopharynx and distribution of the laryngeal structures. The visualized portion of the cerebral cortical-subcortical structures demonstrate symmetric and preserved glucose metabolism. CHEST: There is no quantitative scintigraphic evidence of abnormal increased glucose metabolism within the context of the bilateral hemithorax pulmonary parenchyma, right and left hemithorax pleural interface, mediastinal structures and right-left thoracic perihilum. Prominent radiopharmaceutical concentration is defined in the ascending and descending thoracic aorta consistent with activated leukocytes associated with atherosclerotic plaque formation. Pertinent chest CT findings are as follows. Cyst formation is defined throughout the bilateral lung castle. There is evidence of prior median sternotomy. There is atherosclerotic calcification defined in the thoracic aorta without evidence of dilatation-aneurysm formation. Coronary arterial calcification is observed. Aortic valve prosthesis is demonstrated. Mitral valve calcifications are defined. Right-left axillary soft tissue densities are non-glucose avid. Abdomen/Pelvis: Normal physiologic distribution of the radiopharmaceutical is apparent in the hepatic and splenic parenchyma, both renal units, bladder and visualized intestinal tract. Diffuse radiopharmaceutical concentration is noted in all four quadrants of the abdomen and pelvis. Prominent uptake is noted in the abdominal aorta commensurate with activated leukocytes associated with atherosclerosis previously described. Pertinent abdomen and pelvis CT findings are as follows. There is atherosclerotic calcification defined in the abdominal aorta without evidence of dilatation-aneurysm formation. Pelvic arterial calcification is observed. Colonic diverticulosis is encountered without evidence of diverticulitis. A small midline fat containing ventral hernia is defined. The uterus is surgically absent. Cyst formation is defined in the left renal unit. Right and left inguinal soft tissue densities are non-glucose avid. Skeletal: A right hip and shoulder prosthetic devices are defined. Degenerative changes are noted in the cervical, thoracic and lumbar spine without evidence of increased radiopharmaceutical concentration. There are no well-defined sclerotic-lytic changes manifest on review of the appendicular-axial skeletal structures. PET/PET/CT Tumor Base -Thigh Init IMPRESSION: 1. NEGATIVE EXAMINATION. There is no definitive quantitative scintigraphic evidence of viable neoplasm. 2. Metabolic, morphologic stability may be ensured in the bilateral hemithorax pulmonary parenchyma with repeat FDG PET-CT imaging in 3-6 months if clinically indicated. Electronic Signature Michael Morin D.O. Accurate Quantification of SUVs for this report are calculated using the exclusive [employer]. ([place] Patent No. [id number] B2 [phone] [place] patent [phone]). Standardization and correction of the FDG SUV metric via [employer] technology allow for vendor non-specific objective quantitative examination comparison and optimization of the sensitivity and specificity of the FDG PET-CT examination. Electronically Signed: Michael Morin, at 15:44 EST ,
== END | disposition home or self-care (01) ==
PROVIDERS: PCP Internal Medicine
DX: R91.8 Other nonspecific abnormal finding of lung field (principal)
CPT/HCPCS: 78815; A9552

== ENCOUNTER 2024-03-05 00:07 | Emergency (ER) | payer MEDICARE, SELFPAY ==
[2024-03-05 00:09] VITALS: BP 166/98; PULSE 93; RESP 18; TEMP 36.6; O2SAT 98; BMI 32.1
--- NOTE | 2024-03-05 00:24 | RAD_ITS ---
EXAM: XR Chest 1 View INDICATION: Female, 78 years old. Heart palpitations TECHNIQUE: Single AP view COMPARISON: None FINDINGS: DEVICES: None LUNGS: No confluent air space opacity. No concerning pulmonary nodule. No pleural effusion or pneumothorax. MEDIASTINUM: Borderline cardiomegaly. Median sternotomy wires and coronary artery bypass graft clips noted. Mediastinal silhouette is within normal limits. No central pulmonary vascular congestion. Calcification of the aortic arch. SKELETAL STRUCTURES: No acute skeletal abnormality. Mild multilevel degenerative changes in the spine. Right shoulder arthroplasty instrumentation. UPPER ABDOMEN: Unremarkable RAD/Chest 1 View (Portable) IMPRESSION: No acute cardiopulmonary disease Electronically Signed: Claude Sánchez MD at 1:33 EDT ,
--- NOTE | 2024-03-05 00:25 | ED.VIS.CHEST ---
HPI History of Present Illness Chief Complaint: Palpitations Narrative Narrative: Chief complaint and HPI: Palpitations. 78-year-old female with history of atrial fibrillation on warfarin, aortic valve replacement with bioprosthetic valve, DM, HTN presents for evaluation of palpitations. Patient states that she just did not feel right yesterday in which she checked her blood pressure. She states her SBP was in the 200s. She states she felt better so she went to bed. She states this morning she is just not felt herself all day. She states she has been having intermittent flutters in her chest. She states she checked her blood pressure at home and it was again high. She denies any fever, chills, headache, dizziness, chest pain, shortness of breath abdominal pain, nausea, vomiting, dysuria, weakness, numbness/tingling. Review of systems: See HPI Medications: As listed on the chart Allergies: As listed on the chart PFSH: Per chart Vital signs: As listed on the chart. Reviewed. Physical exam: Gen: A&O x3, NAD Head: Normocephalic, atraumatic Eyes: No sclera icterus, conjunctiva clear ENT: Moist mucous membranes, face is mildly flushed at the cheeks Neck: Trachea midline, No JVD, no carotid bruit CV: RRR, + prosthetic valve sounds, no peripheral edema Resp: Lungs CTA BL, no w/r/c GI: Abd soft, non-distended, non-tender, no r/r/g Musc: Full ROM, no deformity Skin: Warm, dry Neuro: Alert, oriented, grossly intact, sensation intact Psych: Cooperative, appropriate mood and affect [facility] Medical History Chronic anticoagulation Dementia Diabetes mellitus, type 2 History of CVA (cerebrovascular accident) History of stress test HLD (hyperlipidemia) HTN (hypertension) PAF (paroxysmal atrial fibrillation) Paroxysmal atrial fibrillation Paroxysmal atrial fibrillation with rapid ventricular response Valvular heart disease Home Medications ?Medication ?Instructions ?Recorded ?Last Taken ?Type amlodipine 5 mg tablet 5 mg PO DAILY blood pressure 02/15/20 03/30/22 History metoprolol succinate 100 mg 50 mg PO QHS blood pressure 02/15/20 03/29/22 History tablet,extended release 24 hr allopurinol 100 mg tablet 100 mg PO DAILY GOUT 07/16/21 03/30/22 History lisinopril 20 mg tablet 20 mg PO DAILY BLOOD PRESSURE 07/16/21 03/30/22 History calcium 2 tab PO/SL DAILY SUPPLEMENT 03/30/22 03/30/22 History cholecalciferol (vitamin D3) 25 25 mcg PO DAILY SUPPLEMENT 03/30/22 03/30/22 History mcg (1,000 unit) tablet (Vitamin D3) escitalopram oxalate 5 mg tablet 5 mg PO DAILY DEPRESSION 03/30/22 03/29/22 History gabapentin 300 mg capsule 300 mg PO TID NERVE PAIN 03/30/22 03/30/22 History iron 1 cap PO/SL DAILY SUPPLEMENT 03/30/22 03/30/22 History multivitamin 1 tab PO DAILY HEALTH MAINTENANCE 03/30/22 03/30/22 History warfarin 3 mg tablet (Jantoven) 3 mg PO SuTuThSa@1700 blood thinner 04/04/22 Unknown History acetaminophen 500 mg tablet 1,000 mg (2 x 500 mg) PO Q8 #0 tabs 05/03/22 Unknown Rx oxycodone 5 mg tablet 5 mg PO Q6H PRN PRN Pain Score 05/03/22 Unknown Rx 6-10 3 days #12 tabs aspirin 81 mg capsule 81 mg PO DAILY 03/05/24 Unknown History docusate sodium 100 mg capsule 100 mg PO DAILY constipation 03/05/24 Unknown History oxybutynin chloride 5 mg 5 mg PO DAILY 03/05/24 Unknown History tablet,extended release 24 hr rosuvastatin 5 mg tablet 5 mg PO DAILY 03/05/24 Unknown History warfarin 2 mg tablet 2 mg PO 03/05/24 Unknown History zolpidem 5 mg tablet (Ambien) 5 mg PO QHS 03/05/24 Unknown History Allergy/AdvReac Type Severity Reaction Status Date / Time Penicillins (PCN) Allergy Hives Verified 03/05/24 00:08 tramadol Allergy Other Verified 03/05/24 00:08 ciprofloxacin (From Cipro) AdvReac PT UNSURE Verified 03/05/24 00:08 OF REACTION donepezil (From Aricept) AdvReac PT UNSURE Verified 03/05/24 00:08 OF REACTION nitrofurantoin (From AdvReac PT UNSURE Verified 03/05/24 00:08 Macrobid) OF REACTION ramelteon AdvReac PT UNSURE Verified 03/05/24 00:08 OF REACTION trazodone AdvReac PT UNSURE Verified 03/05/24 00:08 OF REACTION Family History Mother Heart disease Hypertension Father Heart disease Hypertension Surgical History H/O aortic aneurysm repair H/O microdiscectomy History of aortic valve replacement with bioprosthetic valve History of aortic valve replacement with bioprosthetic valve History of bilateral tubal ligation History of reverse total replacement of right shoulder joint S/P aortic valve replacement with bioprosthetic valve S/P dilation and curettage S/P hysterectomy Social History household members: none Smoking Status: Never smoker alcohol intake: never substance use type: does not use EXAM Physical Exam Const Vital Signs: 03/05/24 00:09 03/05/24 00:11 03/05/24 02:08 Temperature 97.8 F Temperature Source Oral Pulse Rate 93 67 Respiratory Rate 18 22 H Respiratory Effort Normal Blood Pressure 166/98 H 153/79 H Blood Pressure Mean 120 103 Pulse Ox 98 97 Oxygen Delivery Method Room Air Room Air 03/05/24 04:00 03/05/24 05:14 Temperature 98.6 F Temperature Source Pulse Rate 56 L 58 L Respiratory Rate 15 16 Respiratory Effort Blood Pressure 163/86 H 165/98 H Blood Pressure Mean 111 120 Pulse Ox 98 97 Oxygen Delivery Method Room Air MDM MDM MDM Narrative Medical decision making narrative: 78-year-old female with history of atrial fibrillation on warfarin, aortic valve replacement, HTN presents for evaluation of hypertension and palpitations. On presentation patient's SBP is in the 160s. Differential diagnosis includes but is not limited to arrhythmia, electrolyte abnormality, hypertension urgency, hypertension emergency, ACS. Suspect less likely PE. Cardiac workup ordered. CBC without leukocytosis or anemia. INR 1.1. This is subtherapeutic. BMP shows renal insufficiency of 1.29. The previous labs I have are from 2021 and at that time kidney function was normal. Magnesium level unremarkable. D-dimer elevated at 2.10. Cannot fully rule out a PE therefore CTA chest ordered. CTA negative for PE. Patient does have a 13 mm left upper lobe pulmonary nodule will need further workup outpatient. She has multiple large blebs with scattered bullae. Stable ascending aortic aneurysm measuring up to 42 mm in diameter of the anterior aortic arch. Troponin negative x 2. Patient is not having any chest pain. At this point in time, no clear etiology for patient's palpitations. Her blood pressure has remained into the 160s. Her palpitations may have been secondary to hypertension urgency. Patient currently not having palpitations. BNP unable to be resulted due to machine being broken. Patient has no signs of CHF. Patient and family member were updated of all the results and the plan for discharge home. Will send her home with a Holter monitor. Patient is very nervous about going home. She states she lives alone and that the palpitations scared her. I do think this is understandable. Patient would like me to discuss her case with the hospitalist for possible observation admission. I did discuss the case with Dr. Stevenson. He reviewed the workup and agrees with discharge home and follow-up outpatient. Patient does not warrant admission. Patient was updated of his recommendations. She confirmed understanding. I had extensive discussion with her and her daughter about all of her lab workup. She was educated that she needs to follow-up with her recorder helper seismograph for elevated blood pressure and continue to monitor at home. She is made aware about her pulmonary nodule, she states that this is a known finding. She was told follow-up for this. She was told to contact her recorder helper seismograph as well as her primary care physician for all of her findings as she may need changes in her blood pressure medication or further workup outpatient. She will need to have her INR rechecked. She was educated that if symptoms recur or worsen or change to return back to the ED. Family member will be watching her closely. Patient's glucose was elevated in the 200s. Patient requesting information on diabetic diet. This will be provided to her. After placing the order for the Holter monitor we do not have any available to discharge the patient home with at this time. Patient was written an order for outpatient Holter monitor. Patient and family member confirmed understanding. EKG: Interpreted by me/EM physician: EKG shows normal sinus rhythm with PACs. Patient does have nonspecific ST wave abnormalities in V3-V5. This is different than her previous EKG. Diagnostic: Interpreted by me/EM physician: Chest x-ray without pneumonia, effusion, cardiomegaly, pneumothorax Impression: 1. Episodic palpitations 2. Hypertension with a history of hypertension 3. Renal insufficiency 4. Subtherapeutic INR Lab Data Labs: Laboratory Results - last 24 hr 03/05/24 03/05/24 00:30 02:47 WBC 8.1 RBC 4.75 Hgb 14.9 Hct 43.9 MCV 92.4 MCH 31.4 MCHC 33.9 RDW Std Deviation 42.6 RDW Coeff of Yasir 12.5 Plt Count 249 MPV 9.3 Immature Gran % (Auto) 0.600 Neut % (Auto) 62.0 Lymph % (Auto) 24.1 [place] % (Auto) 10.7 H Eos % (Auto) 1.9 Baso % (Auto) 0.7 Absolute Neuts (auto) 5.0 Absolute Lymphs (auto) 1.94 Nucleated RBC % 0 PT 13.7 INR 1.1 D-Dimer Quant (PE/DVT) 2.10 H* Sodium 136 Potassium 3.7 Chloride 106 Carbon Dioxide 23.0 Anion Gap 7 BUN 26 H Creatinine 1.29 H Estim Creat Clear Calc 35.36 Est GFR (MDRD) Af Amer 51 L Est GFR (MDRD) Non-Af 42 L BUN/Creatinine Ratio 20.2 H Glucose 272 H Calcium 9.2 Magnesium 2.2 Troponin I High Sens 8 11 Radiography Diagnostic Testing: Clinical Impression(s) from Imaging Studies Chest X-Ray 03/05/24 00:24 IMPRESSION: No acute cardiopulmonary disease Electronically Signed: Claude Sánchez MD at 1:33 EDT , Chest CTA 03/05/24 01:20 IMPRESSION: Distal pulmonary artery branch vessel evaluation is suboptimal secondary to timing of contrast bolus as well as respiratory motion, however, there is no obvious proximal pulmonary embolus. No acute pulmonary parenchymal abnormality. No acute aortic abnormality. 13 mm left upper lobe pulmonary nodule, not definitely seen previously. Recommend comparison with previous imaging to document long-term stability versus follow-up evaluation as per Fleischner guidelines as neoplastic process is not excluded. Multiple large blebs with scattered bulla. Stable ascending aortic aneurysm measuring up to 42 mm in diameter at the anterior aortic arch. Electronically Signed: Nikos Pena MD at 4:04 EDT , Discharge Plan Triage Chief Complaint: Palpitations ED Provider: Spencer Smith Dx/Rx/DC Orders Clinical Impression: Palpitations Instructions: Diabetes Food Tips Ch, Diabetes Serving Portion Sizes, Diabetes Carbs Fats Protein, Understanding Heart Palpitations, ED Hypertension, Established, ED Palpitations, ED Diet: Diabetes Prescriptions: No Action metoprolol succinate 100 MG tablet extended release 24 hr 50 mg PO QHS amlodipine 5 MG tablet 5 mg PO DAILY lisinopril 20 mg tablet 20 mg PO DAILY Patient Comments: TAKE 1 TABLET BY MOUTH EVERY DAY allopurinol 100 mg tablet 100 mg PO DAILY Patient Comments: TAKE 1 TABLET BY MOUTH EVERY DAY multivitamin Tablet 1 tab PO DAILY escitalopram oxalate 5 mg tablet 5 mg PO DAILY gabapentin 300 mg capsule 300 mg PO TID cholecalciferol (vitamin D3) [Vitamin D3] 25 mcg (1,000 unit) Tablet 25 mcg PO DAILY calcium 2 tab PO/SL DAILY iron 1 cap PO/SL DAILY warfarin [Jantoven] 3 mg tablet 3 mg PO SuTuThSa@1700 acetaminophen 500 mg Tablet 1,000 mg PO Q8 Qty: 0 0RF oxycodone 5 mg Tablet 5 mg PO Q6H PRN PRN (Reason: Pain Score 6-10) 3 Days Qty: 12 0RF aspirin 81 mg capsule 81 mg PO DAILY zolpidem [Ambien] 5 mg tablet 5 mg PO QHS warfarin 2 mg tablet 2 mg PO docusate sodium 100 mg capsule 100 mg PO DAILY oxybutynin chloride 5 mg tablet extended release 24hr 5 mg PO DAILY rosuvastatin 5 mg tablet 5 mg PO DAILY Primary Care Provider: Radha Carmichael Referrals: Radha Carmichael MD [Primary Care Provider] - 3-5 Days Activity Restrictions/Additional Instructions: Follow-up with your recorder helper seismograph. Call the office in the morning. Monitor your blood pressure at home. Obtain your outpatient Holter monitor. Follow-up with your primary care physician. Call their office. You have a 13 mm left upper lobe pulmonary nodule this will need further workup outpatient. You have a stable ascending aortic aneurysm measuring up to 42 mm in diameter at the anterior aortic arch. If symptoms worsen or recur please return back to the ED Print Language: Hungarian Disposition Disposition: Home, Self Care Discharge Date/Time: 03/05/24 05:29
[2024-03-05 00:48] LABS: Absolute Lymphocyte Count 1.94 X10^3/uL (0.83-4.51); Basophil# 0.06 X10^3/uL; Basophil% 0.7 % (0-1); Eosinophil# 0.15 X10^3/uL; Eosinophils% 1.9 % (0-5); Hematocrit 43.9 % (37-47); Hemoglobin 14.9 g/dL (12.0-15.0); Lymphocyte # 1.94 X10^3/ul (0.83-4.51); Lymphocyte % 24.1 % (19-41); Mean Corp Hgb Conc 33.9 g/dL (32-36); Mean Corpuscular Hgb 31.4 pg (27.0-32.0); Mean Corpuscular Volume 92.4 fL (81-99); Mean Platelet Vol. 9.3 fl (6.2-12.0); Monocyte# 0.86 X10^3/uL; Monocyte% 10.7 % (0-10); NRBC Flagged by Analyzer 0 % (0-5); Neutrophil # 4.99 X10^3/uL (2.7-7.7); Platelet Count 249 K/mm3 (150-450); RBC Distribution Width CV 12.5 % (11.6-14.6); RBC Distribution Width SD 42.6 fl (35.1-43.9); Red Blood Count 4.75 M/mm3 (4.2-5.4); White Blood Count 8.1 K/mm3 (4.4-11.0)
[2024-03-05 01:20] LABS: International Normalized Ratio 1.1; Prothrombin Time (Protime)PT. 13.7 SECONDS (11.7-14.9)
--- NOTE | 2024-03-05 01:20 | CT_ITS ---
INDICATION: Elevated dimer, PE EXAMINATION: - CTA Chest WO/W Contrast Injection A radiation dose optimization technique was used for this scan. RADIATION DOSAGE (If Supplied By Facility): CTDIvol/DLP = ( 9.95 ) / ( 399.54 ) mGy/mGycm COMPARISON: Chest radiograph same day. PET/CT 06/28/2022. FINDINGS: Contrast enhanced serial CTA axial images through the chest with coronal and sagittal reformatted series. Additional dedicated coronal and sagittal MIP reformatted series provided as well. IV Contrast dosage and agent: 100 cc [id number] IV. MEDIASTINUM: No acute thoracic aortic abnormality. Stable ascending aortic aneurysm measuring up to 42 mm in diameter at the anterior aortic arch. Prosthetic aortic valve. Distal pulmonary artery branch vessel evaluation is suboptimal secondary to timing of contrast bolus as well as respiratory motion, however, there are no obvious proximal pulmonary artery filling defects. LUNG PARENCHYMA: 13 mm left upper lobe pulmonary nodule on axial image 150 of series 2. No acute pulmonary parenchymal abnormality. Multiple large blebs with scattered bulla. PLEURA: No pleural effusion. No pneumothorax. BONES: Median sternotomy wires. UPPER ABDOMEN: Unremarkable. CT/CTA Chest W/WO Contrast IMPRESSION: Distal pulmonary artery branch vessel evaluation is suboptimal secondary to timing of contrast bolus as well as respiratory motion, however, there is no obvious proximal pulmonary embolus. No acute pulmonary parenchymal abnormality. No acute aortic abnormality. 13 mm left upper lobe pulmonary nodule, not definitely seen previously. Recommend comparison with previous imaging to document long-term stability versus follow-up evaluation as per Fleischner guidelines as neoplastic process is not excluded. Multiple large blebs with scattered bulla. Stable ascending aortic aneurysm measuring up to 42 mm in diameter at the anterior aortic arch. Electronically Signed: Nikos Pena MD at 4:04 EDT ,
[2024-03-05 01:57] LABS: Anion Gap 7 (5-15); BUN 26 mg/dL (7-18); BUN/Creat Ratio 20.2 RATIO (10-20); Calcium,Total 9.2 mg/dL (8.5-10.1); Chloride 106 mmol/L (98-107); Creatinine, Serum 1.29 mg/dL (0.55-1.02); EST Glomerular Filtration Rate 42 mL/min (>60); Est Glom Filt Rate - Afr Amer 51 mL/min (>60); Estimated Creatinine Clearance 35.36 ml/min; Glucose 272 mg/dL (74-106); Magnesium 2.2 mg/dL (1.6-2.6); Potassium 3.7 mmol/L (3.5-5.1); Sodium Level 136 mmol/L (136-145); Troponin-I HS (w/2H Reflex) 8 pg/mL (3.0-54.0)
[2024-03-05 02:08] VITALS: BP 153/79; PULSE 67; RESP 22; O2SAT 97
[2024-03-05 02:45] LABS: Reflex Troponin-HS? (from REC) Y
[2024-03-05 03:25] LABS: Troponin-I HS 11 pg/mL (3.0-54.0)
[2024-03-05 04:00] VITALS: BP 163/86; PULSE 56; RESP 15; O2SAT 98
[2024-03-05 05:29] VITALS: BP 165/98; PULSE 58; RESP 16; TEMP 36.6; O2SAT 97
== END 2024-03-05 05:29 | disposition home or self-care (01) ==
PROVIDERS: Emergency Provider Surgery; PCP Internal Medicine; Visit Provider Surgery
DX: R00.2 Palpitations (principal); I48.91 Unspecified atrial fibrillation; E11.9 Type 2 diabetes mellitus without complications; I71.21 Aneurysm of the ascending aorta, without rupture; R91.1 Solitary pulmonary nodule; E78.5 Hyperlipidemia, unspecified; N28.9 Disorder of kidney and ureter, unspecified; I10 Essential (primary) hypertension; Z79.01 Long term (current) use of anticoagulants; Z95.2 Presence of prosthetic heart valve; R79.1 Abnormal coagulation profile; Z86.73 Personal history of transient ischemic attack (TIA), and cerebral infarction without residual deficits; Z79.82 Long term (current) use of aspirin; Z82.49 Family history of ischemic heart disease and other diseases of the circulatory system; Z98.51 Tubal ligation status; Z90.710 Acquired absence of both cervix and uterus
CPT/HCPCS: 71045; 71275; 80048; 83735; 83880; 84484; 85025; 85379; 85610; 93005; 99283; Q9967; A4216

== ENCOUNTER 2025-01-18 09:10 | Emergency (ER) | payer MEDICARE, SELFPAY ==
[2025-01-18 09:11] VITALS: BP 200/156; PULSE 65; RESP 16; TEMP 36.8; O2SAT 100; BMI 33.6
--- NOTE | 2025-01-18 09:22 | ED.RN ---
pt had a colonoscopy this week and after urinating this morning she started having right flank pain that radiates around. pt has had a BM since procedure.
--- NOTE | 2025-01-18 09:38 | EDS_ITS ---
HPI History of Present Illness Chief Complaint: Flank Pain Informant: patient and family (Daughter at bedside.) Onset/Context/Timing Onset: Days (Greater than 1 week.) Context: Gradual Onset Timing: Continuous Current Severity: Moderate Maximum Severity: Moderate Narrative Narrative: 79-year-old female history of A-fib, stroke, diabetes, Biosynthetic valve she is on Coumadin. Was admitted to [facility] last week last Monday or Monday she started developing atraumatic right flank pain. They did a CAT scan of [facility] so some abnormal she was admitted to the hospital had a colonoscopy. And believes she was diagnosed with a internal hemorrhoid that was bleeding. However she has been discharged to home and says she is having the same or worsening right flank pain. Denies any dysuria. No chest pain. No shortness of breath. No pleuritic pain. She denies any fall injury or trauma to her right posterior rib cage. Pain is worse with movement. Currently denies abdominal pain. Denies vomiting or diarrhea. No dysuria or hematuria. Prior similar symptoms: Yes Recent Illness/Hospitalization: Yes [facility] Medical History Chronic anticoagulation Paroxysmal atrial fibrillation with rapid ventricular response History of stress test Paroxysmal atrial fibrillation History of CVA (cerebrovascular accident) Diabetes mellitus, type 2 Dementia PAF (paroxysmal atrial fibrillation) Valvular heart disease HLD (hyperlipidemia) HTN (hypertension) Home Medications ?Medication ?Instructions ?Recorded ?Last Taken ?Type amlodipine 5 mg tablet 5 mg PO DAILY blood pressure 02/15/20 03/30/22 History metoprolol succinate 100 mg 50 mg PO QHS blood pressur e 02/15/20 03/29/22 History tablet,extended release 24 hr allopurinol 100 mg tablet 100 mg PO DAILY GOUT 2 03/30/22 History lisinopril 20 mg tablet 20 mg PO DAILY BLOOD PRESSUR E 07/16/21 03/30/22 History calcium 2 tab PO/SL DAILY SUPPLEMENT 03/30/22 03/30/22 History cholecalciferol (vitamin D3) 25 25 mcg PO DAILY SUPPLE MENT 03/30/22 03/30/22 History mcg (1,000 unit) tablet (Vitamin D3) escitalopram oxalate 5 mg tablet 5 mg PO DAILY DEPRESS ION 03/30/22 03/29/22 History gabapentin 300 mg capsule 300 mg PO TID NERVE PAIN 02/1003/30/22 History iron 1 cap PO/SL DAILY SUPPLEMENT 03/30/22 03/30/22 History multivitamin 1 tab PO DAILY [facility] 03/30/22 03/30/22 History warfarin 3 mg tablet (Jantoven) 3 mg PO SuTuThSa@1700 blood thinner 04/04/22 Unknown History acetaminophen 500 mg tablet 1,000 mg (2 x 500 mg) PO Q 8 #0 tabs 05/03/22 Unknown Rx oxycodone 5 mg tablet 5 mg PO Q6H PRN PRN Pain Sco re 05/03/22 Unknown Rx 6-10 3 days #12 tabs aspirin 81 mg capsule 81 mg PO DAILY 03/05/24 Unkn own History docusate sodium 100 mg capsule 100 mg PO DAILY constip ation 03/05/24 Unknown History oxybutynin chloride 5 mg 5 mg PO DAILY 03/05/24 Unkno wn History tablet,extended release 24 hr rosuvastatin 5 mg tablet 5 mg PO DAILY 03/05/24 Unkno wn History warfarin 2 mg tablet 2 mg PO 03/05/24 Unknown His tory zolpidem 5 mg tablet (Ambien) 5 mg PO QHS 03/05/24 Unk nown History Allergy/AdvReac Type Severity Reaction Status Date / Time Penicillins (PCN) Allergy Hives Verified 01/18/25 09:11 tramadol Allergy Other Verified 01/18/25 09:11 ciprofloxacin (From Cipro) AdvReac PT UNSURE Verified 01/18/25 09:11 OF REACTION donepezil (From Aricept) AdvReac PT UNSURE Verified 01/18/25 09:11 OF REACTION nitrofurantoin (From AdvReac PT UNSURE Verified 01/18/25 09:11 Macrobid) OF REACTION ramelteon AdvReac PT UNSURE Verified 01/18/25 09:11 OF REACTION trazodone AdvReac PT UNSURE Verified 01/18/25 09:11 OF REACTION Family History Mother Heart disease Hypertension Father Heart disease Hypertension Surgical History History of aortic valve replacement with bioprosthetic valve History of aortic valve replacement with bioprosthetic valve H/O microdiscectomy History of bilateral tubal ligation S/P dilation and curettage S/P hysterectomy S/P aortic valve replacement with bioprosthetic valve History of reverse total replacement of right shoulder joint H/O aortic aneurysm repair Social History household members: none Smoking Status: Never smoker alcohol intake: never substance use type: does not use ROS ROS ED ROS Narrative Atraumatic right flank pain. Constitutional Constitutional ED: Denies chills or fever(s) Eyes Eyes: Denies blurry vision ENT ENT ED: Denies ear pain Cardiovascular Cardiovascular: Denies chest pain Respiratory/Chest Respiratory/Chest: Denies cough or dyspnea Gastrointestinal Gastrointestinal: Denies abdominal pain Genitourinary Genitourinary ED: Denies dysuria or hematuria Musculoskeletal Musculoskeletal: Reports back pain and other Details: Right flank pain and posterior right rib cage pain. ; Denies arthralgias Neurologic Neurologic: Denies headache(s) Psychiatric Psychiatric: Denies anxiety or depression Endocrine Endocrinology: Denies cold intolerance or heat intolerance Hematologic/Lymphatic Hematologic/Lymphatic: Reports none Allergic/Immunologic Allergic/Immunologic ED: Denies mouth swelling, tongue swelling or urticaria EXAM Physical Exam Narrative Exam Narrative: 79-year-old female sitting upright in bed. Vital signs stable blood pressure is elevated 200/156. Pulse ox 100% on room air no signs hypoxia no distress open she complained of right flank pain. Daughter at bedside. H EENT exam pupils round react light. Moist mutes membranes. No trauma. Neck nontender no JVD. No lymphadenopathy. Back spine and left posterior rib cage nontender the right posterior rib cage is tenderness. There is no ecchymosis or bruising no subcu air or crepitance. No bony deformity. No rash or shingles. No bruising. But is definitely reproducibly painful to palpation. Anterior chest and anterior ribs are nontender. Lungs clear to auscultation. Heart regular rhythm rate about 65 no murmur. abdomen is soft and nontender. Normal bowel sounds without peritoneal signs. Patient is moving all 4 extremities. Normal national expansion recruiter strength. Normal dorsi plantarflexion. Calves are nontender without edema or cords. Neurologically she is awake alert. Answering questions following commands. No focal motor deficits. Const Vital Signs: 01/18/25 09:11 Temperature 98.2 F Temperature Source Oral Pulse Rate 65 Respiratory Rate 16 Blood Pressure 200/156 H Blood Pressure Mean 170 Pulse Ox 100 Oxygen Delivery Method Room Air Positive well nourished and well developed; Negative for cachectic, contractures or unkempt General Appearance ED: well developed and NAD; Negative for unkempt, cachectic, contractures, cyanotic, diaphoretic or pallor Nutritional Appearance: Negative for cachectic HEENT Reports moist mucous membranes Negative for trauma or tenderness Eyes PERRL and EOMs intact bilaterally Neck no lymphadenopathy, supple and no JVD Chest Wall inspection of chest normal and palpation of chest normal Resp normal respiratory effort and clear to auscultation bilaterally Cardio regular rate, regular rhythm, S1 normal heart sound, S2 normal heart sound and no murmurs GI normal to inspection, nondistended, normoactive bowel sounds, non-tender, non- distended and no masses GI Narrative: Abdomen completely nontender. Right posterior rib cage in the back is tender but there is no ecchymosis or bruising there is no subcu air or crepitus. There is no bony deformity. There is no rash. It is also worse if she sits up. Auscultation: normoactive bowel sounds Palpation: soft; Negative for tender, guarding, splenomegaly, mass or rebound tenderness present Back/Spine no CVA tenderness Extremity normal to inspection General Extremety ED: Negative for edema or tenderness General Extremity: Negative for edema Neuro CN's II-XII intact bilaterally Sensorium / Orientation: alert Motor Exam: strength 5/5 throughout Psych mental status grossly normal Appearance: Negative for unkempt Skin no rashes or lesions noted, no wounds and skin turgor normal General Skin Exam: Negative for jaundice or pallor Rashes: No rashes noted Trauma: Negative for abrasion Wounds: Negative for wounds noted Image ED - Body Diagram Man: 2 1. Reproducible right posterior rib cage tenderness. Normal in appearance. MDM MDM MDM Narrative Medical decision making narrative: 79-year-old female recent hospitalization with [facility] complaining of right posterior rib cage tenderness. No fall injury or trauma. Recent colonoscopy. CAT scan being obtained of the abdomen to rule out a kidney stone. She will be given morphine for pain and Zofran. Screening labs. Chest x-ray to evaluate the right lower chest cavity and ribs. Repeat exam patient is doing well at 11:13 AM. Exam is unchanged. Went over initial test results are waiting on the CAT scan. She will be given additional morphine for pain. Repeat back exam other reproducible right posterior rib pain there is no change in the appearance still normal. No bruising no rash. No redness. Repeat exam patient is doing well at 12:25 PM. Went over all of her test back exams unchanged and appears to be musculoskeletal should be discharged to home. They are comfortable with the plan. Back exam is unchanged with reproducible pain but under the skin is normal in appearance. History & Record Review Discussion w/independent historian: Patient and Family Additional record(s) reviewed:: Prior outpatient record, Prior ED visit and Prior labs Lab Data Attestation: I reviewed the patient's lab results. Lab results narrative: CBC shows a white count of 5. H&H 15 and 45. Platelets 224. Electrolytes show a gap of 12. Normal BUN of 15 creatinine of 1. Glucose 149. Liver enzymes unremarkable. Lipase normal at 30. Urinalysis shows no nitrates no white or red cells. No bacteria. Labs: Laboratory Results - last 24 hr 01/18/25 01/18/25 01/18/25 09:47 09:50 10:10 WBC 5.6 RBC 4.98 Hgb 15.3 H Hct 45.7 MCV 91.8 MCH 30.7 MCHC 33.5 RDW Std Deviation 42.0 RDW Coeff of Yasir 12.6 Plt Count 224 MPV 9.4 Immature Gran % (Auto) 0.400 Neut % (Auto) 46.4 L Lymph % (Auto) 34.8 [place] % (Auto) 13.4 H Eos % (Auto) 3.2 Baso % (Auto) 1.8 H Absolute Neuts (auto) 2.6 Absolute Lymphs (auto) 1.95 Nucleated RBC % 0 PT 19.9 H INR 1.7 Sodium Cancelled 139 Potassium Cancelled 4.3 Chloride Cancelled 103 Carbon Dioxide Cancelled 23.8 Anion Gap Cancelled 12 BUN Cancelled 15 Creatinine Cancelled 1.01 Estim Creat Clear Calc Cancelled 45.44 L Est GFR (MDRD) Non-Af Cancelled 56 L BUN/Creatinine Ratio Cancelled 15.1 Glucose Cancelled 149 H Calcium Cancelled 9.7 Total Bilirubin Cancelled 0.43 AST Cancelled 24 ALT Cancelled 17 Alkaline Phosphatase Cancelled 127 H Total Protein Cancelled 7.2 Albumin Cancelled 4.1 Globulin Cancelled 3.1 Albumin/Globulin Ratio Cancelled 1.3 Lipase Cancelled 30 Urine Color Yellow Urine Clarity Clear Urine pH 7.0 Ur Specific [place] 1.010 Urine Protein Negative Urine Glucose (UA) Normal Urine Ketones Negative Urine Occult Blood Negative Urine Nitrite Negative Urine Bilirubin Negative Urine Urobilinogen Normal Ur Leukocyte Esterase Negative Urine RBC 0-5 SEEN Urine WBC 0 SEEN Ur Squamous Epith Cells 0-5 SEEN Urine Bacteria 0 SEEN Urine Mucus 0 SEEN Radiography Chest X-Ray - ED: 2 View, Read by ED Physician, Read by Radiologist, Normal, Heart, Lungs, Mediastinum, Bony Structures, No Acute Disease and Chronic Changes Diagnostic Testing: Clinical Impression(s) from Imaging Studies Abdomen/Pelvis CT 01/18/25 09:57 IMPRESSION: 1. Multiple air cysts in the lung bases. There are multiple entities which could give this appearance. 2. Fluid and stool throughout the colon consistent with a nonspecific colitis. 3. Other findings as noted. Reading Location: [facility] Chest X-Ray 01/18/25 10:00 IMPRESSION: No evidence of acute cardiopulmonary pathology. Other findings as noted. Reading Location: [facility] Chest x-ray, 2 views, interpreted by by myself and radiologist. Shows normal cardiac silhouette. No acute processes. No pneumonia. No pneumothorax. No effusions. Discharge Plan Triage Chief Complaint: Flank Pain ED Provider: Seb Hernandez Dx/Rx/DC Orders Clinical Impression: Acute right flank pain Instructions: ED Flank Pain with Uncertain Cause Prescriptions: No Action metoprolol succinate 100 MG tablet extended release 24 hr 50 mg PO QHS amlodipine 5 MG tablet 5 mg PO DAILY lisinopril 20 mg tablet 20 mg PO DAILY Patient Comments: TAKE 1 TABLET BY MOUTH EVERY DAY allopurinol 100 mg tablet 100 mg PO DAILY Patient Comments: TAKE 1 TABLET BY MOUTH EVERY DAY multivitamin Tablet 1 tab PO DAILY escitalopram oxalate 5 mg tablet 5 mg PO DAILY gabapentin 300 mg capsule 300 mg PO TID cholecalciferol (vitamin D3) [Vitamin D3] 25 mcg (1,000 unit) Tablet 25 mcg PO DAILY calcium 2 tab PO/SL DAILY iron 1 cap PO/SL DAILY warfarin [Jantoven] 3 mg tablet 3 mg PO SuTuThSa@1700 acetaminophen 500 mg Tablet 1,000 mg PO Q8 Qty: 0 0RF oxycodone 5 mg Tablet 5 mg PO Q6H PRN PRN (Reason: Pain Score 6-10) 3 Days Qty: 12 0RF aspirin 81 mg capsule 81 mg PO DAILY zolpidem [Ambien] 5 mg tablet 5 mg PO QHS warfarin 2 mg tablet 2 mg PO docusate sodium 100 mg capsule 100 mg PO DAILY oxybutynin chloride 5 mg tablet extended release 24hr 5 mg PO DAILY rosuvastatin 5 mg tablet 5 mg PO DAILY Primary Care Provider: Radha Carmichael Referrals: Radha Carmichael MD [Primary Care Provider] - 1 Week if not improving Activity Restrictions/Additional Instructions: It appears that the right flank and posterior rib cage pain you are having is musculoskeletal. Your tests look good. Hot shower. Warm bath. Massage. Tylenol for pain. This should start progressively improving if not follow-up with your doctor. Print Language: [place] Disposition Disposition: Home, Self Care
[2025-01-18 09:50] LABS: Mucous, Urine 0 SEEN /hpf (<or=2+)
[2025-01-18 09:52] LABS: Color, Urine Yellow (Yellow); Glucose, Dipstick Normal (Normal); Ketone-Dipstick Negative (Negative); Leukocyte Esterase-Dipstick Negative /ul (Negative); Nitrite-Dipstick Negative (Negative); Occult Blood-Urine Negative /ul (Negative); Protein-Dipstick Negative (Negative); Specific Gravity, Urine 1.010 (1.002-1.030); Urine Bilirubin Dipstick Negative (Negative)
[2025-01-18 09:56] LABS: Hematocrit 45.7 % (37-47); Hemoglobin 15.3 g/dL (12.0-15.0); Immature Granulocytes Count 0.020 X10^3/uL (0.0-0.0); Mean Corp Hgb Conc 33.5 g/dL (32-36); Mean Corpuscular Volume 91.8 fL (81-99); Mean Platelet Vol. 9.4 fl (6.2-12.0); NRBC Flagged by Analyzer 0 % (0-5); Platelet Count 224 K/mm3 (150-450); RBC Distribution Width CV 12.6 % (11.6-14.6); RBC Distribution Width SD 42.0 fl (35.1-43.9); Red Blood Count 4.98 M/mm3 (4.2-5.4); White Blood Count 5.6 K/mm3 (4.4-11.0)
--- NOTE | 2025-01-18 09:57 | CT_ITS ---
PROCEDURE: CT abdomen and pelvis without IV contrast. 01/18/2025 REASON FOR EXAM: PAIN Recent colonoscopy. Right flank pain. TECHNIQUE: Procedure Code: CTABDPEL Modality: CT Procedure: ABDOMEN/PELVIS WITHOUT CONT Noncontrast technique limits evaluation of the abdominal and pelvic viscera. Coronal and Sagittal reconstruction series were provided. One or more dose reduction techniques were used (e.g., Automated exposure control, adjustment of the mA and/or kV according to patient size, use of iterative reconstruction technique). RADIATION DOSE SUMMARY: CTDlvol: 16.58 mGy DLP: 873.92 mGycm COMPARISON: None. FINDINGS: Lung bases: There are multiple air cysts in both lungs. This is a nonspecific finding. There are no pleural effusions. The heart size is normal. There is no pericardial effusion. There is a prosthetic aortic valve. There is no calcific vascular disease of the coronary arteries evident. Liver: Normal size. No obvious mass. Gallbladder: Normal. Spleen: Normal size. Pancreas: Normal size. No surrounding inflammation. Adrenals: Normal unenhanced appearance. Kidneys: No urolithiasis. No hydronephrosis. There are hyperdense cysts in both kidneys. Bladder: Normal unenhanced appearance. Reproductive Organs: The uterus is surgically absent. The ovaries are unremarkable. There is no free fluid in the pelvis. There is no inguinal lymphadenopathy. Bowel: There is fluid and stool throughout the colon. Appendix: Normal. Lymph nodes: No suspicious lymph node enlargement. Vasculature: Mild diffuse atherosclerotic calcifications are noted. Peritoneum / Retroperitoneum: There are no abnormal intra or retroperitoneal masses or fluid collections. There are no abdominal wall defects. Bones: There is moderate to severe multilevel degenerative disc disease of the lower thoracic and lumbar spine. There is mild dextroscoliosis of the thoracolumbar spine. CT/Abdomen/Pelvis without Cont IMPRESSION: 1. Multiple air cysts in the lung bases. There are multiple entities which co uld give this appearance. 2. Fluid and stool throughout the colon consistent with a nonspecific colitis. 3. Other findings as noted. Reading Location: [id number]
--- NOTE | 2025-01-18 10:00 | RAD_ITS ---
PROCEDURE: CHEST PA AND LATERAL 01/18/2025 REASON FOR EXAM: RIGHT LOWER LATERAL RIB CAGE PAIN AND POSTERIOR TECHNIQUE: Procedure Code: RADCXR Modality: DX Procedure: CHEST PA AND LATERAL COMPARISON: Portable chest, 03/05/2024. FINDINGS: The lungs are clear. The heart size is normal. There is calcific vascular disease of the coronary arteries in the thoracic aorta. Status post CABG surgery. Status post median sternotomy. There is a right shoulder arthroplasty. The upper abdominal bowel gas pattern is normal. RAD/Chest PA and Lateral IMPRESSION: No evidence of acute cardiopulmonary pathology. Other findings as noted. Reading Location: [id number]
[2025-01-18 10:01] LABS: Red Blood Cells-Urine 0-5 SEEN /hpf (0-5); Squamous Epithelial Cells - UA 0-5 SEEN /hpf (5-10)
[2025-01-18 10:05] LABS: Prothrombin Time (Protime)PT. 19.9 SECONDS (11.7-14.9)
--- NOTE | 2025-01-18 10:16 | CM.ED ---
Social Work Date of referral: 01/18/2025 Reason for referral: Advanced Care Directives (ACD's) not on file. Referred by: Social Work Identification Patient provided consent to Social Work visit. Music Arranger requested patient to bring in copy of ACD's which patient was agreeable to. Cleo Horne, LIBRARY MEDIA SPECIALIST, PAINTER MAINTENANCE
[2025-01-18 10:49] LABS: AST(SGOT) 24 U/L (<=31); Alanine Aminotransfer ALT/SGPT 17 U/L (<=34); Albumin, Serum 4.1 g/dL (3.4-4.8); Alkaline Phosphatase 127 U/L (35-104); Anion Gap 12 (5-15); BUN 15 mg/dL (4-19); BUN/Creat Ratio 15.1 RATIO (10-20); Calcium,Total 9.7 mg/dL (7.6-11.0); Carbon Dioxide 23.8 mmol/L (21.0-32.0); Chloride 103 mmol/L (98-108); Estimated Creatinine Clearance 45.44 ml/min (50-250); Globulin 3.1 g/dL (2.2-4.2); Glucose 149 mg/dL (70-99); Lipase 30 U/L (13-75); Potassium 4.3 mmol/L (3.3-5.1)
[2025-01-18 12:37] VITALS: BP 183/68; PULSE 62; RESP 17; TEMP 36.6; O2SAT 100
== END 2025-01-18 12:43 | disposition home or self-care (01) ==
PROVIDERS: Emergency Provider Emergency Medicine; PCP Internal Medicine; Visit Provider Emergency Medicine
DX: R10.9 Unspecified abdominal pain (principal); F03.90 Unspecified dementia, unspecified severity, without behavioral disturbance, psychotic disturbance, mood disturbance, and anxiety; E11.9 Type 2 diabetes mellitus without complications; Z86.73 Personal history of transient ischemic attack (TIA), and cerebral infarction without residual deficits
CPT/HCPCS: 71046; 74176; 80053; 81001; 83690; 85025; 85610; 96374; 96375; 96376; 99282; A4216; J2405